=== PATIENT | male | born 1940 | race Caucasian/White ===

== ENCOUNTER → 2016-04-22 | Outpatient (CLI) | payer OTHER ==
[~2016-04-22] MED LIST: ASCA500 PO; ASPCH81 PO; ATOR-24 PO; BISA1TAB15 PO; CHOL1000 PO; CHOL100010 PO; DLC5 PO; FINA5TAB PO; GABA-113 PO; HYDR-3419 PO; LANS15CA6 PO; LANS30CA12 PO; LEFL20TA PO; LISI5TAB3 PO; MELO15TA4 PO; MULT-506 PO; OMEG10007 PO; TAMS0.4C38 PO; VISION VITAMIN PO
--- NOTE | 2016-04-22 16:36 | DIAGNOSTIC IMAGING REPORT ---
KUB CLINICAL HISTORY: Left flank pain. Preop study. Kidney stone. COMPARISON STUDY: 04/06/2016 FINDINGS: There is no pathologic bowel dilatation. There is a 6 mm calcification at the L2 level, consistent with a proximal left ureteral calculus. IMPRESSION: No significant change in the position of the 6 mm proximal left ureteral calculus. Electronically signed by: Jey Joyce M.D. 04/22/2016 4:34 PM Dictated Date/Time: 04/22/2016 4:33 PM
== END | disposition home or self-care (01) ==
LOC: C.RAD 16:06
PROVIDERS: ATTEND Nurse Practitioner Family
DX: N20.0 Calculus of kidney (principal)

== ENCOUNTER → 2016-04-23 | Day surgery (SDC) | payer OTHER ==
[2016-04-21 07:35] VITALS: Ht 167.6 cm; Wt 95.5 kg
[~2016-04-23] VITALS: Ht 167.6 cm; Wt 95.5 kg
[~2016-04-23] MED LIST changes: +ATROPINE SULFATE 0.1 MG/ML 5ML SYR IV PRN; +CIPROFLOXACIN / D5W 400 MG IV SCH; +DEXAMETHASONE SOD INJ 4 MG/ML VIAL ONE; +EpHEDrine SULFATE INJ 50 MG/ML AMP IV PRN; +EpHEDrine SULFATE INJ 50 MG/ML AMP ONE; +FENTANYL CITRATE INJ 50 MCG/1 ML 2 ML VIAL IV PRN; +FENTANYL CITRATE INJ 50 MCG/1 ML 2 ML VIAL ONE; +GLYCOPYRROLATE INJ 0.2 MG/ML VIAL ONE; +LACTATED RINGER'S 1000ML 1,000 ML IV SCH; +MIDAZOLAM HCL 1 MG/ML 2ML VIAL ONE; +ONDANSETRON INJ 2 MG/ML 2 ML VIAL IV PRN; +ONDANSETRON INJ 2 MG/ML 2 ML VIAL ONE; +PROPOFOL IV EMULSION 10 MG/ML 20 ML VIAL IV ONE
--- NOTE | 2016-04-23 11:07 | History & Physical Bridge - SC ---
H&P Re-Evaluation Bridge Note: I have examined the patient, reviewed the History & Physical and in the interval since the performance of the History & Physical I have noted the following changes of clinical significance: No changes noted
--- NOTE | 2016-04-23 11:49 | [facility] Post Operative Brief Note ---
Immediate Operative Summary Operative Date Apr 23, 2016. Pre-Operative Diagnosis Left ureteral stone Post-Operative Diagnosis same Procedure(s) Performed Left Extracorporeal Shock Wave Lithotripsy, Repeat--Ureteral Surgeon Dr Ugalde Radio Host Surgeon(s) 0 Estimated Blood Loss 0 Findings stone appeared to fragment Specimens 0
--- NOTE | 2016-04-23 11:51 | Discharge Instructions-SurgCtr ---
Discharge Instructions Visit Reason for Visit: Stones Discharge Goals Goal(s): Decrease discomfort, Improve function, Increase independence, Improve disease control Medications Stopped Medications Name(s): Asa and fish oil daily, last dose 04/14/16 Activity Recommendations Activity Limitations: as noted below (no driving on narcotics) Anesthesia . Post Anesthesia Instructions: If you have had General Anesthesia or IV Sedation: * Do not drive today. * Resume driving when surgeon permits. * Do not make important decisions or sign legal documents today. * Call surgeon for: 1. Temperature elevations greater than 101 degrees F. 2. Uncontrollable pain. 3. Excessive bleeding. 4. Persistent nausea and vomiting. 5. Medication intolerance (nausea, vomiting or rash). * For nausea and vomiting use only clear liquids such as: tea, soda, bouillon until nausea subsides, then gradually increase diet as tolerated. * If you have any concerns or questions, call your surgeon's office. If physician is unavailable and it is an emergency, call 911 or go to the nearest emergency room. . Diet Recommendations Home Diet: resume previous diet Procedures Procedures Performed: Left Extracorporeal Shock Wave Lithotripsy, Repeat--Ureteral Medical Emergencies . Who to Call and When: Medical Emergencies: If at any time you feel your situation is an emergency, please call 911 immediately. . Non-Emergent Contact Non-Emergency issues call your: Urologist . . "Provider Documentation" section prepared by Josh Ugalde.
--- NOTE | 2016-04-23 12:19 | Anesthesia Progress Nt - [facility] ---
Anesthesia Post Op Note Date & Time Apr 23, 2016 at 12:19 Vital Signs Pain Intensity: 0 Vital Signs Past 12 Hours Date Time Temp Pulse Resp B/P Pulse Ox O2 Delivery O2 Flow Rate FiO2 04/23/16 11:59 36.0 97 12 152/84 96 Diffusion Mask 6 04/23/16 09:26 36.3 65 20 137/79 94 Room Air Notes Mental Status: alert / awake / arousable, participated in evaluation Pt Amnestic to Procedure: Yes Nausea / Vomiting: adequately controlled Pain: adequately controlled Airway Patency, RR, SpO2: stable & adequate BP & HR: stable & adequate Hydration State: stable & adequate Anesthetic Complications: no major complications apparent
[2016-04-23 12:38] VITALS: TEMP 36.4
[2016-04-23 12:55] VITALS: BP 170/90; PULSE 66; O2SAT 95
--- NOTE | 2016-04-23 13:03 | OPERATIVE REPORT ---
DATE OF OPERATION: 04/23/2016 PREOPERATIVE DIAGNOSIS: Proximal left ureteral stone. POSTOPERATIVE DIAGNOSIS: Same. SURGEON: Dr. Ugalde. ANESTHESIA: General. INDICATIONS: The patient is a 75-year-old male with a history of a proximal left ureteral stone who presented for definitive therapy with left ESWL. DESCRIPTION OF THE PROCEDURE: He was taken to the operating room after Venodyne stockings were placed and antibiotics were given. He was placed in supine position. The stone was then visualized and he received 2500 shocks up to level 5. The stone did appear to fragment during the course of the procedure where at least it got coding clerk. At end of the procedure, he was transferred to the recovery room in stable condition. I attest to the content of the Intraoperative Record and any orders documented therein. Any exceptio ns are noted below.
== END | disposition home or self-care (01) ==
LOC: X.SURG 09:08
PROVIDERS: ATTEND Urology
DX: N20.1 Calculus of ureter (principal); I10 Essential (primary) hypertension; E11.9 Type 2 diabetes mellitus without complications; E78.5 Hyperlipidemia, unspecified; K21.9 Gastro-esophageal reflux disease without esophagitis; G47.33 Obstructive sleep apnea (adult) (pediatric); E66.9 Obesity, unspecified; M19.90 Unspecified osteoarthritis, unspecified site; Z98.890 Other specified postprocedural states; E78.00 Pure hypercholesterolemia, unspecified; Z87.891 Personal history of nicotine dependence; Z79.82 Long term (current) use of aspirin

== ENCOUNTER → 2016-04-26 | Outpatient (CLI) | payer OTHER ==
[~2016-04-26] MED LIST changes: -ATROPINE SULFATE 0.1 MG/ML 5ML SYR IV PRN; -CIPROFLOXACIN / D5W 400 MG IV SCH; -DEXAMETHASONE SOD INJ 4 MG/ML VIAL ONE; -EpHEDrine SULFATE INJ 50 MG/ML AMP IV PRN; -EpHEDrine SULFATE INJ 50 MG/ML AMP ONE; -FENTANYL CITRATE INJ 50 MCG/1 ML 2 ML VIAL IV PRN; -FENTANYL CITRATE INJ 50 MCG/1 ML 2 ML VIAL ONE; -GLYCOPYRROLATE INJ 0.2 MG/ML VIAL ONE; -LACTATED RINGER'S 1000ML 1,000 ML IV SCH; -MIDAZOLAM HCL 1 MG/ML 2ML VIAL ONE; -ONDANSETRON INJ 2 MG/ML 2 ML VIAL IV PRN; -ONDANSETRON INJ 2 MG/ML 2 ML VIAL ONE; -PROPOFOL IV EMULSION 10 MG/ML 20 ML VIAL IV ONE
--- NOTE | 2016-04-26 16:46 | DIAGNOSTIC IMAGING REPORT ---
KUB HISTORY: N20.0 Calculus of [id number] COMPARISON: KUB 04/22/2016. FINDINGS: The bowel gas pattern is unremarkable. There are no dilated loops of small bowel to suggest an obstruction. There is a slightly fragment is noted in the mid left ureter overlapping the left L3 transverse process. This has passed approximately 2 cm distal from the prior study. The dominant component measures 5 mm. Is a punctate density overlapping the lower pole of the left kidney which was not present on the prior study. No pneumoperitoneum or pneumatosis. IMPRESSION: 1. Slightly fragmented stone at the mid left ureter which has passed approximately 2 cm distal from the prior study. 2. There is also a new 3 mm calcification overlapping the lower pole of the left kidney which was not present on the prior studies. This could represent a small portion of a stone within the left lower pole of the kidney Electronically signed by: Saud Moser M.D. 04/26/2016 4:44 PM Dictated Date/Time: 04/26/2016 4:39 PM
== END | disposition home or self-care (01) ==
LOC: C.RAD 16:25
PROVIDERS: ATTEND Nurse Practitioner Family
DX: K20.0 Eosinophilic esophagitis (principal)

== ENCOUNTER → 2016-08-05 | Day surgery (SDC) | payer OTHER ==
[2016-07-29 10:26] VITALS: BMI 35.0
[~2016-08-05] VITALS: Ht 167.6 cm; Wt 100.0 kg
[~2016-08-05] MED LIST changes: -CHOL100010 PO; -DLC5 PO; -GABA-113 PO; -HYDR-3419 PO; -LANS15CA6 PO; +LIDOCAINE HCL 2% 2 ML VIAL (20MG/ML) ONE; +MIDAZOLAM HCL 1 MG/ML 2ML VIAL ONE; +ONDANSETRON INJ 2 MG/ML 2 ML VIAL ONE; +PROPOFOL IV EMULSION 10 MG/ML 20 ML VIAL IV ONE
[2016-08-05 12:08] VITALS: Ht 167.6 cm; Wt 100.0 kg
[2016-08-05 12:40] VITALS: TEMP 36.9
--- NOTE | 2016-08-05 12:43 | Endo History and Physical ---
History & Physical Date of Service: Aug 05, 2016. Chief Complaint: SCREENING COLONOSCOPY Referring Physician: DR. MITCHELL History of Present Illness 75 yo CM who presents for screening colonoscopy. Past Surgical History Hx Cardiac Surgery: No Hx Internal Defibrillator: No Hx Pacemaker: No Hx Abdominal Surgery: No Hx of Implantable Prosthesis: No Hx Post-Op Nausea and Vomiting: No Hx Cancer Surgery: No Hx Thoracic Surgery: No Hx Orthopedic: Yes (L/R SHOULDER SURGERY X3, RT TKA, L/R CTR) Hx Urinary Tract Surgery: Yes (LITHOTRIPSY) Family History None Social History Smoking Status: Former Smoker Hx Substance Use: No Hx Alcohol Use: No Allergies Coded Allergies: NO KNOWN DRUG ALLERGIES (Verified Allergy, Unknown, ., 08/05/16) Scallop (Verified Adverse Reaction, Unknown, VOMITING, 08/05/16) Current Medications Reported Home Medications Medications Dose Route/Sig Max Daily Dose Days Date Category Bisacodyl 5 Mg Tab 1 Tab PO QPM 07/29/16 Reported Vitamin D3 (Cholecalciferol) 1,000 Unit Tab 1 Tab PO QAM 90 07/29/16 Reported Lipitor (Atorvastatin Calcium) 40 Mg Tab 40 Mg PO QPM 07/29/16 Reported Mobic (Meloxicam) 15 Mg Tab 15 Mg PO DAILY 07/29/16 Reported Prevacid (Lansoprazole) 30 Mg Capcr 30 Mg PO QAM 07/29/16 Reported [Vision Vitamin] 1 Tab PO DAILY 07/09/11 Reported Everest-3 (Fish Oil) 1 Ea Cap 1 Cap PO BID 12/04/10 Reported Multivitamin (Multivitamins) Tab 1 Tab PO DAILY 07/04/07 Reported Vitamin C * (Ascorbic Acid) 500 Mg Tab 500 Mg PO DAILY 07/04/07 Reported Aspirin Tab-Chewable * (Aspirin) 81 Mg Chew 81 Mg PO BID 07/04/07 Reported Zestril (Lisinopril) 5 Mg Tab 5 Mg PO QAM 07/04/07 Reported Vital Signs Weight (Kilograms): 100.00 Height (Feet): 5 Height (Inches): 6 Date Time Temp Pulse Resp B/P Pulse Ox O2 Delivery O2 Flow Rate FiO2 08/05/16 12:40 36.9 61 20 125/71 95 Room Air Physical Exam General Appearance: WD/WN, no apparent distress Respiratory/Chest: Auscultation: breath sounds normal Cardiovascular: Heart Auscultation: RRR Abdomen: Bowel Sounds: normal Inspection & Palpation: soft, non-distended, no tenderness, guarding & rebound Assessment and Plan Assessment: 75 yo CM who presents for screening colonoscopy. Plan: Proceed with colonoscopy.
--- NOTE | 2016-08-05 14:07 | GI REPORT ---
Procedure Date: 08/05/2016 1:16 PM Procedure: Colonoscopy Indications: Screening for colorectal malignant neoplasm Medicines: Monitored Anesthesia Care Complications: No immediate complications. Estimated Blood Loss: Estimated blood loss: none. Procedure: Pre-Anesthesia Assessment: - Prior to the procedure, a History and Physical was performed, and patient medications and allergies were reviewed. The patient's tolerance of previous anesthesia was also reviewed. The risks and benefits of the procedure and the sedation options and risks were discussed with the patient. All questions were answered, and informed consent was obtained. Prior Anticoagulants: The patient has taken aspirin, last dose was 10 days prior to procedure. ASA Grade Assessment: II - A patient with mild systemic disease. After reviewing the risks and benefits, the patient was deemed in satisfactory condition to undergo the procedure. After I obtained informed consent, the scope was passed under direct vision. Throughout the procedure, the patient's blood pressure, pulse, and oxygen saturations were monitored continuously. The scope was introduced through the anus and advanced to the terminal ileum. The colonoscopy was performed without difficulty. The patient tolerated the procedure well. The quality of the bowel preparation was good. The terminal ileum, ileocecal valve, appendiceal orifice, and rectum were photographed. Findings: Multiple small-mouthed diverticula were found in the sigmoid colon. Non-bleeding internal hemorrhoids were found during retroflexion. The hemorrhoids were small. Impression: - Diverticulosis in the sigmoid colon. - Non-bleeding internal hemorrhoids. - No specimens collected. Recommendation: - Resume previous diet. - Continue present medications. - No repeat colonoscopy due to age and the absence of advanced adenomas. - Return to primary care physician as previously scheduled. Josh Franco DO 08/05/2016 2:06:04 PM This report has been signed electronically. Note Initiated On: 08/05/2016 1:16 PM I attest to the content of the Intraoperative Record and orders documented therein, exceptions below
--- NOTE | 2016-08-05 14:08 | Discharge Instructions ---
Endoscopy Patient Instructions Date / Procedure(s) Performed Aug 05, 2016. Colonoscopy Allergy Information Coded Allergies: NO KNOWN DRUG ALLERGIES (Verified Allergy, Unknown, ., 08/05/16) Scallop (Verified Adverse Reaction, Unknown, VOMITING, 08/05/16) Discharge Date / Findings Aug 05, 2016. Diverticulosis Internal hemorrhoids Medication Instructions Stopped Medication(s): STOPPED ASA 10 DAYS AGO OK to resume all medications today as prescribed Reported Home Medications Medications Dose Route/Sig Max Daily Dose Days Date Category Bisacodyl 5 Mg Tab 1 Tab PO QPM 07/29/16 Reported Vitamin D3 (Cholecalciferol) 1,000 Unit Tab 1 Tab PO QAM 90 07/29/16 Reported Lipitor (Atorvastatin Calcium) 40 Mg Tab 40 Mg PO QPM 07/29/16 Reported Mobic (Meloxicam) 15 Mg Tab 15 Mg PO DAILY 07/29/16 Reported Prevacid (Lansoprazole) 30 Mg Capcr 30 Mg PO QAM 07/29/16 Reported [Vision Vitamin] 1 Tab PO DAILY 07/09/11 Reported [place]-3 (Fish Oil) 1 Ea Cap 1 Cap PO BID 12/04/10 Reported Multivitamin (Multivitamins) Tab 1 Tab PO DAILY 07/04/07 Reported Vitamin C * (Ascorbic Acid) 500 Mg Tab 500 Mg PO DAILY 07/04/07 Reported Aspirin Tab-Chewable * (Aspirin) 81 Mg Chew 81 Mg PO BID 07/04/07 Reported Zestril (Lisinopril) 5 Mg Tab 5 Mg PO QAM 07/04/07 Reported Provider Instructions Activity Restrictions - No exercising or heavy lifting for 24 hours. - Do not drink alcohol the day of the procedure. - Do not drive a car or operate machinery until the day after the procedure. - Do not make any important decisions or sign important papers in 24 hours after the procedure. Following Day: - Return to full activity which may include returning to work/school. Diet Start your diet with liquids and light foods (jello, soup, juice, toast). Then eat your usual diet if not nauseated. Treatment For Common After Affects For mild abdominal pain, bloating, or excessive gas: - Rest - Eat lightly - Lie on right side Follow-Up Information Follow-up with DR. MITCHELL as scheduled Anesthesia Information What You Should Know You have had a procedure that required some medicine to reduce anxiety and discomfort. This treatment is called moderate sedation. After receiving the treatment, you may be sleepy, but you will be able to breathe on your own. The effects of the treatment may last for several hours. Follow these instructions along with Activity/Diet recommendations noted above: * Do NOT do anything where dizziness or clumsiness would be dangerous. * Rest quietly at home today, then you can be up and about tomorrow. * Have a responsible person stay with you the rest of today. * You may have had an I.V. today. If so, you may take the dressing off later today. Recommendations Call your doctor if: * Trouble breathing * Continuous vomiting for more than 24 hours * Temperature above 101 degrees * Severe abdominal pain or bloating * Pain not relieved by pain medicine ordered * There is increased drainage or redness from any incision * A large amount of rectal bleeding greater than 2-3 tablespoons. (If you had a polyp/s removed or have hemorrhoids, a small amount of blood - from the rectum is to be expected.) * You have any unanswered questions or concerns. IN THE EVENT OF A SERIOUS EMERGENCY, GO TO THE NEAREST EMERGENCY ROOM Your discharge instructions were prepared by provider Josh Franco. Patient Instructions Signature Page Barney Lofton Patient (or Guardian) Signature/Date: I have read and understand the instructions given to me by my caregivers. Caregiver/RN/Doctor Signature/Date: The above-named patient and/or guardian has received patient instructions on this date. + Original Patient Signature Page (only) stays with chart. Please make copy for patient.
[2016-08-05 14:35] VITALS: BP 129/82; PULSE 52; O2SAT 96
--- NOTE | 2016-08-05 14:37 | Anesthesiology Progress Note ---
Anesthesia Post Op Note Date & Time Aug 05, 2016 at 14:36 Vital Signs Pain Intensity: 0 Vital Signs Past 12 Hours Date Time Temp Pulse Resp B/P Pulse Ox O2 Delivery O2 Flow Rate FiO2 08/05/16 14:18 54 16 130/76 95 Room Air 08/05/16 14:03 60 16 129/69 95 Room Air 08/05/16 12:40 36.9 61 20 125/71 95 Room Air Notes Mental Status: alert / awake / arousable, participated in evaluation Pt Amnestic to Procedure: Yes Nausea / Vomiting: adequately controlled Pain: adequately controlled Airway Patency, RR, SpO2: stable & adequate BP & HR: stable & adequate Hydration State: stable & adequate Anesthetic Complications: no major complications apparent
== END | disposition home or self-care (01) ==
LOC: C.GI 11:58
PROVIDERS: ATTEND Internal Medicine
DX: Z12.11 Encounter for screening for malignant neoplasm of colon (principal); K64.8 Other hemorrhoids; K57.30 Diverticulosis of large intestine without perforation or abscess without bleeding; Z96.651 Presence of right artificial knee joint; Z87.891 Personal history of nicotine dependence

== ENCOUNTER → 2016-08-09 | Outpatient (CLI) | payer OTHER ==
[2016-08-05 13:55] LABS: BLOOD UREA NITROGEN 9 mg/dl (7-18); BUN/CREATININE RATIO 10.2 (10-20); CREATININE 0.91 mg/dl (0.60-1.40)
[~2016-08-09] MED LIST changes: -LIDOCAINE HCL 2% 2 ML VIAL (20MG/ML) ONE; -MIDAZOLAM HCL 1 MG/ML 2ML VIAL ONE; -ONDANSETRON INJ 2 MG/ML 2 ML VIAL ONE; +OPTIRAY 300 IV PRN; -PROPOFOL IV EMULSION 10 MG/ML 20 ML VIAL IV ONE
--- NOTE | 2016-08-09 14:15 | DIAGNOSTIC IMAGING REPORT ---
IVP W/OR W/O TOMOGRAMS CLINICAL HISTORY: Nephrolithiasis. COMPARISON STUDY: CT of the abdomen and pelvis April 08, 2016 and KUB April 26, 2016. TECHNIQUE: Initially, a breeder service technician KUB was obtained. An intravenous pyelogram was then performed following intravenous injection 100 cc of Optiray 300 IV. FINDINGS: Both nephrograms are symmetric. There is no hydronephrosis or hydroureter. No upper tract filling defects are identified. No urinary calculi are visualized. The left ureteral calculi/fragments shown on exam of April 26, 2016 are not visualized. Irregular bladder wall favors trabeculation. There is no significant post void residual. IMPRESSION: 1. No hydronephrosis or hydroureter. 2. No urinary calculi identified. The left ureteral calculi/fragments shown on prior exam of April 26, 2016 are not visualized on this study. 3. Irregularity of the bladder wall which favors trabeculations. Suboptimal evaluation of the bladder given this technique. Electronically signed by: Zev Baird M.D. 08/09/2016 2:13 PM Dictated Date/Time: 08/09/2016 2:08 PM
== END | disposition home or self-care (01) ==
LOC: C.RAD 12:27
PROVIDERS: ATTEND Urology
DX: N20.0 Calculus of kidney (principal); Z12.5 Encounter for screening for malignant neoplasm of prostate; N40.0 Benign prostatic hyperplasia without lower urinary tract symptoms

== ENCOUNTER → 2016-09-02 | Outpatient (CLI) | payer OTHER ==
[~2016-09-02] MED LIST changes: -OPTIRAY 300 IV PRN
[2016-09-02 12:16] LABS: BASO % 0.7 %; BASO ABS # 0.05 K/uL (0-0.2); COMPLETE YES; EOS % 1.5 %; HEMATOCRIT 45.3 % (42-52); IG% 0.1 %; LYMPH % 34.3 %; LYMPH ABS # 2.29 K/uL (1.2-3.4); MEAN CELL VOLUME 90.8 fL (80-100); MEAN CORPUSCULAR HEMOGLOBIN 30.5 pg (25-34); MEAN CORPUSCULAR HGB CONC 33.6 g/dl (32-36); MEAN PLATELET VOLUME 12.3 fL (7.4-10.4); MONO % 15.1 %; NEUT % 48.3 %; PLATELET COUNT 192 K/uL (130-400); RED BLOOD COUNT 4.99 M/uL (4.7-6.1); WHITE BLOOD COUNT 6.67 K/uL (4.8-10.8)
[2016-09-02 12:20] LABS: URINE APPEARANCE CLEAR (CLEAR); URINE BILIRUBIN NEG (NEG); URINE COLOR YELLOW; URINE NITRITE NEG (NEG); URINE PH 6.5 (4.5-7.5); URINE SPECIFIC GRAVITY 1.025 (1.000-1.030); UROBILINOGEN NEG (NEG); ZZUR CULT IF INDIC CLEAN CATCH NO
[2016-09-02 12:33] LABS: MANUAL MICROSCOPIC REQUIRED? NO; REVIEW REQ? NO
[2016-09-02 12:34] LABS: ESTIMATED AVERAGE GLUCOSE 137 mg/dl; HA1C FLAG Normal (Normal)
[2016-09-02 13:11] LABS: ALKALINE PHOSPHATASE 84 U/L (45-117); ALT/SGPT 32 U/L (12-78); AST/SGOT 21 U/L (15-37); BLOOD UREA NITROGEN 13 mg/dl (7-18); BUN/CREATININE RATIO 15.2 (10-20); CARBON DIOXIDE 27 mmol/L (21-32); CHLORIDE 108 mmol/L (98-107); CHOLESTEROL 128 mg/dl (0-200); CHOLESTEROL/HDL RATIO 3.5; CREATININE 0.86 mg/dl (0.60-1.40); GLUCOSE 127 mg/dl (70-99); HDL CHOLESTEROL 37 mg/dl; LDL CHOLESTEROL CALCULATED 50 mg/dl; POTASSIUM 3.8 mmol/L (3.5-5.1); SODIUM 142 mmol/L (136-145); TRIGLYCERIDES 203 mg/dl (0-150); VERY LOW DENSITY LIPOPROT CALC 41 mg/dl
[2016-09-02 13:17] LABS: RATIO 7.5 mcg/mg (0-30.0)
[2016-09-02 13:21] LABS: ALB/GLOB RATIO 1.1 (0.9-2)
== END | disposition home or self-care (01) ==
LOC: C.LABBFT 09:29
PROVIDERS: ATTEND Internal Medicine
DX: M19.90 Unspecified osteoarthritis, unspecified site (principal); E11.9 Type 2 diabetes mellitus without complications; M85.80 Other specified disorders of bone density and structure, unspecified site; E78.00 Pure hypercholesterolemia, unspecified

== ENCOUNTER → 2016-09-28 | Day surgery (SDC) | payer OTHER ==
[2016-09-09 09:58] VITALS: Ht 167.6 cm; Wt 100.0 kg
[~2016-09-28] VITALS: Ht 167.6 cm; Wt 100.0 kg
[~2016-09-28] MED LIST changes: +500ML BSS 0.3ML EPI 1:1000PF IRRIG ONE; +ACETAMINOPHEN 325 MG TAB PO PRN; +AMVISC PLUS 0.8ML SYRINGE INT OCU ONE; +ATROPINE SULFATE 0.1 MG/ML 5ML SYR IV PRN; +BSS FLUSH ONE; +EpHEDrine SULFATE INJ 50 MG/ML AMP IV PRN; +EpINEphrine INJ 1MG/ML AMP 1 MG/ML AMP ONE; +FENTANYL CITRATE INJ 50 MCG/1 ML 2 ML VIAL IV PRN; +FLUMAZENIL 0.1 MG/1 ML 10 ML VIAL IV PRN; +HYDROmorphone INJ 2 MG/ML SYR/VIAL IV PRN; +LABETALOL HCL IV 5 MG/ML 20ML IV PRN; +LACTATED RINGER'S 1000ML 500 ML IV SCH; +LIDOCAINE 3.5% OPH GEL PER APPLICATION CHARGE ONE; +LIDOCAINE HCL 1% MPF 2 ML VIAL ONE; +MEPERIDINE HCL 25 MG/ML CARP IV PRN; +MIDAZOLAM HCL 1 MG/ML 2ML VIAL ONE; -MULT-506 PO; +NALOXONE HCL 0.4 MG/1 ML VIAL/CARP IV PRN; +OCUCOAT 1 ML SOLN IO ONE; +ONDANSETRON INJ 2 MG/ML 2 ML VIAL IV PRN; +PHENYLEPHRINE 100MCG/ML 5ML SYR IV PRN; +POVIDONE-IODINE OP SOLN 30 ML BTL ONE; +PROPARACAINE 0.5% OP SOLN PER DROP CHARGE OPL SCH; +TOBRAMYCIN/DEXAMETHASONE OPH OINT PER APPLN CHARGE ONE
[2016-09-28] MEDS: PHENYLEPHRINE HCL 2.5% OP SOLN PER DROP CHARGE OPL SCH ×2 (07:06→07:11)
[2016-09-28] MEDS: TROPICAMIDE 1% OP SOLN PER DROP CHARGE OPL SCH ×2 (07:07→07:12)
[2016-09-28] MEDS: CYCLOPENTOLATE HCL 1% OP SOLN PER DROP CHARGE OPL SCH ×2 (07:08→07:13)
[2016-09-28] MEDS: GATIFLOXACIN OP SOLN PER DROP CHARGE OPL SCH ×2 (07:10→07:20)
[2016-09-28] MEDS: KETOROLAC 0.5% OP SOLN PER DROP CHARGE OPL SCH ×2 (07:10→07:14)
--- NOTE | 2016-09-28 08:26 | Discharge Instructions-SurgCtr ---
Discharge Instructions Date of Service Sep 28, 2016. Visit Reason for Visit: Cataract Left Eye Discharge Discharge Diagnosis / Problem: cataract Discharge Goals Goal(s): Improve function Activity Recommendations Activity Limitations: per Instructions/Follow-up section Anesthesia . Post Anesthesia Instructions: If you have had General Anesthesia or IV Sedation: * Do not drive today. * Resume driving when surgeon permits. * Do not make important decisions or sign legal documents today. * Call surgeon for: 1. Temperature elevations greater than 101 degrees F. 2. Uncontrollable pain. 3. Excessive bleeding. 4. Persistent nausea and vomiting. 5. Medication intolerance (nausea, vomiting or rash). * For nausea and vomiting use only clear liquids such as: tea, soda, bouillon until nausea subsides, then gradually increase diet as tolerated. * If you have any concerns or questions, call your surgeon's office. If physician is unavailable and it is an emergency, call 911 or go to the nearest emergency room. . Instructions / Follow-Up Instructions / Follow-Up ACTIVITY RECOMMENDATIONS: * No strenuous lifting, jogging or running for 4 days * No swimming or yard work for 1 week. * Limited bending is permitted, such as putting on shoes. RETURN TO SCHOOL/WORK: No work until seen by physician in office. MEDICATIONS: Resume previous medications unless instructed otherwise by your surgeon. This includes eye drops for glaucoma. Zymaxid/Gatifloxacin (mirza cap) - one drop every 2 hours until bedtime Nevanac/Ilevro/Prolensa/Ketorolac (dumont cap) - one drop every 4 hours until bedtime Prednisolone (white/pink cap, SHAKE WELL) - one drop every 2 hours until bedtime Starting tomorrow - all 3 drops every 4 hours until seen in the office Optive drops - as needed for discomfort SPECIAL CARE INSTRUCTIONS: * Wear eyeshield when sleeping, for four nights. * You may wear your own glasses or sunglasses while awake. * You may read or watch TV * You may shower and wash your face, but be gentle around the eye and pat dry. * Blurry vision and mild irritation are normal. * Call office if pain is more severe or vision becomes dark at . FOLLOW UP VISIT: Follow-up with Dr Plummer tomorrow. Diet Recommendations Home Diet: resume previous diet Procedures Procedures Performed: Left Cataract Phacoemulsification With Intraocular Lens Implant Pending Studies Studies pending at discharge: no Medical Emergencies . Who to Call and When: Medical Emergencies: If at any time you feel your situation is an emergency, please call 911 immediately. . Non-Emergent Contact Non-Emergency issues call your: [employer] . . "Provider Documentation" section prepared by Lauro Plummer. .
--- NOTE | 2016-09-28 08:27 | [facility] Operative Report ---
Operative Report Date of Service Sep 28, 2016. Operative Report 1. PREOPERATIVE DIAGNOSIS: Cataract of the left eye. 2. POSTOPERATIVE DIAGNOSIS: Same. 3. PROCEDURE: Phacoemulsification with intraocular lens implantation of the left eye. SURGEON: Dr. Lauro Plummer. ANESTHESIA: Topical Lidocaine gel, 1% Non- Preserved intracameral Lidocaine, and monitored intravenous sedation. INDICATIONS FOR THE PROCEDURE: The patient is a 75 - year-old male with a history of cataract of the left eye causing significant visual impairment. The details of the proposed procedure were explained to the patient who asked appropriate questions and following discussion of all risks, benefits and alternatives agreed to have the procedure done. 4. OPERATION AND FINDINGS: DESCRIPTION OF PROCEDURE: After informed consent was obtained, the patient was brought to the Operating Room at the [facility]. The patient was placed in a supine position and then the left eye was prepped and draped in the usual sterile fashion for intraocular surgery. A drop of topical Lidocaine gel was placed in the operative eye. A wire lid speculum was then placed in the fornices. A corneal paracentesis was then created temporally. The Non-Preserved Lidocaine was then instilled into the anterior chamber. The anterior chamber was then pressurized with viscoelastic. A 2.0 mm clear corneal incision was then created temporally. A cystotome was inserted into the anterior chamber and used to create a tear in the anterior lens capsule. This capsular tear was then used to create a small flap and the flap was dragged in a counterclockwise direction in order to create a continuous curvilinear capsulorrhexis. Hydrodissection was accomplished with balanced salt solution. Phacoemulsification of the lens nucleus was then performed in a standard [id number] technique. The phaco time was 27 seconds with an average power of 12 %. The remaining cortical material was removed using irrigation aspiration. The capsular bag was then filled with viscoelastic. A [employer]ch [employer] Lomb MI60L +25.0 diopters lens was then loaded into the injector and injected into the capsular bag. The remaining viscoelastic was removed with the irrigation aspiration handpiece. The wound was hydrated and then checked and found to be watertight. The intraocular pressure was checked and found to be adequate. The wire lid speculum was removed and the patient's face was cleaned and dried. TobraDex ointment was placed in the inferior fornix. The patient was discharged to the Recovery Room having tolerated the procedure well. There were no complications. The patient will be seen tomorrow in the office for follow-up. I attest to the content of the Intraoperative Record and any orders documented therein. Any exceptions are noted below.
[2016-09-28 08:30] VITALS: TEMP 36.9
--- NOTE | 2016-09-28 08:45 | Anesthesia Progress Nt - [facility] ---
Anesthesia Post Op Note Date & Time Sep 28, 2016 at 08:45 Vital Signs Pain Intensity: 0 Vital Signs Past 12 Hours Date Time Temp Pulse Resp B/P (MAP) Pulse Ox O2 Delivery O2 Flow Rate FiO2 09/28/16 08:30 36.9 60 18 124/79 (94) 97 Room Air 09/28/16 06:58 36.9 69 20 146/83 (104) 93 Room Air Notes Mental Status: alert / awake / arousable, participated in evaluation Pt Amnestic to Procedure: Yes Nausea / Vomiting: adequately controlled Pain: adequately controlled Airway Patency, RR, SpO2: stable & adequate BP & HR: stable & adequate Hydration State: stable & adequate Anesthetic Complications: no major complications apparent
[2016-09-28 08:51] VITALS: BP 149/90; PULSE 56; O2SAT 95
== END | disposition home or self-care (01) ==
LOC: X.SURG 06:41
PROVIDERS: ATTEND Ophthalmology
DX: H26.9 Unspecified cataract (principal); H40.9 Unspecified glaucoma; E11.36 Type 2 diabetes mellitus with diabetic cataract; I10 Essential (primary) hypertension; E78.5 Hyperlipidemia, unspecified; G47.33 Obstructive sleep apnea (adult) (pediatric); Z98.890 Other specified postprocedural states; Z96.659 Presence of unspecified artificial knee joint; Z87.891 Personal history of nicotine dependence; Z79.82 Long term (current) use of aspirin; Z79.899 Other long term (current) drug therapy; Z68.35 Body mass index [BMI] 35.0-35.9, adult

== ENCOUNTER → 2016-10-26 | Day surgery (SDC) | payer OTHER ==
[2016-10-05 11:14] VITALS: Ht 167.6 cm; Wt 100.0 kg
[~2016-10-26] VITALS: Ht 167.6 cm; Wt 100.0 kg
[~2016-10-26] MED LIST changes: -FENTANYL CITRATE INJ 50 MCG/1 ML 2 ML VIAL IV PRN; -FLUMAZENIL 0.1 MG/1 ML 10 ML VIAL IV PRN; -HYDROmorphone INJ 2 MG/ML SYR/VIAL IV PRN; -LABETALOL HCL IV 5 MG/ML 20ML IV PRN; -MEPERIDINE HCL 25 MG/ML CARP IV PRN; -NALOXONE HCL 0.4 MG/1 ML VIAL/CARP IV PRN; -ONDANSETRON INJ 2 MG/ML 2 ML VIAL IV PRN; -PHENYLEPHRINE 100MCG/ML 5ML SYR IV PRN; -PROPARACAINE 0.5% OP SOLN PER DROP CHARGE OPL SCH; +PROPARACAINE 0.5% OP SOLN PER DROP CHARGE OPR SCH
[2016-10-26] MEDS: PHENYLEPHRINE HCL 2.5% OP SOLN PER DROP CHARGE OPR SCH ×2 (10:33→10:38)
[2016-10-26] MEDS: TROPICAMIDE 1% OP SOLN PER DROP CHARGE OPR SCH ×2 (10:34→10:40)
[2016-10-26] MEDS: CYCLOPENTOLATE HCL 1% OP SOLN PER DROP CHARGE OPR SCH ×2 (10:35→10:41)
[2016-10-26] MEDS: KETOROLAC 0.5% OP SOLN PER DROP CHARGE OPR SCH ×2 (10:36→10:42)
[2016-10-26] MEDS: GATIFLOXACIN OP SOLN PER DROP CHARGE OPR SCH ×2 (10:37→10:42)
--- NOTE | 2016-10-26 11:48 | [facility] Operative Report ---
Operative Report Date of Service Oct 26, 2016. Operative Report 1. PREOPERATIVE DIAGNOSIS: Cataract of the right eye. 2. POSTOPERATIVE DIAGNOSIS: Same. 3. PROCEDURE: Phacoemulsification with intraocular lens implantation of the right eye. SURGEON: Dr. Lauro Plummer. ANESTHESIA: Topical Lidocaine gel, 1% Non- Preserved intracameral Lidocaine, and monitored intravenous sedation. INDICATIONS FOR THE PROCEDURE: The patient is a 75 - year-old male with a history of cataract of the right eye causing significant visual impairment. The details of the proposed procedure were explained to the patient who asked appropriate questions and following discussion of all risks, benefits and alternatives agreed to have the procedure done. 4. OPERATION AND FINDINGS: DESCRIPTION OF PROCEDURE: After informed consent was obtained, the patient was brought to the Operating Room at the [facility]. The patient was placed in a supine position and then the right eye was prepped and draped in the usual sterile fashion for intraocular surgery. A drop of topical Lidocaine gel was placed in the operative eye. A wire lid speculum was then placed in the fornices. A corneal paracentesis was then created temporally. The Non-Preserved Lidocaine was then instilled into the anterior chamber. The anterior chamber was then pressurized with viscoelastic. A 2.0 mm clear corneal incision was then created temporally. A cystotome was inserted into the anterior chamber and used to create a tear in the anterior lens capsule. This capsular tear was then used to create a small flap and the flap was dragged in a counterclockwise direction in order to create a continuous curvilinear capsulorrhexis. Hydrodissection was accomplished with balanced salt solution. Phacoemulsification of the lens nucleus was then performed in a standard [id number] technique. The phaco time was 27 seconds with an average power of 13 %. The remaining cortical material was removed using irrigation aspiration. The capsular bag was then filled with viscoelastic. A [employer]ch [employer] Lomb MI60L +25.0 diopters lens was then loaded into the injector and injected into the capsular bag. The remaining viscoelastic was removed with the irrigation aspiration handpiece. The wound was hydrated and then checked and found to be watertight. The intraocular pressure was checked and found to be adequate. The wire lid speculum was removed and the patient's face was cleaned and dried. TobraDex ointment was placed in the inferior fornix. The patient was discharged to the Recovery Room having tolerated the procedure well. There were no complications. The patient will be seen tomorrow in the office for follow-up. I attest to the content of the Intraoperative Record and any orders documented therein. Any exceptions are noted below.
--- NOTE | 2016-10-26 11:49 | Discharge Instructions-SurgCtr ---
Discharge Instructions Date of Service Oct 26, 2016. Visit Reason for Visit: Cataract Right Eye Discharge Discharge Diagnosis / Problem: cataract Discharge Goals Goal(s): Improve function Activity Recommendations Activity Limitations: per Instructions/Follow-up section Anesthesia . Post Anesthesia Instructions: If you have had General Anesthesia or IV Sedation: * Do not drive today. * Resume driving when surgeon permits. * Do not make important decisions or sign legal documents today. * Call surgeon for: 1. Temperature elevations greater than 101 degrees F. 2. Uncontrollable pain. 3. Excessive bleeding. 4. Persistent nausea and vomiting. 5. Medication intolerance (nausea, vomiting or rash). * For nausea and vomiting use only clear liquids such as: tea, soda, bouillon until nausea subsides, then gradually increase diet as tolerated. * If you have any concerns or questions, call your surgeon's office. If physician is unavailable and it is an emergency, call 911 or go to the nearest emergency room. . Instructions / Follow-Up Instructions / Follow-Up ACTIVITY RECOMMENDATIONS: * No strenuous lifting, jogging or running for 4 days * No swimming or yard work for 1 week. * Limited bending is permitted, such as putting on shoes. RETURN TO SCHOOL/WORK: No work until seen by physician in office. MEDICATIONS: Resume previous medications unless instructed otherwise by your surgeon. This includes eye drops for glaucoma. Zymaxid/Gatifloxacin (mirza cap) - one drop every 2 hours until bedtime Nevanac/Ilevro/Prolensa/Ketorolac (dumont cap) - one drop every 4 hours until bedtime Prednisolone/Durezol (white/pink cap, SHAKE WELL) - one drop every 2 hours until bedtime Starting tomorrow - all 3 drops every 4 hours until seen in the office Optive drops - as needed for discomfort SPECIAL CARE INSTRUCTIONS: * Wear eyeshield when sleeping, for four nights. * You may wear your own glasses or sunglasses while awake. * You may read or watch TV * You may shower and wash your face, but be gentle around the eye and pat dry. * Blurry vision and mild irritation are normal. * Call office if pain is more severe or vision becomes dark at . FOLLOW UP VISIT: Follow-up with Dr Plummer tomorrow. Diet Recommendations Home Diet: resume previous diet Pending Studies Studies pending at discharge: no Medical Emergencies . Who to Call and When: Medical Emergencies: If at any time you feel your situation is an emergency, please call 911 immediately. . Non-Emergent Contact Non-Emergency issues call your: [employer] Operator . . "Provider Documentation" section prepared by Lauro Plummer. .
--- NOTE | 2016-10-26 12:20 | Anesthesia Progress Nt - [facility] ---
Anesthesia Post Op Note Date & Time Oct 26, 2016 at 12:20 Vital Signs Pain Intensity: 0 Vital Signs Past 12 Hours Date Time Temp Pulse Resp B/P (MAP) Pulse Ox O2 Delivery O2 Flow Rate FiO2 10/26/16 11:48 36.5 54 16 131/78 (95) 98 Room Air 10/26/16 10:29 37.0 54 16 145/84 (104) 94 Room Air Notes Mental Status: alert / awake / arousable, participated in evaluation Pt Amnestic to Procedure: Yes Nausea / Vomiting: adequately controlled Pain: adequately controlled Airway Patency, RR, SpO2: stable & adequate BP & HR: stable & adequate Hydration State: stable & adequate Anesthetic Complications: no major complications apparent
[2016-10-26 12:22] VITALS: BP 138/74; PULSE 50; O2SAT 96
== END | disposition home or self-care (01) ==
LOC: X.SURG 10:01
PROVIDERS: ATTEND Ophthalmology
DX: H26.9 Unspecified cataract (principal); I10 Essential (primary) hypertension; Z87.440 Personal history of urinary (tract) infections

== ENCOUNTER → 2017-03-17 | Outpatient (CLI) | payer OTHER ==
[~2017-03-17] MED LIST changes: -500ML BSS 0.3ML EPI 1:1000PF IRRIG ONE; -ACETAMINOPHEN 325 MG TAB PO PRN; -AMVISC PLUS 0.8ML SYRINGE INT OCU ONE; -ATROPINE SULFATE 0.1 MG/ML 5ML SYR IV PRN; -BSS FLUSH ONE; -EpHEDrine SULFATE INJ 50 MG/ML AMP IV PRN; -EpINEphrine INJ 1MG/ML AMP 1 MG/ML AMP ONE; -LACTATED RINGER'S 1000ML 500 ML IV SCH; -LIDOCAINE 3.5% OPH GEL PER APPLICATION CHARGE ONE; -LIDOCAINE HCL 1% MPF 2 ML VIAL ONE; -MIDAZOLAM HCL 1 MG/ML 2ML VIAL ONE; -OCUCOAT 1 ML SOLN IO ONE; -POVIDONE-IODINE OP SOLN 30 ML BTL ONE; -PROPARACAINE 0.5% OP SOLN PER DROP CHARGE OPR SCH; -TOBRAMYCIN/DEXAMETHASONE OPH OINT PER APPLN CHARGE ONE
[2017-03-17 13:40] LABS: ESTIMATED AVERAGE GLUCOSE 137 mg/dl; HA1C FLAG Normal (Normal)
[2017-03-17 13:52] LABS: ALT/SGPT 49 U/L (12-78); AST/SGOT 33 U/L (15-37); BLOOD UREA NITROGEN 16 mg/dl (7-18); BUN/CREATININE RATIO 15.9 (10-20); CALCIUM 8.9 mg/dl (8.5-10.1); CARBON DIOXIDE 27 mmol/L (21-32); CHLORIDE 104 mmol/L (98-107); CHOLESTEROL 99 mg/dl (0-200); CREATININE 0.99 mg/dl (0.60-1.40); GLUCOSE 133 mg/dl (70-99); POTASSIUM 4.2 mmol/L (3.5-5.1); SODIUM 139 mmol/L (136-145); TRIGLYCERIDES 304 mg/dl (0-150); VERY LOW DENSITY LIPOPROT CALC 61 mg/dl
[2017-03-17 13:57] LABS: ALB/GLOB RATIO 1.1 (0.9-2); ALKALINE PHOSPHATASE 102 U/L (45-117); CHOLESTEROL/HDL RATIO 2.9; HDL CHOLESTEROL 34 mg/dl; LDL CHOLESTEROL CALCULATED 4 mg/dl; PROSTATE SPECIFIC ANTIGEN 0.835 ng/ml (0.000-4.000)
[2017-03-17 13:58] LABS: RATIO 4.2 mcg/mg (0-30.0)
== END | disposition home or self-care (01) ==
LOC: C.LABBFT 08:49
PROVIDERS: ATTEND Nurse Practitioner
DX: E11.9 Type 2 diabetes mellitus without complications (principal); Z12.5 Encounter for screening for malignant neoplasm of prostate

== ENCOUNTER → 2017-03-22 | Outpatient (CLI) | payer OTHER ==
--- NOTE | 2017-03-22 09:46 | DIAGNOSTIC IMAGING REPORT ---
ULTRASOUND OF THE CAROTID ARTERIES CLINICAL HISTORY: Carotid bruit. COMPARISON STUDY: Carotid artery ultrasound dated 10/20/2012. TECHNIQUE: Real-time, grayscale, and color Doppler sonography of the carotid arteries is performed. Images are reviewed in the transverse and longitudinal planes. FINDINGS: Blood pressure in the right arm measures 119/62 and blood pressure in the left arm measures 100 1272. The carotid arteries are patent bilaterally and demonstrate antegrade flow. There is minimal atherosclerotic plaque identified. Normal doppler arterial waveforms are seen throughout. Velocity measurements are listed below. Common carotid peak systolic velocity (cm/sec): RIGHT: 92 LEFT: 87 ICA proximal peak systolic velocity (cm/sec): RIGHT: 50 LEFT: 42 ICA mid peak systolic velocity (cm/sec): RIGHT: 53 LEFT: 58 ICA distal peak systolic velocity (cm/sec): RIGHT: 63 LEFT: 59 ICA/CC peak systolic ratio: RIGHT: 0.7 LEFT: 0.7 Antegrade flow was shown in the vertebral arteries. The external carotid arteries are patent. IMPRESSION: 1. There is no sonographic evidence of hemodynamically significant stenosis in the right or left carotid arterial system. 2. Antegrade flow is shown in the vertebral arteries. Electronically signed by: Lawrence Ann M.D. 03/22/2017 9:44 AM Dictated Date/Time: 03/22/2017 9:43 AM
== END | disposition home or self-care (01) ==
LOC: C.ULTR 08:48
PROVIDERS: ATTEND Nurse Practitioner
DX: R09.89 Other specified symptoms and signs involving the circulatory and respiratory systems (principal)

== ENCOUNTER → 2017-08-01 | Outpatient (CLI) | payer OTHER ==
[~2017-08-01] MED LIST changes: +MELO-84 PO; -MELO15TA4 PO
[2017-08-01 16:51] LABS: BASO % 0.6 %; BASO ABS # 0.06 K/uL (0-0.2); EOS % 0.8 %; EOS ABS # 0.08 K/uL (0-0.5); HEMATOCRIT 42.3 % (42-52); IG# 0.03 K/uL (0.00-0.02); LYMPH % 29.3 %; LYMPH ABS # 2.76 K/uL (1.2-3.4); MEAN CORPUSCULAR HGB CONC 35.5 g/dl (32-36); MEAN PLATELET VOLUME 11.2 fL (7.4-10.4); MONO % 12.6 %; MONO ABS # 1.19 K/uL (0.11-0.59); NEUT % 56.4 %; PLATELET COUNT 228 K/uL (130-400); RED CELL DISTRIBUTION WIDTH SD 50.3 fL (36.4-46.3); WHITE BLOOD COUNT 9.42 K/uL (4.8-10.8)
[2017-08-01 17:05] LABS: ALT/SGPT 38 U/L (12-78); AST/SGOT 24 U/L (15-37); BLOOD UREA NITROGEN 14 mg/dl (7-18); CALCIUM 8.6 mg/dl (8.5-10.1); CARBON DIOXIDE 26 mmol/L (21-32); CHOLESTEROL 95 mg/dl (0-200); GLUCOSE 147 mg/dl (70-99); POTASSIUM 4.2 mmol/L (3.5-5.1); SODIUM 139 mmol/L (136-145)
[2017-08-01 17:15] LABS: ALKALINE PHOSPHATASE 114 U/L (45-117); LDL CHOLESTEROL CALCULATED 10 mg/dl
[2017-08-02 06:28] LABS: HEMOGLOBIN A1C 7.2 % (4.5-5.6)
== END | disposition home or self-care (01) ==
LOC: C.LABBFT 12:40
PROVIDERS: ATTEND Internal Medicine
DX: E11.9 Type 2 diabetes mellitus without complications (principal); E78.00 Pure hypercholesterolemia, unspecified; R26.81 Unsteadiness on feet

== ENCOUNTER 2018-09-05 09:33 | Inpatient (IN) ==
[2018-09-05] MEDS ORDERED: ONDANSETRON INJ 2 MG/ML 2 ML VIAL IV STA (09:51)
[2018-09-05] MEDS: HYDROmorphone INJ 0.5 MG/0.5 ML SYR IV PRN ×2 (10:39→11:11)
[2018-09-05 10:43] LABS: Basophils # (auto) 0.03 K/uL (0-0.2); Basophils % (auto) 0.4 %; Eosinophils # (auto) 0.02 K/uL (0-0.5); Eosinophils % (auto) 0.3 %; Hemoglobin 15.2 g/dL (14.0-18.0); Immature Granulocytes # (auto) 0.02 K/uL (0.00-0.02); Immature Granulocytes % (auto) 0.3 %; Lymphocytes # (auto) 1.38 K/uL (1.2-3.4); Lymphocytes % (auto) 17.3 %; Mean Corpuscular Hgb Conc 37.1 g/dL (32-36); Mean Corpuscular Volume 89.7 fL (80-100); Mean Platelet Volume 10.7 fL (7.4-10.4); Monocytes % (auto) 10.1 %; Neutrophils # (auto) 5.71 K/uL (1.4-6.5); Neutrophils % (auto) 71.6 %; Platelet Count 195 K/uL (130-400); RDW Standard Deviation 45.2 fL (36.4-46.3); Red Blood Count 4.57 M/uL (4.7-6.1); White Blood Count 7.96 K/uL (4.8-10.8)
[2018-09-05 11:02] LABS: Alanine Aminotransferase 34 U/L (12-78); Albumin Level 3.7 gm/dl (3.4-5.0); Aspartate Aminotransferase 31 U/L (15-37); Blood Urea Nitrogen 12 mg/dl (7-18); Calcium 8.4 mg/dl (8.5-10.1); Carbon Dioxide 23 mmol/L (21-32); Chloride 109 mmol/L (98-107); Creatinine Clr Calc Pharmacy 64.6 ml/min; Est GFR (African American) 78.1; Est GFR (Non-African American) 67.4; Glucose 168 mg/dl (70-99); Sodium 138 mmol/L (136-145)
[2018-09-05 11:07] LABS: Albumin Globulin Ratio 1.1 (0.9-2); Alkaline Phosphatase 102 U/L (45-117); Bilirubin,Total 0.7 mg/dl (0.2-1); Globulin 3.3 gm/dl (2.5-4.0); Troponin I < 0.015 ng/ml (0-0.045)
[2018-09-05] MEDS ORDERED: MoRPHine SULFATE 4 MG/ML 1 ML CARP\\VIAL IV STA (11:30)
--- NOTE | 2018-09-05 13:33 | CT Scan Report ---
LUMBAR SPINE CT CT DOSE: 578.94 mGycm HISTORY: right low back pain TECHNIQUE: Multiaxial CT images of the lumbar spine were performed and reformatted in the sagittal an d coronal plane without the use of contrast. A dose lowering technique was utilized adhering to the principles of ALARA. COMPARISON: Lumbar spine MRI 08/24/2013. FINDINGS: No fracture or subluxation within the lumbar spine. Severe disc space narrowing at L5-S1. M ild to moderate disc space narrowing throughout the remaining lumbar spine. Fusion of the L4-L5 and L 5-S1 facets. Moderate facet degenerative changes throughout the remaining lumbar spine. There are end plate osteophytes throughout the lumbar spine. The visualized sacrum appears intact. Paraspinal soft tissues are unremarkable. L1-L2: Small broad-based posterior disc bulge with ligamentum and facet hypertrophy resulting in mild central canal and mild bilateral neural foraminal narrowing. L2-L3: Broad-based posterior disc bulge with a focal central disc osteophyte complex which measures 1 2 x 7 mm. This results in severe central canal narrowing. There is mild bilateral neural foraminal na rrowing. L3-L4: Broad-based posterior disc bulge with a small focal central disc osteophyte complex. In conjun ction with the severe ligamentum and facet hypertrophy there is severe central canal and moderate to severe bilateral neural foraminal narrowing. L4-L5: Small broad-based posterior disc bulge with ligamentum and facet hypertrophy results in mild c entral canal narrowing. There is mild right and moderate to severe left neural foraminal narrowing. T here is L5-S1: Broad-based posterior disc osteophyte complex asymmetric to the left which likely comp resses the transiting left S1 nerve root. There is mild left neural foraminal narrowing. IMPRESSION: 1. Multilevel degenerative changes as described above most pronounced at the L2-L3 and L3-L4 levels. This has progressed compared to the 2013 examination. 2. No fracture or subluxation. Electronically signed by: Saud Moser M.D. 09/05/2018 1:32 PM
[2018-09-05 17:21] LABS: Appearance Urine Clear (Clear); Bilirubin Urine Negative (Negative); Blood Urine Negative (Negative); Color Urine Yellow; Glucose Urine UA Negative (Negative); Ketones Urine 1+ (Negative); Leukocyte Esterase Urine Negative (Negative); Nitrite Urine Negative (Negative); Protein Urine Negative (Negative); Specific Gravity Urine 1.031 (1.000-1.030); Urobilinogen Urine Negative (Negative)
--- NOTE | 2018-09-05 18:01 | Emergency Department Note ---
Entered by Fely Mercado acting as a scribe for Joseph Gibbons MD ED Provider Note CHIEF COMPLAINT: Lower right back pain HISTORY OF PRESENT ILLNESS: The patient is a 77 year old male who presents to the Emergency Room with complaints of constant pain in the right lower back radiating to the right knee beginning 10 hours ago. The patient stated that the pain began in his right lower back and has traveled down to his knee with an intensity of 10. He reports that walking makes the pain worse. The patient notes that he has had kidney stones in the past and this current pain is similar. 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 Patient noted he has been having chest pain but believes it is associated with the exercise program he began three weeks ago. The patient notes he does have a knee replacement in his right leg. He also reported taking Tylenol prior to arrival for the pain. Pt denies LOC, headache, fevers, chills, diaphoresis, visual changes, neck pain, breathing difficulties, nausea, vomiting, abdominal pain, melena, hematochezia, urinary symptoms, weakness, lymphadenopathy, rash, or other complaints. REVIEW OF SYSTEMS: See HPI for pertinent positives and negatives. A total of ten systems were reviewed and were otherwise negative. PMHx/PSHx: Hypertension, Knee Replacement SOCIAL HISTORY: Patient lives at home. PHYSICAL EXAM: GENERAL: Awake, alert, uncomfortable appearing, in no distress HENT: Normocephalic, atraumatic. Oropharynx unremarkable. EYES: PERRL. Normal conjunctiva. Sclera non-icteric. NECK: Inspection normal. Non-tender. Supple. No nuchal rigidity. FROM. No masses. RESPIRATORY: Clear to auscultation. No wheezes. No rales. Normal respiratory effort. CARDIAC: Normal rate. Normal rhythm. No murmurs. No rubs. Extremities warm and well perfused. Pulses equal. No JVD. GI: Soft, non-distended. No tenderness to palpation. No rebound or guarding. No masses. RECTAL: Deferred. MUSCULOSKELETAL: Atraumatic. Chest examination reveals no tenderness. The back is symmetrical on inspection without obvious abnormality. There is no CVA tenderness to palpation. Lower lumbar tenderness. Right sciatic notch tenderness. No joint edema. LOWER EXTREMITIES: Calves are equal size bilaterally and non-tender. No edema. No discoloration. Subjective decreased sensation of medial aspect of right leg and foot (He states that is chronic). NEURO: Normal sensorium. No sensory or motor deficits noted. No saddle anesthesia. SKIN: No rash or jaundice noted. EMERGENCY DEPARTMENT COURSE: 948: The patient was evaluated in room B04, and a complete history and physical examination were performed. 1048: I revaluated the patient, he was still uncomfortable. 1121: Patient was too uncomfortable to proceed with the MRI. 1248: I checked on the patient, he is moderately more comfortable but is still having difficulties lying flat. 1437: The patient will have an ambulatory trial. 1448: The patient failed his ambulatory trial as he had significant pain. 1551: I discussed the patient's case with Dr. Keith Bowling who will evaluate the patient for further management. MEDICAL DECISION MAKING: Prior records/ancillary studies reviewed. Triage Nursing notes reviewed and agree them. Additional history obtained from the family. The patient's history was concerning for back pain. Differential diagnosis: Etiologies such as fracture, aortic disease, metastatic disease, cord compression, discitis, infection, renal colic, gastrointestinal, lumbago, sciatica, cauda equina, as well as others were entertained. Physical findings: As above. No saddle anesthesia. ER treatment provided: IV Dilaudid times multiple doses IV morphine On reassessment the patient felt marginally better. Patient was unable to ambulate without assistance peer Diagnostics interpreted by me: ECG: Normal The labs revealed an unremarkable CBC and chemistry panel. Troponin negative. Imaging studies: MRI was ordered but the patient could not tolerate laying flat for this. CT imaging showed significant degenerative changes and spinal stenosis. No fractures. Consultation: [facility] was not immediately available for consultation. A consultation was placed with hospitalist. The case was discussed and diagnostics were reviewed. The patient was evaluated in the ER for further treatment. IMPRESSION: Acute low back pain, severe spinal stenosis PLAN: Admission The scribe's documentation has been prepared under my direction and personally reviewed by me in its entirety. I confirm that the note above accurately reflects all work, treatment, procedures, and medical decision making performed by me. Impression & Plan Acute low back pain, Spinal stenosis Past Med/Surg History Medical History Hypertension (Chronic) Surgical History Knee joint replacement status (Resolved) Social History Feels Safe at Home: Yes Smoking Status: Never smoker Results & Data Vital Signs Vital Signs - 24 hr 09/05/18 09:37 09/05/18 10:09 09/05/18 10:37 Temperature 36.4 C L Temperature Source Oral Sepsis Recent Fever Within 48 Hours No Sepsis New/Unexplained Change in Mental Status No Sepsis Action Taken by Nursing No Action Required Pulse Rate 52 L Pulse Rate [Right Finger] 60 Pulse Rhythm [Right Finger] Pulse Strength [Right Finger] Respiratory Rate 20 16 Respiratory Effort / Characteristics Non-Labored Respiratory Depth Normal Normal Respiratory Pattern Blood Pressure 147/77 H Blood Pressure [Right Arm] 133/69 Blood Pressure Mean 100 Blood Pressure Mean [Right Arm] 90 Blood Pressure Position [Right Arm] Pulse Oximetry 97 97 Oxygen Delivery Method Room Air Room Air Room Air 09/05/18 11:51 09/05/18 12:30 09/05/18 16:15 Temperature Temperature Source Sepsis Recent Fever Within 48 Hours Sepsis New/Unexplained Change in Mental Status Sepsis Action Taken by Nursing Pulse Rate Pulse Rate [Right Finger] 66 64 55 L Pulse Rhythm [Right Finger] Regular Pulse Strength [Right Finger] Normal Respiratory Rate 20 16 16 Respiratory Effort / Characteristics Non-Labored Non-Labored Non-Labored Respiratory Depth Normal Normal Normal Respiratory Pattern Regular Blood Pressure Blood Pressure [Right Arm] 146/71 H 126/71 138/76 Blood Pressure Mean Blood Pressure Mean [Right Arm] 96 89 96 Blood Pressure Position [Right Arm] Lying Pulse Oximetry 95 91 93 Oxygen Delivery Method Room Air Room Air Room Air Home Medications Current Medication List: was personally reviewed by me Laboratory Data Attestation: I reviewed the patient's lab results. Result diagrams: 09/05/18 10:28 09/05/18 10:28 Lab Results 09/05/18 09/05/18 09/05/18 Range/Units 10:28 10:28 16:18 WBC 7.96 (4.8-10.8) K/uL RBC 4.57 L (4.7-6.1) M/uL Hgb 15.2 (14.0-18.0) g/dL Hct 41.0 L (42-52) % MCV 89.7 (80-100) fL MCH 33.3 (25-34) pg MCHC 37.1 H (32-36) g/dL RDW Std Deviation 45.2 (36.4-46.3) fL RDW Coeff of Gabriele 14.0 (11.5-14.5) % Plt Count 195 (130-400) K/uL MPV 10.7 H (7.4-10.4) fL Immature Gran % (Auto) 0.3 % Neut % (Auto) 71.6 % Lymph % (Auto) 17.3 % [place] % (Auto) 10.1 % Eos % (Auto) 0.3 % Baso % (Auto) 0.4 % Immature Gran # (Auto) 0.02 (0.00-0.02) K/uL Neut # (Auto) 5.71 (1.4-6.5) K/uL Lymph # (Auto) 1.38 (1.2-3.4) K/uL [place] # (Auto) 0.80 H (0.11-0.59) K/uL Eos # (Auto) 0.02 (0-0.5) K/uL Baso # (Auto) 0.03 (0-0.2) K/uL Sodium 138 (136-145) mmol/L Potassium 4.0 (3.5-5.1) mmol/L Chloride 109 H (98-107) mmol/L Carbon Dioxide 23 (21-32) mmol/L Anion Gap 6.0 (3-11) BUN 12 (7-18) mg/dl Creatinine 1.06 (0.6-1.4) mg/dl Est Cr Clr Drug Dosing 64.6 ml/min Est GFR ( Amer) 78.1 Est GFR (Non-Af Amer) 67.4 BUN/Creatinine Ratio 11.0 (10-20) Glucose 168 H (70-99) mg/dl Calcium 8.4 L (8.5-10.1) mg/dl Total Bilirubin 0.7 (0.2-1) mg/dl AST 31 (15-37) U/L ALT 34 (12-78) U/L Alkaline Phosphatase 102 (45-117) U/L Troponin I < 0.015 (0-0.045) ng/ml Total Protein 7.0 (6.4-8.2) gm/dl Albumin 3.7 (3.4-5.0) gm/dl Globulin 3.3 (2.5-4.0) gm/dl Albumin/Globulin Ratio 1.1 (0.9-2) Urine Color Yellow Urine Appearance Clear (Clear) Urine pH 5.0 (4.5-7.5) Ur Specific Hall[place] 1.031 H (1.000-1.030) Urine Protein Negative (Negative) Urine Glucose (UA) Negative (Negative) Urine Ketones 1+ H (Negative) Urine Blood Negative (Negative) Urine Nitrite Negative (Negative) Urine Bilirubin Negative (Negative) Urine Urobilinogen Negative (Negative) Ur Leukocyte Esterase Negative (Negative) Administered Medications Discontinued Medications Hydromorphone HCl (Dilaudid) 0.5 mg IV Q15M PRN PRN Reason: Pain Stop: 09/19/18 09:50 Last Admin: 09/05/18 11:11 Dose: 0.5 mg Documented by: [id number] Admin: 09/05/18 10:39 Dose: 0.5 mg Documented by: [id number] Morphine Sulfate (Morphine Sulfate) 4 mg IV NOW STA Stop: 09/05/18 11:31 Last Admin: 09/05/18 11:55 Dose: 4 mg Documented by: [id number] Ondansetron HCl (Zofran) 4 mg IV NOW STA Stop: 09/05/18 09:52 Last Admin: 09/05/18 10:39 Dose: 4 mg Documented by: [id number] Imaging Data Radiologist's Impression: Radiology results as stated below per my review and the radiologist's interpretation: LUMBAR SPINE CT CT DOSE: 578.94 mGycm HISTORY: right low back pain TECHNIQUE: Multiaxial CT images of the lumbar spine were performed and reformatted in the sagittal and coronal plane without the use of contrast. A dose lowering technique was utilized adhering to the principles of ALARA. COMPARISON: Lumbar spine MRI 08/24/2013. FINDINGS: No fracture or subluxation within the lumbar spine. Severe disc space narrowing at L5-S1. Mild to moderate disc space narrowing throughout the remaining lumbar spine. Fusion of the L4-L5 and L5-S1 facets. Moderate facet degenerative changes throughout the remaining lumbar spine. There are endplate osteophytes throughout the lumbar spine. The visualized sacrum appears intact. Paraspinal soft tissues are unremarkable. L1-L2: Small broad-based posterior disc bulge with ligamentum and facet hypertrophy resulting in mild central canal and mild bilateral neural foraminal narrowing. L2-L3: Broad-based posterior disc bulge with a focal central disc osteophyte complex which measures 12 x 7 mm. This results in severe central canal narrowing. There is mild bilateral neural foraminal narrowing. L3-L4: Broad-based posterior disc bulge with a small focal central disc osteophyte complex. In conjunction with the severe ligamentum and facet hypertrophy there is severe central canal and moderate to severe bilateral neural foraminal narrowing. L4-L5: Small broad-based posterior disc bulge with ligamentum and facet hypertrophy results in mild central canal narrowing. There is mild right and moderate to severe left neural foraminal narrowing. There is L5-S1: Broad-based posterior disc osteophyte complex asymmetric to the left which likely compresses the transiting left S1 nerve root. There is mild left neural foraminal narrowing. IMPRESSION: 1. Multilevel degenerative changes as described above most pronounced at the L2- L3 and L3-L4 levels. This has progressed compared to the 2014 examination. 2. No fracture or subluxation. Electronically signed by: Saud Moser M.D. 09/05/2018 1:32 PM ECG Data Attestation: I personally reviewed and interpreted this ECG as follows: Indication: back/shoulder pain (Back and leg) Rate (beats per minute): 58 Rhythm: sinus bradycardia Findings: + Q waves (Septal inferior); no PAC, no PVC, no ST depression and no ST elevation Blood Pressure Blood Pressure Findings: Normal blood pressure Discharge Plan Visit Data Chief Complaint: Back Injury/Pain Stated Complaint: LOWER BACK PAIN, DOWN RIGHT LEG ED Provider: Joseph Gibbons Discharge Problem: Acute low back pain, Spinal stenosis Patient Disposition: Being Evaluated by Hospitalist Forms Stand Alone Forms: My [facility] Prescriptions Prescriptions: No Action atorvastatin 80 mg tablet 40 mg PO DAILY RF: 0 glipizide 5 mg tablet extended release 24hr 5 mg PO DAILY RF: 0 leflunomide [Arava] 20 mg tablet 20 mg PO DAILY RF: 0 tamsulosin 0.4 mg capsule 0.4 mg PO DAILY RF: 0 lisinopril 10 mg tablet 10 mg PO DAILY RF: 0 finasteride 5 mg tablet 5 mg PO DAILY RF: 0 ascorbic acid (vitamin C) [Vitamin C] 1,000 mg Tablet 1 g PO DAILY RF: 0 acetaminophen [Tylenol] 325 mg Tablet 325 mg PO Q6H PRN (Reason: Pain) RF: 0 aspirin 81 mg Tablet,Delayed Release (Dr/Ec) 81 mg PO DAILY RF: 0 pantoprazole [Protonix] 40 mg Tablet,Delayed Release (Dr/Ec) 40 mg PO DAILY RF: 0 folic acid 1 mg Tablet 1 mg PO DAILY RF: 0 bisacodyl 5 mg Tablet 5 mg PO HS RF: 0 cholecalciferol (vitamin D3) [Vitamin D3] 2,000 unit Capsule 2,000 unit PO DAILY RF: 0 PreserVision AREDS-2 [id number] Capsule 1 tab PO DAILY RF: 0 Referrals Referrals: Jak Hsu MD [Primary Care Provider] - Discharge Problem: Acute low back pain Qualifiers: Back pain laterality: unspecified Spinal stenosis Qualifiers: Spinal region: unspecified Qualified Code(s): M48.00 - Spinal stenosis, site unspecified The scribe's documentation has been prepared under my direction and personally reviewed by me in its entirety. I confirm that the note above accurately reflects all work, treatment, procedures, and medical decision making performed by me.
[2018-09-05] MEDS ORDERED: DEXTROSE 50% 50 ML SYRINGE IV PRN (18:27)
[2018-09-05] MEDS ORDERED: ONDANSETRON INJ 2 MG/ML 2 ML VIAL IV PRN (18:27)
[2018-09-05] MEDS ORDERED: GLUCOSE 10 TABS/TUBE PO PRN (18:27)
[2018-09-05] MEDS ORDERED: KETOROLAC TROMETHAMINE 15 MG/ML VIAL IV PRN (18:27)
[2018-09-05] MEDS ORDERED: GLUCOSE 40% GEL 15 GM TUBE PO PRN (18:27)
[2018-09-05] MEDS ORDERED: GLUCAGON FOR INJ 1 MG VIAL SQ PRN (18:27)
[2018-09-05] MEDS ORDERED: DOCUSATE SODIUM 100 MG CAP PO PRN (18:27)
[2018-09-05] MEDS ORDERED: CARBOHYDRATES FOR HYPOGLYCEMIA PO PRN (18:27)
[2018-09-05] MEDS: ACETAMINOPHEN 65 ML IV SCH (20:07)
[2018-09-05] MEDS: INSULIN GLARGINE SOLOSTAR 100 UNITS/ML 3 ML PEN SC SCH (20:09)
[2018-09-05] MEDS: INSULIN ASPART 100 UNITS/ML 3 ML PEN SC SCH (20:10)
[2018-09-05 20:25] LABS: Magnesium 2.4 mg/dl (1.8-2.4); Phosphorus 2.7 mg/dl (2.5-4.9)
--- NOTE | 2018-09-05 21:49 | History & Physical Report ---
Date of Service September 05, 2018 Assessment & Plan (1) Acute low back pain: Patient with acute lumbar pain with posterior radiation, weakness of RLE with severe pain with movement -Observation to medical floor -Toradol IV PRN -Morphine 2mg IV q 4 hours PRN -Tylenol IV -Lidoderm patch -Heating pad -Neuro checks - may need Ortho consultation if no improvement with above interventions -PT/OT evaluation Present on Admission?: Yes (2) Ambulatory dysfunction: As above. Secondary to pain, weakness RLE -Fall precautions Present on Admission?: Yes (3) Hypertension: Blood pressure 138/76 at present -Continue Lisinopril daily -Continue to monitor (4) Dyslipidemia: Chronic -Continue Atorvastatin Present on Admission?: Yes (5) Diabetes: Patient with newly diagnosed Type II DM, [id number]=21. He is presently on Glipizide at home, reports blood sugars are typically 150-180. Blood sugar today 168 -Fingersticks -Lantus 7u BID -ISS -Continue ASA and Statin Present on Admission?: Yes (6) BPH (benign prostatic hyperplasia): Chronic -Continue Flomax -Continue Finasteride Present on Admission?: Yes (7) GERD (gastroesophageal reflux disease): Chronic. -Continue Protonix daily F/E/N - Heplock. Monitor electrolytes and replete as needed. CC diet as tolerated, Dulcolax, Colace, Miralax PRN. Ppx - Protonix Code - FUll Dispo - Obs to medical floor History of Present Illness Chief Complaint: back pain Primary Care Provider: Rubén Hsu MD Barney Lofton is a pleasant 77yo C male with history of HTN, HLP, GERD and recent diagnosis of DM (A1C=11) presenting with acute low back pain. Pain started last evening around 12:00 in right lumbar and upper buttock. Progressively worsened. Patient unable to walk this AM. Radiation down right posterior thigh to the knee. Weakness in RLE with chronic numbness of the RLE. Patient denies fevers/chills, fall or trauma. Denies changes in bowel or bladder. No additional complaints at this time. Allergies Allergy/AdvReac Type Severity Reaction Status Date / Time No Known Drug Allergies Allergy Unknown . Verified 09/05/18 11:02 scallops AdvReac Unknown VOMITING Verified 09/05/18 11:02 Home Medications Home Medications Medication Instructions Recorded Confirmed Type acetaminophen [Tylenol] 325 mg PO Q6H PRN 09/05/18 09/05/18 History ascorbic acid (vitamin C) [Vitamin 1 g PO DAILY 09/05/18 09/05/18 History C] aspirin 81 mg PO DAILY 09/05/18 09/05/18 History atorvastatin 40 mg PO DAILY 09/05/18 09/05/18 History bisacodyl 5 mg PO HS 09/05/18 09/05/18 History cholecalciferol (vitamin D3) 2,000 unit PO DAILY 09/05/18 09/05/18 History [Vitamin D3] finasteride 5 mg PO DAILY 09/05/18 09/05/18 History folic acid 1 mg PO DAILY 09/05/18 09/05/18 History glipizide 5 mg PO DAILY 09/05/18 09/05/18 History leflunomide [Arava] 20 mg PO DAILY 09/05/18 09/05/18 History lisinopril 10 mg PO DAILY 09/05/18 09/05/18 History pantoprazole [Protonix] 40 mg PO DAILY 09/05/18 09/05/18 History tamsulosin 0.4 mg PO DAILY 09/05/18 09/05/18 History vit C,J-Dw-sspsi-lutein-zeaxan 1 tab PO DAILY 09/05/18 09/05/18 History [PreserVision AREDS-2] Past Med/Surg History Medical History Hypertension (Chronic) BPH (benign prostatic hyperplasia) Diabetes GERD (gastroesophageal reflux disease) Hyperlipidemia Surgical History Knee joint replacement status (Resolved) S/P carpal tunnel release S/P knee surgery S/P shoulder surgery Family History Other Family history non-contributory Social History Preferred Language: Lithuanian Communication Ability: Effective 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 Beliefs That Will Affect Care: None Current Living Situation: Spouse Other Information That Helps Us Care for You: No Feels Safe at Home: Yes Safety Concerns: Feels Safe At This Time Smoking Status: Former smoker Smoking End Date: 1972 Hx Alcohol Use: No Hx Substance Use: No Review of Systems Review of Systems: All systems reviewed & are unremarkable except as noted in HPI & below Physical Exam Physical Exam: General: patient resting comfortably, NAD, non-toxic in appearance, AA&O x 4 Skin: warm, dry, intact, no rashes or lesions HEENT: NC/AT, PERRL, EOMI, anicteric sclera, conjunctiva without injection, external ear normal to inspection and nontender, nares patent, moist mucus membranes, dentition intact, no oropharyngeal lesions, neck supple, trachea midline, no LAD, no thyromegaly, no JVD Heart: +S1/S2, regular, no m/r/g Lungs: equal air entry bilaterally, no rales/rhonchi/wheezes Abd: +BS, soft, NT/ND, no masses/organomegaly/ascites Ext: warm, 2+ pulses in UE/LE bilaterally, no clubbing/cyanosis or edema, pain with palpation of right SI joint and paraspinal musculature Neuro: nonfocal, patient AA&O x 4, speech intact, no facial droop, moving all extremities on command, weakness of RLE 4/5, decreased sensation to light touch Results & Data Vital Signs (Past 12 Hours) Vital Signs Temp Pulse Pulse Resp BP BP Pulse Ox 09/05/18 18:37 36.5 C 55 L 18 144/71 H 96 09/05/18 16:15 55 L 16 138/76 93 09/05/18 12:30 64 16 126/71 91 09/05/18 11:51 66 20 146/71 H 95 09/05/18 10:37 60 16 133/69 97 09/05/18 09:37 36.4 C L 52 L 20 147/77 H 97 Laboratory Results Lab Results 09/05/18 09/05/18 09/05/18 Range/Units 10:28 10:28 16:18 WBC 7.96 (4.8-10.8) K/uL RBC 4.57 L (4.7-6.1) M/uL Hgb 15.2 (14.0-18.0) g/dL Hct 41.0 L (42-52) % MCV 89.7 (80-100) fL MCH 33.3 (25-34) pg MCHC 37.1 H (32-36) g/dL RDW Std Deviation 45.2 (36.4-46.3) fL RDW Coeff of Gabriele 14.0 (11.5-14.5) % Plt Count 195 (130-400) K/uL MPV 10.7 H (7.4-10.4) fL Immature Gran % (Auto) 0.3 % Neut % (Auto) 71.6 % Lymph % (Auto) 17.3 % [place] % (Auto) 10.1 % Eos % (Auto) 0.3 % Baso % (Auto) 0.4 % Immature Gran # (Auto) 0.02 (0.00-0.02) K/uL Neut # (Auto) 5.71 (1.4-6.5) K/uL Lymph # (Auto) 1.38 (1.2-3.4) K/uL [place] # (Auto) 0.80 H (0.11-0.59) K/uL Eos # (Auto) 0.02 (0-0.5) K/uL Baso # (Auto) 0.03 (0-0.2) K/uL Sodium 138 (136-145) mmol/L Potassium 4.0 (3.5-5.1) mmol/L Chloride 109 H (98-107) mmol/L Carbon Dioxide 23 (21-32) mmol/L Anion Gap 6.0 (3-11) BUN 12 (7-18) mg/dl Creatinine 1.06 (0.6-1.4) mg/dl Est Cr Clr Drug Dosing 64.6 ml/min Est GFR ( Amer) 78.1 Est GFR (Non-Af Amer) 67.4 BUN/Creatinine Ratio 11.0 (10-20) Glucose 168 H (70-99) mg/dl POC Glucose (70-99) Calcium 8.4 L (8.5-10.1) mg/dl Phosphorus (2.5-4.9) mg/dl Magnesium (1.8-2.4) mg/dl Total Bilirubin 0.7 (0.2-1) mg/dl AST 31 (15-37) U/L ALT 34 (12-78) U/L Alkaline Phosphatase 102 (45-117) U/L Troponin I < 0.015 (0-0.045) ng/ml Total Protein 7.0 (6.4-8.2) gm/dl Albumin 3.7 (3.4-5.0) gm/dl Globulin 3.3 (2.5-4.0) gm/dl Albumin/Globulin Ratio 1.1 (0.9-2) Urine Color Yellow Urine Appearance Clear (Clear) Urine pH 5.0 (4.5-7.5) Ur Specific [place] 1.031 H (1.000-1.030) Urine Protein Negative (Negative) Urine Glucose (UA) Negative (Negative) Urine Ketones 1+ H (Negative) Urine Blood Negative (Negative) Urine Nitrite Negative (Negative) Urine Bilirubin Negative (Negative) Urine Urobilinogen Negative (Negative) Ur Leukocyte Esterase Negative (Negative) 09/05/18 09/05/18 09/05/18 Range/Units 18:35 19:49 20:09 WBC (4.8-10.8) K/uL RBC (4.7-6.1) M/uL Hgb (14.0-18.0) g/dL Hct (42-52) % MCV (80-100) fL MCH (25-34) pg MCHC (32-36) g/dL RDW Std Deviation (36.4-46.3) fL RDW Coeff of Gabriele (11.5-14.5) % Plt Count (130-400) K/uL MPV (7.4-10.4) fL Immature Gran % (Auto) % Neut % (Auto) % Lymph % (Auto) % [place] % (Auto) % Eos % (Auto) % Baso % (Auto) % Immature Gran # (Auto) (0.00-0.02) K/uL Neut # (Auto) (1.4-6.5) K/uL Lymph # (Auto) (1.2-3.4) K/uL [place] # (Auto) (0.11-0.59) K/uL Eos # (Auto) (0-0.5) K/uL Baso # (Auto) (0-0.2) K/uL Sodium (136-145) mmol/L Potassium (3.5-5.1) mmol/L Chloride (98-107) mmol/L Carbon Dioxide (21-32) mmol/L Anion Gap (3-11) BUN (7-18) mg/dl Creatinine (0.6-1.4) mg/dl Est Cr Clr Drug Dosing ml/min Est GFR ( Amer) Est GFR (Non-Af Amer) BUN/Creatinine Ratio (10-20) Glucose (70-99) mg/dl POC Glucose 137 H 175 H (70-99) Calcium (8.5-10.1) mg/dl Phosphorus 2.7 (2.5-4.9) mg/dl Magnesium 2.4 (1.8-2.4) mg/dl Total Bilirubin (0.2-1) mg/dl AST (15-37) U/L ALT (12-78) U/L Alkaline Phosphatase (45-117) U/L Troponin I (0-0.045) ng/ml Total Protein (6.4-8.2) gm/dl Albumin (3.4-5.0) gm/dl Globulin (2.5-4.0) gm/dl Albumin/Globulin Ratio (0.9-2) Urine Color Urine Appearance (Clear) Urine pH (4.5-7.5) Ur Specific [place] (1.000-1.030) Urine Protein (Negative) Urine Glucose (UA) (Negative) Urine Ketones (Negative) Urine Blood (Negative) Urine Nitrite (Negative) Urine Bilirubin (Negative) Urine Urobilinogen (Negative) Ur Leukocyte Esterase (Negative) Diagnostic Findings LUMBAR SPINE CT CT DOSE: 578.94 mGycm HISTORY: right low back pain TECHNIQUE: Multiaxial CT images of the lumbar spine were performed and reformatted in the sagittal and coronal plane without the use of contrast. A dose lowering technique was utilized adhering to the principles of ALARA. COMPARISON: Lumbar spine MRI 08/24/2013. FINDINGS: No fracture or subluxation within the lumbar spine. Severe disc space narrowing at L5-S1. Mild to moderate disc space narrowing throughout the remaining lumbar spine. Fusion of the L4-L5 and L5-S1 facets. Moderate facet degenerative changes throughout the remaining lumbar spine. There are endplate osteophytes throughout the lumbar spine. The visualized sacrum appears intact. Paraspinal soft tissues are unremarkable. L1-L2: Small broad-based posterior disc bulge with ligamentum and facet hypertrophy resulting in mild central canal and mild bilateral neural foraminal narrowing. L2-L3: Broad-based posterior disc bulge with a focal central disc osteophyte complex which measures 12 x 7 mm. This results in severe central canal narrowing. There is mild bilateral neural foraminal narrowing. L3-L4: Broad-based posterior disc bulge with a small focal central disc osteophyte complex. In conjunction with the severe ligamentum and facet hypertrophy there is severe central canal and moderate to severe bilateral neural foraminal narrowing. L4-L5: Small broad-based posterior disc bulge with ligamentum and facet hypertrophy results in mild central canal narrowing. There is mild right and moderate to severe left neural foraminal narrowing. There is L5-S1: Broad-based posterior disc osteophyte complex asymmetric to the left which likely compresses the transiting left S1 nerve root. There is mild left neural foraminal narrowing. IMPRESSION: 1. Multilevel degenerative changes as described above most pronounced at the L2- L3 and L3-L4 levels. This has progressed compared to the 2014 examination. 2. No fracture or subluxation. Electronically signed by: Saud Moser M.D. 09/05/2018 1:32 PM Dictated: 09/05/18 1325 Transcribed: 09/05/18 1325 ECG Additional Comments: The study shows sinus bradycardia at 58bpm, normal axis, PQ=664, QRS=98, HRa=716, no acute ischemic changes Code Status & VTE Plan Code Status FULL VTE Prophylaxis Plan VTE Prophylaxis will be ordered: Yes Critical Care Time Critical Care Time: No (1) Acute low back pain Back pain laterality: right Sciatica presence: with sciatica Sciatica laterality: sciatica of right side Qualified Code(s): M54.41 - Lumbago with sciatica, right side (2) Hypertension Hypertension type: essential hypertension Qualified Code(s): I10 - Essential (primary) hypertension (3) Diabetes Diabetes mellitus type: type 2 Diabetes mellitus fpc insulin use: without fpc use Diabetes mellitus complication status: without complication Qualified Code(s): E11.9 - Type 2 diabetes mellitus without complications (4) BPH (benign prostatic hyperplasia) Lower urinary tract symptom presence: symptoms absent Qualified Code(s): N40.0 - Benign prostatic hyperplasia without lower urinary tract symptoms (5) GERD (gastroesophageal reflux disease) Esophagitis presence: esophagitis presence not specified Qualified Code(s): K21.9 - Gastro-esophageal reflux disease without esophagitis
[2018-09-05] MEDS: MoRPHine SULFATE 2 MG/ML CARP IV PRN (22:02)
[2018-09-05] MEDS ORDERED: BISACODYL 5 MG TABEC PO ONE (22:27)
[2018-09-06] MEDS: ACETAMINOPHEN 65 ML IV SCH ×4 (04:23→21:00)
[2018-09-06 06:55] LABS: Basophils # (auto) 0.03 K/uL (0-0.2); Basophils % (auto) 0.3 %; Eosinophils # (auto) 0.07 K/uL (0-0.5); Eosinophils % (auto) 0.8 %; Hematocrit (blood only) 43.8 % (42-52); Hemoglobin 15.6 g/dL (14.0-18.0); Immature Granulocytes # (auto) 0.03 K/uL (0.00-0.02); Immature Granulocytes % (auto) 0.3 %; Lymphocytes # (auto) 2.39 K/uL (1.2-3.4); Lymphocytes % (auto) 25.6 %; Mean Corpuscular Hgb Conc 35.6 g/dL (32-36); Mean Platelet Volume 10.7 fL (7.4-10.4); Monocytes # (auto) 1.35 K/uL (0.11-0.59); Monocytes % (auto) 14.5 %; Neutrophils # (auto) 5.45 K/uL (1.4-6.5); Neutrophils % (auto) 58.5 %; Platelet Count 224 K/uL (130-400); RDW Coefficient of Variation 14.3 % (11.5-14.5); RDW Standard Deviation 47.6 fL (36.4-46.3); Red Blood Count 4.76 M/uL (4.7-6.1); White Blood Count 9.32 K/uL (4.8-10.8)
[2018-09-06 07:31] LABS: BUN Creatinine Ratio 10.6 (10-20); Calcium 8.7 mg/dl (8.5-10.1); Creatinine Clr Calc Pharmacy 57.6 ml/min; Est GFR (African American) 67.9; Est GFR (Non-African American) 58.6; Potassium 3.6 mmol/L (3.5-5.1)
[2018-09-06] MEDS: ASPIRIN 81 MG ECTAB PO SCH (07:49)
[2018-09-06] MEDS: ATORVASTATIN 40 MG TAB PO SCH (07:49)
[2018-09-06] MEDS: PANTOprazole 40 MG TAB PO SCH (07:49)
[2018-09-06] MEDS: TAMSULOSIN HCL 0.4 MG CAP PO SCH (07:49)
[2018-09-06] MEDS: FOLIC ACID 1 MG TAB PO SCH (07:49)
[2018-09-06] MEDS: FINASTERIDE 5 MG TAB PO SCH (07:50)
[2018-09-06] MEDS ORDERED: BISACODYL 5 MG TABEC PO ONE (07:59)
[2018-09-06] MEDS: BISACODYL 5 MG TABEC PO SCH ×2 (08:00→21:01)
[2018-09-06] MEDS: LISINOPRIL 10 MG TAB PO SCH (08:01)
[2018-09-06] MEDS: INSULIN GLARGINE SOLOSTAR 100 UNITS/ML 3 ML PEN SC SCH ×2 (08:02→20:58)
[2018-09-06] MEDS: INSULIN ASPART 100 UNITS/ML 3 ML PEN SC SCH ×4 (08:03→20:57)
[2018-09-06] MEDS ORDERED: CEROVITE ADV FORMULA TAB PO SCH (09:00)
[2018-09-06] MEDS ORDERED: LEFLUNOMIDE 20 MG PO SCH (09:00)
[2018-09-06] MEDS: MoRPHine SULFATE 2 MG/ML CARP IV PRN (10:17)
[2018-09-06] MEDS ORDERED: MoRPHine SULFATE 4 MG/ML 1 ML CARP\\VIAL IV PRN (11:14)
[2018-09-06] MEDS: HYDROmorphone INJ 0.5 MG/0.5 ML SYR IV PRN (13:03)
[2018-09-06] MEDS ORDERED: HYDROmorphone INJ 0.5 MG/0.5 ML SYR IV STA (13:58)
--- NOTE | 2018-09-06 14:24 | Orthopedic Consultation ---
Date of Consultation September 06, 2018 Assessment & Plan (1) Spinal stenosis: Assessment spinal stenosis with radiculopathy. Plan at this time I suspect he has an acute L3 radiculopathy. His CAT scan demonstrates a central autofusion at the L4-5 L5-S1 levels with marked facet overgrowth and stability. Subsequently when the majority of his forces would be across the 3 4 level. He is scheduled to undergo an MRI later today. We will review this scan and make further recommendations. I did discuss with the patient possible injections versus surgical intervention. This of course will be pending his MRI. I will make him n.p.o. after midnight. Stands agrees with this plan. Present on Admission?: Yes History of Present Illness Reason for Consultation: Patient's complaining of back and right leg pain. Attending Physician: Adriane Sampson MD History of Present Illness This is a 77-year-old male with severe right leg pain. He states this began yesterday. Denies any precipitating trauma fall or event. He does have a history of some back issues and numbness involving the right lower extremity but nothing to the degree he is is experiencing now. Describes pain is involving the buttock anterior thigh extending to the knee with numbness extending to the medial aspect of his proximal tibia on the right. This is intensified from his normal state. Left lower extremity is asymptomatic. He states he has marked difficulty ascending and descending stairs secondary to weakness of the right lower extremity. Allergies Allergy/AdvReac Type Severity Reaction Status Date / Time No Known Drug Allergies Allergy Unknown . Verified 09/05/18 11:02 scallops AdvReac Unknown VOMITING Verified 09/05/18 11:02 Home Medications Home Medications Medication Instructions Recorded Confirmed Type acetaminophen [Tylenol] 325 mg PO Q6H PRN 09/05/18 09/05/18 History ascorbic acid (vitamin C) [Vitamin 1 g PO DAILY 09/05/18 09/05/18 History C] aspirin 81 mg PO DAILY 09/05/18 09/05/18 History atorvastatin 40 mg PO DAILY 09/05/18 09/05/18 History bisacodyl 5 mg PO HS 09/05/18 09/05/18 History cholecalciferol (vitamin D3) 2,000 unit PO DAILY 09/05/18 09/05/18 History [Vitamin D3] finasteride 5 mg PO DAILY 09/05/18 09/05/18 History folic acid 1 mg PO DAILY 09/05/18 09/05/18 History glipizide 5 mg PO DAILY 09/05/18 09/05/18 History leflunomide [Arava] 20 mg PO DAILY 09/05/18 09/05/18 History lisinopril 10 mg PO DAILY 09/05/18 09/05/18 History pantoprazole [Protonix] 40 mg PO DAILY 09/05/18 09/05/18 History tamsulosin 0.4 mg PO DAILY 09/05/18 09/05/18 History vit C,U-Wf-cnmuu-lutein-zeaxan 1 tab PO DAILY 09/05/18 09/05/18 History [PreserVision AREDS-2] Patient History Medical History Hypertension (Chronic) BPH (benign prostatic hyperplasia) Diabetes GERD (gastroesophageal reflux disease) Hyperlipidemia Surgical History Knee joint replacement status (Resolved) S/P carpal tunnel release S/P knee surgery S/P shoulder surgery Family History Other Family history non-contributory Social History Preferred Language: Senegalese Communication Ability: Effective 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 He has marked decreased sensation to light touch on the right thigh compared to left. He does have breakaway weakness L4-5 right quadriceps compared to 5 5 on the left. Plantar flexion dorsiflexion symmetric and intact. Results & Data Vital Signs (Past 12 Hours) Vital Signs Temp Pulse Resp BP Pulse Ox 09/06/18 07:51 50 L 132/73 09/06/18 07:15 36.4 C L 50 L 18 136/67 93 (1) Spinal stenosis Spinal region: unspecified Qualified Code(s): M48.00 - Spinal stenosis, site unspecified
--- NOTE | 2018-09-06 15:46 | Magnetic Resonance Report ---
MR lumbar spine wo con HISTORY: Pain. Neuropathy. lumbar radiculopathy,RLE weakness TECHNIQUE: Multiplanar multisequence MRI of the lumbar spine was performed without the use of contras t. COMPARISON: 08/24/2013 FINDINGS: For the purpose of the report the L5-S1 disc space will be located on axial image 23 of 25. Vertebral body stature is unremarkable. Mildly progressive degenerative disc change at the entire lum bar region. No significant bone marrow replacing process. L1-L2: Mild broad-based disc herniation. Mild impact anterior thecal sac. Minimal narrowing of the ne uroforamina bilaterally. This is progressive from the prior study. L2-L3: Large broad-based right central disc herniation. Extruded fragment measuring 10 x 8 mm posteri or to the superior endplate of L3. Significant impact upon the thecal sac is present with severe narr owing of the right neuroforamina. There is mild narrowing left neuroforamina. These findings are russell edly progressive compared to the prior study. L3-L4 broad-based disc herniation with significant multifactorial narrowing of the spinal canal. Ther e is significant narrowing of the right neuroforamina. All findings are progressive compared to the p rior study. There is moderate narrowing left neural foramina. L4-L5 minimal broad-based disc bulge. Minimal impact anterior thecal sac with minimal narrowing left neuroforamina.: L5-S1: Left central disc herniation. Moderate impact upon the anterior thecal sac and left S1 nerve r oot. Minimal narrowing left neuroforamina. This is also progressive compared to the prior study. IMPRESSION: 1. Progressive degenerative disc change throughout the entire lumbar region compared to the prior marissa dy. 2. Large broad-based disc herniation L3-L4 with significant multifactorial narrowing of the spinal ca nal and right neuroforamina. 3. Broad-based disc herniation L2-L3 with an extruded disc fragment measuring 1 cm posterior to the s uperior endplate of L3. This is progressive compared to the prior study with severe narrowing of the right neuroforamina. 4. Left central disc herniation L5-S1 with mild impact upon the left S1 nerve root and mild narrowing left neuroforamina. 5. All findings are progressive compared to the prior study. The above report was generated using voice recognition software. It may contain grammatical, syntax or spelling errors. Electronically signed by: Russell Keys M.D. 09/06/2018 3:45 PM
--- NOTE | 2018-09-06 16:01 | Hospitalist Progress Note ---
Date of Service September 06, 2018 Assessment & Plan (1) Acute low back pain: Patient with acute lumbar pain with radiculopathy down the right lower extremity MRI lumbar spine confirms HNP at L2-3 and L3-4 with severe right-sided neuroforaminal narrowing which is likely culprit of his symptoms Morphine did not help much with his pain. -Switched pain control to Dilaudid 0.5 mg IV every 2 hours as needed which is helping more -Continue Toradol IV PRN -Continue Tylenol IV as needed -Continue Lidoderm patch -Continue heating pad Appreciate orthopedic spine consultation-we will keep n.p.o. after midnight just in case of surgery and patient to further discuss surgical versus nonsurgical options for management with orthopedics in the morning The patient is easily able to achieve 4 METS-he can climb up and down a flight of stairs without chest pain or shortness of breath. In fact, he walks on the treadmill and works out on a glider piece of gym equipment for 30 to 35 minutes daily. He has no ongoing angina or any history of cardiac intervention. He did have an echocardiogram as an outpatient just last week that showed no wall motion abnormalities and with normal LV function. He does have moderate aortic valve stenosis which is unchanged from previous. His ECG here is with sinus bradycardia and no evidence of ischemia He would be at medically acceptable risk to undergo an intermediate risk surgery such as a lumbar decompression and fusion. Perioperative cardiovascular risk assessment was discussed with the patient and he understands the risk. Of course with the aortic stenosis, would avoid hypovolemia and hypotension. (2) Lumbar radiculopathy: At L2-3, L3-4 with severe right-sided neuroforaminal narrowing as a cause of his symptoms and signs Plan as above (3) Spinal stenosis: Noted on CT and MRI of lumbar spine Plan as above (4) Ambulatory dysfunction: As above. Secondary to pain, weakness RLE -Fall precautions (5) Hypertension: Blood pressure well controlled -Continue Lisinopril 10 mg daily -Continue to monitor (6) Aortic stenosis: Moderate on ECHO from 08/31/18 LV normal Asymptomatic -Would avoid hypotension and hypovolemia (7) Dyslipidemia: Chronic -Continue Atorvastatin (8) Diabetes: Patient with newly diagnosed Type II DM, PuR0g=28 percent. Was recently started on glipizide ER 5 mg daily at home, reports blood sugars are typically 150-180. Blood sugars here are fairly well controlled on Lantus and NovoLog -Continue basal and bolus insulin while here -Holding home glipizide -Continue ASA and Statin (9) BPH (benign prostatic hyperplasia): Chronic. Does report dribbling of urine here. Bladder scan is at 140 mL's and no evidence of retention at this time -Continue Flomax -Continue Finasteride -Continue to BladderScan every shift and straight cath for postvoid residual greater than 400 mL's (10) GERD (gastroesophageal reflux disease): Chronic. -Continue Protonix daily (11) Carotid artery stenosis: bilat 50%, followed as outpt -continue ASA, statin (12) Inflammatory arthritis: on MTX SQ once weekly follows with Rheum in [place] Dr. Carvajal -working on getting Embrel approved through the [place] -Hold methotrexate in case of upcoming surgery (13) Constipation: Chronic and severe -continue bisacodyl bid -Miralax prn (14) DVT prophylaxis: Add SCDs and EMY hose Avoid chemical prophylaxis in case of upcoming procedure or surgery Disposition-remain hospitalized given intractable pain and possible need for orthopedic spine surgery Subjective Patient still having severe pain in the lower back radiating down the right lower extremity to the foot if he is lying flat. The pain is improved when he is sitting. The Dilaudid did help him be able to lie flat for the MRI earlier today. I reviewed the results of the MRI with him. I also discussed the case at length with Dr. Lema of orthopedic spine surgery. He reports he has had some weakness and numbness in the right lower extremity since the last time he had a herniated disc in his lumbar spine several years ago. At that time, he opted for conservative management and eventually the pain subsided. He has not moved his bowels in 3 or 4 days. He has a chronic issue with constipation. He also feels that his urine has been dribbling out today. The patient denies any other symptoms at this time. Review of Systems Review of Systems: All systems reviewed & are unremarkable except as noted in HPI & below Physical Exam Constitutional: WD/WN, vitals as above Eyes: PERRL, conjunctivae normal, anicteric sclerae ENMT: external ear and nose normal, oropharynx normal Neck: trachea midline, no thyromegaly Respiratory: normal respiratory effort, lungs clear to auscultation Cardiovascular: Rate/Rhythm: regular rate and regular rhythm Heart Sounds: + murmur (2/6 best heard at the RUSB but heard throughout the precordium as well) Vessels: no JVD, no carotid bruit (But can hear radiation of aortic stenosis murmur) and no abdominal aortic bruit Extremities: normal capillary refill; no calf tenderness and no edema Gastrointestinal (Abdomen): normal bowel sounds, soft, nontender, no hepatosplenomegaly Musculoskeletal: Spine: + straight leg raise positive (On the right); no thoracic spinal tenderness and no thoraco-lumbar mass Extremities: extremities normal to inspection; no cyanosis and no clubbing Skin: no rashes, warm and dry Neurologic: moves all extremities, + focal motor deficit (5 out of 5 strength throughout lower extremities but had give way weakness secondary to pain with right hip flexion; sensation decreased to light touch in the right thigh and lateral calf) and awake; + abnormal deep tendon reflexes (DTRs 1+ in the left patella and bilateral Achilles, unable to get DTR in the right patella) Psychiatric: A+Ox3, euthymic affect Results & Data Vital Signs (Past 12 Hours) Vital Signs Temp Pulse Resp BP Pulse Ox 09/06/18 15:39 36.5 C 74 21 114/73 93 09/06/18 07:51 50 L 132/73 09/06/18 07:15 36.4 C L 50 L 18 136/67 93 Laboratory Results 09/06/18 09/06/18 09/06/18 Range/Units 16:35 11:28 07:40 WBC (4.8-10.8) K/uL RBC (4.7-6.1) M/uL Hgb (14.0-18.0) g/dL Hct (42-52) % MCV (80-100) fL MCH (25-34) pg MCHC (32-36) g/dL RDW Std Deviation (36.4-46.3) fL RDW Coeff of Gabriele (11.5-14.5) % Plt Count (130-400) K/uL MPV (7.4-10.4) fL Immature Gran % (Auto) % Neut % (Auto) % Lymph % (Auto) % Wood % (Auto) % Eos % (Auto) % Baso % (Auto) % Immature Gran # (Auto) (0.00-0.02) K/uL Neut # (Auto) (1.4-6.5) K/uL Lymph # (Auto) (1.2-3.4) K/uL Wood # (Auto) (0.11-0.59) K/uL Eos # (Auto) (0-0.5) K/uL Baso # (Auto) (0-0.2) K/uL Sodium (136-145) mmol/L Potassium (3.5-5.1) mmol/L Chloride (98-107) mmol/L Carbon Dioxide (21-32) mmol/L Anion Gap (3-11) BUN (7-18) mg/dl Creatinine (0.6-1.4) mg/dl Est Cr Clr Drug Dosing ml/min Est GFR ( Amer) Est GFR (Non-Af Amer) BUN/Creatinine Ratio (10-20) Glucose (70-99) mg/dl POC Glucose 170 H 117 H 138 H (70-99) Calcium (8.5-10.1) mg/dl Phosphorus (2.5-4.9) mg/dl Magnesium (1.8-2.4) mg/dl Specimen Hemolysis 09/06/18 09/06/18 09/05/18 Range/Units 06:35 06:35 20:09 WBC 9.32 (4.8-10.8) K/uL RBC 4.76 (4.7-6.1) M/uL Hgb 15.6 (14.0-18.0) g/dL Hct 43.8 (42-52) % MCV 92.0 (80-100) fL MCH 32.8 (25-34) pg MCHC 35.6 (32-36) g/dL RDW Std Deviation 47.6 H (36.4-46.3) fL RDW Coeff of Gabriele 14.3 (11.5-14.5) % Plt Count 224 (130-400) K/uL MPV 10.7 H (7.4-10.4) fL Immature Gran % (Auto) 0.3 % Neut % (Auto) 58.5 % Lymph % (Auto) 25.6 % Wood % (Auto) 14.5 % Eos % (Auto) 0.8 % Baso % (Auto) 0.3 % Immature Gran # (Auto) 0.03 H (0.00-0.02) K/uL Neut # (Auto) 5.45 (1.4-6.5) K/uL Lymph # (Auto) 2.39 (1.2-3.4) K/uL Wood # (Auto) 1.35 H (0.11-0.59) K/uL Eos # (Auto) 0.07 (0-0.5) K/uL Baso # (Auto) 0.03 (0-0.2) K/uL Sodium 136 (136-145) mmol/L Potassium 3.6 (3.5-5.1) mmol/L Chloride 103 (98-107) mmol/L Carbon Dioxide 26 (21-32) mmol/L Anion Gap 7.0 (3-11) BUN 13 (7-18) mg/dl Creatinine 1.19 (0.6-1.4) mg/dl Est Cr Clr Drug Dosing 57.6 ml/min Est GFR ( Amer) 67.9 Est GFR (Non-Af Amer) 58.6 BUN/Creatinine Ratio 10.6 (10-20) Glucose 140 H (70-99) mg/dl POC Glucose 175 H (70-99) Calcium 8.7 (8.5-10.1) mg/dl Phosphorus (2.5-4.9) mg/dl Magnesium (1.8-2.4) mg/dl Specimen Hemolysis 09/05/18 Range/Units 19:49 WBC (4.8-10.8) K/uL RBC (4.7-6.1) M/uL Hgb (14.0-18.0) g/dL Hct (42-52) % MCV (80-100) fL MCH (25-34) pg MCHC (32-36) g/dL RDW Std Deviation (36.4-46.3) fL RDW Coeff of Gabriele (11.5-14.5) % Plt Count (130-400) K/uL MPV (7.4-10.4) fL Immature Gran % (Auto) % Neut % (Auto) % Lymph % (Auto) % Wood % (Auto) % Eos % (Auto) % Baso % (Auto) % Immature Gran # (Auto) (0.00-0.02) K/uL Neut # (Auto) (1.4-6.5) K/uL Lymph # (Auto) (1.2-3.4) K/uL Wood # (Auto) (0.11-0.59) K/uL Eos # (Auto) (0-0.5) K/uL Baso # (Auto) (0-0.2) K/uL Sodium (136-145) mmol/L Potassium (3.5-5.1) mmol/L Chloride (98-107) mmol/L Carbon Dioxide (21-32) mmol/L Anion Gap (3-11) BUN (7-18) mg/dl Creatinine (0.6-1.4) mg/dl Est Cr Clr Drug Dosing ml/min Est GFR ( Amer) Est GFR (Non-Af Amer) BUN/Creatinine Ratio (10-20) Glucose (70-99) mg/dl POC Glucose (70-99) Calcium (8.5-10.1) mg/dl Phosphorus 2.7 (2.5-4.9) mg/dl Magnesium 2.4 (1.8-2.4) mg/dl Specimen Hemolysis 2 Diagnostic Findings MRI lumbar spine: MR lumbar spine wo con HISTORY: Pain. Neuropathy. lumbar radiculopathy,RLE weakness TECHNIQUE: Multiplanar multisequence MRI of the lumbar spine was performed without the use of contrast. COMPARISON: 08/24/2013 FINDINGS: For the purpose of the report the L5-S1 disc space will be located on axial image 23 of 25. Vertebral body stature is unremarkable. Mildly progressive degenerative disc change at the entire lumbar region. No significant bone marrow replacing process . L1-L2: Mild broad-based disc herniation. Mild impact anterior thecal sac. Minimal narrowing of the neuroforamina bilaterally. This is progressive from the prior study. L2-L3: Large broad-based right central disc herniation. Extruded fragment measuring 10 x 8 mm posterior to the superior endplate of L3. Significant impact upon the thecal sac is present with severe narrowing of the right neuroforamina. There is mild narrowing left neuroforamina. These findings are markedly progressive compared to the prior study. L3-L4 broad-based disc herniation with significant multifactorial narrowing of the spinal canal. There is significant narrowing of the right neuroforamina. All findings are progressive compared to the prior study. There is moderate narrowing left neural foramina. L4-L5 minimal broad-based disc bulge. Minimal impact anterior thecal sac with minimal narrowing left neuroforamina.: L5-S1: Left central disc herniation. Moderate impact upon the anterior thecal sac and left S1 nerve root. Minimal narrowing left neuroforamina. This is also progressive compared to the prior study. IMPRESSION: 1. Progressive degenerative disc change throughout the entire lumbar region compared to the prior study. 2. Large broad-based disc herniation L3-L4 with significant multifactorial narrowing of the spinal canal and right neuroforamina. 3. Broad-based disc herniation L2-L3 with an extruded disc fragment measuring 1 cm posterior to the superior endplate of L3. This is progressive compared to the prior study with severe narrowing of the right neuroforamina. 4. Left central disc herniation L5-S1 with mild impact upon the left S1 nerve root and mild narrowing left neuroforamina. 5. All findings are progressive compared to the prior study. (1) BPH (benign prostatic hyperplasia) Lower urinary tract symptom presence: symptoms absent Qualified Code(s): N40.0 - Benign prostatic hyperplasia without lower urinary tract symptoms (2) Diabetes Diabetes mellitus complication status: without complication Diabetes mellitus longterm insulin use: without long winder tender use Diabetes mellitus type: type 2 Qualified Code(s): E11.9 - Type 2 diabetes mellitus without complications (3) Spinal stenosis Spinal region: unspecified Qualified Code(s): M48.00 - Spinal stenosis, site unspecified (4) Acute low back pain Back pain laterality: right Sciatica laterality: sciatica of right side Sciatica presence: with sciatica Qualified Code(s): M54.41 - Lumbago with sciatica, right side (5) GERD (gastroesophageal reflux disease) Esophagitis presence: esophagitis presence not specified Qualified Code(s): K21.9 - Gastro-esophageal reflux disease without esophagitis (6) Hypertension Hypertension type: essential hypertension Qualified Code(s): I10 - Essential (primary) hypertension
[2018-09-06] MEDS: POLYETHYLENE (MIRALAX) 17 GM PACK PO PRN (17:47)
[2018-09-07] MEDS: ACETAMINOPHEN 65 ML IV SCH ×3 (04:36→21:14)
[2018-09-07] MEDS: HYDROmorphone INJ 0.5 MG/0.5 ML SYR IV PRN ×4 (05:35→23:26)
[2018-09-07] MEDS: INSULIN ASPART 100 UNITS/ML 3 ML PEN SC SCH ×5 (07:47→21:32)
[2018-09-07] MEDS: PANTOprazole 40 MG TAB PO SCH (07:48)
[2018-09-07] MEDS: TAMSULOSIN HCL 0.4 MG CAP PO SCH (07:48)
[2018-09-07] MEDS: BISACODYL 5 MG TABEC PO SCH ×2 (07:48→21:05)
[2018-09-07] MEDS: ATORVASTATIN 40 MG TAB PO SCH (07:48)
[2018-09-07] MEDS: FOLIC ACID 1 MG TAB PO SCH (07:49)
[2018-09-07] MEDS: LISINOPRIL 10 MG TAB PO SCH (07:49)
[2018-09-07] MEDS: FINASTERIDE 5 MG TAB PO SCH (07:49)
[2018-09-07] MEDS: INSULIN GLARGINE SOLOSTAR 100 UNITS/ML 3 ML PEN SC SCH ×2 (07:50→22:11)
[2018-09-07] MEDS: ASPIRIN 81 MG ECTAB PO SCH ×2 (07:50→08:01)
[2018-09-07] MEDS: POLYETHYLENE (MIRALAX) 17 GM PACK PO PRN (08:37)
--- NOTE | 2018-09-07 15:49 | Orthopedic Progress Note ---
Date of Service September 07, 2018 Assessment & Plan (1) Lumbar radiculopathy: I had a long discussion with this patient describing his MRI findings and options for treatment. They do span for medical management through epidural injections to ultimately surgical decompression and fusion involving the L2-3 L3-4 levels. He does have severe stenosis with a far lateral disc herniation at 2 3 causing severe neural compression. He is going to consider his option and let us know how he would like to proceed. Present on Admission?: Yes Subjective Patient continues to struggle with right buttock and anterior thigh pain. Is classic radicular pattern. Left lower extremities remains asymptomatic. Physical Exam Physical Exam: Patient is in obvious distress. He has difficulty sitting on his right side. No changes neurologically. Results & Data Vital Signs (Past 12 Hours) Vital Signs Temp Pulse Resp BP Pulse Ox 09/07/18 15:19 36.2 C L 80 18 135/78 94 09/07/18 11:39 37.4 C 89 18 111/73 93 09/07/18 07:47 68 135/80 09/07/18 07:25 36.8 C 55 L 18 117/73 95
[2018-09-07] MEDS: BISACODYL 10 MG SUPP PR PRN (17:41)
[2018-09-07] MEDS ORDERED: MAGNESIUM CITRATE 296 ML/BTL PO STA (20:00)
--- NOTE | 2018-09-07 20:03 | Hospitalist Progress Note ---
Date of Service September 07, 2018 Assessment & Plan (1) Acute low back pain: Patient with acute lumbar pain with radiculopathy down the right lower extremity MRI lumbar spine confirms HNP at L2-3 and L3-4 with severe right-sided neuroforaminal narrowing which is likely culprit of his symptoms -Continue pain control with Dilaudid 0.5 mg IV every 2 hours as needed -Continue Toradol IV PRN -Continue Tylenol IV as needed -Continue Lidoderm patch -Continue heating pad Appreciate orthopedic spine consultation-plan to make him n.p.o. after midnight for surgery tomorrow The patient is easily able to achieve 4 METS-he can climb up and down a flight of stairs without chest pain or shortness of breath. In fact, he walks on the treadmill and works out on a [employer] piece of gym equipment for 30 to 35 minutes daily. He has no ongoing angina or any history of cardiac intervention. He did have an echocardiogram as an outpatient just last week that showed no wall motion abnormalities and with normal LV function. He does have moderate aortic valve stenosis which is unchanged from previous. His ECG here is with sinus bradycardia and no evidence of ischemia He would be at medically acceptable risk to undergo an intermediate risk surgery such as a lumbar decompression and fusion. Perioperative cardiovascular risk assessment was discussed with the patient and he understands the risk. Of course with the aortic stenosis, would avoid hypovolemia and hypotension. (2) Lumbar radiculopathy: At L2-3, L3-4 with severe right-sided neuroforaminal narrowing as a cause of his symptoms and signs Plan as above (3) Spinal stenosis: Noted on CT and MRI of lumbar spine Plan as above (4) Ambulatory dysfunction: As above. Secondary to pain, weakness RLE -Fall precautions (5) Hypertension: Blood pressure well controlled -Continue Lisinopril 10 mg daily -Continue to monitor (6) Aortic stenosis: Moderate on ECHO from 08/31/18 LV normal Asymptomatic -Would avoid hypotension and hypovolemia (7) Dyslipidemia: Chronic -Continue Atorvastatin (8) Diabetes: Patient with recently newly diagnosed Type II DM, SzN5x=49 percent. Was recently started on glipizide ER 5 mg daily at home, reports blood sugars are typically 150-180. Blood sugars here are fairly well controlled on Lantus and NovoLog -Continue basal and bolus insulin while here -Holding home glipizide -Continue ASA and Statin (9) BPH (benign prostatic hyperplasia): Chronic. Does report dribbling of urine here. Bladder scans are negative for retention at this time -Continue Flomax -Continue Finasteride -Continue to BladderScan every shift and straight cath for postvoid residual greater than 400 mL's (10) GERD (gastroesophageal reflux disease): Chronic. -Continue Protonix daily (11) Carotid artery stenosis: bilat 50%, followed as outpt -continue ASA, statin (12) Inflammatory arthritis: on MTX SQ once weekly follows with Rheum in [place] Dr. Mejia -working on getting Embrel [facility] the [facility] -Holding methotrexate for upcoming surgery -I will contact his reception agent tomorrow to see when they recommend he start back on it-patient reports that he gets severe pain when he skips a dose of methotrexate (13) Constipation: Chronic and severe, still has not moved his bowels in 5 days -continue bisacodyl bid -Miralax prn -Add bottle of magnesium citrate today (14) DVT prophylaxis: SCDs and EMY yuridiae Avoid chemical prophylaxis due to upcoming surgery Disposition-remain hospitalized given intractable pain and possible need for orthopedic spine surgery Subjective Patient reports pain is only improved if he has his right leg propped up on the bed while he is sitting. Denies nausea or vomiting, denies chest pain or shortness of breath. Otherwise feeling well. He has decided to have the surgery tomorrow with orthopedic spine surgery. Review of Systems Review of Systems: All systems reviewed & are unremarkable except as noted in HPI & below Physical Exam Constitutional: WD/WN, vitals as above Eyes: PERRL, conjunctivae normal, anicteric sclerae Neck: trachea midline, no thyromegaly Respiratory: normal respiratory effort, lungs clear to auscultation Cardiovascular: Rate/Rhythm: regular rate and regular rhythm Heart Sounds: + murmur (2/6 best heard at the RUSB but heard throughout the precordium as well) Vessels: no JVD Extremities: normal capillary refill; no calf tenderness and no edema Gastrointestinal (Abdomen): normal bowel sounds, soft, nontender, no hepatosplenomegaly Musculoskeletal: Extremities: extremities normal to inspection; no cyanosis and no clubbing Skin: no rashes, warm and dry Psychiatric: A+Ox3, euthymic affect Results & Data Vital Signs (Past 12 Hours) Vital Signs Temp Pulse Resp BP Pulse Ox 09/07/18 15:19 36.2 C L 80 18 135/78 94 09/07/18 11:39 37.4 C 89 18 111/73 93 (1) BPH (benign prostatic hyperplasia) Lower urinary tract symptom presence: symptoms absent Qualified Code(s): N40.0 - Benign prostatic hyperplasia without lower urinary tract symptoms (2) Diabetes Diabetes mellitus complication status: without complication Diabetes mellitus long-term insulin use: without long-term use Diabetes mellitus type: type 2 Qualified Code(s): E11.9 - Type 2 diabetes mellitus without complications (3) Spinal stenosis Spinal region: unspecified Qualified Code(s): M48.00 - Spinal stenosis, site unspecified (4) Acute low back pain Back pain laterality: right Sciatica laterality: sciatica of right side Sciatica presence: with sciatica Qualified Code(s): M54.41 - Lumbago with sciatica, right side (5) GERD (gastroesophageal reflux disease) Esophagitis presence: esophagitis presence not specified Qualified Code(s): K21.9 - Gastro-esophageal reflux disease without esophagitis (6) Hypertension Hypertension type: essential hypertension Qualified Code(s): I10 - Essential (primary) hypertension
[2018-09-07] MEDS: D5W AND LACTATED RINGERS 1,000 ML IV SCH (23:26)
[2018-09-08] MEDS: ACETAMINOPHEN 65 ML IV SCH ×3 (04:19→20:53)
[2018-09-08] MEDS: HYDROmorphone INJ 0.5 MG/0.5 ML SYR IV PRN ×2 (04:41→08:34)
[2018-09-08 06:22] LABS: Basophils # (auto) 0.04 K/uL (0-0.2); Basophils % (auto) 0.4 %; Eosinophils # (auto) 0.09 K/uL (0-0.5); Hematocrit (blood only) 40.3 % (42-52); Hemoglobin 14.8 g/dL (14.0-18.0); Immature Granulocytes # (auto) 0.02 K/uL (0.00-0.02); Immature Granulocytes % (auto) 0.2 %; Lymphocytes # (auto) 1.77 K/uL (1.2-3.4); Lymphocytes % (auto) 19.7 %; Mean Corpuscular Hgb Conc 36.7 g/dL (32-36); Mean Corpuscular Volume 90.2 fL (80-100); Mean Platelet Volume 10.1 fL (7.4-10.4); Monocytes # (auto) 2.24 K/uL (0.11-0.59); Monocytes % (auto) 24.9 %; Neutrophils # (auto) 4.82 K/uL (1.4-6.5); Neutrophils % (auto) 53.8 %; Platelet Count 194 K/uL (130-400); RDW Coefficient of Variation 14.5 % (11.5-14.5); RDW Standard Deviation 47.3 fL (36.4-46.3); Red Blood Count 4.47 M/uL (4.7-6.1); White Blood Count 8.98 K/uL (4.8-10.8)
[2018-09-08 06:38] LABS: INR 1.1 (0.9-1.1); Partial Thromboplastin Ratio 0.9; Partial Thromboplastin Time 25.6 Seconds (21.0-31.0); Prothrombin Time 11.5 Seconds (9.0-12.0)
[2018-09-08 06:52] LABS: BUN Creatinine Ratio 13.5 (10-20); Calcium 8.5 mg/dl (8.5-10.1); Creatinine Clr Calc Pharmacy 67.8 ml/min; Est GFR (African American) 82.8; Est GFR (Non-African American) 71.4; Potassium 3.6 mmol/L (3.5-5.1)
[2018-09-08] MEDS: INSULIN ASPART 100 UNITS/ML 3 ML PEN SC SCH ×4 (07:29→21:59)
[2018-09-08] MEDS: LISINOPRIL 10 MG TAB PO SCH (07:31)
[2018-09-08] MEDS: PANTOprazole 40 MG TAB PO SCH (07:31)
[2018-09-08] MEDS: ATORVASTATIN 40 MG TAB PO SCH (07:31)
[2018-09-08] MEDS: TAMSULOSIN HCL 0.4 MG CAP PO SCH (07:31)
[2018-09-08] MEDS: FINASTERIDE 5 MG TAB PO SCH (07:31)
[2018-09-08] MEDS: BISACODYL 5 MG TABEC PO SCH ×2 (07:31→22:08)
[2018-09-08] MEDS: ASPIRIN 81 MG ECTAB PO SCH (07:32)
[2018-09-08] MEDS: FOLIC ACID 1 MG TAB PO SCH (07:33)
[2018-09-08] MEDS: INSULIN GLARGINE SOLOSTAR 100 UNITS/ML 3 ML PEN SC SCH ×2 (07:38→21:58)
--- NOTE | 2018-09-08 07:41 | Anesthesiology Consultation ---
Date of Service September 08, 2018 Per the medicine note, the patient did have an echocardiogram as an outpatient just last week that showed no wall motion abnormalities and with normal LV function. He does have moderate aortic valve stenosis which is unchanged from previous. Assessment & Plan (1) Encounter for pre-operative examination: Chart Review Chart Review: Acceptable Risk for Surgery and Patient NOT seen in Pre Admission Testing Type and Screen ordered. History Surgery Operation Date: 09/08/18 07:00 Proposed Procedures p L2-L3, L3-L4 Decompression and Fusion - Manuel Lema DO Height/Weight Height: 5 ft 6 in Weight: 100 kg Allergies Allergy/AdvReac Type Severity Reaction Status Date / Time No Known Drug Allergies Allergy Unknown . Verified 09/05/18 11:02 scallops AdvReac Unknown VOMITING Verified 09/05/18 11:02 Medications Home Medications Medication Instructions Recorded Confirmed Last Taken acetaminophen [Tylenol] 325 mg PO Q6H PRN 09/05/18 09/05/18 Unknown ascorbic acid (vitamin C) [Vitamin 1 g PO DAILY 09/05/18 09/05/18 Unknown C] aspirin 81 mg PO DAILY 09/05/18 09/05/18 Unknown atorvastatin 40 mg PO DAILY 09/05/18 09/05/18 Unknown bisacodyl 5 mg PO HS 09/05/18 09/05/18 Unknown cholecalciferol (vitamin D3) 2,000 unit PO DAILY 09/05/18 09/05/18 Unknown [Vitamin D3] finasteride 5 mg PO DAILY 09/05/18 09/05/18 Unknown folic acid 1 mg PO DAILY 09/05/18 09/05/18 Unknown glipizide 5 mg PO DAILY 09/05/18 09/05/18 Unknown leflunomide [Arava] 20 mg PO DAILY 09/05/18 09/05/18 Unknown lisinopril 10 mg PO DAILY 09/05/18 09/05/18 Unknown pantoprazole [Protonix] 40 mg PO DAILY 09/05/18 09/05/18 Unknown tamsulosin 0.4 mg PO DAILY 09/05/18 09/05/18 Unknown vit C,W-Te-xacla-lutein-zeaxan 1 tab PO DAILY 09/05/18 09/05/18 Unknown [PreserVision AREDS-2] methotrexate sodium 17.5 mg SUBCUT Q7D 09/06/18 09/06/18 Unknown Active Medications Generic Name Dose Route Start Last Admin Trade Name Freq PRN Reason Stop Dose Admin Aspirin 81 mg 09/06/18 09:00 09/08/18 07:32 Ecotrin Ectab PO 10/06/18 08:59 Not Given DAILY GABRIELLA Atorvastatin Calcium 40 mg 09/06/18 09:00 09/08/18 07:31 Lipitor PO 10/06/18 08:59 40 mg DAILY GABRIELLA Administration Bisacodyl 10 mg 09/05/18 18:27 09/07/18 17:41 Dulcolax OR 10/05/18 18:26 10 mg DAILY PRN Administration Constipation Bisacodyl 5 mg 09/06/18 09:00 09/08/18 07:31 Dulcolax PO 10/06/18 08:59 5 mg QAM GABRIELLA Administration Bisacodyl 10 mg 09/06/18 21:00 09/07/18 21:05 Dulcolax PO 10/06/18 20:59 10 mg HS GABRIELLA Administration Docusate Sodium 100 mg 09/05/18 18:27 09/07/18 08:37 Colace PO 10/05/18 18:26 100 mg BID PRN Administration Constipation Finasteride 5 mg 09/06/18 09:00 09/08/18 07:31 Proscar PO 10/06/18 08:59 5 mg DAILY GABRIELLA Administration Folic Acid 1 mg 09/06/18 09:00 09/08/18 07:33 Folvite PO 10/06/18 08:59 1 mg DAILY GABRIELLA Administration Hydromorphone HCl 0.5 mg 09/06/18 12:44 09/08/18 08:34 Dilaudid IV 09/20/18 12:43 0.5 mg Q2H PRN Administration Pain Acetaminophen 65 mls @ 200 mls/hr 09/05/18 20:00 09/08/18 04:41 Ofirmev IV 10/05/18 19:59 Infused Q8H GABRIELLA Infusion Dextrose/Lactated Ringer's 1,000 mls @ 100 mls/hr 09/07/18 23:59 09/08/18 08:35 D5w And Lactated Ringers IV 10/07/18 23:58 100 mls/hr .Q10H GABRIELLA Administration Insulin Aspart 0 units 09/05/18 21:00 09/08/18 07:29 Novolog Flexpen SC 10/05/18 20:59 Not Given ACHS GABRIELLA Insulin Glargine 7 units 09/05/18 21:00 09/08/18 07:38 Lantus Solostar Pen SC 10/05/18 20:59 7 units BID GABRIELLA Administration Lisinopril 10 mg 09/06/18 09:00 09/08/18 07:31 Zestril PO 10/06/18 08:59 10 mg DAILY GABRIELLA Administration Miscellaneous 1 ea 09/06/18 00:00 09/08/18 07:32 Order Awaiting Action N/A 10/06/18 00:00 Not Given QS GABRIELLA Pantoprazole Sodium 40 mg 09/06/18 09:00 09/08/18 07:31 Protonix PO 10/06/18 08:59 40 mg DAILY GABRIELLA Administration Polyethylene Glycol 17 gm 09/05/18 18:27 09/07/18 08:37 Miralax Powder Packet PO 10/05/18 18:26 17 gm DAILY PRN Administration Constipation Tamsulosin HCl 0.4 mg 09/06/18 09:00 09/08/18 07:31 Flomax PO 10/06/18 08:59 0.4 mg DAILY GABRIELLA Administration NPO Date Last Intake of Fluids: 09/07/18 Date Last Intake of Solids: 09/07/18 Past Medical History Medical History Hypertension (Chronic) BPH (benign prostatic hyperplasia) Carotid stenosis Diabetes GERD (gastroesophageal reflux disease) Hyperlipidemia Past Family History Family History Other Family history non-contributory Past Surgical History Surgical History Knee joint replacement status (Resolved) S/P carpal tunnel release S/P knee surgery S/P shoulder surgery Social History Smoking Status: Former smoker Smoking End Date: 1972 Hx Alcohol Use: No Hx Substance Use: No Physical Exam Vital Signs Last Vital Signs Temp 36.7 C 09/08/18 07:00 Pulse 58 L 09/08/18 07:00 Resp 18 09/08/18 07:00 BP 133/75 09/08/18 07:00 Pulse Ox 92 09/08/18 07:00 Testing Electrocardiogram Date: 09/05/18 Findings: + SB @ (58) Sinus bradycardia Low voltage QRS Abnormal ECG Confirmed by Rubén Estrella ([id number]) on 09/05/2018 3:32:06 PM Other Testing Laboratory Tests 08/01/17 08/28/18 09/08/18 12:47 07:50 05:56 WBC 8.98 Hgb 14.8 Hct 40.3 L Plt Count 194 PT INR APTT Sodium Potassium Chloride Carbon Dioxide BUN Creatinine Glucose Hemoglobin A1c 11.0 H TSH 1.650 09/08/18 09/08/18 05:56 05:56 WBC Hgb Hct Plt Count PT 11.5 INR 1.1 APTT 25.6 Sodium 136 Potassium 3.6 Chloride 104 Carbon Dioxide 26 BUN 14 Creatinine 1.01 Glucose 149 H Hemoglobin A1c TSH
[2018-09-08] MEDS: D5W AND LACTATED RINGERS 1,000 ML IV SCH ×2 (08:35→20:12)
[2018-09-08] MEDS ORDERED: LARYING-O-JET KIT (LTA) ONE (14:13)
[2018-09-08] MEDS ORDERED: PHENYLEPHRINE HCL 10 MG/ML VIAL ONE (14:13)
[2018-09-08] MEDS ORDERED: DexMEDEtomidine HCL IV 100 MCG/ML VIAL ONE (14:25)
--- NOTE | 2018-09-08 15:05 | History & Physical Bridge Note ---
Date of Service September 08, 2018 History & Physical Bridge Note I have examined the patient, reviewed the History & Physical and in the interval since the performance of the History & Physical I have noted the following changes of clinical significance: no changes noted
[2018-09-08] MEDS ORDERED: LIDOCAINE HCL 2% 2 ML VIAL/AMP(20MG/ML) INFIL ONE (15:13)
[2018-09-08] MEDS ORDERED: HYDROmorphone INJ 2 MG/ML SYR/VIAL ONE ×2 (15:13→17:06)
[2018-09-08] MEDS ORDERED: ONDANSETRON INJ 2 MG/ML 2 ML VIAL ONE (15:13)
[2018-09-08] MEDS ORDERED: DEXAMETHASONE SOD INJ 4 MG/ML VIAL ONE (15:13)
[2018-09-08] MEDS ORDERED: PROPOFOL IV EMULSION 10 MG/ML 20 ML VIAL IV ONE (15:13)
[2018-09-08] MEDS ORDERED: ROCURONIUM BROMIDE 10 MG/ML 5 ML VIAL ONE ×3 (15:13→16:15)
[2018-09-08] MEDS ORDERED: BUPIVACAINE/EPINEPHRINE 0.5% MPF 1:200,000 30 ML VIAL ONE (15:18)
[2018-09-08] MEDS ORDERED: BACITRACIN INJ 50,000 UNIT VIAL ONE (15:18)
[2018-09-08] MEDS ORDERED: ALBUMIN HUMAN 5% 12.5 GM/250 ML VIAL IV ONE (15:24)
[2018-09-08] MEDS ORDERED: ATROPINE SULFATE 0.1 MG/ML 10ML SYR IV PRN (15:34)
[2018-09-08] MEDS ORDERED: HYDROmorphone INJ 1 MG/ML SYRINGE IV PRN (15:34)
[2018-09-08] MEDS ORDERED: ePHEDrine sulfate 50 MG/ML AMP IV PRN (15:34)
[2018-09-08] MEDS ORDERED: CEFAZOLIN 2000MG 2,000 MG/15 ML SYR IV ONE (16:52)
[2018-09-08] MEDS ORDERED: THROMBIN 5000 UNITS KIT SCH (17:00)
[2018-09-08] MEDS ORDERED: NEOSTIGMINE METHYLSULFATE 1 MG/ML 10ML VIAL ONE (18:05)
[2018-09-08] MEDS ORDERED: GLYCOPYRROLATE 0.2 MG/ML VIAL ONE (18:05)
[2018-09-08] MEDS ORDERED: FLOSEAL HEMOSTATIC MATRIX 10ML TOP ONE (18:13)
--- NOTE | 2018-09-08 18:31 | Fluoroscopy Report ---
LUMBAR SPINE, INTRAOPERATIVE FLUOROSCOPY HISTORY: L2-L4 decompression and fusion. FLUOROSCOPY TIME: 22 seconds. FINDINGS: Intraoperative fluoroscopy was provided for the lumbar spine. 2 fluoroscopic spot images we re obtained. Posterior decompression fusion at L2-L4 with pedicle screws and rods. The hardware appea rs intact. IMPRESSION: Fluoroscopy provided for a L2-L4 posterior decompression and fusion. Electronically signed by: Saud Moser M.D. 09/08/2018 6:30 PM
--- NOTE | 2018-09-08 18:31 | Operative Report ---
Post Operative Report Pre & Post Diagnosis Operation Date: 09/08/18 07:00 Pre-Op Diagnosis: Lumbar spinal stenosis with herniated nucleus pulposus and radiculopathy. Obesity Post-Op Diagnosis: Same Procedure Operation Date: 09/08/18 07:00 Actual Procedures #1 lumbar decompression bilateral medial facetectomies and foraminotomies L1-L2 3 L3-4. #2 posterior spinal fusion L2-3 L3-4. #3 placement posterior segmental instrumentation using globus rods and screws L2-3 L3-4. #4 interbody fusion L2- 3. #5 placement of peek cage 10 x 26 mm L2-3. #6 placement of local autograft in the posterior lateral gutters. #7 placement infuse collagen sponge mass graft in the posterior lateral gutters and ostial amp and interbody space. Surgeon Manuel Lema, Power And Recovery Supervisor None Estimated Blood Loss 450 Findings See Below Patient is 5 foot 6 inches tall and 100 kg with a BMI of 35.6. Patient's body habitus increased the surgical time by at least 50% and made it much more technically difficult requiring our deepest retractors and longus Kerrisons to perform the procedure. Specimens None Indications With severe spinal stenosis and radiculopathy unable to ambulate and like to undergo the above-mentioned procedure. Description of Procedure Patient was met with identified and informed consent obtained. He was then taken to the operative suite underwent intubation and placed in a prone position on the Yasir table on top of the Gilbert frame. All bony prominences well- padded eyes inspected to ensure no external pressure placed upon them. This point the lumbar spine was prepped and draped in a normal sterile fashion. Sharp dissection with the assistance of Bovie cautery was performed down to and exposing the lamina and transverse processes of L to L3-L4 bilaterally. From a caudal to cephalad fashion complete laminectomy of L3 L2 and partial laminectomy of L1 was performed including bilateral medial facetectomies and foraminotomies as well as identifying and removing a massive far lateral disc at 2 3 on the right. After this complete pedicle screws were placed in L2-L3-L4 bilaterally with assistance of fluoroscopy and the appropriate size petrona placed. By way of a transforaminal approach on the right complete discectomy of L2-[address] coated to subcortical being bone and a 10 x 26 mm peek cage filled with osteo-amp bone graft tapped in position. The rods were then locked in final position bilaterally. The transverse processes of L2-L3 and L4 burred to subcortical bleeding bone. Infuse collagen sponge mass graft local autograft was then placed in the posterior gutters. 15 round RAFA drain inserted. The incision was then closed with 1 Vicryl in the fascia 2-0 Vicryl subcutaneous and 4 Monocryl for Fransen closure. Steri-Strip sterile dressings placed. Patient will continue to PACU stable condition. I attest to the content of the Intraoperative Record and any orders documented therein. Any exceptions are noted below.
--- NOTE | 2018-09-08 19:13 | Hospitalist Progress Note ---
Date of Service September 08, 2018 Assessment & Plan (1) Acute low back pain: Patient with acute lumbar pain with radiculopathy down the right lower extremity MRI lumbar spine confirms HNP at L2-3 and L3-4 with severe right-sided neuroforaminal narrowing which is likely culprit of his symptoms -Continue pain control, bowel regimen Appreciate orthopedic spine consultation-now status post surgery on 09/08 with: #1 lumbar decompression, bilateral medial facetectomies and foraminotomies L1-L2 3 L3-4. #2 posterior spinal fusion L2-3 L3-4. #3 placement posterior segmental instrumentation using globus rods and screws L2-3 L3-4. #4 interbody fusion L2- 3. #5 placement of peek cage 10 x 26 mm L2-3. #6 placement of local autograft in the posterior lateral gutters. #7 placement infuse collagen sponge mass graft in the posterior lateral gutters and ostial amp and interbody space. -Postoperative care as per orthopedics (2) Lumbar radiculopathy: At L2-3, L3-4 with severe right-sided neuroforaminal narrowing as a cause of his symptoms and signs Plan as above (3) Spinal stenosis: Noted on CT and MRI of lumbar spine Plan as above (4) Ambulatory dysfunction: As above. Secondary to pain, weakness RLE -Fall precautions (5) Hypertension: Blood pressure well controlled -Will hold lisinopril in the postoperative period given blood loss and possibility of hypotension -Continue to monitor -Follow BMP in the morning -Avoid hypotension in the setting of moderate aortic stenosis (6) Aortic stenosis: Moderate on ECHO from 08/31/18 LV normal Asymptomatic -Would avoid hypotension and hypovolemia in the perioperative setting (7) Dyslipidemia: Chronic -Continue Atorvastatin (8) Diabetes: Patient with recently newly diagnosed Type II DM, LxJ0s=53 percent. Was recently started on glipizide ER 5 mg daily at home, reports blood sugars are typically 150-180. Blood sugars here are fairly well controlled on Lantus and NovoLog -Continue basal and bolus insulin while here -Holding home glipizide -Continue ASA and Statin (9) BPH (benign prostatic hyperplasia): Chronic. Does report dribbling of urine here however bladder scans are negative for retention at this time Echevarria catheter now in place postoperatively -Continue Flomax -Continue Finasteride -Continue to BladderScan as needed after Echevarria catheter removed (10) GERD (gastroesophageal reflux disease): Chronic. -Continue Protonix daily (11) Carotid artery stenosis: bilat 50%, followed as outpt -continue ASA, statin (12) Inflammatory arthritis: on MTX SQ once weekly follows with Rheum in [place] Dr. Mejia -working on getting En[facility] -Holding methotrexate for surgery -I contacted his golf course ranger's office to see when they recommend he start back on his methotrexate-patient reports that he gets severe pain when he skips a dose of methotrexate. Unfortunately, his golf course ranger was not in and is gone for the holiday weekend. Recommend contacting rheumatology office on Tuesday for further recommendation on the methotrexate (13) Constipation: Chronic and severe, still has not moved his bowels in 6 days -continue bisacodyl bid -Miralax prn -Add docusate senna twice daily (14) DVT prophylaxis: SCDs and EMY hose Avoid chemical prophylaxis due lumbar spine surgery Disposition-remain hospitalized for recovery from spinal surgery PT/OT consults will be needed to determine if needs rehab placement Subjective Patient seen in the immediate postoperative period in the PACU. He was still waking up from anesthesia and was quite lethargic. The only thing he said was "I need everyone to leave me alone." Review of Systems Review of Systems: Unobtainable due to cognitive status Physical Exam Constitutional: WD/WN, vitals as above Eyes: + anicteric sclerae; no eyelid abnormality Neck: trachea midline, no thyromegaly Respiratory: normal respiratory effort, lungs clear to auscultation Cardiovascular: Rate/Rhythm: regular rate and regular rhythm Heart Sounds: + murmur (2/6 best heard at the RUSB but heard throughout the precordium as well) Vessels: no JVD Extremities: normal capillary refill and + edema (Left foot with edema, right foot no edema); no calf tenderness Gastrointestinal (Abdomen): normal bowel sounds, soft, nontender, no hepatosplenomegaly Musculoskeletal: Extremities: no cyanosis and no clubbing Skin: no rashes, warm and dry Neurologic: moves all extremities and awake Genitourinary: Echevarria catheter in place with clear yellow urine Results & Data Vital Signs (Past 12 Hours) Vital Signs Temp Pulse Resp BP Pulse Ox 09/08/18 19:05 85 13 138/88 95 09/08/18 18:55 93 H 15 146/76 H 94 09/08/18 18:45 85 12 133/69 94 09/08/18 18:39 36.9 C 75 12 101/55 L 94 09/08/18 14:35 36.6 C 58 L 14 141/64 H 95 Laboratory Results 09/08/18 09/08/18 09/08/18 Range/Units 18:44 11:42 08:29 WBC (4.8-10.8) K/uL RBC (4.7-6.1) M/uL Hgb (14.0-18.0) g/dL Hct (42-52) % MCV (80-100) fL MCH (25-34) pg MCHC (32-36) g/dL RDW Std Deviation (36.4-46.3) fL RDW Coeff of Gabriele (11.5-14.5) % Plt Count (130-400) K/uL MPV (7.4-10.4) fL Immature Gran % (Auto) % Neut % (Auto) % Lymph % (Auto) % [place] % (Auto) % Eos % (Auto) % Baso % (Auto) % Immature Gran # (Auto) (0.00-0.02) K/uL Neut # (Auto) (1.4-6.5) K/uL Lymph # (Auto) (1.2-3.4) K/uL [place] # (Auto) (0.11-0.59) K/uL Eos # (Auto) (0-0.5) K/uL Baso # (Auto) (0-0.2) K/uL PT (9.0-12.0) Seconds INR (0.9-1.1) APTT (21.0-31.0) Seconds PTT Ratio Sodium (136-145) mmol/L Potassium (3.5-5.1) mmol/L Chloride (98-107) mmol/L Carbon Dioxide (21-32) mmol/L Anion Gap (3-11) BUN (7-18) mg/dl Creatinine (0.6-1.4) mg/dl Est Cr Clr Drug Dosing ml/min Est GFR ( Amer) Est GFR (Non-Af Amer) BUN/Creatinine Ratio (10-20) Glucose (70-99) mg/dl POC Glucose 145 H 141 H (70-99) Calcium (8.5-10.1) mg/dl Blood Type O Positive Antibody Screen NEGATIVE 09/08/18 09/08/18 09/08/18 Range/Units 06:08 05:56 05:56 WBC (4.8-10.8) K/uL RBC (4.7-6.1) M/uL Hgb (14.0-18.0) g/dL Hct (42-52) % MCV (80-100) fL MCH (25-34) pg MCHC (32-36) g/dL RDW Std Deviation (36.4-46.3) fL RDW Coeff of Gabriele (11.5-14.5) % Plt Count (130-400) K/uL MPV (7.4-10.4) fL Immature Gran % (Auto) % Neut % (Auto) % Lymph % (Auto) % [place] % (Auto) % Eos % (Auto) % Baso % (Auto) % Immature Gran # (Auto) (0.00-0.02) K/uL Neut # (Auto) (1.4-6.5) K/uL Lymph # (Auto) (1.2-3.4) K/uL [place] # (Auto) (0.11-0.59) K/uL Eos # (Auto) (0-0.5) K/uL Baso # (Auto) (0-0.2) K/uL PT 11.5 (9.0-12.0) Seconds INR 1.1 (0.9-1.1) APTT 25.6 (21.0-31.0) Seconds PTT Ratio 0.9 Sodium 136 (136-145) mmol/L Potassium 3.6 (3.5-5.1) mmol/L Chloride 104 (98-107) mmol/L Carbon Dioxide 26 (21-32) mmol/L Anion Gap 6.0 (3-11) BUN 14 (7-18) mg/dl Creatinine 1.01 (0.6-1.4) mg/dl Est Cr Clr Drug Dosing 67.8 ml/min Est GFR ( Amer) 82.8 Est GFR (Non-Af Amer) 71.4 BUN/Creatinine Ratio 13.5 (10-20) Glucose 149 H (70-99) mg/dl POC Glucose 153 H (70-99) Calcium 8.5 (8.5-10.1) mg/dl Blood Type Antibody Screen 09/08/18 09/07/18 Range/Units 05:56 21:09 WBC 8.98 (4.8-10.8) K/uL RBC 4.47 L (4.7-6.1) M/uL Hgb 14.8 (14.0-18.0) g/dL Hct 40.3 L (42-52) % MCV 90.2 (80-100) fL MCH 33.1 (25-34) pg MCHC 36.7 H (32-36) g/dL RDW Std Deviation 47.3 H (36.4-46.3) fL RDW Coeff of Gabriele 14.5 (11.5-14.5) % Plt Count 194 (130-400) K/uL MPV 10.1 (7.4-10.4) fL Immature Gran % (Auto) 0.2 % Neut % (Auto) 53.8 % Lymph % (Auto) 19.7 % [place] % (Auto) 24.9 % Eos % (Auto) 1.0 % Baso % (Auto) 0.4 % Immature Gran # (Auto) 0.02 (0.00-0.02) K/uL Neut # (Auto) 4.82 (1.4-6.5) K/uL Lymph # (Auto) 1.77 (1.2-3.4) K/uL [place] # (Auto) 2.24 H (0.11-0.59) K/uL Eos # (Auto) 0.09 (0-0.5) K/uL Baso # (Auto) 0.04 (0-0.2) K/uL PT (9.0-12.0) Seconds INR (0.9-1.1) APTT (21.0-31.0) Seconds PTT Ratio Sodium (136-145) mmol/L Potassium (3.5-5.1) mmol/L Chloride (98-107) mmol/L Carbon Dioxide (21-32) mmol/L Anion Gap (3-11) BUN (7-18) mg/dl Creatinine (0.6-1.4) mg/dl Est Cr Clr Drug Dosing ml/min Est GFR ( Amer) Est GFR (Non-Af Amer) BUN/Creatinine Ratio (10-20) Glucose (70-99) mg/dl POC Glucose 141 H (70-99) Calcium (8.5-10.1) mg/dl Blood Type Antibody Screen (1) BPH (benign prostatic hyperplasia) Lower urinary tract symptom presence: symptoms absent Qualified Code(s): N40.0 - Benign prostatic hyperplasia without lower urinary tract symptoms (2) Diabetes Diabetes mellitus complication status: without complication Diabetes mellitus meterman insulin use: without meterman use Diabetes mellitus type: type 2 Qualified Code(s): E11.9 - Type 2 diabetes mellitus without complications (3) Spinal stenosis Spinal region: unspecified Qualified Code(s): M48.00 - Spinal stenosis, site unspecified (4) Acute low back pain Back pain laterality: right Sciatica laterality: sciatica of right side Sciatica presence: with sciatica Qualified Code(s): M54.41 - Lumbago with sciatica, right side (5) GERD (gastroesophageal reflux disease) Esophagitis presence: esophagitis presence not specified Qualified Code(s): K21.9 - Gastro-esophageal reflux disease without esophagitis (6) Hypertension Hypertension type: essential hypertension Qualified Code(s): I10 - Essential (primary) hypertension
--- NOTE | 2018-09-08 19:23 | Anesthesiology Progress Note ---
Date of Service September 08, 2018 Anesthesia Post Procedure Vital Signs Vital Signs: Temp Pulse Pulse Resp BP Pulse Ox 09/08/18 19:05 85 13 138/88 95 09/08/18 18:55 93 H 15 146/76 H 94 09/08/18 18:45 85 12 133/69 94 09/08/18 18:39 36.9 C 75 12 101/55 L 94 09/08/18 14:35 36.6 C 58 L 14 141/64 H 95 09/08/18 07:00 36.7 C 58 L 18 133/75 92 09/07/18 23:36 37.4 C 85 18 117/70 94 Pain Intensity Right Leg: Pain Intensity: 2 Lower Back: Pain Intensity: 0 Transfer of Care Handoff Completed per policy Notes Mental Status: alert / awake / arousable and participated in evaluation Patient Amnestic to Procedure: Yes Nausea / Vomiting: adequately controlled Pain: adequately controlled Airway Patency, RR, SpO2: stable & adequate BP & HR: stable & adequate Hydration State: stable & adequate Anesthetic Complications: no major complications apparent and Pt Satisfied with anesthetic care
[2018-09-08] MEDS ORDERED: LORazepam 0.5 MG TAB PO PRN (20:00)
[2018-09-08] MEDS ORDERED: FAMOTIDINE 20 MG TAB PO PRN (20:00)
[2018-09-08] MEDS ORDERED: ACETAMINOPHEN 500 MG TAB PO PRN (20:00)
[2018-09-08] MEDS ORDERED: DO NOT ADMINISTER PNEUMOCOCCAL VACCINE PRN (20:00)
[2018-09-08] MEDS ORDERED: METOCLOPRAMIDE HCL INJ 5 MG/ML 2 ML VIAL IV PRN (20:00)
[2018-09-08] MEDS ORDERED: DO NOT ADMINISTER FLU VACCINE PRN (20:00)
[2018-09-08] MEDS ORDERED: ONDANSETRON INJ 2 MG/ML 2 ML VIAL IV PRN (20:00)
[2018-09-08] MEDS ORDERED: HYDROmorphone INJ 0.5 MG/0.5 ML SYR IV PRN (20:00)
[2018-09-08] MEDS ORDERED: ONDANSETRON 4 MG TAB PO PRN (20:00)
[2018-09-08] MEDS ORDERED: PROMETHAZINE HCL 12.5 MG in SODIUM CHLORIDE 0.9% 50 ML IV PRN (20:00)
[2018-09-08] MEDS ORDERED: ALUMINUM/MAGNESIUM SUSP 30 ML UDC PO PRN (20:00)
[2018-09-08] MEDS ORDERED: LORazepam 0.5 MG/1 ML VIAL IV PRN (20:00)
[2018-09-08] MEDS ORDERED: ACETAMINOPHEN 1,000 MG/100 ML VIAL IV PRN (20:00)
[2018-09-08] MEDS: SODIUM CHLORIDE 0.9% 1000ML 1,000 ML IV SCH (20:52)
[2018-09-08] MEDS: DOCUSATE SODIUM/SENNA 50/8.6MG TAB PO SCH (22:09)
[2018-09-09] MEDS: CEFAZOLIN 2000MG 2,000 MG/15 ML SYR IV SCH ×2 (00:02→07:11)
[2018-09-09] MEDS: ACETAMINOPHEN 65 ML IV SCH ×2 (04:13→12:47)
[2018-09-09] MEDS: SODIUM CHLORIDE 0.9% 1000ML 1,000 ML IV SCH (04:16)
[2018-09-09 06:10] LABS: Basophils # (auto) 0.01 K/uL (0-0.2); Basophils % (auto) 0.1 %; Hematocrit (blood only) 33.5 % (42-52); Immature Granulocytes # (auto) 0.01 K/uL (0.00-0.02); Immature Granulocytes % (auto) 0.1 %; Lymphocytes # (auto) 1.21 K/uL (1.2-3.4); Lymphocytes % (auto) 12.4 %; Mean Corpuscular Hgb Conc 35.8 g/dL (32-36); Mean Corpuscular Volume 91.5 fL (80-100); Mean Platelet Volume 10.2 fL (7.4-10.4); Monocytes # (auto) 1.18 K/uL (0.11-0.59); Monocytes % (auto) 12.1 %; Neutrophils # (auto) 7.34 K/uL (1.4-6.5); Neutrophils % (auto) 75.3 %; Platelet Count 166 K/uL (130-400); RDW Coefficient of Variation 14.2 % (11.5-14.5); RDW Standard Deviation 46.9 fL (36.4-46.3); Red Blood Count 3.66 M/uL (4.7-6.1); White Blood Count 9.75 K/uL (4.8-10.8)
[2018-09-09 06:42] LABS: BUN Creatinine Ratio 12.5 (10-20); Calcium 8.5 mg/dl (8.5-10.1); Est GFR (African American) 95.6; Est GFR (Non-African American) 82.5
[2018-09-09] MEDS: ATORVASTATIN 40 MG TAB PO SCH (07:11)
[2018-09-09] MEDS: FOLIC ACID 1 MG TAB PO SCH (07:12)
[2018-09-09] MEDS: FINASTERIDE 5 MG TAB PO SCH (07:12)
[2018-09-09] MEDS: PANTOprazole 40 MG TAB PO SCH (07:12)
[2018-09-09] MEDS: BISACODYL 5 MG TABEC PO SCH ×2 (07:12→21:57)
[2018-09-09] MEDS: TAMSULOSIN HCL 0.4 MG CAP PO SCH (07:12)
[2018-09-09] MEDS: ASPIRIN 81 MG ECTAB PO SCH (07:13)
[2018-09-09] MEDS: DOCUSATE SODIUM/SENNA 50/8.6MG TAB PO SCH ×2 (07:13→21:57)
[2018-09-09] MEDS: INSULIN GLARGINE SOLOSTAR 100 UNITS/ML 3 ML PEN SC SCH ×2 (08:50→22:02)
[2018-09-09] MEDS: INSULIN ASPART 100 UNITS/ML 3 ML PEN SC SCH ×4 (08:51→22:03)
--- NOTE | 2018-09-09 10:35 | Orthopedic Progress Note ---
Date of Service September 09, 2018 Assessment & Plan (1) Lumbar radiculopathy: Continue physical therapy monitor RAFA output anticipate discharge home Tuesday. Present on Admission?: Yes Subjective Back pain is controlled leg pain markedly improved. Physical Exam Physical Exam: [place] appears quite comfortable excellent strength testing. Results & Data Vital Signs (Past 12 Hours) Vital Signs Temp Pulse Pulse Resp BP Pulse Ox 09/09/18 07:19 36.9 C 65 17 118/63 94 09/09/18 04:35 94 09/09/18 04:29 36.9 C 66 16 119/66 95 09/08/18 22:56 36.9 C 69 17 120/69 96
[2018-09-09] MEDS ORDERED: MAGNESIUM CITRATE 296 ML/BTL PO STA (11:11)
--- NOTE | 2018-09-09 11:17 | Hospitalist Progress Note ---
Date of Service September 09, 2018 Assessment & Plan (1) Acute low back pain: Patient presented with acute lumbar pain with radiculopathy down the right lower extremity MRI lumbar spine confirms HNP at L2-3 and L3-4 with severe right-sided neuroforaminal narrowing which was the culprit of his symptoms Appreciate orthopedic spine consultation-now status post surgery on 09/08 with: #1 lumbar decompression, bilateral medial facetectomies and foraminotomies L1-L2 3 L3-4. #2 posterior spinal fusion L2-3 L3-4. #3 placement posterior segmental instrumentation using globus rods and screws L2-3 L3-4. #4 interbody fusion L2- 3. #5 placement of peek cage 10 x 26 mm L2-3. #6 placement of local autograft in the posterior lateral gutters. #7 placement infuse collagen sponge mass graft in the posterior lateral gutters and ostial amp and interbody space. Doing very well now, is ambulating and radiculopathy is completely resolved status post surgery EBL 450 mL's, postoperative day 1 hemoglobin is 12.0 down from preop of 14.8, hemodynamically stable -Postoperative care as per orthopedics -Continue pain control, bowel regimen as below -PT/OT evaluations if recommended by orthopedics -Plan is for discharge home on Tuesday most likely (2) Lumbar radiculopathy: At L2-3, L3-4 with severe right-sided neuroforaminal narrowing as a cause of his symptoms and signs Completely resolved status post surgery (3) Spinal stenosis: Noted on CT and MRI of lumbar spine Plan as above (4) Ambulatory dysfunction: As above. Secondary to pain, weakness RLE which is now improved, ambulating well after surgery -Fall precautions (5) Hypertension: Blood pressure well controlled -Continue to hold lisinopril in the postoperative period given blood loss and possibility of hypotension -Continue to monitor -Follow BMP in the morning -Avoid hypotension in the setting of moderate aortic stenosis (6) Aortic stenosis: Moderate on ECHO from 08/31/18 LV normal Asymptomatic -Would avoid hypotension and hypovolemia in the perioperative setting (7) Dyslipidemia: Chronic -Continue Atorvastatin (8) Diabetes: Patient with recently newly diagnosed Type II DM, [id number]=79 percent. Was recently started on glipizide ER 5 mg daily at home, reports blood sugars are typically 150-180. Blood sugars here are continue to be well controlled on Lantus and NovoLog -Continue basal and bolus insulin while here -Holding home glipizide -Continue ASA and Statin (9) BPH (benign prostatic hyperplasia): Chronic. Does report dribbling of urine here however bladder scans are negative for retention at this time Echevarria catheter was in place for surgery and is now removed Awaiting trial of void -Continue Flomax -Continue Finasteride -Continue to BladderScan as needed after Echevarria catheter removed (10) GERD (gastroesophageal reflux disease): Chronic. -Continue Protonix daily -Pepcid as needed (11) Carotid artery stenosis: bilat 50%, followed as outpt -continue ASA, statin (12) Inflammatory arthritis: on MTX SQ once weekly follows with Rheum in [place] Dr. Mejia -working on getting Enbrel approved through the [place] -Holding methotrexate for surgery -I contacted his engineering faculty's office to see when they recommend he start back on his methotrexate-patient reports that he gets severe pain when he skips a dose of methotrexate. Unfortunately, his engineering faculty was not in and is gone for the holiday weekend. Recommend contacting rheumatology office on Tuesday (if patient is still here) for further recommendation on the methotrexate (13) Constipation: Chronic and severe, still has not moved his bowels in 6-7 days -continue bisacodyl bid -Make MiraLAX 17 g p.o. twice daily on a scheduled basis -Continue docusate/senna twice daily -Received bisacodyl suppository this morning and will continue daily as needed -Give bottle of magnesium citrate again x1 today -Consider enema (14) DVT prophylaxis: SCDs and EMY shie Avoid chemical prophylaxis due lumbar spine surgery Disposition-remain hospitalized for recovery from spinal surgery PT consult will be needed to determine if needs rehab placement -Likely plan for home on Tuesday Subjective Patient feeling very well. Reports no pain at all in the right lower extremity anymore and some soreness in the back. He reports the numbness that he had pr eviously in the right leg is also improved from previous which he is happy about. Denies chest pain or shortness of breath. Denies nausea or vomiting. His abdomen is distended and full and he still has had no bowel movement in 6 days. He ambulated the halls a couple of times already this morning. Review of Systems Review of Systems: All systems reviewed & are unremarkable except as noted in HPI & below Physical Exam Constitutional: WD/WN, vitals as above Eyes: PERRL, conjunctivae normal, anicteric sclerae + anicteric sclerae; no eyelid abnormality Neck: trachea midline, no thyromegaly Respiratory: normal respiratory effort, lungs clear to auscultation Cardiovascular: Rate/Rhythm: regular rate and regular rhythm Heart Sounds: + murmur (2/6 best heard at the RUSB but heard throughout the precordium as well) Vessels: no JVD Extremities: normal capillary refill and + edema (Trace pitting edema feet and ankles bilaterally); no calf tenderness Gastrointestinal (Abdomen): Inspection/Auscultation: abdomen normal to inspection, + abdomen distended (Mild but soft) and normal bowel sounds Percussion/Palpation: abdomen nontender, no guarding and abdomen not rigid Musculoskeletal: Extremities: extremities normal to inspection; no cyanosis and no clubbing Lower back with dressing in place and is clean dry and intact Skin: no rashes, warm and dry Neurologic: moves all extremities and awake Psychiatric: A+Ox3, euthymic affect Results & Data Vital Signs (Past 12 Hours) Vital Signs Temp Pulse Resp BP Pulse Ox 09/09/18 07:19 36.9 C 65 17 118/63 94 09/09/18 04:35 94 09/09/18 04:29 36.9 C 66 16 119/66 95 Laboratory Results 09/09/18 09/09/18 09/09/18 Range/Units 08:18 05:55 05:55 WBC 9.75 (4.8-10.8) K/uL RBC 3.66 L (4.7-6.1) M/uL Hgb 12.0 L (14.0-18.0) g/dL Hct 33.5 L (42-52) % MCV 91.5 (80-100) fL MCH 32.8 (25-34) pg MCHC 35.8 (32-36) g/dL RDW Std Deviation 46.9 H (36.4-46.3) fL RDW Coeff of Gabriele 14.2 (11.5-14.5) % Plt Count 166 (130-400) K/uL MPV 10.2 (7.4-10.4) fL Immature Gran % (Auto) 0.1 % Neut % (Auto) 75.3 % Lymph % (Auto) 12.4 % [place] % (Auto) 12.1 % Eos % (Auto) 0.0 % Baso % (Auto) 0.1 % Immature Gran # (Auto) 0.01 (0.00-0.02) K/uL Neut # (Auto) 7.34 H (1.4-6.5) K/uL Lymph # (Auto) 1.21 (1.2-3.4) K/uL [place] # (Auto) 1.18 H (0.11-0.59) K/uL Eos # (Auto) 0.00 (0-0.5) K/uL Baso # (Auto) 0.01 (0-0.2) K/uL Sodium 142 (136-145) mmol/L Potassium 4.0 (3.5-5.1) mmol/L Chloride 110 H (98-107) mmol/L Carbon Dioxide 25 (21-32) mmol/L Anion Gap 8.0 (3-11) BUN 11 (7-18) mg/dl Creatinine 0.89 (0.6-1.4) mg/dl Est Cr Clr Drug Dosing 77.0 ml/min Est GFR ( Amer) 95.6 Est GFR (Non-Af Amer) 82.5 BUN/Creatinine Ratio 12.5 (10-20) Glucose 169 H (70-99) mg/dl POC Glucose 135 H (70-99) Calcium 8.5 (8.5-10.1) mg/dl Specimen Hemolysis 09/08/18 09/08/18 09/08/18 Range/Units 20:27 18:44 11:42 WBC (4.8-10.8) K/uL RBC (4.7-6.1) M/uL Hgb (14.0-18.0) g/dL Hct (42-52) % MCV (80-100) fL MCH (25-34) pg MCHC (32-36) g/dL RDW Std Deviation (36.4-46.3) fL RDW Coeff of Gabriele (11.5-14.5) % Plt Count (130-400) K/uL MPV (7.4-10.4) fL Immature Gran % (Auto) % Neut % (Auto) % Lymph % (Auto) % [place] % (Auto) % Eos % (Auto) % Baso % (Auto) % Immature Gran # (Auto) (0.00-0.02) K/uL Neut # (Auto) (1.4-6.5) K/uL Lymph # (Auto) (1.2-3.4) K/uL [place] # (Auto) (0.11-0.59) K/uL Eos # (Auto) (0-0.5) K/uL Baso # (Auto) (0-0.2) K/uL Sodium (136-145) mmol/L Potassium (3.5-5.1) mmol/L Chloride (98-107) mmol/L Carbon Dioxide (21-32) mmol/L Anion Gap (3-11) BUN (7-18) mg/dl Creatinine (0.6-1.4) mg/dl Est Cr Clr Drug Dosing ml/min Est GFR ( Amer) Est GFR (Non-Af Amer) BUN/Creatinine Ratio (10-20) Glucose (70-99) mg/dl POC Glucose 190 H 145 H 141 H (70-99) Calcium (8.5-10.1) mg/dl Specimen Hemolysis (1) Acute low back pain Back pain laterality: right Sciatica laterality: sciatica of right side Sciatica presence: with sciatica Qualified Code(s): M54.41 - Lumbago with sciatica, right side (2) Spinal stenosis Spinal region: unspecified Qualified Code(s): M48.00 - Spinal stenosis, site unspecified (3) Hypertension Hypertension type: essential hypertension Qualified Code(s): I10 - Essential (primary) hypertension (4) Diabetes Diabetes mellitus type: type 2 Diabetes mellitus alf insulin use: without extermination inspector use Diabetes mellitus complication status: without complication Qualified Code(s): E11.9 - Type 2 diabetes mellitus without complications (5) BPH (benign prostatic hyperplasia) Lower urinary tract symptom presence: symptoms absent Qualified Code(s): N40.0 - Benign prostatic hyperplasia without lower urinary tract symptoms (6) GERD (gastroesophageal reflux disease) Esophagitis presence: esophagitis presence not specified Qualified Code(s): K21.9 - Gastro-esophageal reflux disease without esophagitis
--- NOTE | 2018-09-09 11:33 | Anesthesiology Progress Note ---
Date of Service September 09, 2018 Anesthesia Post Procedure Vital Signs Vital Signs: Temp Pulse Pulse Pulse Resp BP Pulse Ox 09/09/18 11:02 37.2 C 90 16 118/66 95 09/09/18 07:19 36.9 C 65 17 118/63 94 09/09/18 04:35 94 09/09/18 04:29 36.9 C 66 16 119/66 95 09/08/18 22:56 36.9 C 69 17 120/69 96 09/08/18 21:54 83 17 118/76 96 09/08/18 20:53 90 17 124/72 96 09/08/18 19:50 37.1 C 95 H 18 150/63 H 98 09/08/18 19:25 87 14 138/85 96 09/08/18 19:15 36.7 C 95 H 13 134/78 96 09/08/18 19:05 85 13 138/88 95 09/08/18 18:55 93 H 15 146/76 H 94 09/08/18 18:45 85 12 133/69 94 09/08/18 18:39 36.9 C 75 12 101/55 L 94 09/08/18 14:35 36.6 C 58 L 14 141/64 H 95 Pain Intensity Right Leg: Pain Intensity: 0 Lower Back: Pain Intensity: 2 Transfer of Care Handoff Completed per policy Notes Mental Status: alert / awake / arousable and participated in evaluation Patient Amnestic to Procedure: Yes Nausea / Vomiting: adequately controlled Pain: improving with treatment Airway Patency, RR, SpO2: stable & adequate BP & HR: stable & adequate Hydration State: stable & adequate Anesthetic Complications: no major complications apparent and Pt Satisfied with anesthetic care
[2018-09-09] MEDS: OXYCODONE HCL IR 5 MG TAB (IMMEDIATE RELEASE) PO PRN ×2 (11:37→18:18)
[2018-09-09] MEDS: BISACODYL 10 MG SUPP PR PRN (18:14)
[2018-09-09] MEDS ORDERED: SOD PHOSPHATE/SOD BIPHOSPHATE ENEMA 132 ML BTL PR STA ×2 (18:46→18:48)
--- NOTE | 2018-09-09 19:15 | XRay Report ---
XR KUB/Abdomen 1 view CLINICAL HISTORY: abdominal pain pain COMPARISON STUDY: 08/09/2016 FINDINGS: Postoperative changes of the lumbar spine including drain position. Nonobstructive ileus. M ild degenerative changes as bilaterally. IMPRESSION: Mild nonobstructive ileus. The above report was generated using voice recognition software. It may contain grammatical, syntax or spelling errors. Electronically signed by: Kofi Keys M.D. 09/09/2018 7:12 PM
[2018-09-09] MEDS: POLYETHYLENE (MIRALAX) 17 GM PACK PO SCH (21:52)
[2018-09-09] MEDS ORDERED: SOD PHOSPHATE/SOD BIPHOSPHATE ENEMA 132 ML BTL PR ONE (22:01)
[2018-09-10 05:51] LABS: Basophils # (auto) 0.02 K/uL (0-0.2); Basophils % (auto) 0.2 %; Eosinophils # (auto) 0.01 K/uL (0-0.5); Eosinophils % (auto) 0.1 %; Hematocrit (blood only) 34.1 % (42-52); Hemoglobin 12.4 g/dL (14.0-18.0); Immature Granulocytes # (auto) 0.02 K/uL (0.00-0.02); Immature Granulocytes % (auto) 0.2 %; Lymphocytes # (auto) 1.01 K/uL (1.2-3.4); Lymphocytes % (auto) 10.9 %; Mean Corpuscular Hgb Conc 36.4 g/dL (32-36); Mean Corpuscular Volume 90.5 fL (80-100); Mean Platelet Volume 9.9 fL (7.4-10.4); Monocytes # (auto) 1.81 K/uL (0.11-0.59); Monocytes % (auto) 19.6 %; Neutrophils # (auto) 6.38 K/uL (1.4-6.5); Platelet Count 185 K/uL (130-400); RDW Coefficient of Variation 14.3 % (11.5-14.5); RDW Standard Deviation 46.9 fL (36.4-46.3); Red Blood Count 3.77 M/uL (4.7-6.1); White Blood Count 9.25 K/uL (4.8-10.8)
[2018-09-10 06:28] LABS: Calcium 7.9 mg/dl (8.5-10.1); Creatinine Clr Calc Pharmacy 76.1 ml/min; Est GFR (African American) 95.1; Est GFR (Non-African American) 82.1; Potassium 3.9 mmol/L (3.5-5.1)
[2018-09-10] MEDS: ATORVASTATIN 40 MG TAB PO SCH (07:48)
[2018-09-10] MEDS: ASPIRIN 81 MG ECTAB PO SCH (07:49)
[2018-09-10] MEDS: FOLIC ACID 1 MG TAB PO SCH (07:49)
[2018-09-10] MEDS: FINASTERIDE 5 MG TAB PO SCH (07:49)
[2018-09-10] MEDS: TAMSULOSIN HCL 0.4 MG CAP PO SCH (07:49)
[2018-09-10] MEDS: PANTOprazole 40 MG TAB PO SCH (07:49)
[2018-09-10] MEDS: POLYETHYLENE (MIRALAX) 17 GM PACK PO SCH ×2 (07:50→20:57)
[2018-09-10] MEDS: DOCUSATE SODIUM/SENNA 50/8.6MG TAB PO SCH ×2 (07:50→20:57)
[2018-09-10] MEDS: BISACODYL 5 MG TABEC PO SCH ×2 (07:51→20:57)
--- NOTE | 2018-09-10 08:08 | Orthopedic Progress Note ---
Date of Service September 10, 2018 Assessment & Plan (1) Spinal stenosis: Patient is progressing nicely his pain is well controlled. We will continue with ambulation and gait training. We will continue pain control measures and try to keep him just on Tylenol to avoid constipation. We will continue to monitor his RAFA output and vital signs. And hopefully will be able to get him discharged home tomorrow. Subjective Patient was seen bedside in room 323. He is 2 days status post lumbar depression fusion from L2-L4. He is doing much better at this point he still has some soreness in the back itself the legs are feeling much better. He is been up and walking and not having pain or weakness that he had preoperatively. He is not having difficulties with tolerating oral intake. He had a bowel movement. He is trying to stay away from pain medications as he did just feel quite constipated. He is not having abdominal pain he denies any other numbness, tingling, or paresthesias. Physical Exam Physical Exam: On exam he is alert and oriented. His abdomen soft nontender his calves are supple nontender. He has full strength in both lower ext remities. His dressing is clean dry intact the RAFA drains in place and is holding suction. Results & Data Vital Signs (Past 12 Hours) Vital Signs Temp Pulse Resp BP Pulse Ox 09/10/18 07:42 37.4 C 71 18 132/68 95 09/09/18 23:41 37.0 C 87 14 119/71 96 (1) Spinal stenosis Spinal region: unspecified Qualified Code(s): M48.00 - Spinal stenosis, site unspecified
[2018-09-10] MEDS: INSULIN GLARGINE SOLOSTAR 100 UNITS/ML 3 ML PEN SC SCH ×2 (08:42→20:50)
[2018-09-10] MEDS: INSULIN ASPART 100 UNITS/ML 3 ML PEN SC SCH ×4 (08:42→20:50)
[2018-09-10] MEDS: TRAMADOL HCL 50 MG TABLET PO PRN (10:38)
--- NOTE | 2018-09-10 16:19 | Hospitalist Progress Note ---
Date of Service September 10, 2018 Assessment & Plan (1) Acute low back pain: Patient presented with severe acute lumbar pain with radiculopathy down the right lower extremity MRI lumbar spine confirmed HNP at L2-3 and L3-4 with severe right-sided neuroforaminal narrowing which was the culprit of his symptoms Appreciate orthopedic spine consultation-now status post surgery on 09/08 with: #1 lumbar decompression, bilateral medial facetectomies and foraminotomies L1-L2 3 L3-4. #2 posterior spinal fusion L2-3 L3-4. #3 placement posterior segmental instrumentation using globus rods and screws L2-3 L3-4. #4 interbody fusion L2- 3. #5 placement of peek cage 10 x 26 mm L2-3. #6 placement of local autograft in the posterior lateral gutters. #7 placement infuse collagen sponge mass graft in the posterior lateral gutters and ostial amp and interbody space. Doing very well now, is ambulating and radiculopathy is completely resolved status post surgery EBL 450 mL's, postoperative day 2 hemoglobin is 12.4 down from preop of 14.8, hemodynamically stable -Postoperative care as per orthopedics -Continue pain control, bowel regimen as below -PT evaluation -Plan is for discharge home on Tuesday most likely as per orthopedics -will need outpatient follow-up with orthopedic spine surgeon (2) Lumbar radiculopathy: At L2-3, L3-4 with severe right-sided neuroforaminal narrowing as a cause of his symptoms and signs Completely resolved status post surgery (3) Spinal stenosis: Noted on CT and MRI of lumbar spine Plan as above (4) Ambulatory dysfunction: As above. Secondary to pain, weakness RLE which is now improved, ambulating well after surgery -Fall precautions (5) Hypertension: Blood pressure well controlled -Continue to hold lisinopril in the postoperative period given blood loss and possibility of hypotension -Continue to monitor but can likely restart lisinopril after discharge Renal function is normal postoperatively -Avoid hypotension in the setting of moderate aortic stenosis (6) Aortic stenosis: Moderate on ECHO from 08/31/18 LV normal Asymptomatic -Would avoid hypotension and hypovolemia in the perioperative setting (7) Dyslipidemia: Chronic -Continue Atorvastatin (8) Diabetes: Patient with recently newly diagnosed Type II DM, LbN3l=21 percent. Was recently started on glipizide ER 5 mg daily at home, reports blood sugars are typically 150-180. Blood sugars here are continue to be well controlled on Lantus and NovoLog -Continue basal and bolus insulin while here -Holding home glipizide -Continue ASA and Statin (9) BPH (benign prostatic hyperplasia): Chronic. Echevarria catheter was in place for surgery and is now removed Is voiding spontaneously now without difficulty -Continue Flomax -Continue Finasteride -Continue to BladderScan as needed (10) GERD (gastroesophageal reflux disease): Chronic. -Continue Protonix daily -Pepcid as needed (11) Carotid artery stenosis: bilat 50%, followed as outpt -continue ASA, statin (12) Inflammatory arthritis: on MTX SQ once weekly follows with Rheum in [place] Dr. Mejia -working on getting Enbrel approved through the [place] -Holding methotrexate for surgery -I contacted his community nurse's office to see when they recommend he start back on his methotrexate-patient reports that he gets severe pain when he skips a dose of methotrexate. Unfortunately, his community nurse was not in and is gone for the holiday weekend. Recommend contacting rheumatology office on Tuesday (if patient is still here) for further recommendation on the methotrexate -Either way, the patient has a scheduled appointment for this coming with rheumatology and can discuss the matter at that time (13) Constipation: Chronic and severe, did not move his bowels here for 7 days-finally had 4 large bowel movements on 09/10 after multiple enemas and aggressive bowel regimen as below as well as magnesium citrate -Abdomen remains distended and he still has some nausea likely secondary to severe constipation -continue bisacodyl bid -Continue MiraLAX 17 g p.o. twice daily on a scheduled basis -Continue docusate/senna twice daily -Continue bisacodyl suppository daily as needed (14) DVT prophylaxis: SCDs and EMY yuridiae Avoid chemical prophylaxis due lumbar spine surgery Disposition-remain hospitalized for recovery from spinal surgery PT/OT consults in agreement with home upon discharge He already has a walker at home as per case management notes The patient is declining any home health services -Likely plan for home on Tuesday-we will defer to opinion of orthopedic spine surgeon on when he is cleared for discharge Otherwise, he is medically stable for discharge at this time Subjective Patient had 4 or 5 large bowel movements today. Still feels distended and bloated in the abdomen, some nausea. His appetite is low. Denies chest pain or shortness of breath. He has very minimal pain in the lower back. He has absolutely no pain radiating down the right lower extremity since his surgery. Review of Systems Review of Systems: All systems reviewed & are unremarkable except as noted in HPI & below Physical Exam Constitutional: WD/WN, vitals as above Eyes: PERRL, conjunctivae normal, anicteric sclerae + anicteric sclerae; no eyelid abnormality Neck: trachea midline, no thyromegaly Respiratory: normal respiratory effort, lungs clear to auscultation Cardiovascular: Rate/Rhythm: regular rate and regular rhythm Heart Sounds: + murmur (2/6 best heard at the RUSB but heard throughout the precordium as well) Vessels: no JVD Extremities: normal capillary refill and + edema (Trace pitting edema feet and ankles bilaterally); no calf tenderness Gastrointestinal (Abdomen): Inspection/Auscultation: abdomen normal to inspection, + abdomen distended (Mild but soft) and normal bowel sounds Percussion/Palpation: abdomen nontender, no guarding and abdomen not rigid Musculoskeletal: Extremities: extremities normal to inspection; no cyanosis and no clubbing Skin: no rashes, warm and dry Neurologic: moves all extremities and awake Psychiatric: A+Ox3, euthymic affect Results & Data Vital Signs (Past 12 Hours) Vital Signs Temp Pulse Resp BP Pulse Ox 09/10/18 14:54 36.9 C 92 H 18 123/65 93 09/10/18 07:42 37.4 C 71 18 132/68 95 Laboratory Results 09/10/18 09/10/18 09/10/18 Range/Units 12:00 08:26 05:36 WBC (4.8-10.8) K/uL RBC (4.7-6.1) M/uL Hgb (14.0-18.0) g/dL Hct (42-52) % MCV (80-100) fL MCH (25-34) pg MCHC (32-36) g/dL RDW Std Deviation (36.4-46.3) fL RDW Coeff of Gabriele (11.5-14.5) % Plt Count (130-400) K/uL MPV (7.4-10.4) fL Immature Gran % (Auto) % Neut % (Auto) % Lymph % (Auto) % [place] % (Auto) % Eos % (Auto) % Baso % (Auto) % Immature Gran # (Auto) (0.00-0.02) K/uL Neut # (Auto) (1.4-6.5) K/uL Lymph # (Auto) (1.2-3.4) K/uL [place] # (Auto) (0.11-0.59) K/uL Eos # (Auto) (0-0.5) K/uL Baso # (Auto) (0-0.2) K/uL Sodium 140 (136-145) mmol/L Potassium 3.9 (3.5-5.1) mmol/L Chloride 106 (98-107) mmol/L Carbon Dioxide 29 (21-32) mmol/L Anion Gap 5.0 (3-11) BUN 12 (7-18) mg/dl Creatinine 0.90 (0.6-1.4) mg/dl Est Cr Clr Drug Dosing 76.1 ml/min Est GFR ( Amer) 95.1 Est GFR (Non-Af Amer) 82.1 BUN/Creatinine Ratio 13.0 (10-20) Glucose 163 H (70-99) mg/dl POC Glucose 187 H 155 H (70-99) Calcium 7.9 L (8.5-10.1) mg/dl 09/10/18 09/09/18 09/09/18 Range/Units 05:36 20:35 17:15 WBC 9.25 (4.8-10.8) K/uL RBC 3.77 L (4.7-6.1) M/uL Hgb 12.4 L (14.0-18.0) g/dL Hct 34.1 L (42-52) % MCV 90.5 (80-100) fL MCH 32.9 (25-34) pg MCHC 36.4 H (32-36) g/dL RDW Std Deviation 46.9 H (36.4-46.3) fL RDW Coeff of Gabriele 14.3 (11.5-14.5) % Plt Count 185 (130-400) K/uL MPV 9.9 (7.4-10.4) fL Immature Gran % (Auto) 0.2 % Neut % (Auto) 69.0 % Lymph % (Auto) 10.9 % [place] % (Auto) 19.6 % Eos % (Auto) 0.1 % Baso % (Auto) 0.2 % Immature Gran # (Auto) 0.02 (0.00-0.02) K/uL Neut # (Auto) 6.38 (1.4-6.5) K/uL Lymph # (Auto) 1.01 L (1.2-3.4) K/uL [place] # (Auto) 1.81 H (0.11-0.59) K/uL Eos # (Auto) 0.01 (0-0.5) K/uL Baso # (Auto) 0.02 (0-0.2) K/uL Sodium (136-145) mmol/L Potassium (3.5-5.1) mmol/L Chloride (98-107) mmol/L Carbon Dioxide (21-32) mmol/L Anion Gap (3-11) BUN (7-18) mg/dl Creatinine (0.6-1.4) mg/dl Est Cr Clr Drug Dosing ml/min Est GFR ( Amer) Est GFR (Non-Af Amer) BUN/Creatinine Ratio (10-20) Glucose (70-99) mg/dl POC Glucose 209 H 143 H (70-99) Calcium (8.5-10.1) mg/dl (1) Acute low back pain Back pain laterality: right Sciatica laterality: sciatica of right side Sciatica presence: with sciatica Qualified Code(s): M54.41 - Lumbago with sciatica, right side (2) Spinal stenosis Spinal region: unspecified Qualified Code(s): M48.00 - Spinal stenosis, site unspecified (3) Hypertension Hypertension type: essential hypertension Qualified Code(s): I10 - Essential (primary) hypertension (4) Diabetes Diabetes mellitus type: type 2 Diabetes mellitus senior living insulin use: without senior living use Diabetes mellitus complication status: without complication Qualified Code(s): E11.9 - Type 2 diabetes mellitus without complications (5) BPH (benign prostatic hyperplasia) Lower urinary tract symptom presence: symptoms absent Qualified Code(s): N40.0 - Benign prostatic hyperplasia without lower urinary tract symptoms (6) GERD (gastroesophageal reflux disease) Esophagitis presence: esophagitis presence not specified Qualified Code(s): K21.9 - Gastro-esophageal reflux disease without esophagitis
[2018-09-11] MEDS: TRAMADOL HCL 50 MG TABLET PO PRN ×2 (03:01→11:30)
[2018-09-11] MEDS: ATORVASTATIN 40 MG TAB PO SCH (07:13)
[2018-09-11] MEDS: PANTOprazole 40 MG TAB PO SCH (07:13)
[2018-09-11] MEDS: ASPIRIN 81 MG ECTAB PO SCH (07:13)
[2018-09-11] MEDS: FOLIC ACID 1 MG TAB PO SCH (07:13)
[2018-09-11] MEDS: DOCUSATE SODIUM/SENNA 50/8.6MG TAB PO SCH (07:13)
[2018-09-11] MEDS: POLYETHYLENE (MIRALAX) 17 GM PACK PO SCH (07:14)
[2018-09-11] MEDS: TAMSULOSIN HCL 0.4 MG CAP PO SCH (07:14)
[2018-09-11] MEDS: FINASTERIDE 5 MG TAB PO SCH (07:14)
[2018-09-11] MEDS: BISACODYL 5 MG TABEC PO SCH (07:16)
[2018-09-11] MEDS: INSULIN GLARGINE SOLOSTAR 100 UNITS/ML 3 ML PEN SC SCH (07:19)
[2018-09-11] MEDS: INSULIN ASPART 100 UNITS/ML 3 ML PEN SC SCH (07:19)
--- NOTE | 2018-09-11 10:19 | Discharge Summary ---
Date of Service September 11, 2018 Admission HPI Per Admitting Provider Barney Lofton is a pleasant 77yo C male with history of HTN, HLP, GERD and recent diagnosis of DM (A1C=11) presenting with acute low back pain. Pain started last evening around 12:00 in right lumbar and upper buttock. Progressively worsened. Patient unable to walk this AM. Radiation down right posterior thigh to the knee. Weakness in RLE with chronic numbness of the RLE. Patient denies fevers/chills, fall or trauma. Denies changes in bowel or bladder. No additional complaints at this time. Principal Diagnosis Lumbar spinal stenosis with radiculopathy and herniated nucleus pulposus L2-3 Discharge Data Allergies Allergy/AdvReac Type Severity Reaction Status Date / Time No Known Drug Allergies Allergy Unknown . Verified 09/05/18 11:02 scallops AdvReac Unknown VOMITING Verified 09/05/18 11:02 Consultations 09/05/18 14:52 ED Decision to Admit Stat 09/06/18 08:16 Consult Orthopedic Surgery Routine 09/08/18 20:00 Consult Case Management - Discharge Planning Routine Procedures Performed Operation Date: 09/08/18 07:00 Actual Procedures p L2-L3, L3-L4 Decompression and Fusion(Not Applicable) - Manuel Lema DO Ordered Studies 09/05/18 12:48 CT lumbar spine wo con Stat 09/06/18 08:16 MR lumbar spine wo con Urgent 09/08/18 13:00 FL fluoroscopy <1hr Routine FL lumbar spine 2-3V Routine Hospital Course (1) Spinal stenosis: Patient underwent lumbar decompression fusion tolerated as well as taken to orthopedic for postoperative. Postop day 1 leg symptoms improved he tolerated physical therapy. Progressive postop day 2 postop day #3 he was subsequently discharged home. Discharge orders and instructions found the chart for further review. Total Time Total Time Spent Total Time Spent (In Minutes): 20 minutes Discharge Plan Discharge Items Patient Disposition: Home - Self-Care Reason For Visit: BACK PAIN,AMBULATORY DYSFUNCTION Discharge Diagnosis: lumbar stenosis Discharge Goals: Improve function Activity: Per 'Additional Instructions' section Non-emergency contact: Primary Care Provider Call non-emergency contact if: you have any medication questions Follow-up/Referrals: Jak Hsu MD [Primary Care Provider] - Diet: Regular Addtl Provider Instructions: ACTIVITY RECOMMENDATIONS: SELF CARE INSTRUCTIONS AFTER THORACIC/LUMBAR FUSIONS 1. You may walk to your tolerance. It is good exercise for your legs and back. Expect some back and intermittent leg aches and pains. 2. You may perform "counter-top" level activities (make a sandwich, damon with a project, etc.). 3. No bending or lifting of more than 10 pounds or back twisting of any nature (roll like a log when turning in bed). 4. You may ride in a car for 20-30 minutes at a time. No driving until after your first visit with your doctor. 5. Frequent changes of position and restricting sitting to 30 minutes at a time will help limit the amount of back spasms and stiffness you may experience. 6. You may discontinue the use of ambulatory aids (cane, crutches, etc.) once your strength and confidence allow. 7. You may environmental compliance inspector the shower and let water strike your incision when you arrive home at least once daily. Do not take a tub bath, sit in a hot tub or go into a swimming pool until after your first recheck in the office. SPECIAL CARE INSTRUCTIONS: VERY IMPORTANT TO READ AND REVIEW A. Your surgical incision has been closed with a cosmetic suture under the skin that will dissolve in about 6 weeks. In 14 days, you can use a pair of clean scissors and cut the suture that is left outside of the skin at the ends of your incision. 1. The small skin tapes can be removed 7 days after surgery if they have not fallen off by that point. 2. You may keep the wound open to air as much as possible to promote healing after post-op day number 5 unless told otherwise by your doctor. 3. If you think the wound looks like it is becoming infected (redness or worsening drainage) and/or you are experiencing fever, chill or worsening back pain and muscle spasms, contact the office so that we may evaluate you as soon as possible. B. Complications are uncommon, but please contact us if you have any signs or symptoms of: 1. wound infection (fever higher than 102.5 degrees F, redness, separation of wound, drainage, or increasing pain from the incision) 2. blood clots in legs (pain, swelling, redness and warmth in legs) 3. urinary tract infection (fever higher than 102.5 degrees F, burning upon urination or increased frequency of urination) 4. nerve problems (inability to walk on your toes or heels, numbness, loss of bowel or bladder control) 5. any other symptoms that concern you C. Please call the office at if you have any concerns or questions about your operation or recovery. D. No smoking! Smoking drastically decreases the chance of a solid fusion. E. Do not take any anti-inflammatory medications (Indocin, Advil, Motrin, Aspirin, Naprosyn, etc.) as these may inhibit the chance of a solid fusion. Tylenol is okay to take for pain. MANAGING PAIN AFTER SPINAL SURGERY 1. Narcotic medication is intended for short-term use and will be provided for surgical pain. Surgical pain usually lasts for a period of 4-6 weeks. Narcotic medication includes Percocet, Vicodin, Darvocet, Tylenol #3 or Lortab. 2. Longer-term pain is more appropriately treated with non-narcotic medication such as Tylenol ES. 3. Muscle spasm is not appropriately treated with narcotics. Muscle relaxers such as Soma, Flexeril or Skelaxin can be used along with Tylenol ES. 4. Remember that we all live with some "aches and pains". This is not unusual or uncommon after an injury or as we get older. a. Back pain is expected and may include muscle spasms for 4 to 6 weeks after surgery. The pain should gradually improve. If the pain worsens for no apparent reason, please contact the office. b. Intermittent leg pain may also be experienced and should not be concerned about unless it worsens for no apparent reason. If so, please contact the office. 5. We will provide appropriate medication within the normal guidelines of their prescribed use. We will also be very cautious and aware of potential abuse and extended duration of patients' medication needs. a. Pain medications are for your comfort and to assist with sleep and rest so that the tissue can heal. They are not provided in order to return to normal activity and should not be used through the day. To do so or worsening pain at night can result from ongoing tissue damage and development of tolerance to the prescribed medicine. 6. Please allow 2-3 days to process refills. Prescriptions will not be mailed but must be picked up at the office. FOLLOW UP VISIT: Keep your scheduled follow-up appointment. Any questions, please call the office at . Prescriptions: New tramadol 50 mg Tablet 50 mg PO Q4H PRN (Reason: Pain, Moderate) Qty: 30 RF: 0 oxycodone 5 mg Tablet 5 mg PO Q4H PRN (Reason: Pain, Severe) Qty: 30 RF: 0 Continued atorvastatin 80 mg tablet 40 mg PO DAILY RF: 0 glipizide 5 mg tablet extended release 24hr 5 mg PO DAILY RF: 0 leflunomide [Arava] 20 mg tablet 20 mg PO DAILY RF: 0 tamsulosin 0.4 mg capsule 0.4 mg PO DAILY RF: 0 lisinopril 10 mg tablet 10 mg PO DAILY RF: 0 finasteride 5 mg tablet 5 mg PO DAILY RF: 0 ascorbic acid (vitamin C) [Vitamin C] 1,000 mg Tablet 1 g PO DAILY RF: 0 acetaminophen [Tylenol] 325 mg Tablet 325 mg PO Q6H PRN (Reason: Pain) RF: 0 aspirin 81 mg Tablet,Delayed Release (Dr/Ec) 81 mg PO DAILY RF: 0 pantoprazole [Protonix] 40 mg Tablet,Delayed Release (Dr/Ec) 40 mg PO DAILY RF: 0 folic acid 1 mg Tablet 1 mg PO DAILY RF: 0 bisacodyl 5 mg Tablet 5 mg PO HS RF: 0 cholecalciferol (vitamin D3) [Vitamin D3] 2,000 unit Capsule 2,000 unit PO DAILY RF: 0 PreserVision AREDS-2 [id number] gg-[id number]-mg Capsule 1 tab PO DAILY RF: 0 methotrexate sodium 25 mg/mL solution 17.5 mg subcut Q7D RF: 0 Stand-Alone Forms: [facility] Discharge Orders: Discharge Order (Routine); Ordered 09/11/18 Ordered By: Manuel Lema Admission Data Admit Date/Time: 09/06/18 20:05 Attending Provider: Dwain Robertson Admit Provider: Muriel Marinelli Primary Care Provider: Jak Hsu Other Providers: Muriel Marinelli ; Manuel Lema ; Adriane Sampson ; Rosa Elena Becker Service: Medical
== END 2018-09-11 12:02 | disposition home or self-care (01) | DRG 455 ==
LOC: 2N 09:33 → ED 09:33 → SUATTDRO 17:06 → 2N 17:42 → SUATTDRO 09-06 20:05 → 3E 09-08 19:54

== ENCOUNTER 2018-09-12 08:33 | Observation (INO) ==
[2018-09-12 11:22] LABS: Appearance Urine Turbid (Clear); Bacteria Urine Automated Negative (Negative); Bilirubin Urine Negative (Negative); Blood Urine Negative (Negative); Cast Urine Automated 0 /lpf (0-5); Color Urine Dark Yellow; Epithelial Cell Urine Auto 0-5 /lpf (0-5); Glucose Urine UA Negative (Negative); Ketones Urine Trace (Negative); Leukocyte Esterase Urine Negative (Negative); Nitrite Urine Negative (Negative); Protein Urine Negative (Negative); RBC Urine Automated 0-4 /hpf (0-4); Specific Gravity Urine 1.025 (1.000-1.030); Urobilinogen Urine Negative (Negative); WBC Urine Automated 0 /hpf (0-5)
[2018-09-12] MEDS ORDERED: MoRPHine SULFATE 2 MG/ML CARP IM STA (12:07)
[2018-09-12] MEDS ORDERED: ONDANSETRON INJ 2 MG/ML 2 ML VIAL IV PRN (13:42)
[2018-09-12] MEDS ORDERED: TRAMADOL HCL 50 MG TABLET PO PRN (13:42)
[2018-09-12] MEDS ORDERED: CYCLOBENZAPRINE HCL 10 MG TAB PO PRN (13:42)
[2018-09-12] MEDS ORDERED: LORazepam 1 MG TAB PO PRN (13:42)
--- NOTE | 2018-09-12 13:53 | Emergency Department Note ---
Entered by Kaylin Narayan acting as a scribe for History of Present Illness General Chief complaint: Back Injury/Pain Stated complaint: POST SURGERY BACK PAIN Time Seen by Provider: 09/12/18 09:14 Source: patient Mode of arrival: ambulatory Limitations: no limitations History of Present Illness Provider complaint: back pain Onset (ago): day(s) (yesterday) Location: back Pain Consistency: + other (worsening) Maximum Pain Intensity: 6 Quality: + other (jabbing) Exacerbated By: + movement (walking) Associated symptoms: + weakness Treatments prior to arrival: other (Pain medication) The patient is a 77 year old male who presents to the ER with complaints of a worsening back pain that began yesterday. The patient reports that he had a sudden onset of a similar pain some time ago and that he had back surgery performed by Dr. Lema last Tuesday. He states that he was discharged yesterday and instructed to walk. He notes that when walking, he was experiencing a jabbing pain which he reports worsened with every step. He states that he does have a history of arthritis. He also notes that he has been experiencing weakness in his legs. He reports that he last took his prescribed post-op pain medication at 0630 this morning. Home Medications Home Medications Medication Instructions Recorded Confirmed Type PreserVision AREDS-2 1 tab PO BID 09/05/18 09/12/18 History acetaminophen [Tylenol] 325 mg PO Q6H PRN 09/05/18 09/12/18 History ascorbic acid (vitamin C) [Vitamin 1 g PO QAM 09/05/18 09/12/18 History C] aspirin 81 mg PO QAM 09/05/18 09/12/18 History atorvastatin 40 mg PO QPM 09/05/18 09/12/18 History bisacodyl 5 mg PO BID 09/05/18 09/12/18 History cholecalciferol (vitamin D3) 2,000 unit PO QAM 09/05/18 09/12/18 History [Vitamin D3] finasteride 5 mg PO QAM 09/05/18 09/12/18 History folic acid 1 mg PO QAM 09/05/18 09/12/18 History glipizide 5 mg PO QAM 09/05/18 09/12/18 History lisinopril 10 mg PO QAM 09/05/18 09/12/18 History pantoprazole [Protonix] 40 mg PO BID 09/05/18 09/12/18 History tamsulosin 0.4 mg PO QAM 09/05/18 09/12/18 History methotrexate sodium 17.5 mg SUBCUT Q7D 09/06/18 09/12/18 History oxycodone 5 mg PO Q4H PRN #30 tab 09/11/18 09/12/18 Rx tramadol 50 mg PO Q4H PRN #30 tab 09/11/18 09/12/18 Rx Allergies Allergy/AdvReac Type Severity Reaction Status Date / Time No Known Drug Allergies Allergy Unknown . Verified 09/12/18 10:36 scallops AdvReac Unknown VOMITING Verified 09/12/18 10:36 Past Med/Surg History Medical History Hypertension (Chronic) Diabetes BPH (benign prostatic hyperplasia) Hyperlipidemia GERD (gastroesophageal reflux disease) Carotid stenosis Surgical History History of back surgery (~08/2018) Knee joint replacement status (Resolved) S/P knee surgery S/P shoulder surgery S/P carpal tunnel release Family History Other Family history non-contributory Social History Preferred Language: Citizen Of [place] Communication Ability: Effective Beliefs That Will Affect Care: None Current Living Situation: Spouse Feels Safe at Home: Yes Smoking Status: Former smoker Hx Alcohol Use: No Hx Substance Use: No Review of Systems See HPI for pertinent positives & negatives. and A total of 10 systems reviewed and were otherwise negative Physical Exam Vital Signs Vital Signs - 24 hr 09/12/18 08:49 09/12/18 09:52 09/12/18 11:01 Temperature 36.9 C Temperature Source Oral Sepsis Recent Fever Within 48 Hours No Sepsis New/Unexplained Change in Mental Status No Sepsis Action Taken by Nursing No Action Required Pulse Rate 84 Pulse Rate [Right Femoral] 70 70 Pulse Rhythm [Right Femoral] Pulse Strength [Right Femoral] Respiratory Rate 20 16 16 Respiratory Effort / Characteristics Non-Labored Spontaneous Non-Labored Spontaneous Non-Labored Spontaneous Respiratory Depth Normal Normal Normal Respiratory Pattern Regular Regular Blood Pressure 109/71 Blood Pressure [Right Arm] 110/63 112/64 Blood Pressure Mean 83 Blood Pressure Mean [Right Arm] 78 80 Blood Pressure Position Sitting Blood Pressure Position [Right Arm] Pulse Oximetry 93 92 92 Oxygen Delivery Method Room Air Room Air Room Air Oxygen Flow Rate 09/12/18 12:20 09/12/18 13:16 Temperature Temperature Source Sepsis Recent Fever Within 48 Hours Sepsis New/Unexplained Change in Mental Status Sepsis Action Taken by Nursing Pulse Rate Pulse Rate [Right Femoral] 65 70 Pulse Rhythm [Right Femoral] Regular Pulse Strength [Right Femoral] Normal Respiratory Rate 16 18 Respiratory Effort / Characteristics Non-Labored Spontaneous Non-Labored Respiratory Depth Normal Normal Respiratory Pattern Regular Regular Blood Pressure Blood Pressure [Right Arm] 109/62 129/58 L Blood Pressure Mean Blood Pressure Mean [Right Arm] 77 81 Blood Pressure Position Blood Pressure Position [Right Arm] Lying Pulse Oximetry 92 96 Oxygen Delivery Method Room Air Nasal Cannula Oxygen Flow Rate 2 CONSTITUTIONAL/VITAL SIGNS: Reviewed / noted above. GENERAL: Non-toxic in appearance. INTEGUMENTARY: Warm, dry, and [place]. HEAD: Normocephalic. EYES: without scleral icterus or trauma. ENT/OROPHARYNX: clear and moist. LYMPHADENOPATHY/NECK: Is supple without lymphadenopathy or meningismus. RESPIRATORY: Lungs clear and equal. CARDIOVASCULAR: Regular rate and rhythm. GI/ABDOMEN: Soft and tender in the suprapubic area. Mildly distended. No organomegaly or pulsatile mass. No rebound or guarding. Normal bowel sounds. EXTREMITIES: Warm and well perfused. BACK: No CVA tenderness. Increased back pain with attempted movement of the legs. NEUROLOGICAL: Intact without focal deficits. PSYCHIATRIC: normal affect. MUSCULOSKELETAL: Normally developed with good muscle tone. Course 0918; Past medical records reviewed. The patient was evaluated in room B12B. A complete history and physical examination was performed. 1321: I discussed the patients case with Dr. Lema Orthopedic Surgery. He will come evaluate the patient. 1338: I reviewed the patients case with Dr. Silvino YOUNG, Sugar Lozano PA-C. She will evaluate the patient for further management. Administered Medications Discontinued Medications Morphine Sulfate (Morphine Sulfate) 2 mg IM NOW STA Stop: 09/12/18 12:08 Last Admin: 09/12/18 12:18 Dose: 2 mg Documented by: [id number] Medical Decision Making Differential Diagnosis Differential diagnosis includes: musculoskeletal, disc herniation, fracture, aortic disease, metastatic disease, cord compression, discitis, infection, renal colic, gastrointestinal, acute exacerbation of chronic back pain, sciatica, c auda equina, as well as others were entertained. Medical Records Attestation: I reviewed the patient's medical records. Home Medications Current Medication List: was personally reviewed by me Laboratory Data Attestation: I reviewed the patient's lab results. Lab Results 09/12/18 Range/Units 09:55 Urine Color Dark Yellow Urine Appearance Turbid A (Clear) Urine pH 5.0 (4.5-7.5) Ur Specific [place] 1.025 (1.000-1.030) Urine Protein Negative (Negative) Urine Glucose (UA) Negative (Negative) Urine Ketones Trace H (Negative) Urine Blood Negative (Negative) Urine Nitrite Negative (Negative) Urine Bilirubin Negative (Negative) Urine Urobilinogen Negative (Negative) Ur Leukocyte Esterase Negative (Negative) Urine WBC (Auto) 0 (0-5) /hpf Urine RBC (Auto) 0-4 (0-4) /hpf U Hyaline Cast (Auto) 0 (0-5) /lpf U Epithel Cells (Auto) 0-5 (0-5) /lpf Urine Bacteria (Auto) Negative (Negative) Blood Pressure Blood Pressure Findings: Normal blood pressure Blood Pressure Disposition: did not require urgent referral MDM Narrative This is a 77-year-old male who presents to the ED with a chief complaint of low back pain. He was discharged yesterday after having spinal stenosis/lumbar compression surgery 4 days ago. He states that he got home and when he was walking around 4 PM he began having a jabbing pain that seemed to get worse in his low back. His pain worsens with walking. He uses Ultram but did not take his oxycodone. The patient presents this morning with continued pain. He also reports that he feels like he is unable to urinate. A bladder scan reveals that he has 540 cc of urine in his bladder. This was drained via catheter. Urine did not show infection. We had PT/OT evaluation performed on him but they were unable to complete his evaluation due to his inability to get up and move because of his pain. He was treated with 2 mg of IV morphine for pain while here. Because of his pain and difficulty in PT/OT evaluation and/or placement in a nursing facility, the patient will be seen for further inpatient management and disposition. Impression & Plan Postoperative back pain Discharge Plan Visit Data Chief Complaint: Back Injury/Pain Stated Complaint: POST SURGERY BACK PAIN ED Provider: Lionel Castelan Discharge Problem: Postoperative back pain Patient Disposition: Being Evaluated by Surgeon Forms Stand Alone Forms: My [facility] Prescriptions Prescriptions: No Action atorvastatin 80 mg tablet 40 mg PO QPM RF: 0 glipizide 5 mg tablet extended release 24hr 5 mg PO QAM RF: 0 tamsulosin 0.4 mg capsule 0.4 mg PO QAM RF: 0 lisinopril 10 mg tablet 10 mg PO QAM RF: 0 finasteride 5 mg tablet 5 mg PO QAM RF: 0 ascorbic acid (vitamin C) [Vitamin C] 1,000 mg Tablet 1 g PO QAM RF: 0 acetaminophen [Tylenol] 325 mg Tablet 325 mg PO Q6H PRN (Reason: Pain) RF: 0 aspirin 81 mg Tablet,Delayed Release (Dr/Ec) 81 mg PO QAM RF: 0 pantoprazole [Protonix] 40 mg Tablet,Delayed Release (Dr/Ec) 40 mg PO BID RF: 0 folic acid 1 mg Tablet 1 mg PO QAM RF: 0 bisacodyl 5 mg Tablet 5 mg PO BID RF: 0 cholecalciferol (vitamin D3) [Vitamin D3] 2,000 unit Capsule 2,000 unit PO QAM RF: 0 PreserVision AREDS-2 [id number] [id number]-mg Capsule 1 tab PO BID RF: 0 methotrexate sodium 25 mg/mL solution 17.5 mg subcut Q7D RF: 0 tramadol 50 mg Tablet 50 mg PO Q4H PRN (Reason: Pain, Moderate) Qty: 30 RF: 0 oxycodone 5 mg Tablet 5 mg PO Q4H PRN (Reason: Pain, Severe) Qty: 30 RF: 0 Referrals Referrals: Jak Hsu MD [Primary Care Provider] - The scribe's documentation has been prepared under my direction and personally reviewed by me in its entirety. I confirm that the note above accurately reflects all work, treatment, procedures, and medical decision making performed by me.
--- NOTE | 2018-09-12 14:01 | History & Physical Report ---
Date of Service September 12, 2018 Assessment & Plan (1) Postoperative back pain: Patient is postoperative day 4 status post lumbar decompression fusion L2- [address] eLma. Presents with intractable postoperative back pain/possible spasm. PT OT evaluated patient in the ER and due to the drastic difference compared to yesterday they recommended admission. Patient is admitted for pain control. History of Present Illness Primary Care Provider: Rubén Hsu MD This is a 77-year-old gentleman presents to the emergency room this morning.He underwent an L2-4 posterior lumbar decompression with instrument effusion with Dr. Lema on September 08. He was discharged home yesterday by Dr. Lema. Yesterday in physical therapy he examined 300 feet and pain was controlled with tramadol and Tylenol. He states that the day went on at home yesterday his pain on his left lumbar area worsened. He is having a difficult time moving at all today. Has some numbness in his feet that is established. Leg pain is improving. Denies fever chills. Did have some urinary retention when he presented to the emergency room. Was bladder scanned for 550 cc and straight cath. He states he has had a bowel movement since surgery. Positive flatus. Allergies Allergy/AdvReac Type Severity Reaction Status Date / Time No Known Drug Allergies Allergy Unknown . Verified 09/12/18 10:36 scallops AdvReac Unknown VOMITING Verified 09/12/18 10:36 Home Medications Home Medications Medication Instructions Recorded Confirmed Type PreserVision AREDS-2 1 tab PO BID 09/05/18 09/12/18 History acetaminophen [Tylenol] 325 mg PO Q6H PRN 09/05/18 09/12/18 History ascorbic acid (vitamin C) [Vitamin 1 g PO QAM 09/05/18 09/12/18 History C] aspirin 81 mg PO QAM 09/05/18 09/12/18 History atorvastatin 40 mg PO QPM 09/05/18 09/12/18 History bisacodyl 5 mg PO BID 09/05/18 09/12/18 History cholecalciferol (vitamin D3) 2,000 unit PO QAM 09/05/18 09/12/18 History [Vitamin D3] finasteride 5 mg PO QAM 09/05/18 09/12/18 History folic acid 1 mg PO QAM 09/05/18 09/12/18 History glipizide 5 mg PO QAM 09/05/18 09/12/18 History lisinopril 10 mg PO QAM 09/05/18 09/12/18 History pantoprazole [Protonix] 40 mg PO BID 09/05/18 09/12/18 History tamsulosin 0.4 mg PO QAM 09/05/18 09/12/18 History methotrexate sodium 17.5 mg SUBCUT Q7D 09/06/18 09/12/18 History oxycodone 5 mg PO Q4H PRN #30 tab 09/11/18 09/12/18 Rx tramadol 50 mg PO Q4H PRN #30 tab 09/11/18 09/12/18 Rx Past Med/Surg History Medical History Hypertension (Chronic) Diabetes BPH (benign prostatic hyperplasia) Hyperlipidemia GERD (gastroesophageal reflux disease) Carotid stenosis Surgical History History of back surgery (~08/2018) Knee joint replacement status (Resolved) S/P knee surgery S/P shoulder surgery S/P carpal tunnel release Family History Other Family history non-contributory Social History Preferred Language: [place] Communication Ability: Effective Continuous Process Machine Operator Required: No Beliefs That Will Affect Care: None Current Living Situation: Spouse Other Information That Helps Us Care for You: No Feels Safe at Home: Yes Safety Concerns: Feels Safe At This Time Smoking Status: Former smoker Do You Dip or Chew Tobacco: No Second Hand Exposure: No Hx Alcohol Use: No Hx Substance Use: No Review of Systems Review of Systems: All systems reviewed & are unremarkable except as noted in HPI & below Physical Exam Physical Exam: he is seen BM B12 in the emergency room. This is in conjunction with his and his son. He is lying supine flat in the stretcher. He has a difficult time rolling over for me. Lumbar dressing is clean dry and intact. Dressing was taken down for examination. No ecchymosis. Minimal edema. No drainage. No erythema. He is unable to lift either leg as this increases his back pain. No radicular leg pain when I do this. Calves are soft nontender. Strength is 5 5 bilateral EHL, dorsiflexion, plantar flexion, quadriceps, hamstrings. Constitutional: well developed Eyes: normal visual asencio by confrontation ENMT: external ear and nose normal, oropharynx normal Neck: normal visual inspection Respiratory: normal respiratory effort Cardiovascular: Rate/Rhythm: regular rate Vessels: dorsalis pedis pulses present Extremities: normal capillary refill Gastrointestinal (Abdomen): Inspection/Auscultation: abdomen normal to inspection Musculoskeletal: no cyanosis or clubbing, extremities motor strength 5/5 Skin: no rashes, warm and dry Neurologic: CN's II-XI intact bilaterally and moves all extremities Psychiatric: Speech: normal rate/rhythm/volume of speech Results & Data Vital Signs (Past 12 Hours) Vital Signs Temp Pulse Pulse Resp BP BP Pulse Ox 09/12/18 13:16 70 18 129/58 L 96 09/12/18 12:20 65 16 109/62 92 09/12/18 11:01 70 16 112/64 92 09/12/18 09:52 70 16 110/63 92 09/12/18 08:49 36.9 C 84 20 109/71 93 Supervising Physician Co-Signing Physician Notes Dr. Manuel Lema
[2018-09-12] MEDS: HYDROmorphone INJ 1 MG/ML SYRINGE IV PRN ×3 (14:02→21:55)
[2018-09-12] MEDS ORDERED: PHARMACY GLYCEMIC MGMT CONSULT PRN (14:43)
[2018-09-12] MEDS ORDERED: INSULIN GLARGINE SOLOSTAR 100 UNITS/ML 3 ML PEN SC STA (14:54)
[2018-09-12] MEDS ORDERED: LACTATED RINGER'S 1,000 ML IV SCH (15:30)
--- NOTE | 2018-09-12 15:38 | Pharmacy Report ---
Glycemic Control Consultation - Date of Service September 12, 2018 - Scope Scope: Glycemic Pharmacist consulted by Dr Lozano on 09/12/18 for glycemic control and to write orders per [facility] inpatient glycemic control protocol - Objective Weight: 100 kg - Recent Pertinent Medications Outpatient Anti-diabetic Regimen: * Glipizide 5mg qam * A1c = 11 % 08/28/18 - Assessment & Plan Assessment & Plan: ASSESSMENT: * Mr. Lofton is a 77yo M p/w intractable back pain. PMHx consistent with HTN, GERD, BPH, HLD. His A1C of 11.0% strongly indicative of inadequate glycemic management. He is ordered a diet. * DXM 8mg IV x3 doses set to start this afternoon PLAN FOR INPATIENT GLYCEMIC CONTROL: * Holding outpatient oral diabetes medications * Basal insulin * Lantus 40 units X1 as soon as he reaches the floor * Then a lantus scale for tonight, please see MAR for further details * Bolus insulin * NovoLog per scale ACHS or Q6hrs while NPO * Goal Range: Low 110 mg/dL - High 140 mg/dL * Correction Factor: 15 mg/dL/unit * Nutritional / Prandial insulin per carb ratio of 1 unit per 5 grams CHO consumed * will add 00,04 checks in the setting of DXM x3 * Please note that the plan above was derived based on current level of insulin resistance and hospital stress. These recommendations are appropriate for inpatient admission only. Plan of care upon discharge will need to be reassessed to avoid potential outpatient hypo/hyperglycemia. Thank you.
[2018-09-12] MEDS: dexAMETHasone 8 MG in SYRINGE 0 ML IV SCH (16:49)
[2018-09-12] MEDS: OXYCODONE/ACETAMINOPHEN 5mg/325mg TAB PO PRN (18:33)
[2018-09-12] MEDS: INSULIN ASPART 100 UNITS/ML 3 ML PEN SC SCH ×2 (18:59→21:51)
[2018-09-12] MEDS ORDERED: INSULIN GLARGINE SOLOSTAR 100 UNITS/ML 3 ML PEN SC ONE (21:00)
[2018-09-12] MEDS: ATORVASTATIN 40 MG TAB PO SCH (21:47)
[2018-09-12] MEDS: DOCUSATE SODIUM 100 MG CAP PO SCH (21:47)
[2018-09-12] MEDS: PANTOprazole 40 MG TAB PO SCH (21:47)
[2018-09-12] MEDS: BISACODYL 5 MG TABEC PO SCH (21:47)
[2018-09-13] MEDS: dexAMETHasone 8 MG in SYRINGE 0 ML IV SCH ×2 (00:08→07:30)
[2018-09-13] MEDS: INSULIN ASPART 100 UNITS/ML 3 ML PEN SC SCH ×6 (00:08→20:58)
--- NOTE | 2018-09-13 08:42 | XRay Report ---
XR lumbar spine 2-3V CLINICAL HISTORY: postop postoperative COMPARISON STUDY: No previous studies for comparison. FINDINGS: Findings consistent with posterior laminectomy and fusion at L2-L3 and L4. There is a disc spacer at L2-L3. Vertebral body stature is normal. Vertebral body alignment is anatomic. There is no evidence for subl uxation. IMPRESSION: 1. Anatomic alignment post posterior laminectomy and fusion from L2 through L4. 2. Mild postoperative reactive ileus. The above report was generated using voice recognition software. It may contain grammatical, syntax or spelling errors. Electronically signed by: Kofi Keys M.D. 09/13/2018 8:40 AM
[2018-09-13] MEDS ORDERED: NON-FORMULARY MEDICATION (Glipizide 5 MG) PO SCH (09:00)
[2018-09-13] MEDS: TAMSULOSIN HCL 0.4 MG CAP PO SCH (09:12)
[2018-09-13] MEDS: ASPIRIN 81 MG ECTAB PO SCH (09:12)
[2018-09-13] MEDS: DOCUSATE SODIUM 100 MG CAP PO SCH ×2 (09:12→20:58)
[2018-09-13] MEDS: FOLIC ACID 1 MG TAB PO SCH (09:13)
[2018-09-13] MEDS: FINASTERIDE 5 MG TAB PO SCH (09:13)
[2018-09-13] MEDS: CEROVITE ADV FORMULA TAB PO SCH (09:13)
[2018-09-13] MEDS: PANTOprazole 40 MG TAB PO SCH ×2 (09:13→20:58)
[2018-09-13] MEDS: LISINOPRIL 10 MG TAB PO SCH (09:14)
[2018-09-13] MEDS: BISACODYL 5 MG TABEC PO SCH ×2 (09:19→20:58)
[2018-09-13] MEDS ORDERED: INSULIN GLARGINE SOLOSTAR 100 UNITS/ML 3 ML PEN SC STA (09:52)
[2018-09-13] MEDS: OXYCODONE/ACETAMINOPHEN 5mg/325mg TAB PO PRN ×3 (11:47→20:58)
--- NOTE | 2018-09-13 12:51 | Orthopedic Progress Note ---
Date of Service September 13, 2018 Assessment & Plan (1) Postoperative back pain: Patient's x-rays been performed. The demonstrate straightening place probe alignment. He is improving steadily with some pain management and physical therapy. We will assess his progress tomorrow. He may be a candidate for rehab. Present on Admission?: Yes Subjective Patient's back pain is improving. Denies any leg pain. Physical Exam Physical Exam: Patient has good strength testing sitting the chair at the bedside. Still has obvious distress from back pain. Results & Data Vital Signs (Past 12 Hours) Vital Signs Temp Pulse Pulse Resp BP Pulse Ox 09/13/18 09:10 86 135/69 09/13/18 07:45 36.7 C 64 20 126/66 92
[2018-09-13] MEDS: POLYETHYLENE (MIRALAX) 17 GM PACK PO SCH (13:19)
[2018-09-13] MEDS: ATORVASTATIN 40 MG TAB PO SCH (20:58)
[2018-09-14] MEDS: FOLIC ACID 1 MG TAB PO SCH (08:12)
[2018-09-14] MEDS: TAMSULOSIN HCL 0.4 MG CAP PO SCH (08:12)
[2018-09-14] MEDS: ASPIRIN 81 MG ECTAB PO SCH (08:12)
[2018-09-14] MEDS: CEROVITE ADV FORMULA TAB PO SCH (08:12)
[2018-09-14] MEDS: POLYETHYLENE (MIRALAX) 17 GM PACK PO SCH (08:12)
[2018-09-14] MEDS: LISINOPRIL 10 MG TAB PO SCH (08:12)
[2018-09-14] MEDS: PANTOprazole 40 MG TAB PO SCH ×2 (08:12→20:44)
[2018-09-14] MEDS: FINASTERIDE 5 MG TAB PO SCH (08:12)
[2018-09-14] MEDS: DOCUSATE SODIUM 100 MG CAP PO SCH ×2 (08:12→20:44)
[2018-09-14] MEDS: BISACODYL 5 MG TABEC PO SCH ×2 (08:15→20:44)
[2018-09-14] MEDS: OXYCODONE/ACETAMINOPHEN 5mg/325mg TAB PO PRN ×5 (08:20→22:11)
[2018-09-14] MEDS ORDERED: metHOTREXate sodium 2.5 MG TAB PO SCH (09:00)
[2018-09-14] MEDS: INSULIN ASPART 100 UNITS/ML 3 ML PEN SC SCH ×4 (09:50→20:56)
[2018-09-14] MEDS ORDERED: INSULIN GLARGINE SOLOSTAR 100 UNITS/ML 3 ML PEN SC ONE (11:00)
--- NOTE | 2018-09-14 11:20 | Orthopedic Progress Note ---
Date of Service September 14, 2018 Assessment & Plan (1) Postoperative back pain: At this time we will continue physical therapy. Advance his bowel regimen. Anticipate discharge home tomorrow. Present on Admission?: Yes Subjective Patient's back pain is improving. Leg symptoms again resolved. Physical Exam Physical Exam: On exam he is in the chair at the bedside. Is good strength testing. Results & Data Vital Signs (Past 12 Hours) Vital Signs Temp Pulse Resp BP Pulse Ox 09/14/18 07:00 36.8 C 57 L 18 145/77 H 93
[2018-09-14] MEDS ORDERED: SOD PHOSPHATE/SOD BIPHOSPHATE ENEMA 132 ML BTL PR STA ×2 (11:21→13:41)
[2018-09-14] MEDS: ATORVASTATIN 40 MG TAB PO SCH (20:44)
[2018-09-15] MEDS: OXYCODONE/ACETAMINOPHEN 5mg/325mg TAB PO PRN ×3 (02:16→10:45)
[2018-09-15] MEDS: ASPIRIN 81 MG ECTAB PO SCH (09:32)
[2018-09-15] MEDS: FINASTERIDE 5 MG TAB PO SCH (09:32)
[2018-09-15] MEDS: FOLIC ACID 1 MG TAB PO SCH (09:33)
[2018-09-15] MEDS: TAMSULOSIN HCL 0.4 MG CAP PO SCH (09:33)
[2018-09-15] MEDS: POLYETHYLENE (MIRALAX) 17 GM PACK PO SCH (09:33)
[2018-09-15] MEDS: DOCUSATE SODIUM 100 MG CAP PO SCH (09:33)
[2018-09-15] MEDS: CEROVITE ADV FORMULA TAB PO SCH (09:33)
[2018-09-15] MEDS: PANTOprazole 40 MG TAB PO SCH (09:33)
[2018-09-15] MEDS: LISINOPRIL 10 MG TAB PO SCH (09:33)
[2018-09-15] MEDS: INSULIN ASPART 100 UNITS/ML 3 ML PEN SC SCH ×2 (09:35→13:29)
[2018-09-15] MEDS: BISACODYL 5 MG TABEC PO SCH (09:41)
[2018-09-15] MEDS ORDERED: INSULIN GLARGINE SOLOSTAR 100 UNITS/ML 3 ML PEN SC ONE (10:00)
--- NOTE | 2018-09-15 15:54 | Discharge Summary ---
Date of Service September 15, 2018 Admission HPI Per Admitting Provider This is a 77-year-old gentleman presents to the emergency room this morning.He underwent an L2-4 posterior lumbar decompression with instrument effusion with Dr. Lema on September 08. He was discharged home yesterday by Dr. Lema. Yesterday in physical therapy he examined 300 feet and pain was controlled with tramadol and Tylenol. He states that the day went on at home yesterday his pain on his left lumbar area worsened. He is having a difficult time moving at all today. Has some numbness in his feet that is established. Leg pain is improving. Denies fever chills. Did have some urinary retention when he presented to the emergency room. Was bladder scanned for 550 cc and straight cath. He states he has had a bowel movement since surgery. Positive flatus. Principal Diagnosis Postoperative back pain Discharge Data Allergies Allergy/AdvReac Type Severity Reaction Status Date / Time No Known Drug Allergies Allergy Unknown . Verified 09/12/18 10:36 scallops AdvReac Unknown VOMITING Verified 09/12/18 10:36 Consultations 09/12/18 13:49 ED Decision to Admit Stat Hospital Course (1) Postoperative back pain: Patient underwent lumbar decompression fusion and subsequent to discharge home. Unfortunately began experiencing significant back spasms return to the hospital. He underwent IV pain control as well as steroids. She tolerated he tolerated this well he progressed appropriately tolerating physical therapy bowels working socially discharged home. Discharge orders and instructions from the chart for further review. Total Time Total Time Spent Total Time Spent (In Minutes): 20 minutes Discharge Plan Discharge Items Patient Disposition: Home - Self-Care Reason For Visit: POST OP BACK PAIN Discharge Diagnosis: back pain Discharge Goals: Decrease discomfort Activity: Per 'Additional Instructions' section Non-emergency contact: Primary Care Provider Call non-emergency contact if: you have any medication questions Follow-up/Referrals: Jak Hsu MD [Primary Care Provider] - Diet: Regular Addtl Provider Instructions: ACTIVITY RECOMMENDATIONS: SELF CARE INSTRUCTIONS AFTER THORACIC/LUMBAR FUSIONS 1. You may walk to your tolerance. It is good exercise for your legs and back. Expect some back and intermittent leg aches and pains. 2. You may perform "counter-top" level activities (make a sandwich, damon with a project, etc.). 3. No bending or lifting of more than 10 pounds or back twisting of any nature (roll like a log when turning in bed). 4. You may ride in a car for 20-30 minutes at a time. No driving until after your first visit with your doctor. 5. Frequent changes of position and restricting sitting to 30 minutes at a time will help limit the amount of back spasms and stiffness you may experience. 6. You may discontinue the use of ambulatory aids (cane, crutches, etc.) once your strength and confidence allow. 7. You may strand forming machine operator the shower and let water strike your incision when you arrive home at least once daily. Do not take a tub bath, sit in a hot tub or go into a swimming pool until after your first recheck in the office. SPECIAL CARE INSTRUCTIONS: VERY IMPORTANT TO READ AND REVIEW A. Your surgical incision has been closed with a cosmetic suture under the skin that will dissolve in about 6 weeks. In 14 days, you can use a pair of clean scissors and cut the suture that is left outside of the skin at the ends of your incision. 1. The small skin tapes can be removed 7 days after surgery if they have not fallen off by that point. 2. You may keep the wound open to air as much as possible to promote healing after post-op day number 5 unless told otherwise by your doctor. 3. If you think the wound looks like it is becoming infected (redness or worsening drainage) and/or you are experiencing fever, chill or worsening back pain and muscle spasms, contact the office so that we may evaluate you as soon as possible. B. Complications are uncommon, but please contact us if you have any signs or symptoms of: 1. wound infection (fever higher than 102.5 degrees F, redness, separation of wound, drainage, or increasing pain from the incision) 2. blood clots in legs (pain, swelling, redness and warmth in legs) 3. urinary tract infection (fever higher than 102.5 degrees F, burning upon urination or increased frequency of urination) 4. nerve problems (inability to walk on your toes or heels, numbness, loss of bowel or bladder control) 5. any other symptoms that concern you C. Please call the office at if you have any concerns or questions about your operation or recovery. D. No smoking! Smoking drastically decreases the chance of a solid fusion. E. Do not take any anti-inflammatory medications (Indocin, Advil, Motrin, Aspirin, Naprosyn, etc.) as these may inhibit the chance of a solid fusion. Tylenol is okay to take for pain. MANAGING PAIN AFTER SPINAL SURGERY 1. Narcotic medication is intended for short-term use and will be provided for surgical pain. Surgical pain usually lasts for a period of 4-6 weeks. Narcotic medication includes Percocet, Vicodin, Darvocet, Tylenol #3 or Lortab. 2. Longer-term pain is more appropriately treated with non-narcotic medication such as Tylenol ES. 3. Muscle spasm is not appropriately treated with narcotics. Muscle relaxers such as Soma, Flexeril or Skelaxin can be used along with Tylenol ES. 4. Remember that we all live with some "aches and pains". This is not unusual or uncommon after an injury or as we get older. a. Back pain is expected and may include muscle spasms for 4 to 6 weeks after surgery. The pain should gradually improve. If the pain worsens for no apparent reason, please contact the office. b. Intermittent leg pain may also be experienced and should not be concerned about unless it worsens for no apparent reason. If so, please contact the office. 5. We will provide appropriate medication within the normal guidelines of their prescribed use. We will also be very cautious and aware of potential abuse and extended duration of patients' medication needs. a. Pain medications are for your comfort and to assist with sleep and rest so that the tissue can heal. They are not provided in order to return to normal activity and should not be used through the day. To do so or worsening pain at night can result from ongoing tissue damage and development of tolerance to the prescribed medicine. 6. Please allow 2-3 days to process refills. Prescriptions will not be mailed but must be picked up at the office. FOLLOW UP VISIT: Keep your scheduled follow-up appointment. Any questions, please call the office at . Prescriptions: Continued atorvastatin 80 mg tablet 40 mg PO QPM RF: 0 glipizide 5 mg tablet extended release 24hr 5 mg PO QAM RF: 0 tamsulosin 0.4 mg capsule 0.4 mg PO QAM RF: 0 lisinopril 10 mg tablet 10 mg PO QAM RF: 0 finasteride 5 mg tablet 5 mg PO QAM RF: 0 ascorbic acid (vitamin C) [Vitamin C] 1,000 mg Tablet 1 g PO QAM RF: 0 acetaminophen [Tylenol] 325 mg Tablet 325 mg PO Q6H PRN (Reason: Pain) RF: 0 aspirin 81 mg Tablet,Delayed Release (Dr/Ec) 81 mg PO QAM RF: 0 pantoprazole [Protonix] 40 mg Tablet,Delayed Release (Dr/Ec) 40 mg PO BID RF: 0 folic acid 1 mg Tablet 1 mg PO QAM RF: 0 bisacodyl 5 mg Tablet 5 mg PO BID RF: 0 cholecalciferol (vitamin D3) [Vitamin D3] 2,000 unit Capsule 2,000 unit PO QAM RF: 0 PreserVision AREDS-2 [id number] Capsule 1 tab PO BID RF: 0 tramadol 50 mg Tablet 50 mg PO Q4H PRN (Reason: Pain, Moderate) Qty: 30 RF: 0 oxycodone 5 mg Tablet 5 mg PO Q4H PRN (Reason: Pain, Severe) Qty: 30 RF: 0 Discontinued methotrexate sodium 25 mg/mL solution 17.5 mg subcut Q7D RF: 0 Stand-Alone Forms: [facility] [employer], [facility] [employer]/Other Patient Handouts: Constipation Discharge Orders: Discharge Order (Routine); Ordered 09/15/18 Ordered By: Manuel Lema Admission Data Admit Date/Time: 09/12/18 13:42 Attending Provider: Manuel Lema Admit Provider: Manuel Lema Primary Care Provider: Jak Hsu Other Providers: Manuel Lema Service: Surgical Services Other Interventions: Discharge Summary Assessment (RN) Last Done: 09/15/18 11:55 DC Date/Time DO NOT enter until pt leaves facility: 09/15/18 13:47
== END 2018-09-15 13:47 | disposition home or self-care (01) ==
LOC: 3N 08:33 → ED 08:33 → 3N 14:31

== ENCOUNTER 2018-12-06 06:10 | Inpatient (IN) ==
--- NOTE | 2018-11-09 13:53 | PAT Medication Instructions ---
Medication Instructions Date of Service November 09, 2018 Home Medications PreserVision AREDS-2 1 tab PO BID aspirin 81 mg PO QAM bisacodyl 5 mg PO TID cholecalciferol (vitamin D3) Vitamin D3 2,000 unit PO QAM finasteride 5 mg PO QAM folic acid 1 mg PO QAM glipizide 5 mg PO QAM lisinopril 10 mg PO QPM tamsulosin 0.4 mg PO QPM ascorbate calcium (vitamin C) 500 mg tablet 500 mg PO QAM atorvastatin 20 mg PO HS pantoprazole [Protonix] 40 mg PO QAM STOP taking 2 weeks before surgery (or as soon as possible if surgery is within 2 weeks) PreserVision AREDS-2 1 tab PO BID DO NOT take the morning of surgery bisacodyl 5 mg PO TID cholecalciferol (vitamin D3) Vitamin D3 2,000 unit PO QAM folic acid 1 mg PO QAM glipizide 5 mg PO QAM ascorbate calcium (vitamin C) 500 mg tablet 500 mg PO QAM Take morning of surgery With a small sip of water, OTHERWISE NOTHING TO EAT OR DRINK AFTER MIDNIGHT: aspirin 81 mg PO QAM finasteride 5 mg PO QAM pantoprazole [Protonix] 40 mg PO QAM Take evening before surgery bisacodyl 5 mg PO TID lisinopril 10 mg PO QPM tamsulosin 0.4 mg PO QPM atorvastatin 20 mg PO HS Other Notes If you have any questions please call us at [phone] or [phone] or or [phone]
--- NOTE | 2018-11-13 09:33 | Anesthesiology Consultation ---
Date of Service November 13, 2018 Assessment & Plan (1) Encounter for pre-operative examination: - Moderate aortic stenosis: YANELI 1.4cm2, MG 12.5mmhg per 08/2018 ECHO. Also, s/p L2-L4 decompression/fusion: 09/13/18: Grade view 2, MAC#3, ETT 8.0 at [facility]. He also notes remote hx of spinal with ?bradycardia post-operatively but patient unsure of details. Discussed SAB vs. GA with patient; advised patient that this will be discussed further AM DOS* - ASA: okay to continue perioperatively per surgeon Chart Review Chart Review: Acceptable Risk for Surgery (pending surgeon-ordered PCP clearance scheduled 11/17 (Dr. Hsu; [facility] and Patient seen in Pre Admission Testing Teaching & Discussion Pre-Anesthesia Teaching/Discussion Notes: Instructed NPO after midnight before surgery,except medications with 15 cc of water. Medication instructions provided according to the PAT guidelines. History Surgery Operation Date: 12/06/18 07:00 Proposed Procedures p Left Total Knee Arthroplasty - Facundo Alicea MD Height/Weight Height: 5 ft 6 in Weight: 101.2 kg Allergies Allergy/AdvReac Type Severity Reaction Status Date / Time No Known Drug Allergies Allergy Unknown . Verified 11/09/18 13:03 scallops AdvReac Unknown VOMITING Verified 11/09/18 13:03 Medications Home Medications Medication Instructions Recorded Confirmed Last Taken PreserVision AREDS-2 1 tab PO BID 09/05/18 11/13/18 Unknown bisacodyl 5 mg PO TID 09/05/18 11/13/18 Unknown atorvastatin 20 mg PO HS 11/09/18 11/13/18 Unknown ascorbate calcium (vitamin C) 500 500 mg PO DAILY tab 11/13/18 11/13/18 Unknown mg tablet aspirin 81 mg tablet,delayed 81 mg PO DAILY tab 11/13/18 11/13/18 Unknown release blood sugar diagnostic strips #10 ea 11/13/18 11/13/18 Unknown cholecalciferol (vitamin D3) 2,000 2,000 unit PO DAILY cap 11/13/18 11/13/18 Unknown unit capsule finasteride 5 mg tablet 5 mg PO DAILY tab 11/13/18 11/13/18 Unknown folic acid 1 mg tablet 1 mg PO TID tab 11/13/18 11/13/18 Unknown glipizide ER 5 mg tablet, extended 5 mg PO DAILY tab 11/13/18 11/13/18 Unknown release 24 hr lancets 33 gauge #100 ea 11/13/18 11/13/18 Unknown lisinopril 10 mg tablet 10 mg PO DAILY tab 11/13/18 11/13/18 Unknown methotrexate sodium 25 mg/mL 50 mg IM WEEKLY ml 11/13/18 11/13/18 Unknown injection solution omega-3 fatty acids 1,000 mg 1,000 mg PO BID cap 11/13/18 11/13/18 Unknown capsule pantoprazole 40 mg tablet,delayed 40 mg PO DAILY tab 11/13/18 11/13/18 Unknown release tamsulosin 0.4 mg capsule 0.4 mg PO DAILY cap 11/13/18 11/13/18 Unknown Past Medical History Medical History Aortic stenosis Moderate aortic stenosis (YANELI 1.4cm, MG 12mmhg) per 08/2018 ECHO History of gastric ulcer years ago Osteopenia Hiatal hernia Hypertension Diabetes NIDDM BPH (benign prostatic hyperplasia) Hyperlipidemia GERD (gastroesophageal reflux disease) controlled Chronic back pain Chronic constipation History of kidney stones Hx of sleep apnea s/p UPPP/tonsillectomy (10+ years ago) Obesity Rheumatoid arthritis Exercise / Class Metabolic Activity III < 4 Walking/Shop/Light housework Past Family History Family History Other Family history non-contributory Past Surgical History Surgical History History of back surgery (~08/2018) L2-L4 decompression/fusion: 09/13/18: Grade view 2, MAC#3, ETT 8.0 at [facility] History of carpal tunnel release of both wrists History of tonsillectomy + UPPP History of total right knee replacement Hx of bilateral cataract extraction Hx of shoulder surgery X2 RIGHT, 1 LEFT Past Anesthesia History No Family Hx of Anesthesia Complications and Other Patient states remote hx of spinal with ?bradycardia but patient unsure of details. History of PONV No Hx of PONV and No Hx of Motion Sickness Social History Smoking Status: Former smoker Do You Dip or Chew Tobacco: No Smoking End Date: 1972 Hx Alcohol Use: No Hx Substance Use: No Review of Systems Reflux controlled. Patient denies chest pain, shortness of breath, cough, wheezing, palpitations. Physical Exam Vital Signs VITALS BP 112/71 P 57 TEMP 98.4 SP02 94%RA RESP 18 PHYSICAL Full neck and c-spine range of motion. Full TMJ range of motion. TMD 3 finger breaths Mallampati Score 1 Dentition: partial dentures upper/lower Lungs: clear throughout to auscultation Cardiac: regular rate and rhythm, II-III/ systolic murmur Spine: normal Carotid arteries: negative bruit Extremities: no edema Testing Laboratory Results 11/13/18 09:58 11/13/18 09:58 PT 10.8 Seconds (9.0-12.0) 11/13/18 09:58 INR 1.1 (0.9-1.1) 11/13/18 09:58 APTT 25.8 Seconds (21.0-31.0) 11/13/18 09:58 Hemoglobin A1c 6.6 % (4.5-5.6) H 11/13/18 09:58 Urine Color Yellow 11/13/18 Unknown Urine Appearance Clear (Clear) 11/13/18 Unknown Urine pH 5.0 (4.5-7.5) 11/13/18 Unknown Ur Specific [place] 1.022 (1.000-1.030) 11/13/18 Unknown Urine Protein Negative (Negative) 11/13/18 Unknown Urine Glucose (UA) Negative (Negative) 11/13/18 Unknown Urine Ketones Negative (Negative) 11/13/18 Unknown Urine Nitrite Negative (Negative) 11/13/18 Unknown Ur Leukocyte Esterase Negative (Negative) 11/13/18 Unknown Blood Type O Positive 11/13/18 09:58 Antibody Screen NEGATIVE 11/13/18 09:58 Electrocardiogram Date: 09/05/18 SB at 58bpm. Low voltage QRS. Chest X-Ray Date: 11/13/18 Cardiac silhouette is mildly enlarged. This is likely due to the prominence of the suspected mediastinal fat within the right medial lung base. The heart is likely normal in size.Mild elevation of the right hemidiaphragm, unchanged. Degenerative changes within the bilateral shoulders. No acute process. Echocardiogram Date: 08/31/18 EF 60-65%. No RWMA. Mild cLVH. Moderate aortic stenosis (YANELI 1.4cm2, MG 12.5mmhg). Mild TR. Mild MR. Cervical Spine Date: 11/13/18 Moderate disc space narrowing at C6-C7 and C7-T1 with moderate to severe multilevel spondylitic spurring, most pronounced anteriorly. Moderate to severe multilevel facet arthrosis. Severe degenerative changes at C1-C2. No erosive changes. No acute fracture or subluxation identified. Predental interval appears to be within normal limits.
--- NOTE | 2018-11-13 10:43 | XRay Report ---
XR cervical spine 2 or 3V HISTORY: 77 years-old Male RHEUMATOID ARTHRITIS Limited arthropathy of the cervical spine COMPARISON: Cervical spine radiographs 12/29/2015 TECHNIQUE: 3 views of the cervical spine FINDINGS: Moderate disc space narrowing at C6-C7 and C7-T1 with moderate to severe multilevel spondylitic spurr ing, most pronounced anteriorly. Moderate to severe multilevel facet arthrosis. Severe degenerative c hanges at C1-C2. No erosive changes. No acute fracture or subluxation identified. Predental interval appears to be within normal limits. IMPRESSION: 1. No acute fracture or subluxation. 2. Degenerative changes as above. The above report was generated using voice recognition software. It may contain grammatical, syntax o r spelling errors. Electronically signed by: Ton Arguello M.D. 11/13/2018 10:42 AM
--- NOTE | 2018-11-13 10:45 | XRay Report ---
XR chest Pre-admission PA/Lat HISTORY: Preop. COMPARISON: Chest 07/09/2011. FINDINGS: Cardiac silhouette is mildly enlarged. This is likely due to the prominence of the suspecte d mediastinal fat within the right medial lung base. The heart is likely normal in size. No pleural e ffusions. No pneumothorax. The lungs are clear. Mild elevation of the right hemidiaphragm, unchanged. Degenerative changes within the bilateral shoulders. IMPRESSION: No acute process. Electronically signed by: Saud Moser M.D. 11/13/2018 10:43 AM
[2018-11-13 12:06] LABS: Basophils # (auto) 0.04 K/uL (0-0.2); Basophils % (auto) 0.5 %; Eosinophils # (auto) 0.09 K/uL (0-0.5); Eosinophils % (auto) 1.1 %; Hematocrit (blood only) 41.9 % (42-52); Hemoglobin 14.3 g/dL (14.0-18.0); Immature Granulocytes # (auto) 0.02 K/uL (0.00-0.02); Immature Granulocytes % (auto) 0.3 %; Lymphocytes # (auto) 2.59 K/uL (1.2-3.4); Lymphocytes % (auto) 32.7 %; Mean Corpuscular Hgb Conc 34.1 g/dL (32-36); Mean Corpuscular Volume 90.1 fL (80-100); Mean Platelet Volume 11.9 fL (7.4-10.4); Monocytes # (auto) 1.11 K/uL (0.11-0.59); Neutrophils # (auto) 4.07 K/uL (1.4-6.5); Neutrophils % (auto) 51.4 %; Platelet Count 195 K/uL (130-400); RDW Coefficient of Variation 14.5 % (11.5-14.5); RDW Standard Deviation 47.4 fL (36.4-46.3); Red Blood Count 4.65 M/uL (4.7-6.1); White Blood Count 7.92 K/uL (4.8-10.8)
[2018-11-13 12:07] LABS: Appearance Urine Clear (Clear); Bilirubin Urine Negative (Negative); Blood Urine Negative (Negative); Color Urine Yellow; Glucose Urine UA Negative (Negative); Ketones Urine Negative (Negative); Leukocyte Esterase Urine Negative (Negative); Nitrite Urine Negative (Negative); Protein Urine Negative (Negative); Specific Gravity Urine 1.022 (1.000-1.030); Urobilinogen Urine Negative (Negative)
[2018-11-13 12:16] LABS: Calcium 8.4 mg/dl (8.5-10.1); Creatinine Clr Calc Pharmacy 75.7 ml/min; Est GFR (African American) 93.9
[2018-11-13 12:27] LABS: INR 1.1 (0.9-1.1); Partial Thromboplastin Time 25.8 Seconds (21.0-31.0); Prothrombin Time 10.8 Seconds (9.0-12.0)
[2018-11-13 12:46] LABS: Estimated Average Glucose 143 mg/dl; Hemoglobin A1C 6.6 % (4.5-5.6)
--- NOTE | 2018-11-16 14:11 | History and Physical Report ---
DATE OF ADMISSION: 12/06/2018 DATE OF SURGERY: 12/06/2018. CHIEF COMPLAINT: Left knee pain. HISTORY OF PRESENT ILLNESS: This 77-year-old white male presents to the office with his for evaluation of the left knee pain that has been ongoing for several years. The patient previously had a left leg tibial osteotomy performed in 2005 or 2006. He subsequently had a tibial hardware removal on 12/14/2011. At that time, he was anticipating upcoming total knee surgery. He states the knee did reasonably well over the subsequent years until the last several months. He is not having severe pain. He desires to proceed with total knee arthroplasty. Pain is worse with weightbearing or ambulation. It is affecting his ADLs. No numbness or tingling. He has tried nonsteroidals, physical therapy, and activity modification without relief. Preoperative imaging has been obtained. PAST MEDICAL HISTORY: Significant for heart murmur, new-onset diabetes, osteoarthritis, back pain, GERD, hiatal hernia, obesity, poor dentition, hypertension, elevated cholesterol, and history of sleep apnea. PREVIOUS SURGERIES: Right total knee arthroplasty in 2011, left tibial osteotomy 2005, left tibial hardware removal 12/14/2011, left knee arthroscopy, tonsillectomy, bilateral carpal tunnel releases, right shoulder rotator cuff repair, left shoulder rotator cuff repair x2, uvuloplasty, acute lumbar back surgery for disc herniation 4 weeks ago. ALLERGIES: NKDA. KNOWN ALLERGY TO SCALLOPS. He has been fine with contrast dye in the past. SOCIAL HISTORY: The patient is retired. . No tobacco use, no ETOH use. CURRENT MEDICATIONS: Glipizide 5 mg daily, vitamin C daily, aspirin 81 mg daily, atorvastatin 80 mg half tablet p.o. at bedtime, bisacodyl 5 mg tablet b.i.d., vitamin D3 daily, finasteride 5 mg p.o. daily, folic acid 1 mg daily, gabapentin 400 mg p.o. t.i.d., lisinopril 10 mg daily, methotrexate 25 mg subQ once weekly, PreserVision oral tablet p.o. b.i.d., fish oil 2 tablets daily, pantoprazole 40 mg p.o. daily, tamsulosin 0.4 mg p.o. daily. REVIEW OF SYSTEMS: A total of 10 systems are reviewed and are significant only for above-stated conditions. PHYSICAL EXAMINATION: GENERAL: Well-developed, well-nourished elderly white male in no acute distress. Sitting in a chair. Alert and oriented. SKIN: Warm and dry with good turgor. No rashes or lesions. No ecchymosis or erythema. No intraarticular effusions. HEENT: Normocephalic, atraumatic. Eyes PERRLA, EOMI. Nares patent bilaterally without turbinate enlargement. Oropharynx without erythema or exudate. No lesions noted. Uvula midline. Oral mucosa moist. Poor dentition. Mostly edentulous. Just a few teeth left. Fillings are noted. HEART: RRR, 2/6 systolic ejection murmur noted. No gallops or rubs. LUNGS: Clear to auscultation bilaterally. No crackles, rhonchi or wheezing. Good air movement. ABDOMEN: Obese. Bowel sounds present x4, soft, nontender. No organomegaly. No masses. MUSCULOSKELETAL: Evaluation of the left knee reveals well-healed surgical scars both anteriorly and medially. No significant effusion today. He lacks a few degrees of terminal extension. Flexion to around 90 degrees. Strength is 5/5 with fair quad tone. Stable collateral ligaments. There is focal discomfort with palpation over the medial and lateral joint lines. No palpable crepitus with motion. Ambulatory with an antalgic gait. NEUROLOGIC: Gross sensation is intact across both lower extremities by soft touch. Peripheral pulses are 2+. DATA: Radiographic imaging previously obtained shows end-stage DJD of the left knee. There is bone on bone in the medial compartment. Large deformity of the proximal tibia due to previous high tibial osteotomy and hardware placement. No retained hardware currently. Loose bodies and subchondral sclerosis are also present. IMPRESSION: Left knee end-stage degenerative joint disease. PLAN: Postoperative prescriptions for Percocet and Coumadin will be provided at discharge from the hospital. Anticipate discharge to home with home health services. Preoperative lab work, EKG, and chest x-ray have been ordered. Medical clearance has been requested from his PCP, Dr. Hsu. The patient already has a walker. Informed written consent has already been obtained.
[~2018-12-06 06:10] MED LIST changes: -ASCA500 PO; -ASPCH81 PO; -ATOR-24 PO; -BISA1TAB15 PO; +CEFAZOLIN 2000MG 2,000 MG/15 ML SYR IV SCH; -CHOL1000 PO; -FINA5TAB PO; -LANS30CA12 PO; -LEFL20TA PO; -LISI5TAB3 PO; +LR 500ML BOLUS, THEN 15ML/HR IV SCH; +LR 60ML/HR IV SCH; -MELO-84 PO; -OMEG10007 PO; +ROPIVACAINE 0.5% HCL/PF 150 MG, BUPIVACAINE 0.5% MPF 30 ML, EPINEPHrine 0.15 MG, Ketoro... INFIL SCH; -TAMS0.4C38 PO; +TRANEXAMIC ACID 1,000 MG **IV Pre-op IV SCH; -VISION VITAMIN PO
--- NOTE | 2018-12-06 06:39 | History & Physical Bridge Note ---
Date of Service December 06, 2018 History & Physical Bridge Note I have examined the patient, reviewed the History & Physical and in the interval since the performance of the History & Physical I have noted the following changes of clinical significance: consent obtained.no changes noted
[2018-12-06] MEDS ORDERED: BUPIVACAINE 0.25% 30 ML VIAL ONE (07:29)
[2018-12-06] MEDS ORDERED: BUPIVACAINE 0.5 % 5 MG/1 ML PF 10ML VIAL ONE (07:29)
[2018-12-06] MEDS ORDERED: MIDAZOLAM HCL 1 MG/ML 2ML VIAL ONE (07:48)
[2018-12-06] MEDS ORDERED: fentaNYL citrate 100 MCG/2 ML VIAL ONE (07:48)
[2018-12-06] MEDS ORDERED: ORTHO JOINT ANESTHETIC ONE (08:41)
[2018-12-06] MEDS ORDERED: fentaNYL citrate 100 MCG/2 ML VIAL IV PRN (08:49)
[2018-12-06] MEDS ORDERED: ONDANSETRON INJ 2 MG/ML 2 ML VIAL IV PRN ×2 (08:49→12:19)
[2018-12-06] MEDS ORDERED: ePHEDrine sulfate 50 MG/ML AMP IV PRN (08:49)
[2018-12-06] MEDS ORDERED: ATROPINE SULFATE 0.1 MG/ML 10ML SYR IV PRN (08:49)
[2018-12-06] MEDS ORDERED: PROPOFOL IV EMULSION 10 MG/ML 20 ML VIAL IV ONE (08:52)
[2018-12-06] MEDS ORDERED: HYDROmorphone INJ 2 MG/ML SYR/VIAL ONE (08:52)
[2018-12-06] MEDS ORDERED: ONDANSETRON INJ 2 MG/ML 2 ML VIAL ONE (08:52)
[2018-12-06] MEDS ORDERED: DEXAMETHASONE SOD INJ 4 MG/ML VIAL ONE (08:52)
[2018-12-06] MEDS ORDERED: LABETALOL HCL IV 5 MG/ML 20ML IV ONE (10:38)
[2018-12-06] MEDS ORDERED: ESMOLOL HCL INJ 10 MG/ML 10ML VIAL IV ONE (10:38)
--- NOTE | 2018-12-06 10:56 | Post Operative Brief Note ---
Immediate Post Op Note v1 Date of Surgery December 06, 2018 Pre & Post Diagnosis Operation Date: 12/06/18 08:50 Pre-Op Diagnosis: Left Knee Advanced Degenerative Joint Disease Post-Op Diagnosis: Left Knee Advanced Degenerative Joint Disease Procedure Operation Date: 12/06/18 08:50 Actual Procedures p Left Total Knee Arthroplasty(Right) - Facundo Alicea MD Surgeon Facundo Alicea MD Medical Collections Specialist petar cooper Estimated Blood Loss 75 Findings Consistent with Post-Op Diagnosis
--- NOTE | 2018-12-06 11:08 | Operative Report ---
Post Operative Report Pre & Post Diagnosis Operation Date: 12/06/18 08:50 Pre-Op Diagnosis: Left Knee Advanced Degenerative Joint Disease Post-Op Diagnosis: Left Knee Advanced Degenerative Joint Disease Procedure Operation Date: 12/06/18 08:50 Actual Procedures p Left Total Knee Arthroplasty - Facundo Alicea MD Surgeon Facundo Alicea MD Campus Recruiting Coordinator petar cooper Estimated Blood Loss 75 Findings Consistent with Post-Op Diagnosis Specimens None Complications none Disposition Accompanied Patient To Recovery: Yes Disposition: Recovery Room Indications 78 years old gentleman with end-stage left knee arthritis with prior history of high tibial osteotomy has chosen for total knee arthroplasty because of his intractable symptoms. Description of Procedure Supine position. Standard prep and draping of the left lower extremity. Timeout for patient safety. Left total knee arthroplasty under the tourniquet. Please see Dr. Alicea's procedure notes for specific details. I was present throughout the case, assisted for wound closure and transfer the patient to the PACU in stable condition. I attest to the content of the Intraoperative Record and any orders documented therein. Any exceptions are noted below.
--- NOTE | 2018-12-06 11:09 | Operative Report ---
Post Operative Report Pre & Post Diagnosis Operation Date: 12/06/18 08:50 Pre-Op Diagnosis: Left Knee Advanced Degenerative Joint Disease Post-Op Diagnosis: Left Knee Advanced Degenerative Joint Disease Procedure Operation Date: 12/06/18 08:50 Actual Procedures p Left Total Knee Arthroplasty(Right) - Facundo Alicea MD Surgeon EFFIE Alicea MD Medical Dosimetrist petar cooper Estimated Blood Loss 75 Findings Consistent with Post-Op Diagnosis Specimens see operative report Drains none Complications none Disposition Accompanied Patient To Recovery: Yes Disposition: Recovery Room Indications This 78-year-old white male presented to the office with complaints of long- standing left knee pain. He had tried surgical intervention and conservative care measures without lasting improvement. He elected to proceed with surgical intervention after being educated about potential risks and outcomes. Preoperative imaging was obtained. Description of Procedure Patient was administered a regional block and then taken to the operating room where he was given general anesthesia. He was prepped and draped in the usual sterile fashion. Please see Dr. Alicea's operative report for specifics of the procedure. I was present for the entire case from initial patient positioning through final wound closure. Assistance was provided in tissue ret raction, hemostasis, trial implant placement, final implant placement, and final wound closure. Patient was taken to the recovery room in satisfactory condition. I attest to the content of the Intraoperative Record and any orders documented therein. Any exceptions are noted below.
--- NOTE | 2018-12-06 11:15 | Operative Report ---
DATE OF OPERATION: 12/06/2018 SURGEON: Facundo Alicea MD TRAIN GATE ATTENDANT: Skylar. SECOND MORTAR MAKER: Herrera Lyons PA-C PREOPERATIVE DIAGNOSES: Severe valgus deformity with zigzag deformity of the tibia following high tibial osteotomy with end-stage osteoarthritis. POSTOPERATIVE DIAGNOSES: Severe valgus deformity with zigzag deformity of the tibia following high tibial osteotomy with end-stage osteoarthritis. OPERATION PERFORMED: Cemented left total knee replacement. PERIOPERATIVE SITUATION: Medically cleared male with intractable knee pain who has severe deformity with marked malalignment of his leg and significant valgus, zigzag deformity of his knee joint and tibia, previously had an opening wedge high tibial osteotomy done roughly 12 years ago. At this point in time, he has done well with the knee replacement on the right and is requesting it on the left. He was informed that this would be nowhere near as easy to do and would not most likely be as successful in the sense of complete elimination of discomfort as the right knee. SUMMARY OF IMPLANTS: Size 4 left narrow femur, size 3 mobile bearing tray tibia, oval dome 3 peg patella size 41, tibial insert, matching the femur size 4 x 10 posterior cruciate substituting, 2 bags of Palacos G cement. ESTIMATED BLOOD LOSS: 75 mL. CRYSTALLOID: Per anesthesia. PATHOLOGY: Pending on bone. DESCRIPTION OF PROCEDURE: The patient appropriately identified, site verified, consent verified. Antibiotics confirmed as being given. The left lower extremity was prepped and draped in usual routine fashion. A generous incision was made. He did have old incisions about the knee. We tried to be as judicious as possible about making its more spaces between the incisions, but he was also informed preoperatively that this could be an issue. Once the incision was made, full thickness flaps were raised. Parapatellar arthrotomy performed. It should be mentioned that the range of motion prior to making any incision even under anesthesia was -20 to approximately 80. Once the full-thickness flaps were raised, the parapatellar arthrotomy performed. Synovectomy was completed. There was marked scar tissue along the extensor mechanism distally all the way up through the lateral retinaculum. This was all released intraarticularly using a 90-degree angle clamp. Once this was done, the patella could be everted. The synovectomy was then completed anteriorly, subperiosteal dissection of the medial capsule and medial collateral ligament distally was made. Osteophytes resected off the femur and the tibia. The knee was not able to be flexed to 90 degrees. Distal femur was then entered. Cruciates resected and distal femur resected 14 mm. Due to the severe zigzag valgus deformity of the proximal tibia, this was actually a reverse type cut with a preserving bone laterally and taking more bone medially, this was done lining up on the mechanical axis of the tibia to create a 90 degree cut to the proximal tibia. This was done. The extension gap was then checked. It was excellent. The alignment of the limb was excellent. The femur was then sized to a 4 narrow and appropriate cutting block applied and the anterior, posterior condylar and chamfer cuts made. Flexion gap tried, it was still slightly tight laterally, so a lateral release of the femur was performed and this balanced the knee well. Posterior injections were then made with the Orthomix. The box cut was then made and the size 4 narrow fit well. The tibia was then broached and reamed to a size 3 and the trial spacer with 10 provided excellent stability in full extension, mid range flexion and full flexion. The patella tracked well. The patella was then resected leaving about 16 mm. Seating holes made and the trial seated, it tracked well. All trial implants were removed. The wound was irrigated with Betadine Pulsavac and then the permanent cemented into position. After 12 minutes, the tourniquet deflated. The sequence of cementing was tibia, femur and patella in that order. At 12 minutes, the tourniquet was deflated. Minor bleeding points controlled with electrocautery. EBL was 75 mL. By 14 minutes, the knee was then flexed, trial spacer removed. No cement removal was required. The wound was irrigated with Betadine and then permanent liner seated, knee reduced and closed at about 40 degrees of flexion with #2 Vicryl, 2-0 Vicryl and stainless steel clips. Appropriate dressing was applied. The lateral retinacular release area was also closed easily with 0 Vicryl. Once the clips and the appropriate dressing applied, Donta Eddy cotton dressing applied. The patient transferred to recovery room in satisfactory condition having tolerated the procedure well. I attest to the content of the Intraoperative Record and any orders documented therein. Any exception s are noted below.
--- NOTE | 2018-12-06 11:23 | XRay Report ---
XR knee LT 2V routine HISTORY: 78 years-old Male post op in recovery postoperative exam. COMPARISON: [Radiographs 08/07/2018 TECHNIQUE: 2 views of the left knee FINDINGS: Left knee total joint arthroplasty and patella resurfacing demonstrates satisfactory alignment. Anter ior midline skin jessie are noted along with expected postsurgical soft tissue swelling and deep tis nima air with surgical drainage catheter. No acute fracture or retained foreign body. Chronic posttrau matic/postsurgical changes of the proximal tibia with screw tracks redemonstrated. IMPRESSION: Satisfactory alignment of the left knee total joint arthroplasty. The above report was generated using voice recognition software. It may contain grammatical, syntax o r spelling errors. Electronically signed by: Ton Arguello M.D. 12/06/2018 11:22 AM
[2018-12-06] MEDS: VANCOMYCIN HCL 1,500 MG in SODIUM CHLORIDE 0.9% 500 ML IV SCH ×2 (11:39→22:33)
--- NOTE | 2018-12-06 11:45 | Anesthesiology Progress Note ---
Date of Service December 06, 2018 Anesthesia Post Procedure Vital Signs Vital Signs: Temp Pulse Pulse Resp BP Pulse Ox 12/06/18 11:35 36.6 C 86 13 121/74 95 12/06/18 11:25 90 14 117/84 98 12/06/18 11:15 90 17 133/80 98 12/06/18 11:06 36.7 C 95 H 12 147/73 H 98 12/06/18 07:04 37 C 74 20 150/70 H 95 Transfer of Care Handoff Completed per policy Notes Mental Status: alert / awake / arousable and participated in evaluation Patient Amnestic to Procedure: Yes Nausea / Vomiting: adequately controlled Pain: adequately controlled Airway Patency, RR, SpO2: stable & adequate BP & HR: stable & adequate Hydration State: stable & adequate Anesthetic Complications: no major complications apparent and Pt Satisfied with anesthetic care
[2018-12-06] MEDS ORDERED: DiphenhydrAMINE HCL 50 MG/ML VIAL IV PRN (12:19)
[2018-12-06] MEDS ORDERED: METOCLOPRAMIDE HCL INJ 5 MG/ML 2 ML VIAL IV PRN (12:19)
[2018-12-06] MEDS ORDERED: MAGNESIUM HYDROXIDE SUSP 30 ML UDC PO PRN (12:19)
[2018-12-06] MEDS ORDERED: VANCOMYCIN CONSULT ACTIVE PRN (12:19)
[2018-12-06] MEDS ORDERED: HYDROmorphone INJ 0.5 MG/0.5 ML SYR IV PRN (12:19)
[2018-12-06] MEDS ORDERED: NALOXONE HCL 0.4 MG/1 ML VIAL/CARP IV PRN (12:19)
[2018-12-06] MEDS ORDERED: SODIUM CHLORIDE 0.9% 1000ML 1,000 ML IV SCH (12:19)
[2018-12-06] MEDS ORDERED: BISACODYL 10 MG SUPP PR PRN (12:19)
[2018-12-06] MEDS ORDERED: ALUMINUM/MAGNESIUM SUSP 30 ML UDC PO PRN (12:19)
--- NOTE | 2018-12-06 12:29 | Progress Note ---
DATE: 12/06/2018 SUBJECTIVE: Postop check status post left total knee replacement. The patient is doing well, has no major issues. Denies chest pain, shortness of breath, fever, chills, nausea, vomiting or headache. OBJECTIVE: Vital signs are stable. He is afebrile. Neurovascular check femoral sciatic nerve is normal. Can do a straight leg raise. Can actively pump his ankle and his toes, inversion, eversion, dorsi and plantarflexion. Postop x-rays look excellent. ASSESSMENT: Overall, doing well. Continue postop care pathway. Potentially discharge tomorrow if does well overnight.
--- NOTE | 2018-12-06 12:36 | Discharge Summary ---
CHIEF COMPLAINT: Left knee pain. HISTORY OF PRESENT ILLNESS: The patient is admitted for elective left total knee replacement following a severe deformity from osteoarthritis and high tibial osteotomy. At this point in time, he is here for knee replacement. Hospital course has been uneventful. At this point in time, the implant has been well aligned. Everything looks good on postop x-ray. PAST MEDICAL HISTORY: Remarkable for heart murmur, diabetes, osteoarthritis, back pain, GERD, hiatal hernia, obesity, poor dentition, hypertension, elevated cholesterol, history of sleep apnea, his teeth had been checked prior to this. PREVIOUS SURGERIES: Include knee replacement in 2011, tibial osteotomy in 2005, hardware removal in 2011, left knee arthroscopy, tonsillectomy, carpal tunnel releases, shoulder rotator cuff repairs, uvuloplasty, lumbar back surgery. ALLERGIES: SCALLOPS. Drugs: None. SOCIAL HISTORY: He is retired, . No tobacco or alcohol use. PREADMISSION MEDICATIONS: Include glipizide, vitamin C, aspirin, atorvastatin, bisacodyl, vitamins, finasteride, gabapentin, lisinopril, methotrexate, PreserVision, fish oil, pantoprazole, tamsulosin. Also be placed on p.r.n. Percocet and Coumadin to keep INR 1.8-2.2. REVIEW OF SYSTEMS: Noncontributory. ASSESSMENT: Status post total knee replacement, complex, primary, after placement based on a zigzag deformity of the tibia, overall doing well, postop x-rays look excellent. Continue with aggressive rehabilitation and potential discharge tomorrow if he does well overnight. Hep-Lock IV when p.o. well.
[2018-12-06] MEDS: INSULIN ASPART 100 UNITS/ML 3 ML PEN SC SCH ×5 (12:46→21:16)
[2018-12-06] MEDS: ORTHO WARFARIN NOMOGRAM SCH (13:08)
[2018-12-06] MEDS: ACETAMINOPHEN 500 MG TAB PO SCH ×2 (13:28→21:04)
[2018-12-06] MEDS: KETOROLAC TROMETHAMINE 15 MG/ML VIAL IV SCH ×2 (13:28→19:40)
[2018-12-06] MEDS: OXYCODONE HCL IR 5 MG TAB (IMMEDIATE RELEASE) PO PRN ×2 (14:52→19:17)
[2018-12-06] MEDS: BISACODYL 5 MG TABEC PO SCH ×2 (15:47→20:24)
[2018-12-06] MEDS ORDERED: WARFARIN SOD 5 MG TAB PO SCH (16:00)
[2018-12-06] MEDS ORDERED: TRANEXAMIC ACID 1,000 MG in 0.9 % SODIUM CHLORIDE 100 ML IV SCH (17:14)
[2018-12-06] MEDS: CEFAZOLIN 2000MG 2,000 MG/15 ML SYR IV SCH (17:41)
[2018-12-06] MEDS: FERROUS GLUCONATE 324 MG TAB PO SCH (17:41)
[2018-12-06] MEDS: DOCUSATE SODIUM 100 MG CAP PO SCH (20:22)
[2018-12-06] MEDS: CEROVITE ADV FORMULA TAB PO SCH (20:24)
[2018-12-06] MEDS ORDERED: SENNA 8.6 MG TAB PO SCH (21:00)
[2018-12-07] MEDS: CEFAZOLIN 2000MG 2,000 MG/15 ML SYR IV SCH (01:18)
[2018-12-07] MEDS: KETOROLAC TROMETHAMINE 15 MG/ML VIAL IV SCH ×2 (01:19→07:26)
[2018-12-07] MEDS: ACETAMINOPHEN 500 MG TAB PO SCH (05:46)
[2018-12-07 06:26] LABS: Hematocrit (blood only) 40.1 % (42-52); Hemoglobin 13.4 g/dL (14.0-18.0); Mean Corpuscular Hgb Conc 33.4 g/dL (32-36); Mean Corpuscular Volume 88.9 fL (80-100); Platelet Count 168 K/uL (130-400); RDW Coefficient of Variation 14.4 % (11.5-14.5); RDW Standard Deviation 46.9 fL (36.4-46.3); Red Blood Count 4.51 M/uL (4.7-6.1); White Blood Count 14.82 K/uL (4.8-10.8)
[2018-12-07 06:33] LABS: INR 1.1 (0.9-1.1); Prothrombin Time 11.4 Seconds (9.0-12.0)
--- NOTE | 2018-12-07 06:58 | Progress Note ---
DATE: 12/07/2018 SUBJECTIVE: Postop day #1 status post left knee replacement. The patient is doing well, has no issues. He is sitting up in a chair. He denies any chest pain, shortness of breath, fever, chills, nausea, vomiting or headache. OBJECTIVE: Vital signs are stable. He is afebrile. Neurovascular check femoral sciatic nerve is normal. He has been ambulatory. He is voiding, eating, drinking, no issues. Laboratory work is pending. ASSESSMENT: Doing well. PLAN: Discharge to home today. Follow up in 2 weeks for staple removal. Pressure dressing for 1 week. Coumadin, keep INR 1.8-2.2.
[2018-12-07 07:06] LABS: BUN Creatinine Ratio 15.4 (10-20); Calcium 7.9 mg/dl (8.5-10.1); Creatinine Clr Calc Pharmacy 53.4 ml/min; Est GFR (African American) 63.5; Est GFR (Non-African American) 54.8; Potassium 4.1 mmol/L (3.5-5.1)
[2018-12-07] MEDS: OXYCODONE HCL IR 5 MG TAB (IMMEDIATE RELEASE) PO PRN ×2 (07:18→11:30)
--- NOTE | 2018-12-07 07:43 | Anesthesiology Progress Note ---
Date of Service December 07, 2018 Anesthesia Post Procedure Vital Signs Vital Signs: Temp Pulse Pulse Resp BP Pulse Ox 12/07/18 07:30 36.6 C 62 16 103/64 95 12/07/18 03:26 36.5 C 60 18 96/55 L 96 12/06/18 23:36 36.5 C 87 18 104/64 95 12/06/18 19:13 36.9 C 80 16 125/71 92 12/06/18 15:03 36.4 C L 93 H 16 123/72 93 12/06/18 14:08 66 16 126/68 97 12/06/18 13:05 71 16 116/73 95 12/06/18 12:05 36.4 C L 78 16 125/73 97 12/06/18 11:45 85 12 138/73 94 12/06/18 11:35 36.6 C 86 13 121/74 95 12/06/18 11:25 90 14 117/84 98 12/06/18 11:15 90 17 133/80 98 12/06/18 11:06 36.7 C 95 H 12 147/73 H 98 Pain Intensity Left Knee: Pain Intensity: 6 Notes Mental Status: alert / awake / arousable and participated in evaluation Patient Amnestic to Procedure: Yes Nausea / Vomiting: adequately controlled Pain: adequately controlled Airway Patency, RR, SpO2: stable & adequate BP & HR: stable & adequate Hydration State: stable & adequate Anesthetic Complications: no major complications apparent
[2018-12-07] MEDS ORDERED: dexAMETHasone 10 MG in SYRINGE 0 ML IV SCH (08:00)
[2018-12-07] MEDS: FERROUS GLUCONATE 324 MG TAB PO SCH (08:48)
[2018-12-07] MEDS: CEROVITE ADV FORMULA TAB PO SCH (08:48)
[2018-12-07] MEDS: DOCUSATE SODIUM 100 MG CAP PO SCH (08:50)
[2018-12-07] MEDS: BISACODYL 5 MG TABEC PO SCH (08:53)
[2018-12-07] MEDS: INSULIN ASPART 100 UNITS/ML 3 ML PEN SC SCH ×2 (08:54)
[2018-12-07] MEDS ORDERED: FINASTERIDE 5 MG TAB PO SCH (09:00)
[2018-12-07] MEDS ORDERED: ASPIRIN 81 MG ECTAB PO SCH (09:00)
[2018-12-07] MEDS ORDERED: TAMSULOSIN HCL 0.4 MG CAP PO SCH (09:00)
[2018-12-07] MEDS ORDERED: FOLIC ACID 1 MG TAB PO SCH (09:00)
[2018-12-07] MEDS ORDERED: glipiZIDE ER 2.5 MG TABCR PO SCH (09:00)
[2018-12-07] MEDS ORDERED: PANTOprazole 40 MG TAB PO SCH (09:00)
[2018-12-07] MEDS ORDERED: ATORVASTATIN 20 MG TAB PO SCH (09:00)
[2018-12-07] MEDS ORDERED: ASCORBIC ACID 500 MG TAB PO SCH (09:00)
[2018-12-07] MEDS ORDERED: LISINOPRIL 10 MG TAB PO SCH (09:00)
[2018-12-07] MEDS ORDERED: MULTIVITAMIN TAB PO SCH (09:00)
--- NOTE | 2018-12-07 09:12 | Orthopedic Progress Note ---
Date of Service December 07, 2018 Assessment & Plan (1) S/P knee replacement: PT/OT this AM New bulky compressive dressing applied DVT Prophy with Coumadin and TEDs Ice with EZ wrap WBAT with walker assistance and knee immobilizer for first 48 hrs post op Goal INR 1.8-2.2 Discharge home today after PT/OT; with home health Follow up at [facility] in 2 wks as previously scheduled. Subjective 78 yo M patient is day 1 s/p left Total knee arthroplasty. Doing well. Pain controlled with PO meds. Denies CP, SOB, nausea, vomiting, fever, chills, sweats or lethargy. Patient states that he did well over night and is ready to be discharged home with home health after PT/OT today. Review of Systems Review of Systems: All systems reviewed & are unremarkable except as noted in HPI & below Physical Exam Physical Exam: Left knee: Dressing removed. Wound clean, dry, without discharge and jessie in place. Able to easily perform SLRT. Calf soft and supple. NV intact. Able to dorsi/plantar flex foot w/o difficulty. ROM of knee not tested. Quad tone 4/5. Results & Data Vital Signs (Past 12 Hours) Vital Signs Temp Pulse Resp BP Pulse Ox 12/07/18 07:30 36.6 C 62 16 103/64 95 12/07/18 03:26 36.5 C 60 18 96/55 L 96 12/06/18 23:36 36.5 C 87 18 104/64 95 Laboratory Results 12/07/18 12/07/18 12/07/18 Range/Units 08:17 06:06 06:06 WBC (4.8-10.8) K/uL RBC (4.7-6.1) M/uL Hgb (14.0-18.0) g/dL Hct (42-52) % MCV (80-100) fL MCH (25-34) pg MCHC (32-36) g/dL RDW Std Deviation (36.4-46.3) fL RDW Coeff of Gabriele (11.5-14.5) % Plt Count (130-400) K/uL MPV (7.4-10.4) fL PT 11.4 (9.0-12.0) Seconds INR 1.1 (0.9-1.1) Sodium 140 (136-145) mmol/L Potassium 4.1 (3.5-5.1) mmol/L Chloride 108 H (98-107) mmol/L Carbon Dioxide 24 (21-32) mmol/L Anion Gap 8.0 (3-11) BUN 19 H (7-18) mg/dl Creatinine 1.25 (0.6-1.4) mg/dl Est Cr Clr Drug Dosing 53.4 ml/min Est GFR ( Amer) 63.5 Est GFR (Non-Af Amer) 54.8 BUN/Creatinine Ratio 15.4 (10-20) Glucose 125 H (70-99) mg/dl POC Glucose 120 H (70-99) Calcium 7.9 L (8.5-10.1) mg/dl 12/07/18 12/06/18 12/06/18 Range/Units 06:06 20:59 17:13 WBC 14.82 H (4.8-10.8) K/uL RBC 4.51 L (4.7-6.1) M/uL Hgb 13.4 L (14.0-18.0) g/dL Hct 40.1 L (42-52) % MCV 88.9 (80-100) fL MCH 29.7 (25-34) pg MCHC 33.4 (32-36) g/dL RDW Std Deviation 46.9 H (36.4-46.3) fL RDW Coeff of Gabriele 14.4 (11.5-14.5) % Plt Count 168 (130-400) K/uL MPV 11.0 H (7.4-10.4) fL PT (9.0-12.0) Seconds INR (0.9-1.1) Sodium (136-145) mmol/L Potassium (3.5-5.1) mmol/L Chloride (98-107) mmol/L Carbon Dioxide (21-32) mmol/L Anion Gap (3-11) BUN (7-18) mg/dl Creatinine (0.6-1.4) mg/dl Est Cr Clr Drug Dosing ml/min Est GFR ( Amer) Est GFR (Non-Af Amer) BUN/Creatinine Ratio (10-20) Glucose (70-99) mg/dl POC Glucose 171 H 155 H (70-99) Calcium (8.5-10.1) mg/dl 12/06/18 12/06/18 Range/Units 12:21 11:12 WBC (4.8-10.8) K/uL RBC (4.7-6.1) M/uL Hgb (14.0-18.0) g/dL Hct (42-52) % MCV (80-100) fL MCH (25-34) pg MCHC (32-36) g/dL RDW Std Deviation (36.4-46.3) fL RDW Coeff of Gabriele (11.5-14.5) % Plt Count (130-400) K/uL MPV (7.4-10.4) fL PT (9.0-12.0) Seconds INR (0.9-1.1) Sodium (136-145) mmol/L Potassium (3.5-5.1) mmol/L Chloride (98-107) mmol/L Carbon Dioxide (21-32) mmol/L Anion Gap (3-11) BUN (7-18) mg/dl Creatinine (0.6-1.4) mg/dl Est Cr Clr Drug Dosing ml/min Est GFR ( Amer) Est GFR (Non-Af Amer) BUN/Creatinine Ratio (10-20) Glucose (70-99) mg/dl POC Glucose 162 H 133 H (70-99) Calcium (8.5-10.1) mg/dl
[2018-12-07] MEDS: ORTHO WARFARIN NOMOGRAM SCH (10:25)
[2018-12-07] MEDS ORDERED: WARFARIN SOD 5 MG TAB PO ONE (11:00)
== END 2018-12-07 11:53 | disposition home health service (06) | DRG 470 ==
LOC: ASU 06:10 → 3E 11:23

== ENCOUNTER 2019-02-02 09:08 | Observation (INO) ==
[2019-02-02] MEDS ORDERED: SODIUM CHLORIDE 0.9% 500 ML IV ONE (09:51)
--- NOTE | 2019-02-02 09:58 | Emergency Department Note ---
ED Visit Note This patient was seen in concert with Dr. Seals and we discussed and agreed upon the history, physical, assessment, and plan. See attending's note for details. . Resident Activity Tracking Resident Involvement: Resident Care Provided Care Provided: Adult ED
[2019-02-02 09:59] LABS: Basophils # (auto) 0.04 K/uL (0-0.2); Basophils % (auto) 0.4 %; Eosinophils % (auto) 1.1 %; Hematocrit (blood only) 42.4 % (42-52); Hemoglobin 14.4 g/dL (14.0-18.0); Immature Granulocytes # (auto) 0.02 K/uL (0.00-0.02); Immature Granulocytes % (auto) 0.2 %; Lymphocytes # (auto) 2.95 K/uL (1.2-3.4); Mean Corpuscular Hemoglobin 29.9 pg (25-34); Mean Corpuscular Volume 88.1 fL (80-100); Monocytes # (auto) 1.31 K/uL (0.11-0.59); Monocytes % (auto) 14.2 %; Neutrophils # (auto) 4.79 K/uL (1.4-6.5); Neutrophils % (auto) 52.1 %; Platelet Count 225 K/uL (130-400); RDW Coefficient of Variation 14.5 % (11.5-14.5); RDW Standard Deviation 46.9 fL (36.4-46.3); Red Blood Count 4.81 M/uL (4.7-6.1); White Blood Count 9.21 K/uL (4.8-10.8)
[2019-02-02 10:08] LABS: Alanine Aminotransferase 23 U/L (12-78); Albumin Level 3.6 gm/dl (3.4-5.0); Aspartate Aminotransferase 15 U/L (15-37); BUN Creatinine Ratio 20.1 (10-20); Blood Urea Nitrogen 18 mg/dl (7-18); Calcium 8.6 mg/dl (8.5-10.1); Carbon Dioxide 26 mmol/L (21-32); Chloride 109 mmol/L (98-107); Creatinine Clr Calc Pharmacy 73.6 ml/min; Est GFR (African American) 94.5; Est GFR (Non-African American) 81.5; Glucose 101 mg/dl (70-99); Lipase 53 U/L (73-393); Magnesium 2.1 mg/dl (1.8-2.4); Potassium 3.9 mmol/L (3.5-5.1); Sodium 140 mmol/L (136-145)
[2019-02-02 10:13] LABS: Alkaline Phosphatase 132 U/L (45-117); Bilirubin,Total 0.7 mg/dl (0.2-1); Globulin 3.5 gm/dl (2.5-4.0); Phosphorus 2.7 mg/dl (2.5-4.9); Total Protein 7.1 gm/dl (6.4-8.2); Troponin I < 0.015 ng/ml (0-0.045)
--- NOTE | 2019-02-02 10:25 | XRay Report ---
XR chest 1V portable CLINICAL HISTORY: Chest Pain pain COMPARISON STUDY: 11/13/2018 FINDINGS: The bones soft tissues and hemidiaphragms are normal. The cardiomediastinal silhouette is n ormal. The lungs are clear. The pulmonary vasculature is normal. IMPRESSION: Negative chest. The above report was generated using voice recognition software. It may contain grammatical, syntax or spelling errors. Electronically signed by: Kofi Keys M.D. 02/02/2019 10:24 AM
[2019-02-02 10:39] LABS: INR 1.1 (0.9-1.1); Prothrombin Time 10.9 Seconds (9.0-12.0)
--- NOTE | 2019-02-02 11:48 | History & Physical Report ---
Date of Service February 02, 2019 Assessment & Plan (1) Chest pain: Present on Admission?: Yes (2) Dyspnea on exertion: Present on Admission?: Yes (3) Hypertension: (4) Diabetes type 2, controlled: (5) Dyslipidemia: (6) BPH (benign prostatic hyperplasia): (7) GERD (gastroesophageal reflux disease): (8) Aortic stenosis: (9) Tricuspid regurgitation: (10) BPH (benign prostatic hyperplasia): We will admit the patient to telemetry floor under observation. Consult cardiology. Monitor EKG and cardiac enzymes per protocol. Check echocardiogram. Continue home medications. Home medication list was reconciled. Add subcu heparin for DVT prophylaxis. Continue PPI for GI prophylaxis. CODE STATUS full code. History of Present Illness Chief Complaint: Chest pain Primary Care Provider: Rubén Hsu MD The patient is 78-year-old male who presented to the ER with a complaints of chest pain. He is having intermittent episodes of chest pain off and on for last 1 month. The symptoms get worse on exertion. He also complains of dyspnea on exertion. He also has aortic stenosis and valvular heart disease. He had a cardiac stress test in the past which was normal according to the patient. The first set of EKG /cardiac enzymes is negative; currently the patient is chest pain-free and he will be admitted under observation for further evaluation and management. Allergies Allergy/AdvReac Type Severity Reaction Status Date / Time No Known Drug Allergies Allergy Unknown . Verified 02/02/19 11:13 scallops AdvReac Unknown VOMITING Verified 02/02/19 11:13 Home Medications Home Medications Medication Instructions Recorded Confirmed Type PreserVision AREDS-2 1 tab PO BID 09/05/18 02/02/19 History bisacodyl 5 mg PO QAM 09/05/18 02/02/19 History ascorbate calcium (vitamin C) 500 500 mg PO QAM tab 11/13/18 02/02/19 History mg tablet aspirin 81 mg tablet,delayed 81 mg PO QAM tab 11/13/18 02/02/19 History release blood sugar diagnostic strips #10 ea 11/13/18 02/02/19 History cholecalciferol (vitamin D3) 2,000 2,000 unit PO QAM cap 11/13/18 02/02/19 History unit capsule finasteride 5 mg tablet 5 mg PO HS tab 11/13/18 02/02/19 History glipizide ER 5 mg tablet, extended 5 mg PO PM tab 11/13/18 02/02/19 History release 24 hr lancets 33 gauge #100 ea 11/13/18 02/02/19 History lisinopril 10 mg tablet 10 mg PO QAM tab 11/13/18 02/02/19 History pantoprazole 40 mg tablet,delayed 40 mg PO BID tab 11/13/18 02/02/19 History release tamsulosin 0.4 mg capsule 0.4 mg PO HS cap 11/13/18 02/02/19 History atorvastatin 20 mg tablet 20 mg PO HS 11/28/18 02/02/19 History folic acid 1 mg tablet 1 mg PO QAM tab 11/28/18 02/02/19 History bisacodyl 10 mg PO HS 02/02/19 02/02/19 History Past Med/Surg History Medical History Diabetes Aortic stenosis Moderate aortic stenosis (YANELI 1.4cm, MG 12mmhg) per 08/2018 ECHO History of gastric ulcer years ago Osteopenia Hiatal hernia Hypertension Diabetes NIDDM BPH (benign prostatic hyperplasia) Hyperlipidemia GERD (gastroesophageal reflux disease) controlled Chronic back pain Chronic constipation History of kidney stones Hx of sleep apnea s/p UPPP/tonsillectomy (10+ years ago) Obesity Rheumatoid arthritis Surgical History History of back surgery (~08/2018) L2-L4 decompression/fusion: 09/13/18: Grade view 2, MAC#3, ETT 8.0 at [facility] History of carpal tunnel release of both wrists History of tonsillectomy + UPPP History of total right knee replacement Hx of bilateral cataract extraction Hx of shoulder surgery X2 RIGHT, 1 LEFT Family History Other Family history non-contributory Social History Preferred Language: Setswana Communication Ability: Effective 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 Beliefs That Will Affect Care: None marital status: Current Living Situation: Spouse Feels Safe at Home: Yes Smoking Status: Former smoker Second Hand Exposure: No ; Hx Alcohol Use: No Hx Substance Use: No Review of Systems Review of Systems: All systems reviewed & are unremarkable except as noted in HPI & below Respiratory: + dyspnea and + dyspnea on exertion Cardiovascular: + chest pain, + chest pain with activity, + dyspnea, + dyspnea on exertion and + edema Physical Exam Physical Exam: GENERAL : No acute distress EYES: No icterus, gaze conjugate NOSE: No evidence of epistaxis MOUTH: No lesions or candidiasis, mucosa moist NECK: Supple LUNGS: CTA B/L, no wheezes, rales or rhonchi HEART: Regular, rate controlled systolic murmur present ABDOMEN: Soft, NT, ND, BS Present EXTREMITIES: pedal pulses intact Trace swelling of the legs present NEURO: A&OX3 Results & Data Vital Signs (Past 12 Hours) Vital Signs Temp Pulse Resp BP Pulse Ox 02/02/19 11:00 53 L 14 135/76 95 02/02/19 10:30 57 L 12 133/75 94 02/02/19 10:01 55 L 12 118/66 94 02/02/19 09:51 94 02/02/19 09:44 94 02/02/19 09:23 61 16 122/81 94 02/02/19 09:10 97.7 F 60 18 133/75 95 Laboratory Results 02/02/19 09:29 02/02/19 09:29 02/02/19 02/02/19 02/02/19 Range/Units 09:29 09:29 09:29 WBC 9.21 (4.8-10.8) K/uL RBC 4.81 (4.7-6.1) M/uL Hgb 14.4 (14.0-18.0) g/dL Hct 42.4 (42-52) % MCV 88.1 (80-100) fL MCH 29.9 (25-34) pg MCHC 34.0 (32-36) g/dL RDW Std Deviation 46.9 H (36.4-46.3) fL RDW Coeff of Gabriele 14.5 (11.5-14.5) % Plt Count 225 (130-400) K/uL MPV 11.0 H (7.4-10.4) fL Immature Gran % (Auto) 0.2 % Neut % (Auto) 52.1 % Lymph % (Auto) 32.0 % [place] % (Auto) 14.2 % Eos % (Auto) 1.1 % Baso % (Auto) 0.4 % Immature Gran # (Auto) 0.02 (0.00-0.02) K/uL Neut # (Auto) 4.79 (1.4-6.5) K/uL Lymph # (Auto) 2.95 (1.2-3.4) K/uL [place] # (Auto) 1.31 H (0.11-0.59) K/uL Eos # (Auto) 0.10 (0-0.5) K/uL Baso # (Auto) 0.04 (0-0.2) K/uL PT 10.9 (9.0-12.0) Seconds INR 1.1 (0.9-1.1) Sodium 140 (136-145) mmol/L Potassium 3.9 (3.5-5.1) mmol/L Chloride 109 H (98-107) mmol/L Carbon Dioxide 26 (21-32) mmol/L Anion Gap 5.0 (3-11) BUN 18 (7-18) mg/dl Creatinine 0.90 (0.6-1.4) mg/dl Est Cr Clr Drug Dosing 73.6 ml/min Est GFR ( Amer) 94.5 Est GFR (Non-Af Amer) 81.5 BUN/Creatinine Ratio 20.1 H (10-20) Glucose 101 H (70-99) mg/dl Calcium 8.6 (8.5-10.1) mg/dl Phosphorus 2.7 (2.5-4.9) mg/dl Magnesium 2.1 (1.8-2.4) mg/dl Total Bilirubin 0.7 (0.2-1) mg/dl AST 15 (15-37) U/L ALT 23 (12-78) U/L Alkaline Phosphatase 132 H (45-117) U/L Troponin I < 0.015 (0-0.045) ng/ml Total Protein 7.1 (6.4-8.2) gm/dl Albumin 3.6 (3.4-5.0) gm/dl Globulin 3.5 (2.5-4.0) gm/dl Albumin/Globulin Ratio 1.0 (0.9-2) Lipase 53 L (73-393) U/L Diagnostic Findings XR chest 1V portable CLINICAL HISTORY: Chest Pain pain COMPARISON STUDY: 11/13/2018 FINDINGS: The bones soft tissues and hemidiaphragms are normal. The cardiomediastinal silhouette is normal. The lungs are clear. The pulmonary vasculature is normal. IMPRESSION: Negative chest. Code Status & VTE Plan Code Status Full code VTE Prophylaxis Plan VTE Prophylaxis will be ordered: Yes PG Care Time/CCT Total # of Minutes Spent Total Time Spent with Patient: Total time spent is greater than 50% in coordination of care (as documented) at patient's floor/unit and/or counseling patient:60 min (1) Hypertension Hypertension type: essential hypertension Qualified Code(s): I10 - Essential (primary) hypertension (2) BPH (benign prostatic hyperplasia) Lower urinary tract symptom presence: symptoms absent Qualified Code(s): N40.0 - Benign prostatic hyperplasia without lower urinary tract symptoms (3) GERD (gastroesophageal reflux disease) Esophagitis presence: esophagitis presence not specified Qualified Code(s): K21.9 - Gastro-esophageal reflux disease without esophagitis
[2019-02-02] MEDS ORDERED: ZOLPIDEM TARTRATE 5 MG TAB PO PRN (12:58)
[2019-02-02] MEDS ORDERED: NITROGLYCERIN SL 0.4 MG/TAB TAB SL PRN (12:58)
[2019-02-02] MEDS ORDERED: MAGNESIUM HYDROXIDE SUSP 30 ML UDC PO PRN (12:58)
[2019-02-02] MEDS ORDERED: ALUMINUM/MAGNESIUM SUSP 30 ML UDC PO PRN (12:58)
[2019-02-02] MEDS ORDERED: ONDANSETRON INJ 2 MG/ML 2 ML VIAL IV PRN (12:58)
[2019-02-02] MEDS ORDERED: GLUCAGON FOR INJ 1 MG VIAL IM PRN (13:30)
[2019-02-02] MEDS ORDERED: GLUCOSE 10 TABS/TUBE PO PRN (13:30)
[2019-02-02] MEDS ORDERED: CARBOHYDRATES FOR HYPOGLYCEMIA PO PRN (13:30)
[2019-02-02] MEDS ORDERED: GLUCOSE 40% GEL 15 GM TUBE PO PRN (13:30)
[2019-02-02] MEDS ORDERED: DEXTROSE 50% 50 ML SYRINGE IV PRN (13:30)
[2019-02-02] MEDS: HEPARIN SOD 5,000 UNIT/0.5 ML VIAL SQ SCH ×2 (14:03→21:22)
[2019-02-02] MEDS: NITROGLYCERIN 2% OINTMENT 30GM TUBE EXT SCH ×2 (14:06→19:49)
[2019-02-02] MEDS ORDERED: glipiZIDE 5 MG TAB PO SCH (15:30)
--- NOTE | 2019-02-02 16:55 | Emergency Department Note ---
Entered by Donta Gonzalez acting as a scribe for Ihsan Seals MD History of Present Illness General Chief complaint: Chest Pain Stated complaint: CHEST PAIN Time Seen by Provider: 02/02/19 09:15 Source: patient Mode of arrival: ambulatory Limitations: no limitations History of Present Illness Onset (ago): hour(s) 4 Location: chest Pain Consistency: + constant Current Pain Intensity: 3 Quality: + stabbing and + crushing Relieved By: + other (laying in the proper position) Associated symptoms: + shortness of breath and + other (chest pain ) The patient is a 78 year old male who presents to the Emergency Room with complaints of an episode of 3/10 exertional chest pain and shortness of breath that started this morning 4 hours prior to arrival. The patient notes that he has had constant chest pain present for the past month. The patient reports that he has two distinct type of chest pain. The patient notes that he has a crushing centralized chest pain when he is lying flat, but that laying in different positions help. The patient reports that he has a second stabbing chest pain at the nipple line upon exertion. The patient reports a history of Gerd, diabetes, hypertension, and hyperlipidemia. The patient notes that he has a surgical history of left knee replacement and lower back surgery. He states that his son had a heart attack recently. The patient also states that he has a heart murmur. Home Medications Home Medications Medication Instructions Recorded Confirmed Type PreserVision AREDS-2 1 tab PO BID 09/05/18 02/02/19 History bisacodyl 5 mg PO QAM 09/05/18 02/02/19 History ascorbate calcium (vitamin C) 500 500 mg PO QAM tab 11/13/18 02/02/19 History mg tablet aspirin 81 mg tablet,delayed 81 mg PO QAM tab 11/13/18 02/02/19 History release blood sugar diagnostic strips #10 ea 11/13/18 02/02/19 History cholecalciferol (vitamin D3) 2,000 2,000 unit PO QAM cap 11/13/18 02/02/19 History unit capsule finasteride 5 mg tablet 5 mg PO HS tab 11/13/18 02/02/19 History glipizide ER 5 mg tablet, extended 5 mg PO PM tab 11/13/18 02/02/19 History release 24 hr lancets 33 gauge #100 ea 11/13/18 02/02/19 History lisinopril 10 mg tablet 10 mg PO QAM tab 11/13/18 02/02/19 History pantoprazole 40 mg tablet,delayed 40 mg PO BID tab 11/13/18 02/02/19 History release tamsulosin 0.4 mg capsule 0.4 mg PO HS cap 11/13/18 02/02/19 History atorvastatin 20 mg tablet 20 mg PO HS 11/28/18 02/02/19 History folic acid 1 mg tablet 1 mg PO QAM tab 11/28/18 02/02/19 History bisacodyl 10 mg PO HS 02/02/19 02/02/19 History Allergies Allergy/AdvReac Type Severity Reaction Status Date / Time No Known Drug Allergies Allergy Unknown . Verified 02/02/19 11:13 scallops AdvReac Unknown VOMITING Verified 02/02/19 11:13 Past Med/Surg History Medical History Diabetes Aortic stenosis Moderate aortic stenosis (YANELI 1.4cm, MG 12mmhg) per 08/2018 ECHO History of gastric ulcer years ago Osteopenia Hiatal hernia Hypertension Diabetes NIDDM BPH (benign prostatic hyperplasia) Hyperlipidemia GERD (gastroesophageal reflux disease) controlled Fusion of spine Chronic back pain Chronic constipation History of kidney stones Hx of sleep apnea s/p UPPP/tonsillectomy (10+ years ago) Obesity Rheumatoid arthritis Surgical History History of back surgery (~08/2018) L2-L4 decompression/fusion: 09/13/18: Grade view 2, MAC#3, ETT 8.0 at [facility] History of total knee replacement Left TKA 12/06/18 History of carpal tunnel release of both wrists History of tonsillectomy + UPPP History of total right knee replacement Hx of bilateral cataract extraction Hx of shoulder surgery X2 RIGHT, 1 LEFT Family History Other Family history non-contributory Social History Preferred Language: Yi Communication Ability: Effective 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 and A total of 10 systems reviewed and were otherwise negative Physical Exam Vital Signs Vital Signs - 24 hr 02/02/19 09:08 02/02/19 09:10 02/02/19 09:23 Temperature 36.5 C Temperature Source Oral Sepsis Recent Fever Within 48 Hours No Sepsis Action Taken by Nursing No Action Required Pulse Rate 60 61 Pulse Rate from SpO2 Sensor 61 Pulse Rhythm Regular Respiratory Rate 18 16 Respiratory Effort / Characteristics Spontaneous SOB on Exertion Non-Labored Respiratory Depth Normal Blood Pressure 133/75 122/81 Blood Pressure Mean 94 94 Blood Pressure Position Sitting Pulse Oximetry 95 94 Oxygen Delivery Method Room Air 02/02/19 09:44 02/02/19 09:51 02/02/19 10:01 Temperature Temperature Source Sepsis Recent Fever Within 48 Hours Sepsis Action Taken by Nursing Pulse Rate 55 L Pulse Rate from SpO2 Sensor 55 L Pulse Rhythm Respiratory Rate 12 Respiratory Effort / Characteristics Respiratory Depth Blood Pressure 118/66 Blood Pressure Mean 83 Blood Pressure Position Pulse Oximetry 94 94 94 Oxygen Delivery Method Room Air Room Air 02/02/19 10:30 02/02/19 11:00 02/02/19 11:30 Temperature Temperature Source Sepsis Recent Fever Within 48 Hours Sepsis Action Taken by Nursing Pulse Rate 57 L 53 L 67 Pulse Rate from SpO2 Sensor 56 L 53 L 59 L Pulse Rhythm Respiratory Rate 12 14 12 Respiratory Effort / Characteristics Respiratory Depth Blood Pressure 133/75 135/76 126/77 Blood Pressure Mean 94 95 93 Blood Pressure Position Pulse Oximetry 94 95 96 Oxygen Delivery Method GENERAL: Awake, alert, well-appearing, in no distress HENT: Normocephalic, atraumatic. Oropharynx with dry mucous membranes and otherwise unremarkable. EYES: Normal conjunctiva. Sclera non-icteric. NECK: Supple. No nuchal rigidity. FROM. No JVD. RESPIRATORY: CTAB CARDIAC: Regular rate, normal rhythm. Extremities warm and well perfused. Pulses equal. ABDOMEN: Soft, non-distended. No tenderness to palpation. No rebound or guarding. No masses. RECTAL: Deferred. MUSCULOSKELETAL: Chest examination reveals no tenderness. The back is symmetrical on inspection without obvious abnormality. There is no CVA tenderness to palpation. No joint edema. LOWER EXTREMITIES: Calves are equal size bilaterally and non-tender. No edema. No discoloration. NEURO: Normal sensorium. No sensory or motor deficits noted. SKIN: No rash or jaundice noted. Course 0935: The patient was evaluated in room A11B. A complete history and physical exam was performed. Administered Medications Acetaminophen (Tylenol) 650 mg PO Q4H PRN PRN Reason: Pain or Fever Stop: 03/04/19 12:57 Last Admin: 02/02/19 19:53 Dose: 650 mg Documented by: [id number] Finasteride (Proscar) 5 mg PO HS GABRIELLA Stop: 03/04/19 20:59 Last Admin: 02/02/19 21:22 Dose: 5 mg Documented by: [id number] Glipizide (Glucotrol) 5 mg PO DAILYBD GABRIELLA Stop: 03/04/19 15:29 Last Admin: 02/02/19 15:43 Dose: 5 mg Documented by: [id number] Heparin Sodium (Porcine) (Heparin Sodium (Porcine)) 5,000 units SQ Q8 GABRIELLA Stop: 03/04/19 13:59 Last Admin: 02/02/19 21:22 Dose: 5,000 units Documented by: [id number] Cosigned by: [id number] Admin: 02/02/19 14:03 Dose: 5,000 units Documented by: [id number] Cosigned by: [id number] Nitroglycerin (Nitro-Bid 2%) 1 inch EXT Q6 GABRIELLA Stop: 03/04/19 13:29 Last Admin: 02/02/19 19:49 Dose: 1 inch Documented by: [id number] Admin: 02/02/19 14:06 Dose: 1 inch Documented by: [id number] Pantoprazole Sodium (Protonix) 40 mg PO BID GABRIELLA Stop: 03/04/19 20:59 Last Admin: 02/02/19 21:23 Dose: 40 mg Documented by: [id number] Discontinued Medications Sodium Chloride (Nss) 500 mls @ 999 mls/hr IV .Q31M ONE Stop: 02/02/19 10:21 Last Infusion: 02/02/19 10:32 Dose: 0 mls/hr Documented by: [id number] Admin: 02/02/19 10:01 Dose: 999 mls/hr Documented by: [id number] Medical Decision Making Differential Diagnosis Differential diagnosis: Etiologies such as shingles, musculoskeletal pain, pericarditis, myocarditis, cardiac ischemia, pericardial tamponade, pneumonia, pneumothorax, pleural effusion, hemothorax, pleurisy, aortic pathology, pulmonary embolism, intra- abdominal process, as well as others were considered.. Medical Records Attestation: I reviewed the patient's medical records. Home Medications Current Medication List: was personally reviewed by me Laboratory Data Attestation: I reviewed the patient's lab results. Result diagrams: 02/02/19 09:29 02/02/19 09: Lab Results 02/02/19 02/02/19 02/02/19 Range/Units 09:29 09: 09:29 WBC 9.21 (4.8-10.8) K/uL RBC 4.81 (4.7-6.1) M/uL Hgb 14.4 (14.0-18.0) g/dL Hct 42.4 (42-52) % MCV 88.1 (80-100) fL MCH 29.9 (25-34) pg MCHC 34.0 (32-36) g/dL RDW Std Deviation 46.9 H (36.4-46.3) fL RDW Coeff of Gabriele 14.5 (11.5-14.5) % Plt Count 225 (130-400) K/uL MPV 11.0 H (7.4-10.4) fL Immature Gran % (Auto) 0.2 % Neut % (Auto) 52.1 % Lymph % (Auto) 32.0 % [place] % (Auto) 14.2 % Eos % (Auto) 1.1 % Baso % (Auto) 0.4 % Immature Gran # (Auto) 0.02 (0.00-0.02) K/uL Neut # (Auto) 4.79 (1.4-6.5) K/uL Lymph # (Auto) 2.95 (1.2-3.4) K/uL [place] # (Auto) 1.31 H (0.11-0.59) K/uL Eos # (Auto) 0.10 (0-0.5) K/uL Baso # (Auto) 0.04 (0-0.2) K/uL PT 10.9 (9.0-12.0) Seconds INR 1.1 (0.9-1.1) Sodium 140 (136-145) mmol/L Potassium 3.9 (3.5-5.1) mmol/L Chloride 109 H (98-107) mmol/L Carbon Dioxide 26 (21-32) mmol/L Anion Gap 5.0 (3-11) BUN 18 (7-18) mg/dl Creatinine 0.90 (0.6-1.4) mg/dl Est Cr Clr Drug Dosing 73.6 ml/min Est GFR ( Amer) 94.5 Est GFR (Non-Af Amer) 81.5 BUN/Creatinine Ratio 20.1 H (10-20) Glucose 101 H (70-99) mg/dl Calcium 8.6 (8.5-10.1) mg/dl Phosphorus 2.7 (2.5-4.9) mg/dl Magnesium 2.1 (1.8-2.4) mg/dl Total Bilirubin 0.7 (0.2-1) mg/dl AST 15 (15-37) U/L ALT 23 (12-78) U/L Alkaline Phosphatase 132 H (45-117) U/L Troponin I < 0.015 (0-0.045) ng/ml Total Protein 7.1 (6.4-8.2) gm/dl Albumin 3.6 (3.4-5.0) gm/dl Globulin 3.5 (2.5-4.0) gm/dl Albumin/Globulin Ratio 1.0 (0.9-2) Lipase 53 L (73-393) U/L Imaging Data Radiologist's Impression: Radiology results as stated below per my review and the radiologist's interpretation: XR chest 1V portable CLINICAL HISTORY: Chest Pain pain COMPARISON STUDY: 11/13/2018 FINDINGS: The bones soft tissues and hemidiaphragms are normal. The cardiomediastinal silhouette is normal. The lungs are clear. The pulmonary vasculature is normal. IMPRESSION: Negative chest. The above report was generated using voice recognition software. It may contain grammatical, syntax or spelling errors. Electronically signed by: Kofi Keys M.D. 02/02/2019 10:24 AM ECG Data Indication: other (chest pain ) Rate (beats per minute): 60 Rhythm: normal sinus Findings: + other (QRS 100); no acute ischemic change and no ectopy Comparison ECG Date: no prior available Blood Pressure Blood Pressure Findings: Elevated blood pressure Blood Pressure Disposition: did not require urgent referral MDM Narrative The patient is a pleasant 78y/o gentleman with a pmhx of HTN, HLD ,DM2, Carotid stensois who presents to the emergency department with 2 months of intermittent chest with exertion that resolved with rest as well as CP that worsens when lying suping and improves with sitting up per HPI. Of note, patient had recent elective knee replacement and was medically cleared for the surgery as he had a recent echo that was unremarkable. Patient reports having episode of CP this morning around 5am that resolved. On arrival the patient is in NAD, AFVSS. EKG with QRS 100 similar to prior without over acute ischemia. CXR negative for acute process. WBC, H/H, platelets wnl. Chemistry without acidosis. LFTs and electrolytes unremarkable. Initial Troponin negative/undetectable. Heart Score 6, moderate risk. Reasonable to admit the patient for further cardiac r/o. Resident Dr. Dwain Torrez, discussed the case with Dr. Rodriguez, [facility] [place], who will evaluate the patient for admission. This patient was managed with the assistance of resident, Dr. Torrez. I discussed the case with the resident, examined the patient, and confirm the findings and plan as documented in this note. Impression & Plan Exertional chest pain, History of hypertension, History of hyperlipidemia, Type 2 diabetes mellitus Discharge Plan Visit Data *Final* Discharge Date/Time: 02/02/19 12:33 Chief Complaint: Chest Pain Stated Complaint: CHEST PAIN ED Provider: Ihsan Seals ED Midlevel Provider: Dwain Torrez Discharge Problem: Exertional chest pain, History of hypertension, History of hyperlipidemia, Type 2 diabetes mellitus Patient Disposition: Admitted As Inpatient Discharge Instructions Interventions: ED Discharge Assessment Last Done: 02/02/19 12:33 The scribe's documentation has been prepared under my direction and personally reviewed by me in its entirety. I confirm that the note above accurately reflects all work, treatment, procedures, and medical decision making performed by me.
[2019-02-02] MEDS: ACETAMINOPHEN 325 MG TAB PO PRN (19:53)
[2019-02-02 20:18] LABS: Creatine Kinase 72 U/L (39-308); Troponin I < 0.015 ng/ml (0-0.045)
[2019-02-02] MEDS ORDERED: bisacodyL 5 MG TABEC PO SCH (21:00)
[2019-02-02] MEDS ORDERED: TAMSULOSIN HCL 0.4 MG CAP PO SCH (21:00)
[2019-02-02] MEDS ORDERED: FINASTERIDE 5 MG TAB PO SCH (21:00)
[2019-02-02] MEDS ORDERED: ATORVASTATIN 20 MG TAB PO SCH (21:00)
[2019-02-02] MEDS: PANTOprazole 40 MG TAB PO SCH (21:23)
[2019-02-02] MEDS: CEROVITE ADV FORMULA TAB PO SCH (21:23)
[2019-02-03] MEDS: ACETAMINOPHEN 325 MG TAB PO PRN ×2 (00:08→06:05)
[2019-02-03] MEDS: NITROGLYCERIN 2% OINTMENT 30GM TUBE EXT SCH ×3 (00:08→13:31)
[2019-02-03 03:30] LABS: Hematocrit (blood only) 40.4 % (42-52); Hemoglobin 13.6 g/dL (14.0-18.0); Mean Corpuscular Hemoglobin 29.6 pg (25-34); Mean Corpuscular Hgb Conc 33.7 g/dL (32-36); Mean Corpuscular Volume 87.8 fL (80-100); Mean Platelet Volume 10.7 fL (7.4-10.4); Platelet Count 210 K/uL (130-400); RDW Coefficient of Variation 14.4 % (11.5-14.5); RDW Standard Deviation 46.1 fL (36.4-46.3); White Blood Count 8.28 K/uL (4.8-10.8)
[2019-02-03 03:48] LABS: BUN Creatinine Ratio 18.4 (10-20); Blood Urea Nitrogen 17 mg/dl (7-18); Calcium 8.1 mg/dl (8.5-10.1); Carbon Dioxide 26 mmol/L (21-32); Chloride 109 mmol/L (98-107); Creatinine Clr Calc Pharmacy 69.1 ml/min; Est GFR (African American) 88.5; Est GFR (Non-African American) 76.4; Glucose 92 mg/dl (70-99); Potassium 3.7 mmol/L (3.5-5.1); Sodium 140 mmol/L (136-145)
[2019-02-03 03:53] LABS: Creatine Kinase 68 U/L (39-308); Troponin I < 0.015 ng/ml (0-0.045)
[2019-02-03] MEDS: HEPARIN SOD 5,000 UNIT/0.5 ML VIAL SQ SCH (06:05)
[2019-02-03] MEDS: CEROVITE ADV FORMULA TAB PO SCH (08:25)
[2019-02-03] MEDS: PANTOprazole 40 MG TAB PO SCH (08:26)
[2019-02-03] MEDS ORDERED: FOLIC ACID 1 MG TAB PO SCH (09:00)
[2019-02-03] MEDS ORDERED: lisinopriL 10 MG TAB PO SCH (09:00)
[2019-02-03] MEDS ORDERED: CHOLECALCIFEROL 1,000 UNITS TAB PO SCH (09:00)
[2019-02-03] MEDS ORDERED: bisacodyL 5 MG TABEC PO SCH (09:00)
[2019-02-03] MEDS ORDERED: ASPIRIN 81 MG ECTAB PO SCH ×2 (09:00)
[2019-02-03] MEDS ORDERED: ASCORBIC ACID 500 MG TAB PO SCH (09:00)
--- NOTE | 2019-02-03 11:06 | Cardiology Consultation ---
Date of Consultation February 03, 2019 Assessment & Plan (1) Chest pain: His chest discomfort is extremely atypical for coronary artery disease. He describes positional discomfort at night relieved by rolling on his side, not exertional symptoms. He does have risk factors for coronary disease which includes diabetes, hypertension, dyslipidemia and he has carotid plaquing so would not be surprised if he has coronary artery disease but I do not know that it is causing symptoms. It would probably be prudent to do a stress test although he has had negative ones in the past. It is difficult for us to do on a weekend, I do not think he is having an acute coronary syndrome and I think it is safe for him to go home from my standpoint and we can do an outpatient pharmacologic stress test. He asked me what is causing the pain I told him it could be reflux, he assured me that it was not that. (2) Aortic stenosis: He does have aortic stenosis, this has been mild to moderate in the past including relatively recently. His murmur is consistent. I do not think further evaluation is necessary but on his stress test I will get an echocardiogram and we can confirm that. (3) Dyspnea on exertion: Although he describes dyspnea on exertion I am not impressed by the progression of this, I would evaluate this with a stress test but I do not think it represents unstable angina. It is possibly an anginal equivalent or may be unrelated to his cardiac function, it could be due to aortic stenosis as well but that seems unlikely based on his exam and recent echocardiography. History of Present Illness Reason for Consultation: Chest pain Attending Physician: Taras Cooper MD History of Present Illness His symptoms withThis is a 78-year-old male with a history of mild aortic stenosis and left ventricular hypertrophy as well as arthritis for which he is treated and has been evaluated elsewhere, lumbar spinal stenosis, hyperlipidemia with carotid plaque but no identified coronary artery disease, GERD, hypertension, sleep apnea and diabetes mellitus for which she has been reluctant to have treatment. He presents now with chest discomfort and dyspnea on exertion. His chest discomfort is intermittent however is worse with exertion. Cardiac evaluation in the past has included an echocardiogram on August 31, 2018 where he had normal left ventricular systolic function, mild concentric left ventricular hypertrophy and moderate aortic stenosis with a valve area of 1.4 cm. This was felt unchanged from the year before. A repeat echocardiogram done this admission on February 02, 2019 shows similar findings. He did have a pharmacologic stress test on December 11, 2010 which was negative for ischemia both electrocardiographically and echocardiographically. He also had a Holter monitor performed August 08, 2017 which was unremarkable. Electrocardiograms here have shown at most nonspecific ST-T abnormalities. Cardiac enzymes here have been negative. I reviewed his symptoms with him. He describes about 1 month of chest pressure when he lays on his back in bed, he notices that when he rolls over on his side that the discomfort is relieved. Lately he has therefore been sleeping in bed, and when he gets a discomfort he just rolls over in a goes away. He does not really describe exertional discomfort. The episodes do not last very long, he feels that they are quite different than his GERD that he has had for years. He does not have exertional shortness of breath but has difficulty with exertion. He does not recall having this type discomfort in the past. Allergies Allergy/AdvReac Type Severity Reaction Status Date / Time No Known Drug Allergies Allergy Unknown . Verified 02/02/19 11:13 scallops AdvReac Unknown VOMITING Verified 02/02/19 11:13 Home Medications Home Medications Medication Instructions Recorded Confirmed Type PreserVision AREDS-2 1 tab PO BID 09/05/18 02/02/19 History bisacodyl 5 mg PO QAM 09/05/18 02/02/19 History ascorbate calcium (vitamin C) 500 500 mg PO QAM tab 11/13/18 02/02/19 History mg tablet aspirin 81 mg tablet,delayed 81 mg PO QAM tab 11/13/18 02/02/19 History release blood sugar diagnostic strips #10 ea 11/13/18 02/02/19 History cholecalciferol (vitamin D3) 2,000 2,000 unit PO QAM cap 11/13/18 02/02/19 History unit capsule finasteride 5 mg tablet 5 mg PO HS tab 11/13/18 02/02/19 History glipizide ER 5 mg tablet, extended 5 mg PO PM tab 11/13/18 02/02/19 History release 24 hr lancets 33 gauge #100 ea 11/13/18 02/02/19 History lisinopril 10 mg tablet 10 mg PO QAM tab 11/13/18 02/02/19 History pantoprazole 40 mg tablet,delayed 40 mg PO BID tab 11/13/18 02/02/19 History release tamsulosin 0.4 mg capsule 0.4 mg PO HS cap 11/13/18 02/02/19 History atorvastatin 20 mg tablet 20 mg PO HS 11/28/18 02/02/19 History folic acid 1 mg tablet 1 mg PO QAM tab 11/28/18 02/02/19 History bisacodyl 10 mg PO HS 02/02/19 02/02/19 History Patient History Medical History Diabetes Aortic stenosis Moderate aortic stenosis (YANELI 1.4cm, MG 12mmhg) per 08/2018 ECHO History of gastric ulcer years ago Osteopenia Hiatal hernia Hypertension Diabetes NIDDM BPH (benign prostatic hyperplasia) Hyperlipidemia GERD (gastroesophageal reflux disease) controlled Fusion of spine Chronic back pain Chronic constipation History of kidney stones Hx of sleep apnea s/p UPPP/tonsillectomy (10+ years ago) Obesity Rheumatoid arthritis Surgical History History of back surgery (~08/2018) L2-L4 decompression/fusion: 09/13/18: Grade view 2, MAC#3, ETT [address] [facility] History of total knee replacement Left TKA 12/06/18 History of carpal tunnel release of both wrists History of tonsillectomy + UPPP History of total right knee replacement Hx of bilateral cataract extraction Hx of shoulder surgery X2 RIGHT, 1 LEFT Family History Other Family history non-contributory Social History Preferred Language: Indian Communication Ability: Effective Home Attendant Required: No Beliefs That Will Affect Care: None marital status: Current Living Situation: Spouse Feels Safe at Home: Yes Smoking Status: Former smoker Second Hand Exposure: No ; Hx Alcohol Use: No Hx Substance Use: No Review of Systems Review of Systems: All systems reviewed & are unremarkable except as noted in HPI & below Physical Exam Physical Exam: Constitutional: Alert, cooperative and in no distress. HEENT: Unremarkable Neck: No jugular venous distention, carotid pulses are normal and equal bilaterally without bruits. Pulmonary: Clear to auscultation bilaterally. Cardiac: Regular rhythm with a grade 2/6 crescendo decrescendo murmur at the base, no gallop or rub. Abdomen: Soft, nontender with normal bowel sounds. Extremities: No edema. Distal pulses intact. Neurologic: No focal findings. Gait is steady. Skin: No rash, ecchymoses or petechiae. Results & Data Vital Signs (Past 12 Hours) Vital Signs Temp Pulse Pulse Resp BP Pulse Ox 02/03/19 07:40 61 02/03/19 07:01 36.4 C L 58 L 16 124/76 92 02/03/19 03:31 36.7 C 62 19 112/65 92 02/02/19 23:58 36.9 C 59 L 17 121/71 91 Laboratory Results Abnormal lab results 02/02/19 02/02/19 02/03/19 Range/Units 16:10 20:15 03:21 RBC (4.7-6.1) M/uL Hgb (14.0-18.0) g/dL Hct (42-52) % MPV (7.4-10.4) fL Chloride 109 H (98-107) mmol/L POC Glucose 126 H 121 H (70-99) Calcium 8.1 L (8.5-10.1) mg/dl 02/03/19 02/03/19 Range/Units 03:21 07:03 RBC 4.60 L (4.7-6.1) M/uL Hgb 13.6 L (14.0-18.0) g/dL Hct 40.4 L (42-52) % MPV 10.7 H (7.4-10.4) fL Chloride (98-107) mmol/L POC Glucose 112 H (70-99) Calcium (8.5-10.1) mg/dl Diagnostic Findings Telemetry: Sinus bradycardia, heart rate in the 50s and 60s PG Care Time/CCT Total # of Minutes Spent Total Time Spent with Patient: Total time spent is greater than 50% in coordination of care (as documented) at patient's floor/unit and/or counseling patient:
--- NOTE | 2019-02-03 14:31 | Discharge Summary ---
Date of Service February 03, 2019 Admission HPI Per Admitting Provider The patient is 78-year-old male who presented to the ER with a complaints of chest pain. He is having intermittent episodes of chest pain off and on for last 1 month. The symptoms get worse on exertion. He also complains of dyspnea on exertion. He also has aortic stenosis and valvular heart disease. He had a cardiac stress test in the past which was normal according to the patient. The first set of EKG /cardiac enzymes is negative; currently the patient is chest pain-free and he will be admitted under observation for further evaluation and management. Principal Diagnosis GERD Moderate aortic stenosis Atypical chest pain Discharge Exam Constitutional well developed and + obese Eyes + anicteric sclerae; normal pupil size ENMT external ear and nose normal, oropharynx normal Neck trachea midline, no thyromegaly Respiratory normal respiratory effort, lungs clear to auscultation Cardiovascular Rate/Rhythm: regular rate and regular rhythm Heart Sounds: + murmur (systolic) Extremities: no edema Gastrointestinal (Abdomen) normal bowel sounds, soft, nontender, no hepatosplenomegaly Musculoskeletal no cyanosis or clubbing, extremities motor strength 5/5 Skin no rashes, warm and dry Neurologic CN's II-XI intact bilaterally, moves all extremities and awake; no focal motor deficits and not confused Motor/Sensory: no tremor and no pronator drift Psychiatric A+Ox3, euthymic affect Discharge Data Allergies Allergy/AdvReac Type Severity Reaction Status Date / Time No Known Drug Allergies Allergy Unknown . Verified 02/12/19 15:06 scallops AdvReac Unknown VOMITING Verified 02/12/19 15:06 Consultations 02/02/19 11:03 ED Decision to Admit Stat 02/02/19 12:58 Consult Cardiology Routine 02/03/19 14:30 Consult [facility] [employer] Routine Hospital Course (1) Chest pain: 78 year old male admission for chest pain on lying down. Reports ongoing for a month and consistently occurs when lying down. He associated reflux with prior epigastric pain however suspect his current symptoms are reflux related. Cardiac enzymes were serially negative, EKG, and resting echocardiogram showed no wall motion abnormalities. Echo did show moderate aortic stenosis and given some shortness of breath on exertion recommended following up with cardiology regarding this. He was reviewed by cardiology who are also in agreement his chest pain is not cardiac related and safe for discharge home at this time. For his reflux his pantoprazole dose was doubled and added carafate. He is already known to gastroenterology therefore recommend making a non urgent appointment to follow this up. Discussed keeping a food diary to assess which foods exacerbate his symptoms and elevate head of his bed. (2) Hypertension: (3) Diabetes type 2, controlled: (4) Dyslipidemia: (5) BPH (benign prostatic hyperplasia): (6) GERD (gastroesophageal reflux disease): (7) Aortic stenosis: (8) Tricuspid regurgitation: Total Time Total Time Spent Total Time Spent (In Minutes): 55 Total Time Includes: Examination of the Patient, Discharge Planning, Medication Reconciliation and Communication With Other Providers (Dr Davison) Discharge Plan Discharge Items Patient Disposition: Home - Self-Care Reason For Visit: CP Discharge Diagnosis: GERD Moderate aortic stenosis Atypical chest pain Activity: Resume your previous activity Non-emergency contact: Primary Care Provider Call non-emergency contact if: you have any medication questions and your symptoms worsen Follow-up/Referrals: Jak Hsu MD [Primary Care Provider] - Josh Davison MD [Physician] - (moderate aortic stenosis, possible coronary artery disease) Danial Sharp MD [Hospitalist] - (4-6 weeks, uncontrolled GERD, gastritits) Diet: Regular Addtl Attending Provider Instructions: You were observed overnight due to chest pain. Suspect this is caused by gastroesophageal reflux or esophageal spasm. Recommend increasing pantoprazole to twice a day regularly and adding Carafate to your medication regimen prior following up with gastroenterology. You were reviewed by cardiology and recommend following up with cardiology outpatient for consideration of a stress test. You were also incidentally found to have moderate aortic stenosis and should follow up with cardiology regarding this. Pending Studies at Discharge: No Stand-Alone Forms: Call Back Authorization, [facility] Medications and DC Order Prescriptions: New sucralfate [Carafate] 1 gram tablet 1 gm PO ACHS 28 Days Qty: 28 RF: 0 Continued ascorbate calcium (vitamin C) 500 mg tablet 500 mg PO QAM RF: 0 OneTouch Verio strip .ROUTE .MEDSUPPLY Qty: 10 RF: 0 lancets [OneTouch Delica Lancets] 33 gauge misc .ROUTE .MEDSUPPLY Qty: 100 RF: 0 atorvastatin [Lipitor] 20 mg tablet 20 mg PO HS RF: 0 bisacodyl 5 mg Tablet 10 mg PO HS RF: 0 bisacodyl 5 mg Tablet 5 mg PO QAM RF: 0 PreserVision AREDS-2 [id number] Capsule 1 tab PO BID RF: 0 aspirin [Aspir-81] 81 mg tablet,delayed release (DR/EC) 81 mg PO QAM RF: 0 finasteride [Proscar] 5 mg tablet 5 mg PO HS RF: 0 glipizide 5 mg tablet extended release 24hr 5 mg PO PM RF: 0 lisinopril [Zestril] 10 mg tablet 10 mg PO QAM RF: 0 tamsulosin [Flomax] 0.4 mg capsule 0.4 mg PO HS RF: 0 cholecalciferol (vitamin D3) [Vitamin D3] 2,000 unit capsule 2,000 unit PO QAM RF: 0 folic acid 1 mg tablet 1 mg PO QAM RF: 0 No Action pantoprazole [Protonix] 40 mg tablet,delayed release (DR/EC) 40 mg PO BID Qty: 180 RF: 3 Discharge Orders: Discharge Order (Routine); Ordered 02/03/19 Ordered By: Taras Cole/Other Patient Handouts: GERD, GERD Lifestyle Changes, GERD Meds Admission Data Admit Date/Time: 02/02/19 11:32 Attending Provider: Taras Cooper Admit Provider: Jason Rodriguez Primary Care Provider: Jak Hsu Other Providers: Josh Davison Other Interventions: Discharge Summary Assessment (RN) Last Done: 02/03/19 15:19 DC Date/Time DO NOT enter until pt leaves facility: 02/03/19 15:50
== END 2019-02-03 15:50 | disposition home or self-care (01) ==
LOC: ED 09:08 → 2S 09:08 → SUATTDRO 11:32 → 2S 12:33

== ENCOUNTER 2020-01-26 18:01 | Inpatient (IN) ==
[2020-01-26] MEDS ORDERED: ONDANSETRON INJ 2 MG/ML 2 ML VIAL IV STA (18:23)
--- NOTE | 2020-01-26 18:32 | Emergency Department Note ---
Impression & Plan Acute upper abdominal pain ED Provider Note INFORMANT: Patient ED PROVIDER(S): Joseph Gibbons MD CHIEF COMPLAINT: Abdominal pain PLAN: Disposition: Admitted Condition: Good MEDICAL DECISION MAKING: Patient presented with acute abdominal pain. He was treated with Dilaudid and Zofran. The patient required a second dose of IV Dilaudid. He underwent blood work and CT imaging. The patient did have a mild leukocytosis. His chemistry panel was unremarkable. LFTs unremarkable as well. The patient's chest x-ray did not reveal any acute findings. The patient underwent CT imaging of the abdomen pelvis and this was concerning for acute cholecystitis. The patient was reassessed. He was given IV Mefoxin. Ultrasound imaging was ordered. The patient will need admitted. Consultation was made with Dr. Crump of general surgery as well as Dr. Lincoln Vasquez of the hospitalist service. Triage Nursing notes reviewed and agree them. Additional history obtained from patient's Vital Signs: reviewed and remarkable for no significant abnormalities Differential diagnosis: Etiologies such as peptic ulcer disease, biliary pathology, appendicitis, diverticulitis, mesenteric ischemia, aortic pathology, infections, inflammatory bowel disease, renal colic, UTI, as well as others were entertained. Diagnostics interpreted by me: Cardiac Monitoring: Cardiac monitoring ordered by me: The patient was placed on continuous cardiac monitoring and observed. It revealed a normal sinus rhythm at 78 beats per minute without ectopy or evidence of dysrhythmia. Imaging studies: CT scan of the abdomen pelvis is concerning for acute cholecystitis. Ultrasound imaging pending Consultation(s): General surgery, internal medicine HPI: The patient is a 79 year old male who presents to the Emergency Room with complaints of upper abdominal pain. This started 10:00 today and is escalating. The patient also notes the following associated symptoms, feeling mildly short of breath which he thinks is from the pain. The patient has found no relieving factors. Current pain is rated as 10/10. Patient has a history of ulcers and feels that this may be a similar issue. Pt denies LOC, headache, fevers, chills, diaphoresis, visual changes, neck pain, chest pain, breathing difficulties, nausea, vomiting, back pain, melena, hematochezia, urinary symptoms, numbness, weakness, lymphadenopathy, rash, or other complaints. ROS: See above HPI for pertinent positives & negatives. A total of 10 systems reviewed and were otherwise negative. PAST MEDICAL HISTORY:See Below, hypertension, peptic ulcer disease, diabetes PAST SURGICAL HISTORY:See Below, FAMILY HISTORY:See Below SOCIAL HISTORY:See Below, HOME MEDICATIONS:See Below ALLERGIES:See Below VITALS:See Below PHYSICAL EXAMINATION: GENERAL: Awake, alert, very uncomfortable-appearing, in no distress HENT: Normocephalic, atraumatic. Oropharynx unremarkable. EYES: Normal conjunctiva. Sclera non-icteric. NECK: Inspection normal. Non-tender. Supple. No nuchal rigidity. FROM. No masses. RESPIRATORY: Clear to auscultation. No wheezes. No rales. Normal respiratory effort. CARDIAC: Normal rate. Normal rhythm. No murmurs. No rubs. Extremities warm and well perfused. Pulses equal. No JVD. GI: Soft, non-distended. Upper tenderness to palpation. No rebound or guarding. No masses. RECTAL: Deferred. MUSCULOSKELETAL: Atraumatic. Chest examination reveals no tenderness. The back is symmetrical on inspection without obvious abnormality. There is no CVA tenderness to palpation. No joint edema. LOWER EXTREMITIES: Calves are equal size bilaterally and non-tender. No edema. No discoloration. NEURO: Normal sensorium. No sensory or motor deficits noted. SKIN: No rash or jaundice noted. Joseph Gibbons MD Past Med/Surg History Medical History (Updated 01/26/20 @ 18:29 by Joseph Gibbons MD) Aortic stenosis Moderate aortic stenosis per 01/2019 ECHO, "mild" per 02/2019 stress echo (YANELI 1.3-1.4cm2, mean PG 12.3 mmhg) BPH (benign prostatic hyperplasia) Chronic back pain Chronic constipation Diabetes NIDDM GERD (gastroesophageal reflux disease) controlled Hiatal hernia History of ankle fracture History of gastric ulcer years ago History of kidney stones Hx of sleep apnea s/p UPPP/tonsillectomy (10+ years ago) Hyperlipidemia Hypertension Obesity Osteopenia Rheumatoid arthritis Surgical History Fusion of spine History of back surgery (~08/2018) L2-L4 decompression/fusion: 09/13/18: Grade view 2, MAC#3, ETT 8.0 at [facility] History of carpal tunnel release of both wrists History of colonoscopy History of esophagogastroduodenoscopy (EGD) History of tonsillectomy + UPPP History of total knee replacement Left TKA 12/06/18 History of total right knee replacement Hx of bilateral cataract extraction Hx of shoulder surgery X2 RIGHT, 1 LEFT Status post arthroscopic surgery of left knee Family History Mother Osteoporosis Coronary heart disease Heart disease Brother , MVA No problems noted. Brother No problems noted. Father , cancer Cancer Sister No problems noted. Other Family history non-contributory Denies family history of Prostate cancer Diabetes Crohn's disease Colorectal cancer Hypertension Ulcerative colitis Stroke Social History (Updated 07/17/19 @ 13:28 by Giancarlo Miller MD) Smoking Status: Former smoker Second Hand Exposure: No; Do You Dip or Chew Tobacco: No; Tobacco Cessation Education Requested by Patient: No Hx Alcohol Use: No Hx Substance Use: No Preferred Language: Vietnamese Communication Ability: Effective Communications Representative Required: No Beliefs That Will Affect Care: None marital status: Current Living Situation: Spouse current occupational status: retired Other Information That Helps Us Care for You: No Feels Safe at Home: Yes Safety Concerns: Feels Safe At This Time Assistive Devices: Denture - Upper, Denture - Lower and Glasses Allergies Allergies Allergy/AdvReac Type Severity Reaction Status Date / Time scallops AdvReac Mild VOMITING Verified 01/26/20 20:36 Home Meds Home Medications Medication Instructions Recorded Confirmed PreserVision AREDS-2 1 tab PO BID 09/05/18 01/26/20 ascorbate calcium (vitamin C) 500 500 mg PO QAM tab 11/13/18 01/26/20 mg tablet blood sugar diagnostic #10 ea 11/13/18 10/12/19 cholecalciferol (vitamin D3) 50 2,000 unit PO QAM cap 11/13/18 01/26/20 mcg (2,000 unit) capsule lancets 33 gauge #100 ea 11/13/18 10/12/19 bisacodyl 20 mg PO HS 02/02/19 01/26/20 atorvastatin 20 mg PO HS 09/14/19 01/26/20 folic acid 1 mg PO QAM 09/14/19 01/26/20 methotrexate (PF) 25 mg SUBCUT WK 09/14/19 01/26/20 etanercept [Enbrel] 0 mg SUBCUT WK 01/26/20 01/26/20 glipizide 5 mg PO HS 01/26/20 01/26/20 Previous Rx's Medication Instructions Recorded pantoprazole 40 mg tablet,delayed 40 mg PO BID #180 tab 02/12/19 release finasteride 5 mg tablet 5 mg PO QAM #90 tab 03/27/19 lisinopril 10 mg tablet 10 mg PO HS #90 tab 03/27/19 tamsulosin 0.4 mg capsule 0.4 mg PO HS #90 cap 03/27/19 metformin 500 mg tablet,extended 500 mg PO QPM #30 tab 12/25/19 release 24 hr blood-glucose meter #1 ea 12/26/19 Results & Data (ED) Vital Signs Vital Signs - 24 hr 01/26/20 18:06 01/26/20 18:10 01/26/20 21:31 Temperature 36.3 C L Temperature Source Oral Pulse Rate 60 66 Pulse Rate from SpO2 Sensor 64 Respiratory Rate 20 18 Blood Pressure 182/73 H 173/84 H Blood Pressure Mean 109 133 Pulse Oximetry 95 93 Oxygen Delivery Method Room Air Room Air Room Air Sepsis Recent Fever Within 48 Hours No Sepsis New/Unexplained Change in Mental Status No Sepsis Action Taken by Nursing No Action Required Laboratory Data Result diagrams: 01/26/20 19:08 01/26/20 19:08 Lab Results 01/26/20 01/26/20 01/26/20 Range/Units 19:08 19:08 20:20 WBC 11.58 H (4.8-10.8) K/uL RBC 4.70 (4.7-6.1) M/uL Hgb 15.3 (14.0-18.0) g/dL Hct 43.6 (42-52) % MCV 92.8 (80-100) fL MCH 32.6 (25-34) pg MCHC 35.1 (32-36) g/dL RDW Std Deviation 49.0 H (36.4-46.3) fL RDW Coeff of Gabriele 14.6 H (11.5-14.5) % Plt Count 191 (130-400) K/uL MPV 10.9 H (7.4-10.4) fL Immature Gran % (Auto) 0.3 % Neut % (Auto) 79.1 % Lymph % (Auto) 14.4 % [place] % (Auto) 5.9 % Eos % (Auto) 0.0 % Baso % (Auto) 0.3 % Neut # (Auto) 9.17 H (1.4-6.5) K/uL Lymph # (Auto) 1.67 (1.2-3.4) K/uL [place] # (Auto) 0.68 H (0.11-0.59) K/uL Eos # (Auto) 0.00 (0-0.5) K/uL Baso # (Auto) 0.03 (0-0.2) K/uL Immature Gran # (Auto) 0.03 H (0.00-0.02) K/uL Sodium 139 (136-145) mmol/L Potassium 4.0 (3.5-5.1) mmol/L Chloride 108 H (98-107) mmol/L Carbon Dioxide 23 (21-32) mmol/L Anion Gap 8.0 (3-11) BUN 16 (7-18) mg/dl Creatinine 1.10 (0.6-1.4) mg/dl Est Cr Clr Drug Dosing 62.3 ml/min Est GFR ( Amer) 73.6 Est GFR (Non-Af Amer) 63.5 BUN/Creatinine Ratio 14.5 (10-20) Glucose 179 H (70-99) mg/dl Calcium 9.2 (8.5-10.1) mg/dl Total Bilirubin 0.7 (0.2-1) mg/dl AST 31 (15-37) U/L ALT 40 (12-78) U/L Alkaline Phosphatase 112 (45-117) U/L Troponin I < 0.015 (0-0.045) ng/ml Total Protein 7.2 (6.4-8.2) gm/dl Albumin 3.9 (3.4-5.0) gm/dl Globulin 3.3 (2.5-4.0) gm/dl Albumin/Globulin Ratio 1.2 (0.9-2) Lipase 48 L (73-393) U/L COVID-19 Eval [facility] SARS-CoV-2, RNA, NAAT (NEGATIVE) 01/26/20 Range/Units 20:20 WBC (4.8-10.8) K/uL RBC (4.7-6.1) M/uL Hgb (14.0-18.0) g/dL Hct (42-52) % MCV (80-100) fL MCH (25-34) pg MCHC (32-36) g/dL RDW Std Deviation (36.4-46.3) fL RDW Coeff of Gabriele (11.5-14.5) % Plt Count (130-400) K/uL MPV (7.4-10.4) fL Immature Gran % (Auto) % Neut % (Auto) % Lymph % (Auto) % [place] % (Auto) % Eos % (Auto) % Baso % (Auto) % Neut # (Auto) (1.4-6.5) K/uL Lymph # (Auto) (1.2-3.4) K/uL [place] # (Auto) (0.11-0.59) K/uL Eos # (Auto) (0-0.5) K/uL Baso # (Auto) (0-0.2) K/uL Immature Gran # (Auto) (0.00-0.02) K/uL Sodium (136-145) mmol/L Potassium (3.5-5.1) mmol/L Chloride (98-107) mmol/L Carbon Dioxide (21-32) mmol/L Anion Gap (3-11) BUN (7-18) mg/dl Creatinine (0.6-1.4) mg/dl Est Cr Clr Drug Dosing ml/min Est GFR ( Amer) Est GFR (Non-Af Amer) BUN/Creatinine Ratio (10-20) Glucose (70-99) mg/dl Calcium (8.5-10.1) mg/dl Total Bilirubin (0.2-1) mg/dl AST (15-37) U/L ALT (12-78) U/L Alkaline Phosphatase (45-117) U/L Troponin I (0-0.045) ng/ml Total Protein (6.4-8.2) gm/dl Albumin (3.4-5.0) gm/dl Globulin (2.5-4.0) gm/dl Albumin/Globulin Ratio (0.9-2) Lipase (73-393) U/L COVID-19 Eval Order SARS-CoV-2, RNA, NAAT NEGATIVE (NEGATIVE) Administered Medications Piperacillin Sod/Tazobactam (Sod 4.5 gm/ Dextrose) 120 mls @ 30 mls/hr IV Q8H [facility]; Protocol Stop: 02/06/20 00:00 Last Admin: 01/27/20 00:22 Dose: 30 mls/hr Documented by: [id number] Lactated Ringer's (Lr) 1,000 mls @ 80 mls/hr IV .[id number] [facility] Stop: 02/25/20 23:29 Last Admin: 01/26/20 23:57 Dose: 80 mls/hr Documented by: [id number] Insulin Aspart (Insulin Aspart 100 Units/Ml 3 Ml Pen) 0 units SC Q6 GABRIELLA Stop: 02/26/20 00:00 Last Admin: 01/27/20 00:23 Dose: 1 units Documented by: [id number] Cosigned by: [id number] Discontinued Medications Hydromorphone HCl (Hydromorphone Inj 0.5 Mg/0.5 Ml Syr) 0.5 mg IV Q15M PRN PRN Reason: Pain Stop: 02/09/20 18:22 Last Admin: 01/26/20 21:21 Dose: 0.5 mg Documented by: [id number] Admin: 01/26/20 20:20 Dose: 0.5 mg Documented by: [id number] Admin: 01/26/20 19:43 Dose: 0.5 mg Documented by: [id number] Admin: 01/26/20 18:48 Dose: 0.5 mg Documented by: [id number] Cefoxitin Sodium (Mefoxin) 2,000 mg in 60 mls @ 100 mls/hr IV NOW STA Stop: 01/26/20 20:10 Last Infusion: 01/26/20 21:17 Dose: 0 mls/hr Documented by: [id number] Admin: 01/26/20 20:23 Dose: 100 mls/hr Documented by: [id number] Miscellaneous Information (Dc All Previously Ordered Diabetes Meds) 1 ea N/A ONE ONE Stop: 01/26/20 23:31 Last Admin: 01/26/20 23:58 Dose: 1 ea Documented by: [id number] Morphine Sulfate (Morphine Sulfate 2 Mg/Ml Carp) Confirm Administered Dose 2 mg .ROUTE .STK-MED ONE Stop: 01/26/20 23:45 Last Admin: 01/26/20 23:47 Dose: 2 mg Documented by: [id number] Ondansetron HCl (Ondansetron Inj 2 Mg/Ml 2 Ml Vial) 4 mg IV NOW STA Stop: 01/26/20 18:24 Last Admin: 01/26/20 18:47 Dose: 4 mg Documented by: [id number] Ondansetron HCl (Ondansetron Inj 2 Mg/Ml 2 Ml Vial) Confirm Administered Dose 4 mg .ROUTE .STK-MED ONE Stop: 01/26/20 23:46 Last Admin: 01/26/20 23:47 Dose: 4 mg Documented by: [id number] Discharge Plan Visit Data Chief Complaint: Abdominal Pain Stated Complaint: ABD PAIN, STOMACH ULCER, PAIN IN BACK ED Provider: Joseph Gibbons Discharge Problem: Acute upper abdominal pain Patient Disposition: Admitted As Inpatient Discharge Instructions Interventions: ED Discharge Assessment Last Done: 01/26/20 22:30
[2020-01-26] MEDS: HYDROmorphone INJ 0.5 MG/0.5 ML SYR IV PRN ×4 (18:48→21:21)
--- NOTE | 2020-01-26 18:59 | XRay Report ---
XR chest 1V portable CLINICAL HISTORY: abdominal pain COMPARISON STUDY: Chest radiograph February 02, 2019. FINDINGS: There is no pneumothorax or pleural effusion. Cardiomediastinal silhouette is stable. There is mild right infrahilar opacity. There is also suspected left basilar opacity. There is no evidence for overt pulmonary edema. IMPRESSION: Bibasilar opacities which may reflect an infectious process or atelectasis. Radiographic follow-up is recommended. ACT 112: Negative or not required by law. Electronically signed by: Zev Baird M.D. 01/26/2020 6:57 PM
--- NOTE | 2020-01-26 19:18 | CT Scan Report ---
CT OF THE ABDOMEN AND PELVIS WITHOUT CONTRAST CLINICAL HISTORY: Left-sided abdominal pain. COMPARISON STUDY: CT of the abdomen and pelvis April 08, 2016. KUB September 09, 2018. TECHNIQUE: Axial images of the abdomen and pelvis were obtained without IV contrast. Images were revi ewed in the axial, sagittal, and coronal planes. Automated exposure control was utilized for the marissa dy. A dose lowering technique was utilized adhering to the principles of ALARA. FINDINGS: Basilar opacities within visualized portions of the lungs favor atelectasis. A water attenu ation right renal lesion is suboptimally assessed on this unenhanced exam but favors a cyst. There is moderate bilateral renal cortical thinning. No ureteral, renal or bladder calculi are present. Mild bladder wall thickening is noted. There is no hydronephrosis or hydroureter. Evaluation of the abdome n and pelvis is suboptimal on this unenhanced examination. The liver, spleen, adrenal glands and panc reas are unremarkable. There are gallstones within the gallbladder. The gallbladder is moderately dis tended. There may be minimal pericholecystic infiltration. Mild diverticulosis is noted without evide nce for acute diverticulitis. There is no evidence for a bowel obstruction. The appendix is normal. T here is no lymphadenopathy. There is mesenteric infiltration. This is unchanged from earlier exam. Th is is of doubtful significance. Postoperative findings within the spine are present. IMPRESSION: 1. Cholelithiasis with moderate gallbladder distention and possible trace pericholecystic infiltratio n. Acute cholecystitis cannot be excluded. If indicated, a hepatobiliary scan could be obtained. 2. No urinary calculi or hydronephrosis. 3. Colonic diverticulosis without evidence for acute diverticulitis. 4. No bowel obstruction. ACT 112: Negative or not required by law. Electronically signed by: Zev Baird M.D. 01/26/2020 7:17 PM
[2020-01-26 19:19] LABS: Basophils # (auto) 0.03 K/uL (0-0.2); Basophils % (auto) 0.3 %; Hematocrit (blood only) 43.6 % (42-52); Hemoglobin 15.3 g/dL (14.0-18.0); Immature Granulocytes # (auto) 0.03 K/uL (0.00-0.02); Immature Granulocytes % (auto) 0.3 %; Lymphocytes # (auto) 1.67 K/uL (1.2-3.4); Lymphocytes % (auto) 14.4 %; Mean Corpuscular Hemoglobin 32.6 pg (25-34); Mean Corpuscular Hgb Conc 35.1 g/dL (32-36); Mean Corpuscular Volume 92.8 fL (80-100); Mean Platelet Volume 10.9 fL (7.4-10.4); Monocytes # (auto) 0.68 K/uL (0.11-0.59); Monocytes % (auto) 5.9 %; Neutrophils # (auto) 9.17 K/uL (1.4-6.5); Neutrophils % (auto) 79.1 %; Platelet Count 191 K/uL (130-400); RDW Coefficient of Variation 14.6 % (11.5-14.5); White Blood Count 11.58 K/uL (4.8-10.8)
[2020-01-26] MEDS ORDERED: cefOXitin 2,000 MG/60 ML BAG IV STA (19:35)
[2020-01-26 19:37] LABS: Alanine Aminotransferase 40 U/L (12-78); Albumin Level 3.9 gm/dl (3.4-5.0); Aspartate Aminotransferase 31 U/L (15-37); BUN Creatinine Ratio 14.5 (10-20); Blood Urea Nitrogen 16 mg/dl (7-18); Calcium 9.2 mg/dl (8.5-10.1); Carbon Dioxide 23 mmol/L (21-32); Chloride 108 mmol/L (98-107); Creatinine Clr Calc Pharmacy 62.3 ml/min; Est GFR (African American) 73.6; Est GFR (Non-African American) 63.5; Glucose 179 mg/dl (70-99); Lipase 48 U/L (73-393); Sodium 139 mmol/L (136-145)
[2020-01-26 19:42] LABS: Albumin Globulin Ratio 1.2 (0.9-2); Alkaline Phosphatase 112 U/L (45-117); Bilirubin,Total 0.7 mg/dl (0.2-1); Globulin 3.3 gm/dl (2.5-4.0); Total Protein 7.2 gm/dl (6.4-8.2); Troponin I < 0.015 ng/ml (0-0.045)
--- NOTE | 2020-01-26 21:27 | Surgery Consultation ---
Date of Consultation January 26, 2020 Assessment & Plan (1) Acute upper abdominal pain: This patient has cholelithiasis with slight dilatation of the gallbladder possibly some pericholecystic fluid with right subcostal tenderness. This is most likely cholecystitis. Going to be admitted and placed on antibiotics. An ultrasound is also recommended. If the pain does not resolve then cholecystectomy may be necessary. History of Present Illness Reason for Consultation: Right upper quadrant abdominal pain Requesting Physician: Joseph Gibbons MD History of Present Illness This is a 79-year-old male who presented to the emergency room with a complaint of pain centered in the upper abdomen. It began at 10:00 this morning. The pain was mild at that time but over the day escalated and now radiates across to the left side. It does not go through his back. It was associated with nausea and he has had 2 episodes of vomiting without hematemesis. He has a history of peptic ulcer disease. He had an EGD in November. The ulcer was still active but he is unsure as to whether or not it was a gastric ulcer or duodenal ulcer. He has had pain related to the ulcer that feels similar but not exactly like this. He was unaware that he had gallbladder stones. He is on omeprazole twice a day for the ulcer disease and has been taking the medicine. His bowels have been moving with formed stool. He denies melena and hematochezia. He has no dysuria or hematuria. Allergies Allergy/AdvReac Type Severity Reaction Status Date / Time scallops AdvReac Mild VOMITING Verified 01/26/20 20:36 Home Medications Home Medications Medication Instructions Recorded Confirmed Type PreserVision AREDS-2 1 tab PO BID 09/05/18 01/26/20 History ascorbate calcium (vitamin C) 500 500 mg PO QAM tab 11/13/18 01/26/20 History mg tablet blood sugar diagnostic #10 ea 11/13/18 10/12/19 History cholecalciferol (vitamin D3) 50 2,000 unit PO QAM cap 11/13/18 01/26/20 History mcg (2,000 unit) capsule lancets 33 gauge #100 ea 11/13/18 10/12/19 History bisacodyl 20 mg PO HS 02/02/19 01/26/20 History pantoprazole 40 mg tablet,delayed 40 mg PO BID #180 tab 02/12/19 01/26/20 Rx release finasteride 5 mg tablet 5 mg PO QAM #90 tab 03/27/19 01/26/20 Rx lisinopril 10 mg tablet 10 mg PO HS #90 tab 03/27/19 01/26/20 Rx tamsulosin 0.4 mg capsule 0.4 mg PO HS #90 cap 03/27/19 01/26/20 Rx atorvastatin 20 mg PO HS 09/14/19 01/26/20 History folic acid 1 mg PO QAM 09/14/19 01/26/20 History methotrexate (PF) 25 mg SUBCUT WK 09/14/19 01/26/20 History metformin 500 mg tablet,extended 500 mg PO QPM #30 tab 12/25/19 01/26/20 Rx release 24 hr blood-glucose meter #1 ea 12/26/19 Rx etanercept [Enbrel] 0 mg SUBCUT WK 01/26/20 01/26/20 History glipizide 5 mg PO HS 01/26/20 01/26/20 History Patient History Medical History (Updated 01/26/20 @ 18:29 by Joseph Gibbons MD) Aortic stenosis Moderate aortic stenosis per 01/2019 ECHO, "mild" per 02/2019 stress echo (YANELI 1.3-1.4cm2, mean PG 12.3 mmhg) BPH (benign prostatic hyperplasia) Chronic back pain Chronic constipation Diabetes NIDDM GERD (gastroesophageal reflux disease) controlled Hiatal hernia History of ankle fracture History of gastric ulcer years ago History of kidney stones Hx of sleep apnea s/p UPPP/tonsillectomy (10+ years ago) Hyperlipidemia Hypertension Obesity Osteopenia Rheumatoid arthritis Surgical History Fusion of spine History of back surgery (~08/2018) L2-L4 decompression/fusion: 09/13/18: Grade view 2, MAC#3, ETT 8.0 at [facility] History of carpal tunnel release of both wrists History of colonoscopy History of esophagogastroduodenoscopy (EGD) History of tonsillectomy + UPPP History of total knee replacement Left TKA 12/06/18 History of total right knee replacement Hx of bilateral cataract extraction Hx of shoulder surgery X2 RIGHT, 1 LEFT Status post arthroscopic surgery of left knee Family History Mother Osteoporosis Coronary heart disease Heart disease Brother , MVA No problems noted. Brother No problems noted. Father , cancer Cancer Sister No problems noted. Other Family history non-contributory Denies family history of Prostate cancer Diabetes Crohn's disease Colorectal cancer Hypertension Ulcerative colitis Stroke Social History (Updated 07/17/19 @ 13:28 by Giancarlo Miller MD) Smoking Status: Never smoker Second Hand Exposure: No; Hx Alcohol Use: No Hx Substance Use: No Preferred Language: Welsh Communication Ability: Effective Church Worker Required: No Beliefs That Will Affect Care: None marital status: Current Living Situation: Spouse current occupational status: retired Feels Safe at Home: Yes Assistive Devices: Denture - Upper, Denture - Lower and Glasses Review of Systems Review of Systems: All systems reviewed & are unremarkable except as noted in HPI & below Physical Exam Constitutional: no acute distress Respiratory: normal respiratory effort, lungs clear to auscultation Cardiovascular: Rate/Rhythm: regular rate and regular rhythm Gastrointestinal (Abdomen): Inspection/Auscultation: abdomen not distended Percussion/Palpation: + abdomen tender (Right subcostal region mostly) and abdomen soft Musculoskeletal: no cyanosis or clubbing, extremities motor strength 5/5 Lymphatic: no cervical lymphadenopathy Results & Data ([facility]) Vital Signs (Past 12 Hours) Vital Signs Temp Pulse Resp BP Pulse Ox 01/26/20 18:06 36.3 C L 60 20 182/73 H 95 Laboratory Results 01/26/20 01/26/20 01/26/20 Range/Units 20:20 20:20 19:08 WBC (4.8-10.8) K/uL RBC (4.7-6.1) M/uL Hgb (14.0-18.0) g/dL Hct (42-52) % MCV (80-100) fL MCH (25-34) pg MCHC (32-36) g/dL RDW Std Deviation (36.4-46.3) fL RDW Coeff of Gabriele (11.5-14.5) % Plt Count (130-400) K/uL MPV (7.4-10.4) fL Immature Gran % (Auto) % Neut % (Auto) % Lymph % (Auto) % Gaines % (Auto) % Eos % (Auto) % Baso % (Auto) % Neut # (Auto) (1.4-6.5) K/uL Lymph # (Auto) (1.2-3.4) K/uL Gaines # (Auto) (0.11-0.59) K/uL Eos # (Auto) (0-0.5) K/uL Baso # (Auto) (0-0.2) K/uL Immature Gran # (Auto) (0.00-0.02) K/uL Sodium 139 (136-145) mmol/L Potassium 4.0 (3.5-5.1) mmol/L Chloride 108 H (98-107) mmol/L Carbon Dioxide 23 (21-32) mmol/L Anion Gap 8.0 (3-11) BUN 16 (7-18) mg/dl Creatinine 1.10 (0.6-1.4) mg/dl Est Cr Clr Drug Dosing 62.3 ml/min Est GFR ( Amer) 73.6 Est GFR (Non-Af Amer) 63.5 BUN/Creatinine Ratio 14.5 (10-20) Glucose 179 H (70-99) mg/dl Calcium 9.2 (8.5-10.1) mg/dl Total Bilirubin 0.7 (0.2-1) mg/dl AST 31 (15-37) U/L ALT 40 (12-78) U/L Alkaline Phosphatase 112 (45-117) U/L Troponin I < 0.015 (0-0.045) ng/ml Total Protein 7.2 (6.4-8.2) gm/dl Albumin 3.9 (3.4-5.0) gm/dl Globulin 3.3 (2.5-4.0) gm/dl Albumin/Globulin Ratio 1.2 (0.9-2) Lipase 48 L (73-393) U/L COVID-19 Eval Order Covid19 [facility] SARS-CoV-2, RNA, NAAT NEGATIVE (NEGATIVE) 01/26/20 Range/Units 19:08 WBC 11.58 H (4.8-10.8) K/uL RBC 4.70 (4.7-6.1) M/uL Hgb 15.3 (14.0-18.0) g/dL Hct 43.6 (42-52) % MCV 92.8 (80-100) fL MCH 32.6 (25-34) pg MCHC 35.1 (32-36) g/dL RDW Std Deviation 49.0 H (36.4-46.3) fL RDW Coeff of Gabriele 14.6 H (11.5-14.5) % Plt Count 191 (130-400) K/uL MPV 10.9 H (7.4-10.4) fL Immature Gran % (Auto) 0.3 % Neut % (Auto) 79.1 % Lymph % (Auto) 14.4 % Gaines % (Auto) 5.9 % Eos % (Auto) 0.0 % Baso % (Auto) 0.3 % Neut # (Auto) 9.17 H (1.4-6.5) K/uL Lymph # (Auto) 1.67 (1.2-3.4) K/uL Gaines # (Auto) 0.68 H (0.11-0.59) K/uL Eos # (Auto) 0.00 (0-0.5) K/uL Baso # (Auto) 0.03 (0-0.2) K/uL Immature Gran # (Auto) 0.03 H (0.00-0.02) K/uL Sodium (136-145) mmol/L Potassium (3.5-5.1) mmol/L Chloride (98-107) mmol/L Carbon Dioxide (21-32) mmol/L Anion Gap (3-11) BUN (7-18) mg/dl Creatinine (0.6-1.4) mg/dl Est Cr Clr Drug Dosing ml/min Est GFR ( Amer) Est GFR (Non-Af Amer) BUN/Creatinine Ratio (10-20) Glucose (70-99) mg/dl Calcium (8.5-10.1) mg/dl Total Bilirubin (0.2-1) mg/dl AST (15-37) U/L ALT (12-78) U/L Alkaline Phosphatase (45-117) U/L Troponin I (0-0.045) ng/ml Total Protein (6.4-8.2) gm/dl Albumin (3.4-5.0) gm/dl Globulin (2.5-4.0) gm/dl Albumin/Globulin Ratio (0.9-2) Lipase (73-393) U/L COVID-19 Eval Order SARS-CoV-2, RNA, NAAT (NEGATIVE) Diagnostic Findings CT OF THE ABDOMEN AND PELVIS WITHOUT CONTRAST CLINICAL HISTORY: Left-sided abdominal pain. COMPARISON STUDY: CT of the abdomen and pelvis April 08, 2016. KUB September 09, 2018. TECHNIQUE: Axial images of the abdomen and pelvis were obtained without IV contrast. Images were reviewed in the axial, sagittal, and coronal planes. Automated exposure control was utilized for the study. A dose lowering technique was utilized adhering to the principles of ALARA. FINDINGS: Basilar opacities within visualized portions of the lungs favor atelectasis. A water attenuation right renal lesion is suboptimally assessed on this unenhanced exam but favors a cyst. There is moderate bilateral renal cortical thinning. No ureteral, renal or bladder calculi are present. Mild bladder wall thickening is noted. There is no hydronephrosis or hydroureter. Evaluation of the abdomen and pelvis is suboptimal on this unenhanced examination. The liver, spleen, adrenal glands and pancreas are unremarkable. There are gallstones within the gallbladder. The gallbladder is moderately distended. There may be minimal pericholecystic infiltration. Mild diverticulosis is noted without evidence for acute diverticulitis. There is no evidence for a bowel obstruction. The appendix is normal. There is no lymphadenopathy. There is mesenteric infiltration. This is unchanged from earlier exam. This is of doubtful significance. Postoperative findings within the spine are present. IMPRESSION: 1. Cholelithiasis with moderate gallbladder distention and possible trace pericholecystic infiltration. Acute cholecystitis cannot be excluded. If indicated, a hepatobiliary scan could be obtained. 2. No urinary calculi or hydronephrosis. 3. Colonic diverticulosis without evidence for acute diverticulitis. 4. No bowel obstruction. XR chest 1V portable CLINICAL HISTORY: abdominal pain COMPARISON STUDY: Chest radiograph February 02, 2019. FINDINGS: There is no pneumothorax or pleural effusion. Cardiomediastinal silhouette is stable. There is mild right infrahilar opacity. There is also suspected left basilar opacity. There is no evidence for overt pulmonary edema. IMPRESSION: Bibasilar opacities which may reflect an infectious process or atelectasis. Radiographic follow-up is recommended.
--- NOTE | 2020-01-26 21:43 | History & Physical Report ---
Date of Service January 26, 2020 Assessment & Plan (1) Acute upper abdominal pain: Barney Lofton is a 79 year old man with a PMH including Peptic ulcer disease, sleep apnea s/p UPPP, rheumatoid arhtritis HTN and HLD who presents with worsening acute abdominal pain starting earlier today with imaging suspicious for cholecysitits Cholecystitis got one dose of cefoxitin in ED, will transition to zosyn q6h for community acquired low risk infection Gallbladder U/S ordered Surgery consulted, possible operation in AM NPO at midnight Tylenol and morphine for pain control DMII Sliding functional architect insulin ordered NPO for now Rheumatoid arthritis On weekly injections of methotrexate and etanercept tylenol and morphine for pain control HTN Continuing home lisinopril GERD Continuing home omeprazole BPH Continuing home proscar and finasteride. DVT Ppx: SCD"s for now, lovenox post op? F/E/N: LR 80 mls/hour Dispo: med/surg for further evaluation and possible cholecystectomy FUll Code (2) Dyslipidemia: (3) BPH (benign prostatic hyperplasia): (4) Inflammatory arthritis: (5) Constipation: (6) Carotid stenosis: (7) Carotid bruit: (8) Hypertension: (9) BPH (benign prostatic hyperplasia): (10) GERD (gastroesophageal reflux disease): (11) Diabetes: (12) Aortic stenosis: History of Present Illness Chief Complaint: Abdominal Pain Primary Care Provider: Rubén Hsu MD Barney Lofton is a 79 year old man with a past medical history significant for DMII, aortic stenosis (mild per 2019 echo), Peptic Ulcer disease, Sleep Apnea s/p UPPP, rheumatoid arthritis, BPH, HTN,and HLD who presents today with abdominal pain since 10 am. Patient developed abdominal pain across upper abdomen following his breakfast. He said it has continued throughout the day and has become unbearable. Started RUQ now radiating across to the left. He has also had nausea and two episodes of Non bloody non biliious vomiting. Has not had anything out of the ordinary had eggs toast, romansh toast and sausage this morning. No fevers, no chills, no diarrhea or constipation, no dysuria or hematuria, no melena or bloody bowel movements, no chest pain, cough or shortness of breath, has been well otherwise. On presentation to ED patient was found to be hypertensive otherwise WNL, labwork significant for slightly elevated white count, CT scan showing cholelithiasis with possible cholecystic lfuid suspicious for acute cholecysitis. Lives at home with his , 10 pack year smoking history 45 years ago. no drinking or drug use. Retired from [employer], Would like to be a full code Allergies Allergy/AdvReac Type Severity Reaction Status Date / Time scallops AdvReac Mild VOMITING Verified 01/26/20 20:36 Home Medications Home Medications Medication Instructions Recorded Confirmed Type PreserVision AREDS-2 1 tab PO BID 09/05/18 01/26/20 History ascorbate calcium (vitamin C) 500 500 mg PO QAM tab 11/13/18 01/26/20 History mg tablet blood sugar diagnostic #10 ea 11/13/18 10/12/19 History cholecalciferol (vitamin D3) 50 2,000 unit PO QAM cap 11/13/18 01/26/20 History mcg (2,000 unit) capsule lancets 33 gauge #100 ea 11/13/18 10/12/19 History bisacodyl 20 mg PO HS 02/02/19 01/26/20 History pantoprazole 40 mg tablet,delayed 40 mg PO BID #180 tab 02/12/19 01/26/20 Rx release finasteride 5 mg tablet 5 mg PO QAM #90 tab 03/27/19 01/26/20 Rx lisinopril 10 mg tablet 10 mg PO HS #90 tab 03/27/19 01/26/20 Rx tamsulosin 0.4 mg capsule 0.4 mg PO HS #90 cap 03/27/19 01/26/20 Rx atorvastatin 20 mg PO HS 09/14/19 01/26/20 History folic acid 1 mg PO QAM 09/14/19 01/26/20 History methotrexate (PF) 25 mg SUBCUT WK 09/14/19 01/26/20 History metformin 500 mg tablet,extended 500 mg PO QPM #30 tab 12/25/19 01/26/20 Rx release 24 hr blood-glucose meter #1 ea 12/26/19 Rx etanercept [Enbrel] 0 mg SUBCUT WK 01/26/20 01/26/20 History glipizide 5 mg PO HS 01/26/20 01/26/20 History Past Med/Surg History Medical History Aortic stenosis Moderate aortic stenosis per 01/2019 ECHO, "mild" per 02/2019 stress echo (YANELI 1.3-1.4cm2, mean PG 12.3 mmhg) BPH (benign prostatic hyperplasia) Chronic back pain Chronic constipation Diabetes NIDDM GERD (gastroesophageal reflux disease) controlled Hiatal hernia History of ankle fracture History of gastric ulcer years ago History of kidney stones Hx of sleep apnea s/p UPPP/tonsillectomy (10+ years ago) Hyperlipidemia Hypertension Obesity Osteopenia Rheumatoid arthritis Surgical History Fusion of spine History of back surgery (~08/2018) L2-L4 decompression/fusion: 09/13/18: Grade view 2, MAC#3, ETT 8.0 at [facility] History of carpal tunnel release of both wrists History of colonoscopy History of esophagogastroduodenoscopy (EGD) History of tonsillectomy + UPPP History of total knee replacement Left TKA 12/06/18 History of total right knee replacement Hx of bilateral cataract extraction Hx of shoulder surgery X2 RIGHT, 1 LEFT Status post arthroscopic surgery of left knee Family History Mother Osteoporosis Coronary heart disease Heart disease Brother , MVA No problems noted. Brother No problems noted. Father , cancer Cancer Sister No problems noted. 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 Beliefs That Will Affect Care: None marital status: Current Living Situation: Spouse current occupational status: retired Other Information That Helps Us Care for You: No Feels Safe at Home: Yes Safety Concerns: Feels Safe At This Time Assistive Devices: None Review of Systems Review of Systems: All systems reviewed & are unremarkable except as noted in HPI & below Physical Exam Physical Exam: Constitutional: Obese male appearing stated age lying in bed, clearly medicated and falling asleep Eyes: anicteric sclerae, EOMMI bilaterally, PERRLA ENMT: NAD Neck: No JVD REspiratory: No increased work of breathing, lung sounds vesicular throughout Cardiovascular: loud syscolic mumur best appreciated at left sternal border, regular rate regular rhythm, peripheral pulses strong and intact GI: Abdomen obese vs slightly distended tender diffusely worst RUQ, Fitzpatrick's sign positive, no masses, Skin: Warm dry and intact, no rashes Results & Data Results & Data ([facility]) Vital Signs (Past 12 Hours) Vital Signs Temp Pulse Resp BP Pulse Ox 01/26/20 18:06 36.3 C L 60 20 182/73 H 95 Supervising Physician Co-Signing Physician Notes Attending addendum: I have physically seen this patient, have supervised the medical residents act ivities, and agree with the H&P unless as otherwise noted. Assessment and Plan: Acute cholecystitis- Admit to [facility] N.p.o. Received cefoxitin from the ED, will change to Zosyn IV Morphine sulfate 4 mg IV every 3 hours as needed severe pain Consult general surgery Diabetes mellitus- Placed on Accu-Cheks before meals and at bedtime with NovoLog coverage per scale Hypertension- Hold lisinopril GERD- Hold omeprazole. Placed on famotidine 20 mg IV every 12 hours Remaining orders and notations as noted. Resident Activity Tracking Resident Involvement: Resident Care Provided Care Provided: Adult Hospital Medicine (1) BPH (benign prostatic hyperplasia) Lower urinary tract symptom presence: symptoms absent Qualified Code(s): N40.0 - Benign prostatic hyperplasia without lower urinary tract symptoms (2) Diabetes Diabetes mellitus complication status: without complication Diabetes mellitus granulizing machine operator insulin use: without granulizing machine operator use Diabetes mellitus type: type 2 Qualified Code(s): E11.9 - Type 2 diabetes mellitus without complications
[2020-01-26] MEDS ORDERED: GLUCOSE 10 TABS/TUBE PO PRN (23:30)
[2020-01-26] MEDS ORDERED: ACETAMINOPHEN 325 MG TAB PO PRN (23:30)
[2020-01-26] MEDS ORDERED: ONDANSETRON INJ 2 MG/ML 2 ML VIAL IV PRN (23:30)
[2020-01-26] MEDS ORDERED: CARBOHYDRATES FOR HYPOGLYCEMIA PO PRN (23:30)
[2020-01-26] MEDS ORDERED: DC ALL PREVIOUSLY ORDERED DIABETES MEDS ONE (23:30)
[2020-01-26] MEDS ORDERED: GLUCOSE 40% GEL 15 GM TUBE PO PRN (23:30)
[2020-01-26] MEDS ORDERED: GLUCAGON FOR INJ 1 MG VIAL SQ PRN (23:30)
[2020-01-26] MEDS ORDERED: POLYETHYLENE (MIRALAX) 17 GM PACK PO PRN (23:30)
[2020-01-26] MEDS ORDERED: PIPERACILL/TAZOBAC CONSULT ACTIVE PRN (23:30)
[2020-01-26] MEDS ORDERED: DEXTROSE 50% 50 ML SYRINGE IV PRN (23:30)
[2020-01-26] MEDS ORDERED: MoRPHine SULFATE 2 MG/ML CARP ONE (23:44)
[2020-01-26] MEDS ORDERED: ONDANSETRON INJ 2 MG/ML 2 ML VIAL ONE (23:45)
[2020-01-26] MEDS: LACTATED RINGER'S 1,000 ML IV SCH (23:57)
[2020-01-27] MEDS: PIPERACILLIN/TAZOBACTAM 4.5 GM in DEXTROSE 5% 100 ML IV SCH ×3 (00:22→15:31)
[2020-01-27] MEDS: INSULIN ASPART 100 UNITS/ML 3 ML PEN SC SCH ×5 (00:23→20:32)
[2020-01-27] MEDS: MoRPHine SULFATE 2 MG/ML CARP IV PRN ×4 (03:17→15:08)
--- NOTE | 2020-01-27 08:17 | Ultrasound Report ---
ULTRASOUND RIGHT UPPER QUADRANT ABDOMEN CLINICAL HISTORY: Right upper quadrant abdominal pain. Abnormal gallbladder seen by CT. COMPARISON STUDY: Abdominal CT dated 01/26/2020. TECHNIQUE: Real-time, grayscale, and color flow sonography of the right upper quadrant of the abdomen was performed. Images are reviewed in the transverse and longitudinal planes. FINDINGS: Liver: The liver is normal in size and echotexture. There is no intrahepatic biliary ductal dilatatio n. The main portal vein is patent. Gallbladder: The gallbladder is markedly distended measuring over 12 cm in length. There are shadowin g gallstones with biliary sludge. The gallbladder wall is mildly thickened measuring up to 5 mm. Ther e is no pericholecystic fluid. A sonographic Fitzpatrick's sign could not be assessed as the patient recei zechariah analgesia. The common bile duct measures up to 0.4 cm in diameter. Pancreas: Not visualized due to overlying bowel gas. Right kidney: Survey images of the right kidney demonstrate mild cortical atrophy. There is no hydron ephrosis. A 4.1 cm exophytic cyst arises from the lower pole. Ascites: None. IMPRESSION: 1. Cholelithiasis within the dilated mildly thick-walled gallbladder. These findings are highly silke rning for acute cholecystitis. Surgical consultation is advised. If this does not fit the clinical pr esentation a nuclear hepatobiliary scan could be assessed for further assessment. 2. There is no intra or extrahepatic biliary ductal dilatation. 3. Nonvisualization of the pancreas. ACT 112: Negative or not required by law. Electronically signed by: Lawrence Ann M.D. 01/27/2020 8:16 AM
[2020-01-27] MEDS ORDERED: MoRPHine SULFATE 2 MG/ML CARP IV ONE (09:13)
--- NOTE | 2020-01-27 09:17 | Surgery Progress Note ---
Date of Service January 27, 2020 Assessment & Plan (1) Acute cholecystitis due to biliary calculus: 79 yr old man with clinical/ imaging findings suspicious for acute cholecystitis. No evidence of biliary ductal dilation and LFT's are normal. Discussed laparoscopic cholecystectomy with risks of bleeding, infection, conversion to open, bile leak with need for drain/ ercp, retained stone, postop diarrhea. Consent signed. For OR today. Present on Admission?: Yes Admission and Anticipated Discharge Date Admission Date: January 26, 2020 Subjective Still miserable with intense pain in the right upper quadrant, unresponsive to morphine. Review of Systems Review of Systems: All systems reviewed & are unremarkable except as noted in HPI & below Physical Exam Constitutional: WD/WN, vitals as above Eyes: + anicteric sclerae ENMT: Ears: no hearing impairment and no external ear abnormality Respiratory: normal respiratory effort, lungs clear to auscultation Cardiovascular: RRR, no murmur, no edema Gastrointestinal (Abdomen): Inspection/Auscultation: abdomen normal to inspection and + abdomen distended (obese, mild distention) Perc ussion/Palpation: + abdomen tender (right upper quadrant) and abdomen soft Neurologic: moves all extremities; no focal motor deficits Psychiatric: A+Ox3, euthymic affect Results & Data ([facility]) Vital Signs (Past 12 Hours) Vital Signs Temp Pulse Pulse Resp BP BP Pulse Ox 01/27/20 07:34 37.6 C H 69 20 152/73 H 92 01/27/20 03:20 168/72 H 01/26/20 23:58 36.9 C 76 12 193/74 H 96 01/26/20 23:46 37.0 C 67 18 186/80 H 96 01/26/20 22:00 58 L 16 154/70 H 94 01/26/20 21:31 66 18 173/84 H 93 Diagnostic Findings US gallbladder shows dilated gallbladder with stones/ sludge suggestive of acute cholecystitis
[2020-01-27] MEDS ORDERED: GLYCOPYRROLATE 0.2 MG/ML VIAL ONE (09:24)
[2020-01-27] MEDS ORDERED: NEOSTIGMINE METHYLSULFATE 5 MG/5 ML SYR ONE (09:24)
[2020-01-27] MEDS ORDERED: PROPOFOL IV EMULSION 10 MG/ML 20 ML VIAL IV ONE (09:24)
[2020-01-27] MEDS ORDERED: ROCURONIUM BROMIDE 10 MG/ML 5 ML VIAL IV ONE (09:24)
[2020-01-27] MEDS ORDERED: LIDOCAINE HCL 2% 2 ML VIAL/AMP(20MG/ML) INFIL ONE (09:24)
[2020-01-27] MEDS ORDERED: ONDANSETRON INJ 2 MG/ML 2 ML VIAL ONE (09:24)
[2020-01-27] MEDS ORDERED: fentaNYL citrate 100 MCG/2 ML VIAL ONE ×3 (09:24→11:52)
--- NOTE | 2020-01-27 09:49 | Anesthesiology Consultation ---
Date of Service January 27, 2020 Assessment & Plan Chart Review Chart Review: Acceptable Risk for Surgery and Patient NOT seen in Pre Admission Testing Consults Requested none ASA ASA3 Proposed Anesthesia Anesthesia Type: General History Surgery Operation Date: 01/27/20 10:30 Proposed Procedures p Laparoscopic Cholecystectomy - Alexandra Wren MD Height/Weight Height: 5 ft 6 in Weight: 105.2 kg Allergies Allergy/AdvReac Type Severity Reaction Status Date / Time scallops AdvReac Mild VOMITING Verified 01/26/20 20:36 Medications Home Medications Medication Instructions Recorded Confirmed Last Taken PreserVision AREDS-2 1 tab PO BID 09/05/18 01/26/20 01/26/20 ascorbate calcium (vitamin C) 500 500 mg PO QAM tab 11/13/18 01/26/20 01/26/20 mg tablet blood sugar diagnostic #10 ea 11/13/18 10/12/19 Unknown cholecalciferol (vitamin D3) 50 2,000 unit PO QAM cap 11/13/18 01/26/20 01/26/20 mcg (2,000 unit) capsule lancets 33 gauge #100 ea 11/13/18 10/12/19 Unknown bisacodyl 20 mg PO HS 02/02/19 01/26/20 01/25/20 pantoprazole 40 mg tablet,delayed 40 mg PO BID #180 tab 02/12/19 01/26/20 01/26/20 release finasteride 5 mg tablet 5 mg PO QAM #90 tab 03/27/19 01/26/20 01/26/20 lisinopril 10 mg tablet 10 mg PO HS #90 tab 03/27/19 01/26/20 01/25/20 tamsulosin 0.4 mg capsule 0.4 mg PO HS #90 cap 03/27/19 01/26/20 01/25/20 atorvastatin 20 mg PO HS 09/14/19 01/26/20 01/25/20 folic acid 1 mg PO QAM 09/14/19 01/26/20 01/26/20 methotrexate (PF) 25 mg SUBCUT WK 09/14/19 01/26/20 01/24/20 metformin 500 mg tablet,extended 500 mg PO QPM #30 tab 12/25/19 01/26/20 01/25/20 release 24 hr blood-glucose meter #1 ea 12/26/19 Unknown etanercept [Enbrel] 0 mg SUBCUT WK 01/26/20 01/26/20 01/21/20 glipizide 5 mg PO HS 01/26/20 01/26/20 01/25/20 Active Medications Generic Name Dose Route Start Last Admin Trade Name Freq PRN Reason Stop Dose Admin Acetaminophen 650 mg 01/26/20 23:30 01/27/20 07:35 Acetaminophen 325 Mg Tab PO 02/25/20 23:29 650 mg Q4H PRN Administration pain/fever Piperacillin Sod/Tazobactam 120 mls @ 30 mls/hr 01/27/20 00:00 01/27/20 07:36 Sod 4.5 gm/ Dextrose IV 02/06/20 00:00 30 mls/hr Q8H GABRIELLA Administration Protocol Lactated Ringer's 1,000 mls @ 80 mls/hr 01/26/20 23:30 01/27/20 06:20 Lr IV 02/25/20 23:29 80 mls/hr .[id number] GABRIELLA Infusion Insulin Aspart 0 units 01/27/20 00:00 01/27/20 06:03 Insulin Aspart 100 Units/Ml 3 Ml Pen SC 02/26/20 00:00 2 units Q6 GABRIELLA Administration Morphine Sulfate 2 mg 01/26/20 23:30 01/27/20 09:04 Morphine Sulfate 2 Mg/Ml Carp IV 02/09/20 23:29 2 mg Q3H PRN Administration Pain NPO Date Last Intake of Fluids: 01/27/20 Time Last Intake of Fluids: 08:30 Date Last Intake of Solids: 01/25/20 Time Last Intake of Solids: 19:00 Past Medical History Medical History Aortic stenosis Moderate aortic stenosis per 01/2019 ECHO, "mild" per 02/2019 stress echo (YANELI 1.3-1.4cm2, mean PG 12.3 mmhg) BPH (benign prostatic hyperplasia) Chronic back pain Chronic constipation Diabetes NIDDM GERD (gastroesophageal reflux disease) controlled Hiatal hernia History of ankle fracture History of gastric ulcer years ago History of kidney stones Hx of sleep apnea s/p UPPP/tonsillectomy (10+ years ago) Hyperlipidemia Hypertension Obesity Osteopenia Rheumatoid arthritis Exercise / Class Metabolic Activity III < 4 Walking/Shop/Light housework Past Family History Family History Mother Osteoporosis Coronary heart disease Heart disease Brother , MVA No problems noted. Brother No problems noted. Father , cancer Cancer Sister No problems noted. Other Family history non-contributory Denies family history of Prostate cancer Diabetes Crohn's disease Colorectal cancer Hypertension Ulcerative colitis Stroke Past Surgical History Surgical History Fusion of spine History of back surgery (~08/2018) L2-L4 decompression/fusion: 09/13/18: Grade view 2, MAC#3, ETT 8.0 at [facility] History of carpal tunnel release of both wrists History of colonoscopy History of esophagogastroduodenoscopy (EGD) History of tonsillectomy + UPPP History of total knee replacement Left TKA 12/06/18 History of total right knee replacement Hx of bilateral cataract extraction Hx of shoulder surgery X2 RIGHT, 1 LEFT Status post arthroscopic surgery of left knee Past Anesthesia History No Hx of Anesthesia Complications and No Family Hx of Anesthesia Complications History of PONV No Hx of PONV and No Hx of Motion Sickness Social History Smoking Status: Former smoker tobacco type: cigarettes Do You Dip or Chew Tobacco: No Hx Alcohol Use: No Hx Substance Use: No substance use type: does not use Physical Exam Vital Signs Last Vital Signs Temp 37.6 C H 01/27/20 07:34 Pulse 69 01/27/20 07:34 Resp 20 01/27/20 07:34 BP 152/73 H 01/27/20 07:34 Pulse Ox 92 01/27/20 07:34 Testing Laboratory Results 01/26/20 19:08 01/26/20 19:08 01/27/20 01/26/20 05:34 23:46 POC Glucose 192 H 167 H Electrocardiogram Date: 01/26/20 Findings: + SB @ (at 59;low voltage EKG) Chest X-Ray Date: 01/26/20 Findings: + atelectasis and + other (basilar opacities,? atelectasis) Echocardiogram Date: 02/02/19 EF: 55% LV Function: normal RWMA: + none Other Findings: + LVH (mild) Valvular Disease: + (mild -mod;AVArea 1.1 cm2) and + MR (mild) mild TR Other Testing 03/22/2017- Carotid U/S-no H/D sig. stenosis
[2020-01-27] MEDS ORDERED: NALOXONE HCL 0.4 MG/1 ML VIAL/CARP IV PRN (10:03)
[2020-01-27] MEDS ORDERED: LABETALOL HCL IV 5 MG/ML 20ML IV PRN (10:03)
[2020-01-27] MEDS ORDERED: FLUMAZENIL 0.1 MG/1 ML 10 ML VIAL IV PRN (10:03)
[2020-01-27] MEDS ORDERED: HYDROmorphone INJ 1 MG/ML SYRINGE IV PRN (10:03)
[2020-01-27] MEDS ORDERED: ONDANSETRON INJ 2 MG/ML 2 ML VIAL IV PRN (10:03)
[2020-01-27] MEDS ORDERED: ePHEDrine sulfate 50 MG/ML AMP IV PRN (10:03)
[2020-01-27] MEDS ORDERED: ATROPINE SULFATE 0.1 MG/ML 10ML SYR IV PRN (10:03)
[2020-01-27] MEDS ORDERED: PROMETHAZINE HCL 12.5 MG in SODIUM CHLORIDE 0.9% 50 ML IV PRN (10:03)
[2020-01-27] MEDS ORDERED: fentaNYL citrate 100 MCG/2 ML VIAL IV PRN (10:03)
[2020-01-27] MEDS ORDERED: BUPIVACAINE 0.5 % 5 MG/1 ML MPF 30ML VIAL ONE (10:36)
[2020-01-27] MEDS ORDERED: SUCCINYLCHOLINE 100MG/5ML SYR IV ONE (11:14)
[2020-01-27] MEDS ORDERED: CISATRACURIUM BESYLATE IV SOLN 2 MG/ML 10 ML VIAL IV ONE (11:14)
--- NOTE | 2020-01-27 12:18 | Electrocardiogram Report ---
Test Reason : Blood Pressure : / mmHG Vent. Rate : 059 BPM Atrial Rate : 059 BPM P-R Int : 170 ms QRS Dur : 106 ms QT Int : 420 ms P-R-T Axes : 055 088 078 degrees QTc Int : 415 ms Poor data quality, interpretation may be adversely affected Sinus bradycardia Low voltage QRS Borderline ECG When compared with ECG of 03-FEB-2019 06:51, Questionable change in QRS axis Confirmed by Yoav Steward ([id number]) on 01/27/2020 12:18:18 PM Referred By: REFERRED SELF Confirmed By:Yoav Steward
--- NOTE | 2020-01-27 12:30 | Operative Report ---
Post Operative Report Pre & Post Diagnosis Operation Date: 01/27/20 10:30 Pre-Op Diagnosis: ACUTE CHOLECYSTITIS Post-Op Diagnosis: ACUTE GANGRENOUS CHOLECYSTITIS I identified the patient and participated in the time-out.: Yes Procedure Operation Date: 01/27/20 10:30 Actual Procedures p Laparoscopic Cholecystectomy - Alexandra Wren MD Surgeon Alexandra Wren MD Hurl Shaker NONE Estimated Blood Loss 50 Findings See Below (gangrenous distended gallbladder) Specimens gallbladder Description of Procedure see dictated operative report I attest to the content of the Intraoperative Record and any orders documented therein. Any exceptions are noted below.
--- NOTE | 2020-01-27 13:07 | Anesthesiology Progress Note ---
Date of Service January 27, 2020 Anesthesia Post Procedure Vital Signs Vital Signs: Temp Pulse Pulse Pulse Resp BP BP 01/27/20 13:05 36.9 C 90 18 151/87 H 01/27/20 12:55 88 16 147/78 H 01/27/20 12:45 92 H 19 166/85 H 01/27/20 12:35 37 C 91 H 14 170/99 H 01/27/20 07:34 37.6 C H 69 20 152/73 H 01/27/20 03:20 168/72 H 01/26/20 23:58 36.9 C 76 12 193/74 H 01/26/20 23:46 37.0 C 67 18 186/80 H 01/26/20 22:00 58 L 16 154/70 H 01/26/20 21:31 66 18 173/84 H 01/26/20 18:06 36.3 C L 60 20 182/73 H Pulse Ox 01/27/20 13:05 94 01/27/20 12:55 93 01/27/20 12:45 92 01/27/20 12:35 93 01/27/20 07:34 92 01/27/20 03:20 01/26/20 23:58 96 01/26/20 23:46 96 01/26/20 22:00 94 01/26/20 21:31 93 01/26/20 18:06 95 Pain Intensity Abdomen: Pain Intensity: 8 Transfer of Care Handoff Completed per policy Notes Mental Status: alert / awake / arousable Patient Amnestic to Procedure: Yes Nausea / Vomiting: adequately controlled Pain: adequately controlled Airway Patency, RR, SpO2: stable & adequate BP & HR: stable & adequate Hydration State: stable & adequate Anesthetic Complications: no major complications apparent
[2020-01-27] MEDS: FINASTERIDE 5 MG TAB PO SCH (13:45)
[2020-01-27] MEDS: PANTOprazole 40 MG TAB PO SCH ×2 (13:46→20:25)
[2020-01-27] MEDS: ASCORBIC ACID 500 MG TAB PO SCH (13:47)
[2020-01-27] MEDS: CHOLECALCIFEROL 1,000 UNITS 25 MCG TAB PO SCH (13:47)
[2020-01-27] MEDS: FOLIC ACID 1 MG TAB PO SCH (13:47)
[2020-01-27] MEDS: CEROVITE ADV FORMULA TAB PO SCH ×2 (13:47→20:24)
[2020-01-27] MEDS: LACTATED RINGER'S 1,000 ML IV SCH (13:57)
[2020-01-27] MEDS ORDERED: Nursing to Pharmacy Communication SCH (14:15)
[2020-01-27] MEDS ORDERED: POLYETHYLENE (MIRALAX) 17 GM PACK PO PRN (16:05)
--- NOTE | 2020-01-27 18:16 | Hospitalist Progress Note ---
Date of Service January 27, 2020 Assessment & Plan (1) Acute upper abdominal pain: Barney Lofton is a 79 year old man with a PMH including Peptic ulcer disease, sleep apnea s/p UPPP, rheumatoid arhtritis HTN and HLD who presented to the ED 01/26/20 with worsening acute abdominal pain starting earlier that day with imaging suspicious for cholecystits Acute Cholecystitis -got one dose of cefoxitin in ED -transitioned to zosyn q6h for community acquired low risk infection -surgery consulted; patient went to OR and received laparoscopic cholecystectomy with finding of acute gangrenous cholecystitis -plan to continue zosyn q6h x5 days post-op; can consider switching to Augmentin when he is tolerating PO -pain control regimen: Tylenol 650mg q6h prn for pain, oxycodone 5mg q4h prn for pain, and morphine 2mg IV q3h prn -bowel regimen with dulcolax 20mg po qhs and miralax 17mg po daily scheduled DMII -Sliding scale insulin ordered Rheumatoid arthritis -On weekly injections of methotrexate and etanercept -sludge filtration attendant is Dr. Mejia in [place] ([facility]) -HOLD ETANERCEPT (scheduled for Mondays, weekly) and HOLD METHOTREXATE (scheduled for , weekly) FOR THIS WEEK DUE TO TODAY'S SURGERY. HTN -Continuing home lisinopril GERD -Continuing home omeprazole BPH -Continuing home proscar and finasteride. DVT Ppx: SCDs and frequent ambulation F/E/N: per surgery (clear liquid, carb consistent/DM) Dispo: med/surg for further evaluation and possible cholecystectomy Code Status: Full Code (2) Dyslipidemia: (3) BPH (benign prostatic hyperplasia): (4) Inflammatory arthritis: (5) Constipation: (6) Carotid stenosis: (7) Carotid bruit: (8) Hypertension: (9) GERD (gastroesophageal reflux disease): (10) Diabetes: (11) Aortic stenosis: Admission and Anticipated Discharge Date Admission Date: January 26, 2020 Supervising Physician Co-Signing Physician Notes Patient seen and examined with PGY-1 Dr. Jones. Agree with history, exam findings, assessment and plan of care as outlined. In brief, Mr. Lofton is a 79 year old male with history of DM, RA (followed by Dr. Mejia in [place] with [facility]), HTN, BPH, admitted with acute cholecystitis. Started on Zosyn. US on admission with moderate GB distention, trace pericholecystic infiltration. However, continued to have pain despite pain medication and was taken to the OR earlier today with Dr. Alexandra Wren. Found to have acute gangrenous cholecystitis. Adominal pain is improved post-op, although as post operative pain with moving. Pain control with tylenol. oxycodone, morphine IV. Bowel regimen started since he has a history of constipation and we are giving narcotic pain medication. DM, on sliding scale insulin. RA. On methotrexate (qThursday) and Enbrel (qMonday). Hold thse for 1 week--will restart methotrexate on 02/06 and Enbrel on 02/03, Other chronic issues are stable. Home medications continued. Dispo: pending clinical improvement. Subjective Patient was seen and evaluated at bedside this evening after returning from OR. Pt had a laparoscopic cholecystectomy performed by Dr. Alexandra Wren, gen surg, with post-op diagnosis of acute gangrenous cholecystitis. Patient states that he is doing "so much better" at this time. He currently denies any abdominal pain. He also denies nausea, vomiting, chills, SOB, or leg pain. Review of Systems Constitutional: no fever and no chills Respiratory: no cough and no dyspnea Cardiovascular: no chest pain Gastrointestinal: no abdominal pain, no nausea and no vomiting Musculoskeletal: no swelling no leg pain Physical Exam Physical Exam: GENERAL: No acute distress. Well developed and well nourished. Vital signs reviewed as above. A/O x3. EYES: EOMI. HENT: Dry mucous membranes. RESPIRATORY: Clear to auscultation bilaterally. No wheezing, rales, or rhonchi. CARDIOVASCULAR: Regular rate and rhythm. 3/6 [place]. ABDOMEN: Abdomen is obese and with mild distension post-op. Surgical dressings are in place over laparoscopic incisions. No abdominal tenderness to light palpation. Normal bowel sounds. EXTREMITIES: 1+ edema to b/l lower extremities, which patient reports is chroni c. Non-tender. SKIN: Warm, dry. No rashes or lesions. NEUROLOGIC: No focal neurological deficits. PSYCHIATRIC: Cooperative. Appropriate mood and affect. Results & Data Results & Data ([facility]) Vital Signs (Past 12 Hours) Vital Signs Temp Pulse Pulse Resp BP Pulse Ox 01/27/20 16:21 37.4 C 92 H 16 131/71 93 01/27/20 15:25 37.1 C 91 H 18 136/78 92 01/27/20 14:17 85 16 141/77 H 95 01/27/20 13:52 36.9 C 87 20 152/77 H 94 01/27/20 13:27 37.2 C 92 H 18 148/72 H 94 01/27/20 13:15 36.9 C 90 18 129/87 93 01/27/20 13:05 36.9 C 90 18 151/87 H 94 01/27/20 12:55 88 16 147/78 H 93 01/27/20 12:45 92 H 19 166/85 H 92 01/27/20 12:35 37 C 91 H 14 170/99 H 93 01/27/20 07:34 37.6 C H 69 20 152/73 H 92 (1) BPH (benign prostatic hyperplasia) Lower urinary tract symptom presence: symptoms absent Qualified Code(s): N40.0 - Benign prostatic hyperplasia without lower urinary tract symptoms (2) Diabetes Diabetes mellitus complication status: without complication Diabetes mellitus usp insulin use: without ferry terminal agent use Diabetes mellitus type: type 2 Qualified Code(s): E11.9 - Type 2 diabetes mellitus without complications
[2020-01-27] MEDS ORDERED: POLYETHYLENE (MIRALAX) 17 GM PACK PO ONE (18:45)
--- NOTE | 2020-01-27 19:39 | Operative Report (OR) ---
DATE OF OPERATION: 01/27/2020 PREOPERATIVE DIAGNOSIS: Acute calculus cholecystitis. POSTOPERATIVE DIAGNOSIS: Acute gangrenous cholecystitis. OPERATIVE PROCEDURE: Laparoscopic cholecystectomy. SURGEON: Alexandra Wren MD. MUSHROOM SORTER GRADER: None. ANESTHESIA: General endotracheal anesthesia. ESTIMATED BLOOD LOSS: 50 mL IV FLUIDS: 1800 mL COMPLICATIONS: None. SPECIMENS: Gallbladder. DRAINS: None. INDICATIONS: The patient is a 79-year-old man who presented with right upper quadrant pain. Imaging was suggestive of acute cholecystitis. He was counseled regarding laparoscopic cholecystectomy and consented to the procedure. DESCRIPTION OF PROCEDURE: The patient was on antibiotics preoperatively. After the induction of general endotracheal anesthesia and placement of sequential compression devices, his abdomen was sterilely prepped and draped. He was positioned in Trendelenburg. A supraumbilical incision was made and a Veress needle was placed into the peritoneal cavity. This was tested with the saline drop test. Initial pressure was 3 mmHg and this was taken up to 15 mmHg. A 5 mm trocar was placed under direct vision. The patient was placed in reverse Trendelenburg and airplaned to the left. Three additional trocars were placed under direct vision, two 5 mm in the right side of the abdomen and an 11 mm in the epigastric area. Due to the patient's obesity, fifth trocar was also used for a 5 mm fan retractor. The gallbladder was noted to be markedly distended and gangrenous. This was decompressed with a needle to allow for it to be grasped. It was then grasped and retracted over the liver. Dissection was begun at the triangle of Calot. The gallbladder was very inflamed and everything was oozy. Ultimately, the cystic duct was able to be identified. Critical views were seen anteriorly and posteriorly. The cystic duct was doubly clipped on the remaining side, singly clipped on the gallbladder side and divided. The small vessels including the cystic artery were clipped and divided. The gallbladder was then dissected off the liver bed, it was placed in an Endobag. There was no spillage of bile noted, although there was some seepage of bile seen at the entry to the abdomen with bilious ascites noted in the right upper quadrant. The gallbladder was placed in an Endocatch and removed through the epigastric incision. The abdomen was irrigated and suctioned clear. The fascia of the epigastric incision was closed with 0 Vicryl stitches placed anteriorly. The skin of all 5 incisions was closed after the trocars were removed. This was done with interrupted 4-0 Vicryl stitches. A 30 mL of 0.5% Marcaine had been used for local anesthesia throughout the procedure. Steri-Strips and sterile dressings were applied. He was awakened and taken to recovery in stable condition. I attest to the content of the Intraoperative Record and any orders documented therein. Any exception s are noted below.
[2020-01-27] MEDS: bisacodyL 5 MG TABEC PO SCH (20:24)
[2020-01-27] MEDS: ATORVASTATIN 20 MG TAB PO SCH (20:25)
[2020-01-27] MEDS: TAMSULOSIN HCL 0.4 MG CAP PO SCH (20:25)
[2020-01-27] MEDS: lisinopriL 10 MG TAB PO SCH (20:26)
[2020-01-27] MEDS: oxyCODONE HCL IR 5 MG TAB (IMMEDIATE RELEASE) PO PRN (21:31)
--- NOTE | 2020-01-27 22:30 | Billing Data ---
Date of Service January 27, 2020 Coding Level of Care Code 35441 Initial Inpt Care Lvl 2
[2020-01-28] MEDS: PIPERACILLIN/TAZOBACTAM 4.5 GM in DEXTROSE 5% 100 ML IV SCH ×4 (00:02→23:30)
[2020-01-28] MEDS: oxyCODONE HCL IR 5 MG TAB (IMMEDIATE RELEASE) PO PRN ×3 (05:43→22:02)
[2020-01-28 06:07] LABS: Basophils # (auto) 0.03 K/uL (0-0.2); Basophils % (auto) 0.2 %; Eosinophils # (auto) 0.02 K/uL (0-0.5); Eosinophils % (auto) 0.1 %; Hematocrit (blood only) 40.6 % (42-52); Hemoglobin 13.6 g/dL (14.0-18.0); Immature Granulocytes # (auto) 0.07 K/uL (0.00-0.02); Immature Granulocytes % (auto) 0.4 %; Lymphocytes # (auto) 2.08 K/uL (1.2-3.4); Lymphocytes % (auto) 11.6 %; Mean Corpuscular Hemoglobin 31.9 pg (25-34); Mean Corpuscular Hgb Conc 33.5 g/dL (32-36); Mean Corpuscular Volume 95.1 fL (80-100); Mean Platelet Volume 10.7 fL (7.4-10.4); Monocytes # (auto) 2.36 K/uL (0.11-0.59); Monocytes % (auto) 13.2 %; Neutrophils # (auto) 13.37 K/uL (1.4-6.5); Neutrophils % (auto) 74.5 %; Platelet Count 167 K/uL (130-400); RDW Coefficient of Variation 15.1 % (11.5-14.5); RDW Standard Deviation 52.2 fL (36.4-46.3); Red Blood Count 4.27 M/uL (4.7-6.1); White Blood Count 17.93 K/uL (4.8-10.8)
[2020-01-28 06:09] LABS: Estimated Average Glucose 146 mg/dl; Hemoglobin A1C 6.7 % (4.5-5.6)
[2020-01-28 06:34] LABS: BUN Creatinine Ratio 9.8 (10-20); Calcium 8.6 mg/dl (8.5-10.1); Est GFR (African American) 62.5; Est GFR (Non-African American) 53.9; Potassium 3.7 mmol/L (3.5-5.1)
[2020-01-28 06:46] LABS: Appearance Urine Clear (Clear); Bilirubin Urine Negative (Negative); Blood Urine Negative (Negative); Color Urine Yellow; Glucose Urine UA Negative (Negative); Ketones Urine Negative (Negative); Leukocyte Esterase Urine Negative (Negative); Nitrite Urine Negative (Negative); Protein Urine Negative (Negative); Specific Gravity Urine 1.022 (1.000-1.030); Urobilinogen Urine Negative (Negative)
[2020-01-28] MEDS ORDERED: POLYETHYLENE (MIRALAX) 17 GM PACK PO SCH (09:00)
[2020-01-28] MEDS: INSULIN ASPART 100 UNITS/ML 3 ML PEN SC SCH ×4 (09:17→21:52)
[2020-01-28] MEDS: FINASTERIDE 5 MG TAB PO SCH (09:19)
[2020-01-28] MEDS: PANTOprazole 40 MG TAB PO SCH ×2 (09:19→21:08)
[2020-01-28] MEDS: ASCORBIC ACID 500 MG TAB PO SCH (09:19)
[2020-01-28] MEDS: FOLIC ACID 1 MG TAB PO SCH (09:19)
[2020-01-28] MEDS: CHOLECALCIFEROL 1,000 UNITS 25 MCG TAB PO SCH (09:19)
[2020-01-28] MEDS: CEROVITE ADV FORMULA TAB PO SCH ×2 (09:20→21:08)
--- NOTE | 2020-01-28 13:16 | Hospitalist Progress Note ---
Date of Service January 28, 2020 Assessment & Plan (1) Acute upper abdominal pain: Barney Lofton is a 79 year old man with a PMH including Peptic ulcer disease, sleep apnea s/p UPPP, rheumatoid arhtritis HTN and HLD who presented to the ED 01/26/20 with worsening acute abdominal pain starting earlier that day, now s/p cholecystectomy for acute gangrenous cholecystitis. Acute Cholecystitis -s/p laparoscopic cholecystectomy with finding of acute gangrenous cho lecystitis -plan to continue zosyn q6h x5 days post-op; can consider switching to Augmentin when he is tolerating PO -pain control regimen: Tylenol 650mg q6h prn for pain, oxycodone 5mg q4h prn for pain, and morphine 2mg IV q3h prn -bowel regimen with dulcolax 20mg po qhs and miralax 17mg po daily scheduled DMII: sugars stable -ISS Rheumatoid arthritis -On weekly injections of methotrexate and etanercept -dowel pin worker is Dr. Mejia in [place] ([facility]) -HOLD ETANERCEPT (scheduled for Mondays, weekly) and HOLD METHOTREXATE (scheduled for , weekly) FOR THIS WEEK DUE TO TODAY'S SURGERY. HTN -Continuing home lisinopril GERD -Continuing home omeprazole BPH -Continuing home proscar and finasteride FENGI: per surgery (clear liquid, carb consistent/DM) DVT prophylaxis: SCDs and frequent ambulation Code status: full code Dispo: med/surg (2) Dyslipidemia: (3) BPH (benign prostatic hyperplasia): (4) Inflammatory arthritis: (5) Constipation: (6) Carotid stenosis: (7) Carotid bruit: (8) Hypertension: (9) GERD (gastroesophageal reflux disease): (10) Diabetes: (11) Aortic stenosis: Admission and Anticipated Discharge Date Admission Date: January 26, 2020 Supervising Physician Co-Signing Physician Notes I personally examined the patient and verified all miller points of history and exam, discussed case, and agree with decision making with Dr Kunz feeling pretty good - sore but otherwise OK. no trouble eating. notes chronically constipated vitals noted nad heent nc at mmm breathing unlabored. neuro no focal deficits gangrenous cholecystitis - improving post op - advance diet, continue abx chronic constipation - miralax (and titrating regimen as outpt outlined) otherwise as above Subjective Patient was seen and evaluated at bedside this morning. Patient states that he is doing "so much better" at this time. He endorses mild abdominal tenderness. Denies CP, nausea, vomiting, chills, SOB, or leg pain. Endorses some constipation which is normal for him; he has been receiving a bowel regimen. Review of Systems Constitutional: no fever and no chills Respiratory: no cough and no dyspnea Cardiovascular: no chest pain and no palpitations Gastrointestinal: no nausea and no vomiting Genitourinary: no dysuria and no urinary frequency Physical Exam Constitutional: no acute distress and not ill appearing Respiratory: normal respiratory effort, lungs clear to auscultation Cardiovascular: RRR, no murmur, no edema Gastrointestinal (Abdomen): Inspection/Auscultation: normal bowel sounds moderate tenderness to palpation of the RUQ, mild tenderness to palpation of the LUQ, LLQ, and RLQ Skin: abdominal incisions clean, dry, and intact Results & Data Results & Data ([facility]) Vital Signs (Past 12 Hours) Vital Signs Temp Pulse Resp BP Pulse Ox 01/28/20 07:48 36.7 C 18 112/75 92 01/28/20 02:44 37.0 C 78 16 157/78 H 93 Resident Activity Tracking Resident Involvement: Resident Care Provided Care Provided: Adult Hospital Medicine (1) BPH (benign prostatic hyperplasia) Lower urinary tract symptom presence: symptoms absent Qualified Code(s): N40.0 - Benign prostatic hyperplasia without lower urinary tract symptoms (2) Diabetes Diabetes mellitus complication status: without complication Diabetes mellitus middle or intermediate school principal insulin use: without assisted use Diabetes mellitus type: type 2 Qualified Code(s): E11.9 - Type 2 diabetes mellitus without complications
--- NOTE | 2020-01-28 13:47 | Surgery Progress Note ---
Date of Service January 28, 2020 Assessment & Plan (1) Acute cholecystitis due to biliary calculus: Postoperative day #1 status post laparoscopic cholecystectomy for gangrenous cholecystitis Patient is doing well Has been advanced to a regular diet for dinner tonight and agree with that Creatinine increased over yesterday and is trending upward Continue to monitor Would continue with IV antibiotics for now If creatinine decreases or stabilizes and tolerates a regular diet think he would be a candidate for discharge tomorrow from a surgical standpoint. Admission and Anticipated Discharge Date Admission Date: January 26, 2020 Subjective Postoperative day #1 status post laparoscopic cholecystectomy for gangrenous acute cholecystitis Patient feels well today Tolerated liquid diet No nausea or vomiting Incisional tenderness only Physical Exam Constitutional: no acute distress Gastrointestinal (Abdomen): Inspection/Auscultation: normal bowel sounds and + abdominal surgical incision (Clean, dry and intact); abdomen not distended Percussion/Palpation: + abdomen tender (Incisional only) Results & Data ([facility]) Vital Signs (Past 12 Hours) Vital Signs Temp Pulse Resp BP Pulse Ox 01/28/20 07:48 36.7 C 18 112/75 92 01/28/20 02:44 37.0 C 78 16 157/78 H 93 Laboratory Results 01/28/20 01/28/20 01/28/20 Range/Units 12:10 08:14 06:23 WBC (4.8-10.8) K/uL RBC (4.7-6.1) M/uL Hgb (14.0-18.0) g/dL Hct (42-52) % MCV (80-100) fL MCH (25-34) pg MCHC (32-36) g/dL RDW Std Deviation (36.4-46.3) fL RDW Coeff of Gabriele (11.5-14.5) % Plt Count (130-400) K/uL MPV (7.4-10.4) fL Immature Gran % (Auto) % Neut % (Auto) % Lymph % (Auto) % Cochran % (Auto) % Eos % (Auto) % Baso % (Auto) % Neut # (Auto) (1.4-6.5) K/uL Lymph # (Auto) (1.2-3.4) K/uL Cochran # (Auto) (0.11-0.59) K/uL Eos # (Auto) (0-0.5) K/uL Baso # (Auto) (0-0.2) K/uL Immature Gran # (Auto) (0.00-0.02) K/uL Sodium (136-145) mmol/L Potassium (3.5-5.1) mmol/L Chloride (98-107) mmol/L Carbon Dioxide (21-32) mmol/L Anion Gap (3-11) BUN (7-18) mg/dl Creatinine (0.6-1.4) mg/dl Est Cr Clr Drug Dosing ml/min Est GFR ( Amer) Est GFR (Non-Af Amer) BUN/Creatinine Ratio (10-20) Glucose (70-99) mg/dl POC Glucose 181 H 141 H (70-99) mg/dl Estimat Average Glucose mg/dl Hemoglobin A1c (4.5-5.6) % Calcium (8.5-10.1) mg/dl Urine Color Yellow Urine Appearance Clear (Clear) Urine pH 5.0 (4.5-7.5) Ur Specific [place] 1.022 (1.000-1.030) Urine Protein Negative (Negative) Urine Glucose (UA) Negative (Negative) Urine Ketones Negative (Negative) Urine Blood Negative (Negative) Urine Nitrite Negative (Negative) Urine Bilirubin Negative (Negative) Urine Urobilinogen Negative (Negative) Ur Leukocyte Esterase Negative (Negative) 01/28/20 01/28/20 01/27/20 Range/Units 05:52 05:52 20:31 WBC 17.93 H (4.8-10.8) K/uL RBC 4.27 L (4.7-6.1) M/uL Hgb 13.6 L (14.0-18.0) g/dL Hct 40.6 L (42-52) % MCV 95.1 (80-100) fL MCH 31.9 (25-34) pg MCHC 33.5 (32-36) g/dL RDW Std Deviation 52.2 H (36.4-46.3) fL RDW Coeff of Gabriele 15.1 H (11.5-14.5) % Plt Count 167 (130-400) K/uL MPV 10.7 H (7.4-10.4) fL Immature Gran % (Auto) 0.4 % Neut % (Auto) 74.5 % Lymph % (Auto) 11.6 % Cochran % (Auto) 13.2 % Eos % (Auto) 0.1 % Baso % (Auto) 0.2 % Neut # (Auto) 13.37 H (1.4-6.5) K/uL Lymph # (Auto) 2.08 (1.2-3.4) K/uL Cochran # (Auto) 2.36 H (0.11-0.59) K/uL Eos # (Auto) 0.02 (0-0.5) K/uL Baso # (Auto) 0.03 (0-0.2) K/uL Immature Gran # (Auto) 0.07 H (0.00-0.02) K/uL Sodium 138 (136-145) mmol/L Potassium 3.7 (3.5-5.1) mmol/L Chloride 103 (98-107) mmol/L Carbon Dioxide 31 (21-32) mmol/L Anion Gap 4.0 (3-11) BUN 12 (7-18) mg/dl Creatinine 1.26 (0.6-1.4) mg/dl Est Cr Clr Drug Dosing 54.0 ml/min Est GFR ( Amer) 62.5 Est GFR (Non-Af Amer) 53.9 BUN/Creatinine Ratio 9.8 L (10-20) Glucose 138 H (70-99) mg/dl POC Glucose 136 H (70-99) mg/dl Estimat Average Glucose mg/dl Hemoglobin A1c (4.5-5.6) % Calcium 8.6 (8.5-10.1) mg/dl Urine Color Urine Appearance (Clear) Urine pH (4.5-7.5) Ur Specific [place] (1.000-1.030) Urine Protein (Negative) Urine Glucose (UA) (Negative) Urine Ketones (Negative) Urine Blood (Negative) Urine Nitrite (Negative) Urine Bilirubin (Negative) Urine Urobilinogen (Negative) Ur Leukocyte Esterase (Negative) 01/27/20 01/27/20 01/27/20 Range/Units 17:01 13:43 05:24 WBC (4.8-10.8) K/uL RBC (4.7-6.1) M/uL Hgb (14.0-18.0) g/dL Hct (42-52) % MCV (80-100) fL MCH (25-34) pg MCHC (32-36) g/dL RDW Std Deviation (36.4-46.3) fL RDW Coeff of Gabriele (11.5-14.5) % Plt Count (130-400) K/uL MPV (7.4-10.4) fL Immature Gran % (Auto) % Neut % (Auto) % Lymph % (Auto) % Cochran % (Auto) % Eos % (Auto) % Baso % (Auto) % Neut # (Auto) (1.4-6.5) K/uL Lymph # (Auto) (1.2-3.4) K/uL Cochran # (Auto) (0.11-0.59) K/uL Eos # (Auto) (0-0.5) K/uL Baso # (Auto) (0-0.2) K/uL Immature Gran # (Auto) (0.00-0.02) K/uL Sodium (136-145) mmol/L Potassium (3.5-5.1) mmol/L Chloride (98-107) mmol/L Carbon Dioxide (21-32) mmol/L Anion Gap (3-11) BUN (7-18) mg/dl Creatinine (0.6-1.4) mg/dl Est Cr Clr Drug Dosing ml/min Est GFR ( Amer) Est GFR (Non-Af Amer) BUN/Creatinine Ratio (10-20) Glucose (70-99) mg/dl POC Glucose 192 H 168 H (70-99) mg/dl Estimat Average Glucose 146 mg/dl Hemoglobin A1c 6.7 H (4.5-5.6) % Calcium (8.5-10.1) mg/dl Urine Color Urine Appearance (Clear) Urine pH (4.5-7.5) Ur Specific [place] (1.000-1.030) Urine Protein (Negative) Urine Glucose (UA) (Negative) Urine Ketones (Negative) Urine Blood (Negative) Urine Nitrite (Negative) Urine Bilirubin (Negative) Urine Urobilinogen (Negative) Ur Leukocyte Esterase (Negative)
--- NOTE | 2020-01-28 17:54 | Billing Data ---
Date of Service January 28, 2020 Coding Level of Care Code 03182 Subseq Hosp Care Lvl 2
[2020-01-28] MEDS: ATORVASTATIN 20 MG TAB PO SCH (21:08)
[2020-01-28] MEDS: TAMSULOSIN HCL 0.4 MG CAP PO SCH (21:08)
[2020-01-28] MEDS: lisinopriL 10 MG TAB PO SCH (21:08)
[2020-01-28] MEDS: bisacodyL 5 MG TABEC PO SCH (21:08)
[2020-01-29 06:14] LABS: Basophils # (auto) 0.02 K/uL (0-0.2); Basophils % (auto) 0.1 %; Eosinophils # (auto) 0.09 K/uL (0-0.5); Eosinophils % (auto) 0.6 %; Hematocrit (blood only) 38.2 % (42-52); Immature Granulocytes # (auto) 0.06 K/uL (0.00-0.02); Immature Granulocytes % (auto) 0.4 %; Lymphocytes # (auto) 2.13 K/uL (1.2-3.4); Lymphocytes % (auto) 13.2 %; Mean Corpuscular Hemoglobin 32.2 pg (25-34); Mean Corpuscular Volume 94.6 fL (80-100); Mean Platelet Volume 10.5 fL (7.4-10.4); Monocytes # (auto) 2.44 K/uL (0.11-0.59); Monocytes % (auto) 15.2 %; Neutrophils # (auto) 11.35 K/uL (1.4-6.5); Neutrophils % (auto) 70.5 %; Platelet Count 171 K/uL (130-400); RDW Coefficient of Variation 14.7 % (11.5-14.5); RDW Standard Deviation 50.5 fL (36.4-46.3); Red Blood Count 4.04 M/uL (4.7-6.1); White Blood Count 16.09 K/uL (4.8-10.8)
[2020-01-29 06:31] LABS: BUN Creatinine Ratio 11.9 (10-20); Calcium 8.5 mg/dl (8.5-10.1); Creatinine Clr Calc Pharmacy 55.4 ml/min; Est GFR (African American) 64.3; Est GFR (Non-African American) 55.5; Potassium 3.4 mmol/L (3.5-5.1)
[2020-01-29] MEDS: PIPERACILLIN/TAZOBACTAM 4.5 GM in DEXTROSE 5% 100 ML IV SCH (07:34)
[2020-01-29] MEDS: FOLIC ACID 1 MG TAB PO SCH (08:38)
[2020-01-29] MEDS: FINASTERIDE 5 MG TAB PO SCH (08:39)
[2020-01-29] MEDS: CEROVITE ADV FORMULA TAB PO SCH (08:39)
[2020-01-29] MEDS: PANTOprazole 40 MG TAB PO SCH (08:40)
[2020-01-29] MEDS: ASCORBIC ACID 500 MG TAB PO SCH (08:40)
[2020-01-29] MEDS: CHOLECALCIFEROL 1,000 UNITS 25 MCG TAB PO SCH (08:40)
[2020-01-29] MEDS: INSULIN ASPART 100 UNITS/ML 3 ML PEN SC SCH ×2 (08:47→13:18)
[2020-01-29] MEDS ORDERED: POLYETHYLENE (MIRALAX) 17 GM PACK PO SCH (09:00)
--- NOTE | 2020-01-29 14:31 | Surgery Progress Note ---
Date of Service doing fine, tolerated diet, no nausea, no vomiting, January 29, 2020 Assessment & Plan (1) Acute cholecystitis due to biliary calculus: Postoperative day #1 status post laparoscopic cholecystectomy for gangrenous cholecystitis Patient is doing well Has been advanced to a regular diet for dinner tonight and agree with that Creatinine increased over yesterday and is trending upward Continue to monitor Would continue with IV antibiotics for now If creatinine decreases or stabilizes and tolerates a regular diet think he would be a candidate for discharge tomorrow from a surgical standpoint. 01/29/2020 2:29PM doing fine, pt can be discharged home today, regular diet, he can take a shower on 01/31/2020, no heavy lifting > 25 LBS for 4 weeks, cipro 500mg po bid x 5 days, F/U DR. Wren 2 weeks, Admission and Anticipated Discharge Date Admission Date: January 26, 2020 Supervising Physician Co-Signing Physician Notes I personally examined the patient and verified all miller points of history and exam, discussed case, and agree with decision making with Dr Kunz feeling pretty good - sore but otherwise OK. no trouble eating. notes chronically constipated vitals noted nad heent nc at mmm breathing unlabored. neuro no focal deficits gangrenous cholecystitis - improving post op - advance diet, continue abx chronic constipation - miralax (and titrating regimen as outpt outlined) otherwise as above Subjective Postoperative day #1 status post laparoscopic cholecystectomy for gangrenous acute cholecystitis Patient feels well today Tolerated liquid diet No nausea or vomiting Incisional tenderness only Physical Exam Constitutional: WD/WN, vitals as above Eyes: PERRL, conjunctivae normal, anicteric sclerae ENMT: external ear and nose normal, oropharynx normal Neck: trachea midline, no thyromegaly Respiratory: normal respiratory effort, lungs clear to auscultation Cardiovascular: RRR, no murmur, no edema Gastrointestinal (Abdomen): normal bowel sounds, soft, nontender, no h epatosplenomegaly all incisions intact, no redness, Musculoskeletal: no cyanosis or clubbing, extremities motor strength 5/5 Skin: no rashes, warm and dry Neurologic: awake Psychiatric: Orientation: alert and oriented x 3 Results & Data ([facility]) Vital Signs (Past 12 Hours) Vital Signs Temp Pulse Resp BP Pulse Ox 10/13/20 11:45 37.0 C 76 16 123/67 93 01/29/20 07:27 37.0 C 76 16 123/67 93 Laboratory Results Abnormal lab results 01/28/20 01/28/20 01/29/20 Range/Units 17:16 20:38 05:44 WBC (4.8-10.8) K/uL RBC (4.7-6.1) M/uL Hgb (14.0-18.0) g/dL Hct (42-52) % RDW Std Deviation (36.4-46.3) fL RDW Coeff of Gabriele (11.5-14.5) % MPV (7.4-10.4) fL Neut # (Auto) (1.4-6.5) K/uL Spink # (Auto) (0.11-0.59) K/uL Immature Gran # (Auto) (0.00-0.02) K/uL Potassium 3.4 L (3.5-5.1) mmol/L Glucose 144 H (70-99) mg/dl POC Glucose 128 H 143 H (70-99) mg/dl 01/29/20 01/29/20 01/29/20 Range/Units 05:44 08:07 12:28 WBC 16.09 H (4.8-10.8) K/uL RBC 4.04 L (4.7-6.1) M/uL Hgb 13.0 L (14.0-18.0) g/dL Hct 38.2 L (42-52) % RDW Std Deviation 50.5 H (36.4-46.3) fL RDW Coeff of Gabriele 14.7 H (11.5-14.5) % MPV 10.5 H (7.4-10.4) fL Neut # (Auto) 11.35 H (1.4-6.5) K/uL Spink # (Auto) 2.44 H (0.11-0.59) K/uL Immature Gran # (Auto) 0.06 H (0.00-0.02) K/uL Potassium (3.5-5.1) mmol/L Glucose (70-99) mg/dl POC Glucose 132 H 195 H (70-99) mg/dl
--- NOTE | 2020-01-29 18:27 | Discharge Summary ---
Date of Service January 29, 2020 Admission HPI Per Admitting Provider Barney Lofton is a 79 year old man with a past medical history significant for DMII, aortic stenosis (mild per 2019 echo), Peptic Ulcer disease, Sleep Apnea s/p UPPP, rheumatoid arthritis, BPH, HTN,and HLD who presents today with abdominal pain since 10 am. Patient developed abdominal pain across upper abdomen following his breakfast. He said it has continued throughout the day and has become unbearable. Started RUQ now radiating across to the left. He has also had nausea and two episodes of Non bloody non biliious vomiting. Has not had anything out of the ordinary had eggs toast, upper sorbian toast and sausage this morning. No fevers, no chills, no diarrhea or constipation, no dysuria or hematuria, no melena or bloody bowel movements, no chest pain, cough or shortness of breath, has been well otherwise. On presentation to ED patient was found to be hypertensive otherwise WNL, labwork significant for slightly elevated white count, CT scan showing cholelithiasis with possible cholecystic lfuid suspicious for acute cholecysitis. Lives at home with his , 10 pack year smoking history 45 years ago. no drinking or drug use. Retired from [employer], Would like to be a full code Principal Diagnosis cholecystitis Discharge Exam gen aaox3 pleasant nad heent nc at mmm breathing unlabored no accessory muscles good effort skin no rashes no pallor or icterus neuro no focal deficits. abd soft mild distention nontender no guarding no rebound no masses Discharge Data Allergies Allergy/AdvReac Type Severity Reaction Status Date / Time scallops AdvReac Mild VOMITING Verified 01/26/20 20:36 Consultations 01/26/20 20:06 ED Decision to Admit Stat 01/26/20 23:30 Consult General Surgery Routine Procedures Performed Operation Date: 01/27/20 10:30 Actual Procedures p Laparoscopic Cholecystectomy - Alexandra Wren MD Ordered Studies 01/26/20 18:10 CT abd pelvis wo con Stat 01/26/20 19:35 US gallbladder Urgent Hospital Course (1) Acute cholecystitis due to biliary calculus: doing well POD#2 s/p cholecystectomy stable for home PO abx outpt surgery and PCP f/u (2) Inflammatory arthritis: hold methotrexate while on augmentin, otherwise stable (3) Constipation: discussed titrating dosing of miralax (4) Diabetes: outpt f/u Total Time Total Time Spent Total Time Spent (In Minutes): <30 Discharge Plan Discharge Items Patient Disposition: Home - Self-Care Reason For Visit: CHOLECYSTITIS Discharge Diagnosis: Acute gangrenous cholecystitis s/p cholecystectomy Activity: Resume your previous activity Non-emergency contact: Primary Care Provider Call non-emergency contact if: you have any medication questions and your symptoms worsen Follow-up/Referrals: Jak Hsu MD [Primary Care Provider] - 02/04/20 9:00 am Alexandra Wren MD [Physician] - Diet: Carb Consistent or DM2 Addtl Attending Provider Instructions: You were admitted for a gallbladder infection. The surgical team removed your gallbladder. You tolerated the procedure well and you have been recovering very well. We'll need to have you finish another 5 days of antibiotics (augmentin -- next dose tonight) -- please note - do not take your methotrexate or enbrel until a week after you're done with the antibiotics Please follow up with your primary care physician within one week. If you have any questions or concerns, please direct them to your primary care physician. If you experience an emergency, immediately call 911 or go to the nearest emergency department. Pending Studies at Discharge: No Stand-Alone Forms: [facility] [employer], Smoking Cessation Medications and DC Order Prescriptions: New amoxicillin-pot clavulanate [Augmentin] 875-125 mg tablet 1 tab PO BID Qty: 10 RF: 0 Continued finasteride [Proscar] 5 mg tablet 5 mg PO QAM Qty: 90 RF: 3 lisinopril [Zestril] 10 mg tablet 10 mg PO HS Qty: 90 RF: 3 tamsulosin [Flomax] 0.4 mg capsule 0.4 mg PO HS Qty: 90 RF: 3 metformin 500 mg tablet extended release 24 hr 500 mg PO QPM Qty: 30 RF: 6 (DME) blood-glucose meter [OneTouch Verio Flex meter] [facility] [place] See Rx Instructions .ROUTE .MEDSUPPLY Qty: 1 RF: 0 ascorbate calcium (vitamin C) 500 mg tablet 500 mg PO QAM RF: 0 (DME) OneTouch Verio test strips strip See Dose Instructions .ROUTE .MEDSUPPLY Qty: 10 RF: 0 (DME) lancets [OneTouch Delica Lancets] 33 gauge misc See Dose Instructions .ROUTE .MEDSUPPLY Qty: 100 RF: 0 pantoprazole [Protonix] 40 mg tablet,delayed release (DR/EC) 40 mg PO BID Qty: 180 RF: 3 bisacodyl 5 mg Tablet 20 mg PO HS RF: 0 PreserVision AREDS-2 [id number] Capsule 1 tab PO BID RF: 0 cholecalciferol (vitamin D3) [Vitamin D3] 2,000 unit capsule 2,000 unit PO QAM RF: 0 atorvastatin 40 mg Tablet 20 mg PO HS RF: 0 folic acid 1 mg Tablet 1 mg PO QAM RF: 0 methotrexate (PF) 25 mg/0.5 mL Auto-Injector 25 mg SUBCUT WK RF: 0 Enbrel 25 mg/0.5 mL (0.5) Syringe 0 mg SUBCUT WK RF: 0 glipizide 5 mg tablet extended release 24hr 5 mg PO HS RF: 0 Discharge Orders: Discharge Order (Routine); Ordered 01/29/20 Ordered By: Juan Pablo Cole/Other Patient Handouts: DVT Post Op Prevention, Managing Type 2 Diabetes Admission Data Admit Date/Time: 01/26/20 21:45 Attending Provider: Juan Pablo Levin Admit Provider: Justus Perkins Primary Care Provider: Jak Hsu Other Providers: Lincoln Vasquez ; Kofi Crump ; Salina Joshua Other Interventions: Discharge Summary Assessment (RN) Last Done: 01/29/20 14:50 Coding Level of Care Code D/C Day Management <30 mins Diagnoses Acute cholecystitis due to biliary calculus K80.00 Inflammatory arthritis M19.90 Constipation K59.00 Diabetes E11.9 Diabetes mellitus type: type 2 Diabetes mellitus rodent exterminator insulin use: without long-term use Diabetes mellitus complication status: without complication
== END 2020-01-29 15:35 | disposition home or self-care (01) | DRG 419 ==
LOC: ED 18:01 → SUATTDRO 21:45 → 3E 21:45

== ENCOUNTER 2024-05-27 12:21 | Observation (INO) ==
[2024-05-27 13:40] LABS: Basophils # (auto) 0.05 K/uL (0.00-0.20); Basophils % (auto) 0.7 %; Eosinophils # (auto) 0.15 K/uL (0.00-0.50); Eosinophils % (auto) 2.2 %; Hematocrit (blood only) 42.5 % (42.0-52.0); Hemoglobin 14.9 g/dl (14.0-18.0); Immature Granulocytes # (auto) 0.01 K/uL (0.01-0.20); Immature Granulocytes % (auto) 0.1 %; Lymphocytes # (auto) 1.79 K/uL (1.20-3.40); Lymphocytes % (auto) 26.1 %; Mean Corpuscular Hemoglobin 30.9 pg (25.0-34.0); Mean Corpuscular Hgb Conc 35.1 g/dL (32.0-36.0); Mean Corpuscular Volume 88.2 fL (80.0-100.0); Mean Platelet Volume 11.4 fL (9.4-12.4); Monocytes # (auto) 1.12 K/uL (0.11-0.59); Monocytes % (auto) 16.3 %; Neutrophils # (auto) 3.75 K/uL (1.40-6.50); Neutrophils % (auto) 54.6 %; Platelet Count 168 K/uL (130-400); RDW Coefficient of Variation 13.5 % (11.5-14.5); RDW Standard Deviation 43.8 fL (36.4-46.3); Red Blood Count 4.82 M/uL (4.70-6.10); White Blood Count 6.87 K/ul (4.8-10.8)
[2024-05-27 14:00] LABS: Albumin Globulin Ratio 1.7 (0.9-2); BUN Creatinine Ratio 16.3 (10-20); Bilirubin,Total 0.6 mg/dl (0.2-1.0); Creatinine Clr Calc Pharmacy 60.2 ml/min; Globulin 2.4 gm/dl (2.5-4.0); Magnesium 1.9 mg/dl (1.7-2.4); Potassium 3.9 mmol/L (3.5-5.1); Total Protein 6.4 gm/dl (6.0-8.3)
[2024-05-27 14:06] LABS: Partial Thromboplastin Ratio 0.9; Partial Thromboplastin Time 25 Seconds (21-31); Prothrombin Time 11.2 Seconds (9.0-12.0); Troponin I High Sensitivity 10.3 pg/ml (0-20)
[2024-05-27] MEDS: OPTIRAY 320 125ml IV ONE (14:42)
--- NOTE | 2024-05-27 15:03 | CT Scan Report ---
EXAM: CT Head Without Intravenous Contrast INDICATION: Double vision for 2 days. TECHNIQUE: Axial computed tomography images of the head/brain without intravenous contrast. Sagittal and/or coronal reformats are provided. Sagittal and coronal reformatted images were created and reviewed. This CT exam was performed using one or more of the following dose reduction techniques: automated exposure control, adjustment of the mA and/or kV according to patient size, and/or use of iterative reconstruction technique. COMPARISON: 09/02/2022 FINDINGS: Limitations: None. Brain and extra-axial spaces: There is age appropriate cortical atrophy and chronic ischemic periventricular white matter hypodensity. No acute infarct, hemorrhage or mass noted. Bones/joints: No acute changes. Soft tissues: No significant abnormality noted. Vasculature: No acute abnormality noted. Sinuses: No layering fluid in the visualized portions of the paranasal sinuses. Mastoid air cells: Stable mild chronic mucosal thickening left mastoid air cells. No mastoid effusion. Orbits: No significant abnormality noted. IMPRESSION: Cerebral atrophy. No acute changes. ACT 112: Negative or not required by law. Electronically signed by Amara Newton 05-27-2024 3:03 PM
--- NOTE | 2024-05-27 15:03 | CT Scan Report ---
EXAM: CT Angiography Head and Neck With Intravenous Contrast INDICATION: Double vision for 2 days. TECHNIQUE: [place]/head and neck CT angiography protocol performed with intravenous contrast. Sagittal and coronal reformatted images were created and reviewed. This CT exam was performed using one or more of the following dose reduction techniques: automated exposure control, adjustment of the mA and/or kV according to patient size, and/or use of iterative reconstruction technique. MIP reconstructed images were created and reviewed. CONTRAST: 119ml of Optiray 320 was administered intravenously. COMPARISON: None. FINDINGS: HEAD: Right anterior cerebral artery: No abnormality noted. No occlusion or significant stenosis. Anterior communicating artery is present. No aneurysm. Right middle cerebral artery: No abnormality noted. No occlusion or significant stenosis. No aneurysm. Right posterior cerebral artery: No abnormality noted. No occlusion or significant stenosis. No aneurysm. Right intracranial internal carotid artery: Diffuse mild calcified plaque. No significant stenosis. No dissection or occlusion. Right intracranial vertebral artery: No abnormality noted. No significant stenosis. No dissection or occlusion. Left anterior cerebral artery: No abnormality noted. No occlusion or significant stenosis. No aneurysm. Left middle cerebral artery: No abnormality noted. No occlusion or significant stenosis. No aneurysm. Left posterior cerebral artery: No abnormality noted. No occlusion or significant stenosis. No aneurysm. Left intracranial internal carotid artery: Diffuse mild calcified plaque. No significant stenosis. No dissection or occlusion. Left intracranial vertebral artery: No abnormality noted. No significant stenosis. No dissection or occlusion. Basilar artery: No abnormality noted. No occlusion or significant stenosis. No aneurysm. Other vasculature: Normal appearance of the ophthalmic arteries. No vascular malformation. NECK: Right common carotid artery: No abnormality noted. No significant stenosis. No dissection or occlusion. Right extracranial internal carotid artery: Minimal mixed plaque at the bulb. No significant stenosis. No dissection or occlusion. Right external carotid artery: No abnormality noted. No occlusion. Right extracranial vertebral artery: No abnormality noted. No significant stenosis. No dissection or occlusion. Left common carotid artery: No abnormality noted. No significant stenosis. No dissection or occlusion. Left extracranial internal carotid artery: Minimal mixed plaque at the bulb. No significant stenosis. No dissection or occlusion. Left external carotid artery: No abnormality noted. No occlusion. Left extracranial vertebral artery: No abnormality noted. No significant stenosis. No dissection or occlusion. Lung apices: No significant abnormality noted. HEAD and NECK: Bones/joints: No significant abnormality. Soft tissues: No abnormality noted. CAROTID STENOSIS REFERENCE USING NASCET CRITERIA: % ICA stenosis = (1 - narrowest ICA diameter/diameter of distal cervical ICA) x 100. Mild - <50% stenosis. Moderate - 50-69% stenosis. Severe - 70-94% stenosis. Near occlusion - 95-99% stenosis. Occluded - 100% stenosis. IMPRESSION: No significant angiographic abnormality in the head or neck. ACT 112: Negative or not required by law. Electronically signed by Amara Newton 05-27-2024 3:03 PM
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
[2024-05-27] MEDS: ASPIRIN 81 MG CHEW PO STA (16:19)
[2024-05-27] MEDS: CLOPIDOGREL BISULFATE 300 MG TAB PO STA (16:19)
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
[2024-05-27] MEDS ORDERED: PHARMACIST DISCHARGE MED REC CONSULT PRN (19:22)
[2024-05-27] MEDS ORDERED: PHARMACY GLYCEMIC MGMT CONSULT PRN (19:28)
[2024-05-27] MEDS ORDERED: GLUCAGON FOR INJ 1 MG VIAL SQ PRN (19:28)
[2024-05-27] MEDS ORDERED: DEXTROSE 50% 50 ML SYRINGE IV PRN (19:28)
[2024-05-27] MEDS ORDERED: CARBOHYDRATES FOR HYPOGLYCEMIA PO PRN (19:28)
[2024-05-27] MEDS ORDERED: GLUCOSE 10 TAB/TUBE PO PRN (19:28)
[2024-05-27] MEDS ORDERED: GLUCOSE 40% GEL 15 GM TUBE PO PRN (19:28)
--- NOTE | 2024-05-27 20:18 | Magnetic Resonance Report ---
EXAM: MR brain wo/w con CLINICAL HISTORY: Left lateral diplopia? CVA TECHNIQUE: MRI of the brain was performed with and without intravenous contrast administration 10.5 ml Gadavist. Sequences obtained include pre-contrast and post-contrast T1-weighted, T2-weighted, FLAIR (Fluid-Attenuated Inversion Recovery), DWI (Diffusion-Weighted Imaging), and ADC (Apparent Diffusion Coefficient) sequences. COMPARISON: CT on the same day 14:49:00 SAND TESTER. FINDINGS: Brain Parenchyma: No evidence of acute infarction or hemorrhage. Boyd-white matter differentiation is preserved. OBX.5.1OBX.5.1.1Bilateral frontoparietal tiny foci of abnormal high T2 /OBX.5.1.1OBX.5.1.2 FLAIR signal. likely old lacunar infarcts. /OBX.5.1.2/OBX.5.1 Post-Contrast Findings: No abnormal enhancement of the brain parenchyma or meninges. Ventricles and Sulci: Ventricular system is within normal limits without evidence of hydrocephalus. Sulci and cisternal spaces are age-appropriate. Brainstem and Cerebellum: Normal appearance of the brainstem and cerebellum without focal lesions or abnormal enhancement. Vessels: Intracranial vessels appear normal without evidence of vascular malformations or aneurysms. Orbits : Mild distension of both optic sheaths by a thin rim of fluid. Skull and Calvarium: No evidence of skull vault lesions or abnormal marrow signal within the calvarium. Partial empty sella. Fluid in bilateral mastoid air cells, slightly more on the left side representing features of bilateral mastoiditis. IMPRESSION: 1. No evidence of acute intracranial pathology or abnormal contrast enhancement. 2. Partial empty sella with mild distension of both optic sheaths by a thin rim of fluid. possibly an element of idiopathic intracranial hypertension. correlate clinically. seen by MRI. 3. 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 seen by MRI. 4. bilateral mastoiditis Electronically signed by Hernando Sidhu 05-27-2024 8:18 PM
[2024-05-27] MEDS: TAMSULOSIN HCL 0.4 MG CAP PO SCH (20:35)
[2024-05-27] MEDS: ATORVASTATIN 20 MG TAB PO SCH (20:35)
[2024-05-27] MEDS: bisacodyL 5 MG TABEC PO SCH (20:35)
[2024-05-27] MEDS: INSULIN ASPART PER UNIT CHARGE SC SCH (20:45)
[2024-05-28 05:59] LABS: Basophils # (auto) 0.08 K/uL (0.00-0.20); Basophils % (auto) 0.9 %; Eosinophils # (auto) 0.21 K/uL (0.00-0.50); Eosinophils % (auto) 2.4 %; Hematocrit (blood only) 41.4 % (42.0-52.0); Hemoglobin 14.7 g/dl (14.0-18.0); Immature Granulocytes # (auto) 0.02 K/uL (0.01-0.20); Immature Granulocytes % (auto) 0.2 %; Lymphocytes # (auto) 1.75 K/uL (1.20-3.40); Lymphocytes % (auto) 20.3 %; Mean Corpuscular Hemoglobin 31.6 pg (25.0-34.0); Mean Corpuscular Hgb Conc 35.5 g/dL (32.0-36.0); Mean Platelet Volume 11.8 fL (9.4-12.4); Monocytes # (auto) 1.32 K/uL (0.11-0.59); Monocytes % (auto) 15.3 %; Neutrophils # (auto) 5.23 K/uL (1.40-6.50); Neutrophils % (auto) 60.9 %; Platelet Count 172 K/uL (130-400); RDW Coefficient of Variation 13.5 % (11.5-14.5); RDW Standard Deviation 43.9 fL (36.4-46.3); Red Blood Count 4.65 M/uL (4.70-6.10); White Blood Count 8.61 K/ul (4.8-10.8)
[2024-05-28 06:28] LABS: Anion Gap 6 (3-11); BUN Creatinine Ratio 13.2 (10-20); Blood Urea Nitrogen 15 mg/dl (6-23); Calcium 8.5 mg/dl (8.6-10.3); Carbon Dioxide 31 mmol/L (21-32); Chloride 104 mmol/L (98-107); Chol HDL Ratio 3.7 (0-5); Cholesterol 101 mg/dl (0-200); Creatinine Clr Calc Pharmacy 54.4 ml/min; Glucose 124 mg/dl (70-99(Fasting)); HDL Cholesterol 27 mg/dl; LDL Cholesterol Calculated 38 mg/dl; Sodium 141 mmol/L (136-145); Triglycerides 181 mg/dl (0-150); VLDL Cholesterol 36 mg/dl (0-30)
[2024-05-28 07:32] LABS: Estimated Average Glucose 169 mg/dl; Hemoglobin A1C 7.5 % (4.5-5.6)
--- NOTE | 2024-05-28 08:22 | Hospitalist Progress Note ---
Date of Service May 28, 2024 Assessment & Plan (1) Diplopia: Plan: Binocular diplopia worse on left lateral gaze due to decreased movement of the lateral rectus muscle of his left eye which resolves on covering his right eye, otherwise without and focal neurological deficits on exam. Hx follicular lymphoma and rituximab use w/ Dr Izaguirre at baseline, last administration ~3 weeks ago. Can cause mastoiditis as complication to note as well as PML Was just to eye [facility] in [place] ~2 weeks ago without issue. Stroke admission set utilized CT head/CTA head/neck without acute CVA or significant stenosis appreciated MRI brain w/w/o noting no acute intracranial pathology or abn contrast enhancement. noted partial empty sella w/ mild distension of both optic sheaths by thin rim of fluid, possibly element of idiopathic intracranial HTN. Bilateral cerebral tiny foci of abn signal likely old lacunar infarcts. Can have link w/ partial empty bassam and increased intracranial pressure which could also contribute to sx Placed on Plavix along with home aspirin, continued Lipid panel acceptable with cholesterol total 101, LDL 38. HDL 27. Noted TRG elevation 181/consider fenofibrate. Remains on atorvastatin 20mg daily ECHO pending Neurology consulted, idiopathic/no need for DAPT and can have work-up outpatient? Feel need further eval ongoing diplopia, Lyme testing added given francisca (no exposure reported/rash on exam) --> Negative Dr Izaguirre from heme/onc consulted to weigh in on mastoiditis/MRI findings as mastoiditis can cause 6th nerve palsy but doesn't examine as such/no hearing loss/mastoid pain/neck pain reported. Also ?related to his chemotherapy. Will need f/u ophthalmology, CM notified to arrange. Likely would arrange for holter monitor given lacunar infarcts/no hx afib to eval for any issue. continue on telemetry PT/OT consulted/pending [facility] dc in AM Notable does have prior carotid doppler w/ mild-mod stenosis on left side from March but no report on CTA head/neck for significant finding (2) Diabetes type 2, controlled: Plan: A1c 7.4, stable 7.5 on repeat. On glipizide/metformin at baseline and have been held on admission and pharmacy consulted for glycemic control Plan Dispo: continued inpatient stay, oncology consult pending and ECHO pending [facility] dc 05/29 Admission and Anticipated Discharge Date Admission Date: May 27, 2024 Supervising Physician Co-Signing Physician Notes The patient was not seen by me. The chart was reviewed. Case discussed with HANNAH Simons. Agree with assessment and plan Subjective Eval this morning, continues with diplopia, pupils equal/reactive but sluggish. Pain reported behind his left eye. MRI negative for acute stroke, notes mastoiditis, no ear/neck pain, no drainage/redness. Does have hx follicular lymphoma and on rituximab therapy, has gotten >6 treatments without issues in the past, last treatment ~3 weeks ago. Discussed I messaged DR Izaguirre to review as could be complication. Neurology saw/rec outpatient treatment/no need for DAPT at this time. Does follow w/ eye doctor was about 2 weeks ago and wasn't having issues at that time. Location near [facility] in [place]. Does have some leg edema, on lasix at baseline. Physical Exam 2 Constitutional: WD/WN, vitals as above ENMT: eyes with pupils equal, no nystagmus, left eye lateral movement palsy/diplopia worsened with such. +double vision, no field cuts no tenderness to mastoid process bilaterally, no decreased hearing/drainage/erythema Respiratory: normal respiratory effort, lungs clear to auscultation Cardiovascular: Rate/Rhythm: regular rhythm and + bradycardic Heart Sounds: + murmur Extremities: normal capillary refill and + pedal edema (1+ bilateral, baseline edema with patient/lasix use reported); no calf tenderness Gastrointestinal (Abdomen): normal bowel sounds, soft, nontender, no hepatosplenomegaly Musculoskeletal: no cyanosis or clubbing, extremities motor strength 5/5 Skin: no rashes, warm and dry Neurologic: moves all extremities and awake; no focal motor deficits and not confused Speech / Cognition: normal speech Motor/Sensory: no tremor, no pronator drift and no sensory deficit Cranial Nerves: PERRL, normal facial strength, tongue midline, able to rotate head bilaterally, able to elevate shoulders bilaterally, no nystagmus and symmetric palate elevation; + EOM not intact (left sided diplopia with left eye lateral movement palsy, resolves with mon) Coordination: normal astijs-ys-bpan test Psychiatric: A+Ox3, euthymic affect Results & Data Results & Data Vital Signs (Past 12 Hours) Vital Signs Temp Pulse Pulse Resp BP BP Pulse Ox 02/10/25 07:55 50 L 05/28/24 07:40 36.6 C 57 L 16 111/60 94 05/28/24 03:01 05/28/24 03:01 36.3 C L 51 L 18 176/80 H 96 05/28/24 02:06 48 L 20 140/75 97 05/28/24 01:30 51 L 12 149/70 H 95 05/28/24 01:00 50 L 12 135/70 98 05/28/24 00:30 72 21 142/72 H 97 05/27/24 23:30 50 L 14 135/91 95 05/27/24 23:00 54 L 14 149/85 H 95 05/27/24 23:00 49 L 18 149/85 H 96 05/27/24 22:46 54 L 20 148/75 H 94 O2 Del Method 05/28/24 07:55 05/28/24 07:40 Room Air 05/28/24 03:01 Room Air 05/28/24 03:01 Room Air 05/28/24 02:06 Room Air 05/28/24 01:30 05/28/24 01:00 05/28/24 00:30 05/27/24 23:30 05/27/24 23:00 05/27/24 23:00 05/27/24 22:46 Room Air Laboratory Results 05/28/24 05:29 05/28/24 06:57 Diagnostic Findings Brain MRI 05/27/24 15:54 EXAM: MR brain wo/w con CLINICAL HISTORY: Left lateral diplopia? CVA TECHNIQUE: MRI of the brain was performed with and without intravenous contrast administration 10.5 ml Gadavist. Sequences obtained include pre-contrast and post-contrast T1-weighted, T2-weighted, FLAIR (Fluid-Attenuated Inversion Recovery), DWI (Diffusion-Weighted Imaging), and ADC (Apparent Diffusion Coefficient) sequences. COMPARISON: CT on the same day 14:49:00 VAT OVERHAULER. FINDINGS: Brain Parenchyma: No evidence of acute infarction or hemorrhage. Boyd-white matter differentiation is preserved. OBX.5.1OBX.5.1.1Bilateral frontoparietal tiny foci of abnormal high T2 /OBX.5.1.1OBX.5.1.2 FLAIR signal. likely old lacunar infarcts. /OBX.5.1.2/OBX.5.1 Post-Contrast Findings: No abnormal enhancement of the brain parenchyma or meninges. Ventricles and Sulci: Ventricular system is within normal limits without evidence of hydrocephalus. Sulci and cisternal spaces are age-appropriate. Brainstem and Cerebellum: Normal appearance of the brainstem and cerebellum without focal lesions or abnormal enhancement. Vessels: Intracranial vessels appear normal without evidence of vascular malformations or aneurysms. Orbits : Mild distension of both optic sheaths by a thin rim of fluid. Skull and Calvarium: No evidence of skull vault lesions or abnormal marrow signal within the calvarium. Partial empty sella. Fluid in bilateral mastoid air cells, slightly more on the left side representing features of bilateral mastoiditis. IMPRESSION: 1. No evidence of acute intracranial pathology or abnormal contrast enhancement. 2. Partial empty sella with mild distension of both optic sheaths by a thin rim of fluid. possibly an element of idiopathic intracranial hypertension. correlate clinically. seen by MRI. 3. 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 seen by MRI. 4. bilateral mastoiditis Electronically signed by Hernando Sidhu 05-27-2024 8:18 PM PG Care Time/CCT Total # of Minutes Spent Total Time Spent with Patient: Total time spent is greater than 50% in coordination of care (as documented) at patient's floor/unit and/or counseling patient: Coding Level of Care Code 51965 SUB INP/OBS CARE 3/50MIN Diagnoses Diplopia H53.2 Controlled type 2 diabetes mellitus without complication, without long-term current use of insulin E11.9 Diabetes mellitus complication status: without complication Diabetes mellitus nursing home insulin use: without intermediate accountant use (2) Diabetes type 2, controlled Diabetes mellitus complication status: without complication Diabetes mellitus nursing home insulin use: without intermediate accountant use Qualified Code(s): E11.9 - Type 2 diabetes mellitus without complications
[2024-05-28] MEDS: FUROSEMIDE 40 MG TAB PO SCH (09:28)
[2024-05-28] MEDS: LOSARTAN POTASSIUM 25 MG TAB PO SCH (09:28)
[2024-05-28] MEDS: PANTOprazole 40 MG TAB PO SCH (09:28)
[2024-05-28] MEDS: ASPIRIN 81 MG ECTAB PO SCH (09:28)
[2024-05-28] MEDS: CLOPIDOGREL BISULFATE 75 MG TAB PO SCH (09:28)
--- NOTE | 2024-05-28 09:55 | Neurology Consultation ---
Date of Consultation May 28, 2024 Assessment & Plan (1) Diplopia: History of Present Illness Attending Physician: Donta Metz MD History of Present Illness S: pt with still horizontal diplopia and mri brain negative with ?idiopathic intracranial hypertension ,otherwise negative for stroke. no weakness. chart reviewed. admission HPI: Barney Lofton is an 83 year old who presents with left gaze diplopia starting on Tuesday. Diplopia became worse over the last few days and now although worse with left gaze is present even looking forward. He denies prior cataract surgery which was uncomplicated. No eye pain or redness. No change in speech, vision, hearing, extremity weakness or change in sensation. No fever or chills. No respiratory, gastrointestinal or urinary symptoms. He has no prior history of a stroke or heart attack but has diabetes and high blood pressure. Allergies Allergy/AdvReac Type Severity Reaction Status Date / Time scallops AdvReac Mild Vomiting Verified 02/29/24 10:19 Home Medications Medication Instructions Recorded Confirmed Type vit C 250 mg-vit E 90 mg-zinc 40 1 tab PO BID 09/05/18 05/27/24 History mg-copper 1 [id number] capsule (PreserVision AREDS-2) blood sugar diagnostic (OneTouch #10 ea 11/13/18 01/23/24 History Verio test strips) cholecalciferol (vitamin D3) 50 2,000 unit PO QAM 11/13/18 05/27/24 History mcg (2,000 unit) capsule (Vitamin D3) lancets 33 gauge (OneTouch Delica #100 ea 11/13/18 01/23/24 History Lancets) blood-glucose meter (OneTouch #1 ea 12/26/19 01/23/24 Rx Verio Flex Meter) blood-glucose meter #1 ea 10/15/20 01/23/24 History aspirin 81 mg tablet,delayed 81 mg PO QAM 12/25/21 05/27/24 History release cyanocobalamin (vitamin B-12) 1,000 mcg PO QAM 09/02/22 05/27/24 History 1,000 mcg tablet (Vitamin B-12) bisacodyl 5 mg tablet,delayed 10 mg PO HS 10/13/22 05/27/24 History release pantoprazole 40 mg tablet,delayed 40 mg PO QAM #90 tabs 05/26/23 05/27/24 Rx release (Protonix) glipizide 10 mg tablet, extended 10 mg PO QAM #90 tabs 07/26/23 05/27/24 Rx release 24 hr atorvastatin 20 mg tablet 20 mg PO HS #100 tabs 10/04/23 05/27/24 Rx losartan 25 mg tablet 25 mg PO QAM #90 tabs 12/29/23 05/27/24 Rx furosemide 20 mg tablet 40 mg (2 x 20 mg) PO QAM #180 tabs 12/30/23 05/27/24 Rx metformin 500 mg tablet,extended 500 mg PO BID #180 tabs 01/17/24 05/27/24 Rx release 24 hr tamsulosin 0.4 mg capsule 0.4 mg PO HS #90 caps 04/05/24 05/27/24 Rx Patient History Medical History Stomach ulcer "No causing any issues currently" Diabetes mellitus, type 2 Dysphagia [place] r/t previous UPPP Carotid bruit History of COVID-19 07/2021, symptoms resolved Rheumatoid arthritis Obesity Hx of sleep apnea s/p UPPP/tonsillectomy (10+ years ago) CPAP device not being used, "going to return" History of kidney stones Chronic back pain Surgical History S/P lymph node biopsy (12/21/22) Biopsy of Left Inguinal Lymph Node(Left) - Joe Truong, Hx of lithotripsy History of anesthesia reaction Patient reports issues with shoulder block ([place]) but states he does not have any further details History of cholecystectomy Status post arthroscopic surgery of left knee History of esophagogastroduodenoscopy (EGD) History of colonoscopy History of total knee replacement Left TKA History of tonsillectomy + UPPP History of carpal tunnel release of both wrists Hx of shoulder surgery Right x2, Left x1 History of total right knee replacement Hx of bilateral cataract extraction Family History Mother Osteoporosis Coronary heart disease Heart disease Brother , MVA No problems noted. Brother No problems noted. Father , cancer Cancer Sister No problems noted. Other Family history non-contributory No family history of adverse response to anesthesia Denies family history of Ovarian cancer Prostate cancer Diabetes Crohn's disease Breast cancer Colorectal cancer Hypertension Ulcerative colitis Stroke Social History Smoking Status: Former smoker Tobacco Type: Cigarettes packs per day: 1; Second Hand Exposure: No; Do You Dip or Chew Tobacco: No; Hx Alcohol Use: No Hx Substance Use: No Preferred Language: Japanese Communication Ability: Effective Visual Impairment: No Limitations Hearing Ability: Normal Contract Technical Writer Required: No Beliefs That Will Affect Care: None marital status: Current Living Situation: Spouse current occupational status: retired How many Children do You have: 3 How many Children do You have Comment: Boys Other Information That Helps Us Care for You: No Feels Safe at Home: Yes Safety Concerns: Feels Safe At This Time Childhood Exposure to Second-Hand Smoke: Yes Diet: diabetic caffeine: Yes during the past year weight has: remained stable Dental Care, Regularly: Yes Physical Activity Frequency: Does not Exercise Seatbelt Use: always Sunscreen Use: No Assistive Devices: Glasses Exam (Neuro) Physical Exam: HEENT: normocephalic grossly Neuro: Mental: AOx4, fluent speech, normal comprehension, no apraxia, no L/R confusion, no neglect CN: PERRL, Full EOM except left eye abduction limitation, symmetric face, midline T/U/P, grossly full ROM neck Motor: No abnormal movements, normal tone, 5/5 t/o bilaterally Sens: intact to touch b/l grossly Coord: intact FNT b/l DTR: 2+ sym b/l Impression: 83 yo male with acute onset of left CN palsy with horizontal diplopia in setting of hx of DM, follicular lymphoma on rituximab. No suggestion of stroke . Etiology for idiopathic/spontaneous CN Palsy can be long but given his hx of immunocompromised and DM, they likely contribute. MRI suggestion of idopathic intracranial hypertension will need to be monitor for now and less likely issue at this point. Recommendations: no further inpt work up needed at this point. clinically follow and f/u with ophthalmology outpt. routine f/u with neurology is ok continue f/u with Oncology for possible lymphoma spread to CN space/brain for possible cause in the future. please call again if new question. Chart reviewed I have spent more than 50% educating patient about potential diagnosis and neurological evaluation and coordinating care with patient's treatment team. Total time spent (including chart review and coordination of care): 60 min (this includes chart review). Results & Data Vital Signs (Past 12 Hours) Vital Signs Temp Pulse Pulse Resp BP BP Pulse Ox 05/28/24 07:55 50 L 05/28/24 07:40 36.6 C 57 L 16 111/60 94 05/28/24 03:01 05/28/24 03:01 36.3 C L 51 L 18 176/80 H 96 05/28/24 02:06 48 L 20 140/75 97 05/28/24 01:30 51 L 12 149/70 H 95 05/28/24 01:00 50 L 12 135/70 98 05/28/24 00:30 72 21 142/72 H 97 05/27/24 23:30 50 L 14 135/91 95 05/27/24 23:00 54 L 14 149/85 H 95 05/27/24 23:00 49 L 18 149/85 H 96 05/27/24 22:46 54 L 20 148/75 H 94 O2 Del Method 05/28/24 07:55 05/28/24 07:40 Room Air 05/28/24 03:01 Room Air 05/28/24 03:01 Room Air 05/28/24 02:06 Room Air 05/28/24 01:30 05/28/24 01:00 05/28/24 00:30 05/27/24 23:30 05/27/24 23:00 05/27/24 23:00 05/27/24 22:46 Room Air PG Care Time/CCT Total # of Minutes Spent Total Time Spent with Patient: Total time spent is greater than 50% in coordination of care (as documented) at patient's floor/unit and/or counseling patient: Coding Level of Care Code 17730 IN/OBS CONSULT LVL 4,60M Diagnoses Diplopia H53.2
--- NOTE | 2024-05-28 12:16 | Pharmacy Report ---
Pharmacy Glycemic Short Note 2 - Date of Service May 28, 2024 - Glycemic Short BSG Results (Last 24 hours): 05/27/24 05/27/24 05/28/24 13:24 20:39 05:29 Glucose 163 H 124 H POC Glucose 253 H 05/28/24 08:11 Glucose POC Glucose 124 H OUTPATIENT ANTIDIABETIC REGIMEN: * glipizide ER 10mg po QAM * metformin ER 500mg po BID HbA1c 7.5% on 05/28/24 ASSESSMENT: * 83 year old male admitted 05/27 for possible acute CVA. Pharmacy will consulted for glycemic management while he is admitted. * BSG was 253mg/dL last evening. No basal insulin was given and Novolog was initiated with a weight based dosing with a stress of ~2. * Patient only received 6 units of insulin total yesterday (all bolus) and fasting BSG was 124mg/dL this morning. Due to this rapid reduction in BSG with a small dose of bolus insulin the parameters of the bolus insulin have been loosened starting at lunch time today. * Will not add basal insulin at this time. PLAN FOR INPATIENT GLYCEMIC CONTROL: * Hold outpatient oral diabetes medications * Basal insulin * hold * Bolus insulin * NovoLog per scale ACHS or Q6hrs while NPO * Goal Range: Low 110 mg/dL - High 140 mg/dL * Correction Factor: 30 mg/dL/unit * Nutritional / Prandial insulin per carb ratio of 1 unit per 10 grams CHO consumed
--- NOTE | 2024-05-28 16:12 | Communication Note ---
Date of Service: May 28, 2024 Discussed w/ Dr Izaguirre, no concerns for PML on brain MRI Rec for Augmentin for mastoiditis, prednisone. can dc on augmentin/pred taper, outpt f/u for ongoing rituximab
[2024-05-28] MEDS: predniSONE 20 MG TAB PO SCH (18:05)
[2024-05-28] MEDS: AMOXICILLIN/CLAVULANATE 875 MG TAB PO SCH (18:05)
--- NOTE | 2024-05-28 22:55 | XCELERA ---
[id number]
[2024-05-29 07:32] VITALS: O2SAT 92
[2024-05-29 07:50] LABS: Basophils # (auto) 0.02 K/uL (0.00-0.20); Basophils % (auto) 0.1 %; Hematocrit (blood only) 43.8 % (42.0-52.0); Hemoglobin 15.4 g/dl (14.0-18.0); Immature Granulocytes # (auto) 0.05 K/uL (0.01-0.20); Immature Granulocytes % (auto) 0.4 %; Lymphocytes # (auto) 1.42 K/uL (1.20-3.40); Lymphocytes % (auto) 10.6 %; Mean Corpuscular Hgb Conc 35.2 g/dL (32.0-36.0); Mean Corpuscular Volume 88.1 fL (80.0-100.0); Mean Platelet Volume 11.8 fL (9.4-12.4); Monocytes # (auto) 0.27 K/uL (0.11-0.59); Neutrophils # (auto) 11.58 K/uL (1.40-6.50); Neutrophils % (auto) 86.9 %; Platelet Count 189 K/uL (130-400); RDW Coefficient of Variation 13.5 % (11.5-14.5); RDW Standard Deviation 43.2 fL (36.4-46.3); Red Blood Count 4.97 M/uL (4.70-6.10); White Blood Count 13.34 K/ul (4.8-10.8)
--- NOTE | 2024-05-29 07:51 | Oncology Consultation ---
Date of Consultation May 29, 2024 History of Present Illness Attending Physician: Taras Morales MD Allergies Allergy/AdvReac Type Severity Reaction Status Date / Time scallops AdvReac Mild Vomiting Verified 02/29/24 10:19 Home Medications Medication Instructions Recorded Confirmed Type vit C 250 mg-vit E 90 mg-zinc 40 1 tab PO BID 09/05/18 05/27/24 History mg-copper 1 [id number] capsule (PreserVision AREDS-2) blood sugar diagnostic (OneTouch #10 ea 11/13/18 01/23/24 History Verio test strips) cholecalciferol (vitamin D3) 50 2,000 unit PO QAM 11/13/18 05/27/24 History mcg (2,000 unit) capsule (Vitamin D3) lancets 33 gauge (OneTouch Delica #100 ea 11/13/18 01/23/24 History Lancets) blood-glucose meter (OneTouch #1 ea 12/26/19 01/23/24 Rx Verio Flex Meter) blood-glucose meter #1 ea 10/15/20 01/23/24 History aspirin 81 mg tablet,delayed 81 mg PO QAM 12/25/21 05/27/24 History release cyanocobalamin (vitamin B-12) 1,000 mcg PO QAM 09/02/22 05/27/24 History 1,000 mcg tablet (Vitamin B-12) bisacodyl 5 mg tablet,delayed 10 mg PO HS 10/13/22 05/27/24 History release pantoprazole 40 mg tablet,delayed 40 mg PO QAM #90 tabs 05/26/23 05/27/24 Rx release (Protonix) glipizide 10 mg tablet, extended 10 mg PO QAM #90 tabs 07/26/23 05/27/24 Rx release 24 hr atorvastatin 20 mg tablet 20 mg PO HS #100 tabs 10/04/23 05/27/24 Rx losartan 25 mg tablet 25 mg PO QAM #90 tabs 12/29/23 05/27/24 Rx furosemide 20 mg tablet 40 mg (2 x 20 mg) PO QAM #180 tabs 12/30/23 05/27/24 Rx metformin 500 mg tablet,extended 500 mg PO BID #180 tabs 01/17/24 05/27/24 Rx release 24 hr tamsulosin 0.4 mg capsule 0.4 mg PO HS #90 caps 04/05/24 05/27/24 Rx Patient History Medical History Stomach ulcer "No causing any issues currently" Diabetes mellitus, type 2 Dysphagia [place] r/t previous UPPP Carotid bruit History of COVID-19 07/2021, symptoms resolved Rheumatoid arthritis Obesity Hx of sleep apnea s/p UPPP/tonsillectomy (10+ years ago) CPAP device not being used, "going to return" History of kidney stones Chronic back pain Surgical History S/P lymph node biopsy (12/21/22) Biopsy of Left Inguinal Lymph Node(Left) - Joe Truong, Hx of lithotripsy History of anesthesia reaction Patient reports issues with shoulder block ([place]) but states he does not have any further details History of cholecystectomy Status post arthroscopic surgery of left knee History of esophagogastroduodenoscopy (EGD) History of colonoscopy History of total knee replacement Left TKA History of tonsillectomy + UPPP History of carpal tunnel release of both wrists Hx of shoulder surgery Right x2, Left x1 History of total right knee replacement Hx of bilateral cataract extraction Family History Mother Osteoporosis Coronary heart disease Heart disease Brother , MVA No problems noted. Brother No problems noted. Father , cancer Cancer Sister No problems noted. Other Family history non-contributory No family history of adverse response to anesthesia Denies family history of Ovarian cancer Prostate cancer Diabetes Crohn's disease Breast cancer Colorectal cancer Hypertension Ulcerative colitis Stroke Social History Smoking Status: Former smoker Tobacco Type: Cigarettes packs per day: 1; Second Hand Exposure: No; Do You Dip or Chew Tobacco: No; Hx Alcohol Use: No Hx Substance Use: No Preferred Language: [place] Communication Ability: Effective Visual Impairment: No Limitations Hearing Ability: Normal Luggage Attendant Required: No Beliefs That Will Affect Care: None marital status: Current Living Situation: Spouse current occupational status: retired How many Children do You have: 3 How many Children do You have Comment: Boys Other Information That Helps Us Care for You: No Feels Safe at Home: Yes Safety Concerns: Feels Safe At This Time Childhood Exposure to Second-Hand Smoke: Yes Diet: diabetic caffeine: Yes during the past year weight has: remained stable Dental Care, Regularly: Yes Physical Activity Frequency: Does not Exercise Seatbelt Use: always Sunscreen Use: No Assistive Devices: Cane, Walker and Wheelchair Results & Data Vital Signs (Past 12 Hours) Vital Signs Temp Pulse Pulse Resp BP BP Pulse Ox 05/29/24 07:30 36.6 C 77 18 151/81 H 92 05/29/24 07:10 76 05/29/24 03:30 36.4 C L 83 20 119/78 94 05/28/24 23:05 36.7 C 75 20 137/81 95 05/28/24 22:00 60 05/28/24 19:55 36.6 C 64 20 128/82 93 O2 Del Method 05/29/24 07:30 Room Air 05/29/24 07:10 05/29/24 03:30 Room Air 05/28/24 23:05 Room Air 05/28/24 22:00 05/28/24 19:55 Room Air
[2024-05-29 08:12] LABS: BUN Creatinine Ratio 18.7 (10-20); Calcium 8.7 mg/dl (8.6-10.3); Creatinine Clr Calc Pharmacy 57.5 ml/min
[2024-05-29] MEDS: INSULIN HUMAN NPH SC SCH (09:15)
--- NOTE | 2024-05-29 10:17 | Pharmacy Report ---
Pharmacy Glycemic Short Note 2 - Date of Service May 29, 2024 - Glycemic Short BSG Results (Last 24 hours): 05/28/24 05/28/24 05/28/24 12:07 16:43 20:37 Glucose POC Glucose 212 H 99 153 H 05/29/24 05/29/24 07:14 07:55 Glucose 242 H POC Glucose 232 H OUTPATIENT ANTIDIABETIC REGIMEN: * glipizide ER 10mg po QAM * metformin ER 500mg po BID * HbA1c 7.5% on 05/28/24 ASSESSMENT: 05/29: * Barney received 20 units of insulin yesterday, all bolus. BSGs were: 368-782-81-153 mg/dL. * Fasting BSG was 232 mg/dL this AM. Patient was started on Prednisone 60 mg PO daily last evening which is likely the cause of elevated fasting today. Due to kinetics of NPH matching Prednisone, will opt for NPH daily dosing while on steroids. Starting with 30 units this morning (0.3 units/kg actual BW; 0.4 u nits/kg adjusted BW). * Will also tighten Novolog to reflect weight/stress of 2 for now given addition of NPH. Remains on Augmentin and tolerating T2DM diet. 05/28: * 83 year old male admitted 05/27 for possible acute CVA. Pharmacy will consulted for glycemic management while he is admitted. * BSG was 253mg/dL last evening. No basal insulin was given and Novolog was initiated with a weight based dosing with a stress of ~2. * Patient only received 6 units of insulin total yesterday (all bolus) and fasting BSG was 124mg/dL this morning. Due to this rapid reduction in BSG with a small dose of bolus insulin the parameters of the bolus insulin have been loosened starting at lunch time today. * Will not add basal insulin at this time. PLAN FOR INPATIENT GLYCEMIC CONTROL: * Hold outpatient oral diabetes medications * Basal insulin * NPH 30 units SC daily (give with prednisone - call pharmacy and hold if prednisone held/discontinued) * Bolus insulin * NovoLog per scale ACHS or Q6hrs while NPO * Goal Range: Low 110 mg/dL - High 140 mg/dL * Correction Factor: 20 mg/dL/unit * Nutritional / Prandial insulin per carb ratio of 1 unit per 7 grams CHO consumed
[2024-05-29 11:06] VITALS: BP 130/73; PULSE 72; RESP 16; TEMP 97.7
--- NOTE | 2024-05-29 18:53 | Discharge Summary ---
Discharge Summary Date of Service May 29, 2024 Principal Dx & Hospital Course #1 = Principal Diagnosis (1) Diplopia: Binocular diplopia worse on left lateral gaze due to decreased movement of the lateral rectus muscle of his left eye which resolves on covering his right eye, otherwise without and focal neurological deficits on exam. Hx follicular lymphoma and rituximab use w/ Dr Izaguirre at baseline, last administration ~3 weeks ago. Was just to eye [facility] in [place] ~2 weeks ago without issue. Stroke workup negative with CT head/CTA head/neck without acute CVA or significant stenosis appreciated, MRI brain noting no acute intracranial pathol ogy or abn contrast enhancement - noted partial empty sella w/ mild distension of both optic sheaths by thin rim of fluid, possibly element of idiopathic intracranial HT. Bilateral cerebral tiny foci of abn signal likely old lacunar infarcts Can have link w/ partial empty bassam and increased intracranial pressure which could also contribute to sx Neurology consulted, idiopathic/no need for DAPT and can have follow-up outpatient Lipid panel acceptable with cholesterol total 101, LDL 38. HDL 27. Noted TRG elevation 181 -- consider fenofibrate outpatient Echo with decreased aortic transvalvuar gradient compared to study from 12/26/23 Lyme testing negative Remains on atorvastatin 20mg daily, aspirin 81 mg daily Dizziness improved with left eye patch, continue during daytime Recommend outpatient ophthalmology, neurology, oncology, and PCP follow-ups Patient instructed not to drive until cleared by ophthalmology Could consider Holter monitor outpatient given lacunar infarcts/no history of A fib, though was without any events on telemetry inpatient (2) Mastoiditis: Brain MRI notes bilateral mastoiditis, though asymptomatic in this regard Discussed with Dr Izaguirre who recommended treatment for mastoiditis Augmentin BID x 10 days total, Prednisone taper x 10 days total (3) Diabetes type 2, controlled: A1c 7.4, stable 7.5 on repeat On glipizide/metformin at home, continue on discharge Plan Dispo: discharged home 05/29/24 Notes For Next Care Provider Consider Holter monitor outpatient given lacunar infarcts/no history of A fib, though was without any events on telemetry inpatient Consider fenofibrate given triglyceride elevation Medication Changes From Visit Prednisone taper and Augmentin BID x 10 days for mastoiditis Admission HPI Per Admitting Provider Barney Lofton is an 83 year old who presents with left gaze diplopia starting on Tuesday. Diplopia became worse over the last few days and now although worse with left gaze is present even looking forward. He denies prior cataract surgery which was uncomplicated. No eye pain or redness. No change in speech, vision, hearing, extremity weakness or change in sensation. No fever or chills. No respiratory, gastrointestinal or urinary symptoms. He has no prior history of a stroke or heart attack but has diabetes and high blood pressure. Discharge Exam General: No acute distress, nondiaphoretic, well-developed, well-nourished. Cardiac: Regular rate and rhythm. Systolic murmur noted. Pulm: Clear to auscultation bilaterally without wheezes, rales or rhonchi. No respiratory distress. 92% on room air. Abdominal: Soft, nontender, nondistended. Bowel sounds present. Neuro: A&O x3. No focal neurological deficits. Dizziness improved/resolved with wearing left eye patch. Discharge Plan Discharge Items Patient Disposition: Home - Self-Care Reason For Visit: ACUTE CVA Discharge Diagnosis: Diplopia Activity: Per Instructions section Non-emergency contact: Primary Care Provider, Neurologist, Oncologist and Jewelry Appraiser Call non-emergency contact if: you have any medication questions and your sympto ms worsen Follow-up/Referrals: Rubén Hsu MD [Primary Care Provider] - 06/05/24 2:00 pm () Konstantin Gleason MD [Physician] - (Follow-up routinely) Jd Izaguirre MD [Physician] - (Follow-up routinely) Diet: Carb Consistent or DM2 and Heart Healthy Addtl Attending Provider Instructions: Mr. Lofton, You were admitted to the hospital due to diplopia (double vision). Luckily, your stroke workup was negative, meaning there was NO stroke identified. Imaging did show mastoiditis on MRI; while you do not display the typical signs or symptoms, the oncologist recommended you receive treatment for mastoiditis. [facility] Upon discharge from the hospital: * Take prednisone (oral steroid) as directed: Take 50 mg (5 pills) x 1 day, then 40 mg (4 pills) x 2 days, then 30 mg (3 pills) x 2 days, then 20 mg (2 pills) x 2 days, then 10 mg (1 pill) x 2 days. * Take Augmentin (oral antibiotic) twice daily x 8 more days. This is to complete treatment for mastoiditis. * Hold taking your PreserVision until seen by an eye doctor in follow-up. * Do not drive until cleared to do so by an eye doctor. * You can continue wearing the eye patch while awake for symptom improvement. * Follow-up with your eye doctor closely after discharge. * Follow-up with neurology routinely outpatient. * Follow-up with Dr. Izaguirre from oncology routinely outpatient. * Follow-up with your PCP in 1-2 weeks. Please return to the hospital if you experience any of the following: Trouble with vision/speech/walking, weakness in arms/face/legs, extreme drowsiness/confusion, chest pain, shortness of breath, passing out, or any other symptoms concerning for you. It was a pleasure taking care of you while you were in the hospital! Pending Studies at Discharge: No Stand-Alone Forms: My [employer], Smoking Cessation Medications and DC Order Prescriptions: New amoxicillin-pot clavulanate 875-125 mg Tablet 1 tab PO BIDM Qty: 18 0RF prednisone 10 mg tablet 10 mg PO DIRECTED Qty: 25 0RF Rx Instructions: Take 50 mg (5 pills) x 1 day, then 40 mg (4 pills) x 2 days, then 30 mg (3 pills) x 2 days, then 20 mg (2 pills) x 2 days, then 10 mg (1 pill) x 2 days. Continued (DME) blood-glucose meter [OneTouch Verio Flex meter] Misc See Rx Instructions .ROUTE .MEDSUPPLY Qty: 1 0RF Rx Instructions: Test twice daily pantoprazole [Protonix] 40 mg tablet,delayed release (DR/EC) 40 mg PO QAM Qty: 90 3RF atorvastatin 20 mg tablet 20 mg PO HS Qty: 100 3RF losartan 25 mg tablet 25 mg PO QAM Qty: 90 3RF furosemide 20 mg tablet 40 mg PO QAM Qty: 180 3RF metformin 500 mg tablet extended release 24 hr 500 mg PO BID Qty: 180 3RF tamsulosin 0.4 mg capsule 0.4 mg PO HS Qty: 90 3RF bisacodyl 5 mg tablet,delayed release (DR/EC) 10 mg PO HS Rx Instructions: Unable to verify OTC meds at this date/time. (DME) OneTouch Verio test strips strip See Dose Instructions .ROUTE .MEDSUPPLY Qty: 10 Rx Instructions: Test blood sugars 2 times a day (DME) lancets [OneTouch Delica Lancets] 33 gauge misc See Dose Instructions .ROUTE .MEDSUPPLY Qty: 100 Rx Instructions: Test blood sugars 2 times a day (DME) blood-glucose meter Misc See Rx Instructions .ROUTE .MEDSUPPLY Qty: 1 Rx Instructions: As directed glipizide 10 mg tablet extended release 24hr 10 mg PO QAM Qty: 90 3RF cholecalciferol (vitamin D3) [Vitamin D3] 2,000 unit capsule 2,000 unit PO QAM Rx Instructions: Unable to verify OTC meds at this date/time. aspirin 81 mg tablet,delayed release (DR/EC) 81 mg PO QAM Rx Instructions: Unable to verify OTC meds at this date/time. cyanocobalamin (vitamin B-12) [Vitamin B-12] 1,000 mcg Tablet 1,000 mcg PO QAM Rx Instructions: Unable to verify OTC meds at this date/time. Held PreserVision AREDS-2 [id number] Capsule 1 tab PO BID Hold Instructions: Provider's Order Rx Instructions: Unable to verify OTC meds at this date/time. Discharge Orders: Discharge Order (Routine); Ordered 05/29/24 Ordered By: Rosa Elena Cole/Other Patient Handouts: ED Double Vision (Diplopia) Admission Data Admit Date/Time: 05/27/24 16:24 Attending Provider: Taras Morales Admit Provider: Taras Cooper Primary Care Provider: Rubén Hsu Other Providers: Konstantin Gleason; Jd Izaguirre Other Interventions: Discharge Summary Assessment (RN) Last Done: 05/29/24 11:49 Hospital Stay Data Consultations 05/27/24 19:22 Consult Neurology Routine 05/28/24 14:04 Consult Oncology Routine Diagnostic Imagining Performed Head CT 05/27/24 13:10 EXAM: CT Head Without Intravenous Contrast INDICATION: Double vision for 2 days. TECHNIQUE: Axial computed tomography images of the head/brain without intravenous contrast. Sagittal and/or coronal reformats are provided. Sagittal and coronal reformatted images were created and reviewed. This CT exam was performed using one or more of the following dose reduction techniques: automated exposure control, adjustment of the mA and/or kV according to patient size, and/or use of iterative reconstruction technique. COMPARISON: 09/02/2022 FINDINGS: Limitations: None. Brain and extra-axial spaces: There is age appropriate cortical atrophy and chronic ischemic periventricular white matter hypodensity. No acute infarct, hemorrhage or mass noted. Bones/joints: No acute changes. Soft tissues: No significant abnormality noted. Vasculature: No acute abnormality noted. Sinuses: No layering fluid in the visualized portions of the paranasal sinuses. Mastoid air cells: Stable mild chronic mucosal thickening left mastoid air cells. No mastoid effusion. Orbits: No significant abnormality noted. IMPRESSION: Cerebral atrophy. No acute changes. ACT 112: Negative or not required by law. Electronically signed by Amara Newton 05-27-2024 3:03 PM Head CTA 05/27/24 13:10 EXAM: CT Angiography Head and Neck With Intravenous Contrast INDICATION: Double vision for 2 days. TECHNIQUE: [place]/head and neck CT angiography protocol performed with intravenous contrast. Sagittal and coronal reformatted images were created and reviewed. This CT exam was performed using one or more of the following dose reduction techniques: automated exposure control, adjustment of the mA and/or kV according to patient size, and/or use of iterative reconstruction technique. MIP reconstructed images were created and reviewed. CONTRAST: 119ml of Optiray 320 was administered intravenously. COMPARISON: None. FINDINGS: HEAD: Right anterior cerebral artery: No abnormality noted. No occlusion or significant stenosis. Anterior communicating artery is present. No aneurysm. Right middle cerebral artery: No abnormality noted. No occlusion or significant stenosis. No aneurysm. Right posterior cerebral artery: No abnormality noted. No occlusion or significant stenosis. No aneurysm. Right intracranial internal carotid artery: Diffuse mild calcified plaque. No significant stenosis. No dissection or occlusion. Right intracranial vertebral artery: No abnormality noted. No significant stenosis. No dissection or occlusion. Left anterior cerebral artery: No abnormality noted. No occlusion or significant stenosis. No aneurysm. Left middle cerebral artery: No abnormality noted. No occlusion or significant stenosis. No aneurysm. Left posterior cerebral artery: No abnormality noted. No occlusion or significant stenosis. No aneurysm. Left intracranial internal carotid artery: Diffuse mild calcified plaque. No significant stenosis. No dissection or occlusion. Left intracranial vertebral artery: No abnormality noted. No significant stenosis. No dissection or occlusion. Basilar artery: No abnormality noted. No occlusion or significant stenosis. No aneurysm. Other vasculature: Normal appearance of the ophthalmic arteries. No vascular malformation. NECK: Right common carotid artery: No abnormality noted. No significant stenosis. No dissection or occlusion. Right extracranial internal carotid artery: Minimal mixed plaque at the bulb. No significant stenosis. No dissection or occlusion. Right external carotid artery: No abnormality noted. No occlusion. Right extracranial vertebral artery: No abnormality noted. No significant stenosis. No dissection or occlusion. Left common carotid artery: No abnormality noted. No significant stenosis. No dissection or occlusion. Left extracranial internal carotid artery: Minimal mixed plaque at the bulb. No significant stenosis. No dissection or occlusion. Left external carotid artery: No abnormality noted. No occlusion. Left extracranial vertebral artery: No abnormality noted. No significant stenosis. No dissection or occlusion. Lung apices: No significant abnormality noted. HEAD and NECK: Bones/joints: No significant abnormality. Soft tissues: No abnormality noted. CAROTID STENOSIS REFERENCE USING NASCET CRITERIA: % ICA stenosis = (1 - narrowest ICA diameter/diameter of distal cervical ICA) x 100. Mild - <50% stenosis. Moderate - 50-69% stenosis. Severe - 70-94% stenosis. Near occlusion - 95-99% stenosis. Occluded - 100% stenosis. IMPRESSION: No significant angiographic abnormality in the head or neck. ACT 112: Negative or not required by law. Electronically signed by Amara Newton 05-27-2024 3:03 PM Neck CTA 05/27/24 13:10 EXAM: CT Angiography Head and Neck With Intravenous Contrast INDICATION: Double vision for 2 days. TECHNIQUE: [place]/head and neck CT angiography protocol performed with intravenous contrast. Sagittal and coronal reformatted images were created and reviewed. This CT exam was performed using one or more of the following dose reduction techniques: automated exposure control, adjustment of the mA and/or kV according to patient size, and/or use of iterative reconstruction technique. MIP reconstructed images were created and reviewed. CONTRAST: 119ml of Optiray 320 was administered intravenously. COMPARISON: None. FINDINGS: HEAD: Right anterior cerebral artery: No abnormality noted. No occlusion or significant stenosis. Anterior communicating artery is present. No aneurysm. Right middle cerebral artery: No abnormality noted. No occlusion or significant stenosis. No aneurysm. Right posterior cerebral artery: No abnormality noted. No occlusion or significant stenosis. No aneurysm. Right intracranial internal carotid artery: Diffuse mild calcified plaque. No significant stenosis. No dissection or occlusion. Right intracranial vertebral artery: No abnormality noted. No significant stenosis. No dissection or occlusion. Left anterior cerebral artery: No abnormality noted. No occlusion or significant stenosis. No aneurysm. Left middle cerebral artery: No abnormality noted. No occlusion or significant stenosis. No aneurysm. Left posterior cerebral artery: No abnormality noted. No occlusion or significant stenosis. No aneurysm. Left intracranial internal carotid artery: Diffuse mild calcified plaque. No significant stenosis. No dissection or occlusion. Left intracranial vertebral artery: No abnormality noted. No significant stenosis. No dissection or occlusion. Basilar artery: No abnormality noted. No occlusion or significant stenosis. No aneurysm. Other vasculature: Normal appearance of the ophthalmic arteries. No vascular malformation. NECK: Right common carotid artery: No abnormality noted. No significant stenosis. No dissection or occlusion. Right extracranial internal carotid artery: Minimal mixed plaque at the bulb. No significant stenosis. No dissection or occlusion. Right external carotid artery: No abnormality noted. No occlusion. Right extracranial vertebral artery: No abnormality noted. No significant stenosis. No dissection or occlusion. Left common carotid artery: No abnormality noted. No significant stenosis. No dissection or occlusion. Left extracranial internal carotid artery: Minimal mixed plaque at the bulb. No significant stenosis. No dissection or occlusion. Left external carotid artery: No abnormality noted. No occlusion. Left extracranial vertebral artery: No abnormality noted. No significant stenosis. No dissection or occlusion. Lung apices: No significant abnormality noted. HEAD and NECK: Bones/joints: No significant abnormality. Soft tissues: No abnormality noted. CAROTID STENOSIS REFERENCE USING NASCET CRITERIA: % ICA stenosis = (1 - narrowest ICA diameter/diameter of distal cervical ICA) x 100. Mild - <50% stenosis. Moderate - 50-69% stenosis. Severe - 70-94% stenosis. Near occlusion - 95-99% stenosis. Occluded - 100% stenosis. IMPRESSION: No significant angiographic abnormality in the head or neck. ACT 112: Negative or not required by law. Electronically signed by Amara Newton 05-27-2024 3:03 PM Brain MRI 05/27/24 15:54 EXAM: MR brain wo/w con CLINICAL HISTORY: Left lateral diplopia? CVA TECHNIQUE: MRI of the brain was performed with and without intravenous contrast administration 10.5 ml Gadavist. Sequences obtained include pre-contrast and post-contrast T1-weighted, T2-weighted, FLAIR (Fluid-Attenuated Inversion Recovery), DWI (Diffusion-Weighted Imaging), and ADC (Apparent Diffusion Coefficient) sequences. COMPARISON: CT on the same day 14:49:00 GEODESIST. FINDINGS: Brain Parenchyma: No evidence of acute infarction or hemorrhage. Boyd-white matter differentiation is preserved. OBX.5.1OBX.5.1.1Bilateral frontoparietal tiny foci of abnormal high T2 /OBX.5.1.1OBX.5.1.2 FLAIR signal. likely old lacunar infarcts. /OBX.5.1.2/OBX.5.1 Post-Contrast Findings: No abnormal enhancement of the brain parenchyma or meninges. Ventricles and Sulci: Ventricular system is within normal limits without evidence of hydrocephalus. Sulci and cisternal spaces are age-appropriate. Brainstem and Cerebellum: Normal appearance of the brainstem and cerebellum without focal lesions or abnormal enhancement. Vessels: Intracranial vessels appear normal without evidence of vascular malformations or aneurysms. Orbits : Mild distension of both optic sheaths by a thin rim of fluid. Skull and Calvarium: No evidence of skull vault lesions or abnormal marrow signal within the calvarium. Partial empty sella. Fluid in bilateral mastoid air cells, slightly more on the left side representing features of bilateral mastoiditis. IMPRESSION: 1. No evidence of acute intracranial pathology or abnormal contrast enhancement. 2. Partial empty sella with mild distension of both optic sheaths by a thin rim of fluid. possibly an element of idiopathic intracranial hypertension. correlate clinically. seen by MRI. 3. 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 seen by MRI. 4. bilateral mastoiditis Electronically signed by Hernando Sidhu 05-27-2024 8:18 PM Pending Results Patient Have Any Pending Studies at Discharge: No Discharge Instructions Given to Patient (Per Discharging Provider) Mr. Lofton, You were admitted to the hospital due to diplopia (double vision). Luckily, your stroke workup was negative, meaning there was NO stroke identified. Imaging did show mastoiditis on MRI; while you do not display the typical signs or symptoms, the oncologist recommended you receive treatment for mastoiditis. Your prescriptions have been sent to the [facility] pharmacy on [address]. Upon discharge from the hospital: * Take prednisone (oral steroid) as directed: Take 50 mg (5 pills) x 1 day, then 40 mg (4 pills) x 2 days, then 30 mg (3 pills) x 2 days, then 20 mg (2 pills) x 2 days, then 10 mg (1 pill) x 2 days. * Take Augmentin (oral antibiotic) twice daily x 8 more days. This is to complete treatment for mastoiditis. * Hold taking your PreserVision until seen by an eye doctor in follow-up. * Do not drive until cleared to do so by an eye doctor. * You can continue wearing the eye patch while awake for symptom improvement. * Follow-up with your eye doctor closely after discharge. * Follow-up with neurology routinely outpatient. * Follow-up with Dr. Izaguirre from oncology routinely outpatient. * Follow-up with your PCP in 1-2 weeks. Please return to the hospital if you experience any of the following: Trouble with vision/speech/walking, weakness in arms/face/legs, extreme drowsiness/confusion, chest pain, shortness of breath, passing out, or any other symptoms concerning for you. It was a pleasure taking care of you while you were in the hospital! Supervising Physician Co-Signing Physician Notes Attending Attestation and Discharge Note: Chart reviewed in detail, care plan d/w HANNAH Tony. I agree w/ the miller components of her discharge documentation. 83yo male with follicular lymphoma on chemotherapy for such - managed by Dr Izaguirre at [facility] [address] - presented with diplopia. MRI brain with the following - "Partial empty sella with mild distension of both optic sheaths by a thin rim of fluid. possibly an element of idiopathic intracranial hypertension. correlate clinically." No acute CVA seen on MRI brain, however. There was also fluid within both mastoids but patient never had mastoid pain/tenderness nor any outward signs of mastoiditis clinically on exam. [place] [facility] [place] outpatient f/u recommended with ophthalmology. DAPT was not recommended (isolated CN 6 stroke is possible but felt unlikely). Will arrange f/u with neuro-ophthalmology at [place] or [facility] given the MRI findings - terrell. He can continue to patch 1 eye to extinguish the diplopia. Although no clinical evidence of acute mastoiditis on exam he will d/c home on abx/steroids given his immunocompromised state. Taras Morales MD Total Time Total Time Spent Total Time Spent (In Minutes): Greater than 30 minutes spent completing this discharge process including direct patient care, medication reconciliation, documentation, review of labs and images, and coordination of care. Coding Level of Care Code 30628 INP/OBS DISCH >30 MIN Diagnoses Diplopia H53.2 Mastoiditis H70.90 Controlled type 2 diabetes mellitus without complication, without long-term current use of insulin E11.9 Diabetes mellitus complication status: without complication Diabetes mellitus half-way insulin use: without dedicated intermodal truck driver use
--- NOTE | 2024-05-29 21:26 | Electrocardiogram Report ---
Test Reason : Blood Pressure : */* mmHG Vent. Rate : 50 BPM Atrial Rate : 50 BPM P-R Int : 170 ms QRS Dur : 104 ms QT Int : 402 ms P-R-T Axes : 54 -60 34 degrees QTcB Int : 366 ms Sinus bradycardia Left axis deviation Septal infarct , age undetermined Abnormal ECG When compared with ECG of 26-Dec-2023 11:05, Vent. rate has decreased by 24 bpm Septal infarct is now Present QT has shortened Confirmed by Oli Alva ([id number]) on 05/29/2024 9:26:26 PM Referred By: REFERRED SELF Confirmed By: Oli Alva
== END 2024-05-29 12:47 | disposition home or self-care (01) ==
LOC: EDINP 12:21 → ED 12:21 → SUATTDRO 16:24 → 2N 05-28 02:06